=== PATIENT | female | born 1955 | race Two or more races ===

== ENCOUNTER 2016-11-28 14:11 | Emergency (ER) | payer OTHER ==
[2016-11-28 14:16] VITALS: BP 114/68; PULSE 97; TEMP 98; BMI 30.3
--- NOTE | 2016-11-28 14:18 | PDOC ---
Rapid Medical Evaluation Time Seen by Provider: 11/28/16 14:14 Medical Evaluation: Allergies Allergy/AdvReac Type Severity Reaction Status Date / Time No Known Allergies Allergy Verified 07/31/16 17:58 11/28/16 14:15 Pt comes with right heel pain ongoing for the past 2 weeks. She takes tramadol for the pain. Pain is worse with walking. She will be sent for xray.
--- NOTE | 2016-11-28 15:15 | PDOC ---
History of Present Illness - General Chief Complaint: Pain Stated Complaint: RIGHT FOOT PAIN FOR TWO WEEKS Time Seen by Provider: 11/28/16 14:14 History Source: Patient Exam Limitations: No Limitations - History of Present Illness Initial Comments: 11/28/16 15:10 cc PAIN TO FOOT X 10 DAYS; NO TRAUMA Occurred: reports: last week Severity: reports: mild Pain Location: reports: lower extremity (FOOT) Past History - Past Medical History Allergies/Adverse Reactions: Allergies Allergy/AdvReac Type Severity Reaction Status Date / Time No Known Allergies Allergy Verified 11/28/16 14:16 Home Medications: Ambulatory Orders Lisinopril/Hydrochlorothiazide [Lisinopril-Hctz 20-25 mg Tab] 1 each PO HS 05/22 Zolpidem Tartrate 10 mg PO HS 05/22/14 Aspirin Coated [Ecotrin -] 81 mg PO DAILY #0 11/25/14 Famotidine [Pepcid] 40 mg PO DAILY 11/25/14 Fluticasone Propionate [Flovent Diskus] 50 mcg IH ASDIR 11/25/14 Cane 1 each MC DAILY #1 each 04/04/16 Tramadol HCl [Ultram] 50 mg PO Q6H PRN #12 tablet MDD 4 04/04/16 Ibuprofen [Motrin -] 400 mg PO TID #30 tablet 11/28/16 Anemia: No Asthma: Yes Cancer: No Cardiac Disorders: No CVA: No COPD: No CHF: No Dementia: No Diabetes: No GI Disorders: Yes (GERD;GASTRITIS;TICS) Disorders: No HTN: Yes Hypercholesterolemia: No Liver Disease: Yes (NON-ALCOHOLIC) Seizures: No Thyroid Disease: No - Surgical History Abdominal Surgery: Yes (TUMMY TUCK) Appendectomy: Yes Cardiac Surgery: No Cholecystectomy: No Lung Surgery: No Neurologic Surgery: No Orthopedic Surgery: No - Psycho/Social/Smoking Cessation Hx Anxiety: No Suicidal Ideation: No Smoking Status: No Smoking History: Never smoked Have you smoked in the past 12 months: No Number of Cigarettes Smoked Daily: 0 Information on smoking cessation initiated: No Hx Alcohol Use: No Drug/Substance Use Hx: No Substance Use Type: None Hx Substance Use Treatment: No Review of Systems - Review of Systems Constitutional: No: Chills, Fever, Malaise HEENTM: No: Symptoms Reported Respiratory: No: Symptoms reported, Cough Cardiac (ROS): No: Symptoms Reported ABD/GI: No: Symptoms Reported Integumentary: No: Symptoms Reported, Lumps Neurological: No: Symptoms reported, Numbness, Paresthesia, Tingling *Physical Exam - Vital Signs Last Vital Signs Temp Pulse Resp BP Pulse Ox 98 F 97 H 18 114/68 97 11/28/16 14:13 11/28/16 14:13 11/28/16 14:13 11/28/16 14:13 11/28/16 14:13 - Physical Exam General Appearance: Yes: Appropriately Dressed. No: Apparent Distress Neck: positive: Supple. negative: Tender, Rigid Respiratory/Chest: positive: Lungs Clear, Normal Breath Sounds Musculoskeletal: positive: Other (TENDER TO AREA ON PLANTAR SURAFCE, ANTERIOR FOREFOOT) Integumentary: positive: Normal Color, Dry, Warm, Other (NO SKIN BREAKS). negative: Erythema, Rash, Swelling, Ecchymosis, Bruising Neurologic: positive: Fully Oriented, Alert, Motor Strength 5/5. negative: Sensory Deficit Medical Decision Making - Medical Decision Making 11/28/16 15:14 MILD PLANTAR FASCIITIS NOW; WILL REFER TO PODIATRY POST 10 DAYS OF nSAIDS *DC/Admit/Observation/Transfer Diagnosis at time of Disposition: Plantar fasciitis - Discharge Dispostion Disposition: HOME Condition at time of disposition: Stable Admit: No - Referrals Referrals: Yolanda Willard NP [Primary Care Provider] - Tejal Berry MD [Staff Physician] - - Patient Instructions Additional Instructions: PLEASE CALL AND SEE FOOT MD IN 10 DAYS, IF NOT BETTER; WEAR CUSHION IN SHOE; ICE AREA - Post Discharge Activity Work/School Note: Back to Work
== END 2016-11-28 15:28 | disposition home or self-care (01) ==
LOC: JERFT 14:11
DX: M72.2 Plantar fascial fibromatosis (principal); J45.909 Unspecified asthma, uncomplicated; K21.9 Gastro-esophageal reflux disease without esophagitis; I10 Essential (primary) hypertension; K76.0 Fatty (change of) liver, not elsewhere classified
CPT/HCPCS: 73630-TC-RT; 99281-25

== ENCOUNTER 2017-01-21 19:41 | Emergency (ER) | payer OTHER ==
[2017-01-21 19:48] VITALS: BMI 30.7
[2017-01-21] MEDS ORDERED: morphine CARPU-JECT 2 MG/1 ML DISP.SYRIN IVPUSH ONE (20:20)
[2017-01-21] MEDS ORDERED: ONDANSETRON 4 MG/2 ML VIAL IVPB ONE (20:20)
[2017-01-21] MEDS ORDERED: morphine CARPU-JECT 2 MG/1 ML DISP.SYRIN ONE (20:27)
[2017-01-21] MEDS ORDERED: ONDANSETRON 4 MG/2 ML VIAL ONE (20:27)
--- NOTE | 2017-01-21 20:34 | PDOC ---
History of Present Illness <Tory Cortes - Last Filed: 01/21/17 23:37> - General History Source: Patient Exam Limitations: No Limitations - History of Present Illness Initial Comments: 01/21/17 20:25 Patient is a 61-year-old female with history of diverticulosis, hypertension, GERD, insomnia, abdominoplasty complaining of left sided abdominal pain 3 days. Patient states gradual onset of pain progressively worsen now 9/10, associated with generalized fatigue, and urinary frequency. She has had similar pains in the past and was diagnosed with diverticulitis. She has no aggravating or alleviating factors, however has not taken any pain meds today. She denies nausea, vomiting, fever, chills, diarrhea, constipation, dysuria. PMD: Dr. Wade PMHx: As above PSocHx: neg cig, drug, etoh PFamHx: Noncontributory ALL: NKDDA GENERAL/CONSTITUTIONAL: [No fever or chills. No weakness. No weight change.] HEAD, EYES, EARS, NOSE AND THROAT: [No change in vision. No ear pain or discharge. No sore throat.] CARDIOVASCULAR: [No chest pain or shortness of breath.] RESPIRATORY: [No cough, wheezing, or hemoptysis.] GASTROINTESTINAL: [No nausea, vomiting, diarrhea or constipation. No rectal bleeding. (+) abd pain ] GENITOURINARY: [No dysuria, increased in urination (+) frequency, or change in urination.] MUSCULOSKELETAL: [No joint or muscle swelling or pain. No neck or back pain.] SKIN AND BREASTS: [No rash or easy bruising.] NEUROLOGIC: [No headache, vertigo, loss of consciousness, or loss of sensation.] PSYCHIATRIC: [No depression or anxiety.] ENDOCRINE: [No increased thirst. No abnormal weight change.] HEMATOLOGIC/LYMPHATIC: [No anemia, easy bleeding, or history of blood clots.] ALLERGIC/IMMUNOLOGIC: [No hives or skin allergy. No latex allergy.] GENERAL: [The patient is awake, alert, and fully oriented, in moderate painful distress.] HEAD: [Normal with no signs of trauma.] EYES: [Pupils equal, round and reactive to light, extraocular movements intact, sclera anicteric, conjunctiva clear.] ENT: [Ears normal, nares patent, oropharynx clear without exudates. Moist mucous membranes.] NECK: [Normal range of motion, supple without lymphadenopathy, JVD, or masses.] LUNGS: [Breath sounds equal, clear to auscultation bilaterally. No wheezes, and no crackles.] HEART: [Regular rate and rhythm, normal S1 and S2 without murmur, rub.] ABDOMEN: [Soft, (+) tenderness LLQ, normoactive bowel sounds. No guarding, no rebound. No masses.] EXTREMITIES: [Normal range of motion, no edema. No clubbing or cyanosis. No cords, erythema, or tenderness.] NEUROLOGICAL: [Cranial nerves II through XII grossly intact. Normal speech, normal gait.] PSYCH: [Normal mood, normal affect.] SKIN: [Warm, Dry, normal turgor, no rashes or lesions noted.] <Chantal Gregory - Last Filed: 01/22/17 05:09> - General Chief Complaint: Pain Stated Complaint: PAIN, ACUTE Time Seen by Provider: 01/21/17 20:07 Past History <Tory Cortes - Last Filed: 01/21/17 23:37> - Past Medical History Anemia: No Asthma: Yes Cancer: No Cardiac Disorders: No CVA: No COPD: No CHF: No Dementia: No Diabetes: No GI Disorders: Yes (GERD;GASTRITIS;TICS) Disorders: No HTN: Yes Hypercholesterolemia: No Liver Disease: Yes (NON-ALCOHOLIC) Seizures: No Thyroid Disease: No - Surgical History Abdominal Surgery: Yes (TUMMY TUCK) Appendectomy: Yes Cardiac Surgery: No Cholecystectomy: No Lung Surgery: No Neurologic Surgery: No Orthopedic Surgery: No - Psycho/Social/Smoking Cessation Hx Anxiety: No Suicidal Ideation: No Smoking Status: No Smoking History: Never smoked Have you smoked in the past 12 months: No Number of Cigarettes Smoked Daily: 0 Hx Alcohol Use: No Drug/Substance Use Hx: No Substance Use Type: None Hx Substance Use Treatment: No <Chantal Gregory - Last Filed: 01/22/17 05:09> - Past Medical History Allergies/Adverse Reactions: Allergies Allergy/AdvReac Type Severity Reaction Status Date / Time No Known Allergies Allergy Verified 01/21/17 19:46 Home Medications: Ambulatory Orders Lisinopril/Hydrochlorothiazide [Lisinopril-Hctz 20-25 mg Tab] 1 each PO HS 05/22 Zolpidem Tartrate 10 mg PO HS 05/22/14 Aspirin Coated [Ecotrin -] 81 mg PO DAILY #0 11/25/14 Famotidine [Pepcid] 40 mg PO DAILY 11/25/14 Fluticasone Propionate [Flovent Diskus] 50 mcg IH ASDIR 11/25/14 Cane 1 each MC DAILY #1 each 04/04/16 Tramadol HCl [Ultram] 50 mg PO Q6H PRN #12 tablet MDD 4 04/04/16 Ibuprofen [Motrin -] 400 mg PO TID #30 tablet 11/28/16 Levofloxacin [Levaquin -] 500 mg PO DAILY #10 tablet 01/22/17 Metronidazole [Flagyl -] 500 mg PO DAILY #30 tablet 01/22/17 *Physical Exam - Vital Signs Last Vital Signs Temp Pulse Resp BP Pulse Ox 99 F 105 H 18 139/53 98 01/21/17 19:46 01/21/17 19:46 01/21/17 19:46 01/21/17 19:46 01/21/17 19:46 <Tory Cortes - Last Filed: 01/21/17 23:37> - Vital Signs Last Vital Signs Temp Pulse Resp BP Pulse Ox 99 F 105 H 18 139/53 98 01/21/17 19:46 01/21/17 19:46 01/21/17 19:46 01/21/17 19:46 01/21/17 19:46 <Chantal Gregory - Last Filed: 01/22/17 05:09> Heart Score/ECG Review #1 01/21/17 23:38 Universal Grinder Set Up Operator: ([email or web address]) Report Date: 01/21/2017 22:16:00 Report Status: Preliminary Begin of Report Content Referring Physician: Patient Name: Lyric Davison THIS IS A PRELIMINARY REPORT FROM IMAGING DRAMA DIRECTOR IMAGES: 499 EXAM DATE AND TIME: 2017-01-21 22:16:17.0 EXAM: CT ABDOMEN AND PELVIS WITH CONTRAST 1.3 cm hypodensity pancreatic body, 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 Advise follow-up. Acute diverticulitis descending colon. Given that colon wall thickening involves a segment less than 10 cm long, advise follow-up colonoscopy after treatment to exclude remote alternative possibility of mass. Possible additional inflamed diverticulum proximal sigmoid colon. No abscess, bowel obstruction, or free air. Appendix not seen. Trace ascites. Unremarkable gallbladder. Tiny cortical hypodensity left kidney. THIS DOCUMENT HAS BEEN ELECTRONICALLY SIGNED Matilde Sharp M.D. 01/21/2017 23:18 YUSEF Walker Please call Imaging End Finder Twisting Department [phone] ([phone]) with questions. End of Report Content <Tory Cortes - Last Filed: 01/21/17 23:37> ED Treatment Course - LABORATORY CBC & Chemistry Diagram: 01/21/17 20:40 01/21/17 20:40 - ADDITIONAL ORDERS Additional order review: Laboratory Results 01/21/17 01/21/17 20:40 20:40 Sodium 138 Potassium 4.2 Chloride 100 Carbon Dioxide 31 Anion Gap 7 L BUN 8 D Creatinine 0.8 D Creat Clearance w eGFR > 60 Random Glucose 138 H D Calcium 9.1 Total Bilirubin 0.7 D AST 63 H D ALT 101 H D Alkaline Phosphatase 122 H D Total Protein 7.4 Albumin 3.7 Lipase 64 L Urine Color Straw Urine Appearance Clear Urine pH 9.0 H D Ur Specific [place] 1.008 Urine Protein Negative Urine Glucose (UA) Negative Urine Ketones Negative Urine Blood Negative Urine Nitrite Negative Urine Bilirubin Negative Urine Urobilinogen Negative Ur Leukocyte Esterase Negative 01/21/17 20:40 RBC 4.05 MCV 92.8 MCHC 33.6 RDW 13.2 MPV 7.6 Neutrophils % 77.8 D Lymphocytes % 16.6 D Monocytes % 5.1 Eosinophils % 0.3 D Basophils % 0.2 - Medications Given in the ED: ED Medications Discontinued Medications Generic Name Dose Route Start Last Admin Trade Name Freq PRN Reason Stop Dose Admin Morphine Sulfate 2 mg 01/21/17 20:20 01/21/17 20:28 Morphine Injection - IVPUSH 04/30/17 20:21 2 mg ONCE ONE Administration Ondansetron HCl 4 mg 01/21/17 20:20 01/21/17 20:28 Zofran Injection IVPB 01/21/17 20:21 4 mg ONCE ONE Administration Sodium Chloride 1,000 ml 01/21/17 20:36 01/21/17 20:51 Normal Saline - IV 01/21/17 20:37 1,000 ml ONCE ONE Administration <Tory Cortes - Last Filed: 01/21/17 23:37> - LABORATORY CBC & Chemistry Diagram: 01/21/17 20:40 01/21/17 20:40 - RADIOLOGY Radiology Studies Ordered: Category Date Time Status ABDOMEN & PELVIS CT WITH CONTR [CT] Stat CT Scan 01/21/17 20:18 Ordered <Chantal Gregory - Last Filed: 01/22/17 05:09> Medical Decision Making - Medical Decision Making 01/21/17 20:34 Patient is a 61-year-old female with history of diverticulosis, hypertension, GERD, insomnia, abdominoplasty complaining of left sided abdominal pain 3 days. Paitent with h/o diverticulitis suspect diverticultis. will get ct abd/pelvis, labs morpohine, zofran, IVF reassess 01/21/17 21:25 Patient noted to have elevated liver enzymes which is baseline. CT scan shows diverticulitis will give Levaquin 500 mg by mouth and Flagyl 500 mg by mouth in the emergency room Patient is feeling better and wants to go home, ct results and labs discussed Selected Entries 01/22/17 00:20 Temperature 98.6 F Pulse Rate [ 98 H Left] Respiratory 15 Rate Blood Pressure 133/83 [Right] O2 Sat by Pulse 98 Oximetry (%) 01/22/17 00:05 I discussed the physical exam findings, ancillary test results and final diagnoses with the patient. I answered all of the patient's questions. The patient was satisfied with the care received and felt comfortable with the discharge plan and treatment plan. The Patient agrees to follow up with the primary care physician within 24-72 hours. <Chantal Gregory - Last Filed: 01/22/17 05:09> *DC/Admit/Observation/Transfer <Tory Cortes - Last Filed: 01/21/17 23:37> <Chantal Gregory - Last Filed: 01/22/17 05:09> Diagnosis at time of Disposition: Diverticulitis Qualifiers: Diverticulitis site: small intestine Diverticulitis bleeding: without bleeding Diverticulitis complication: without perforation or abscess Qualified Code(s): K57.12 - Diverticulitis of small intestine without perforation or abscess without bleeding - Discharge Dispostion Disposition: HOME Condition at time of disposition: Stable - Prescriptions Prescriptions: Metronidazole [Flagyl -] 500 mg PO DAILY #30 tablet Levofloxacin [Levaquin -] 500 mg PO DAILY #10 tablet - Referrals Referrals: Yolanda Willard NP [Primary Care Provider] - - Patient Instructions Printed Discharge Instructions: DI for Diverticulitis Additional Instructions: Your Discharge Instructions: You must call primary care physician within 24 hours to arrange follow-up. Return to the Emergency Department with any new, persistent or worsening symptoms, for fever, chills, SOB, dizziness, nausea, vomiting or any other concerning changes that may occur. You must see your gastroenterologists in 24- 48 hours. Print Language: ICELANDIC - Post Discharge Activity Work/School Note: Back to Work
[2017-01-21] MEDS ORDERED: SODIUM CHLORIDE 0.9% 1000 ML INFUS.BAG IV ONE (20:36)
[2017-01-21 20:47] LABS: BASOPHIL 0.2 % (0-2.0); EOSINOPHIL 0.3 % (0-4.5); MCH 31.2 pg (25.7-33.7); MCHC 33.6 g/dl (32.0-36.0); MEAN CELL VOLUME 92.8 fl (80-96); MEAN PLT VOLUME 7.6 fl (7.5-11.1); NEUTROPHILS 77.8 % (42.8-82.8); PLATELET COUNT 209 K/MM3 (134-434); RDW 13.2 % (11.6-15.6)
[2017-01-21 20:48] LABS: URINE APPEARANCE CLEAR; URINE BILIRUBIN NEGATIVE (NEGATIVE); URINE BLOOD NEGATIVE (NEGATIVE); URINE COLOR STRAW; URINE GLUCOSE (UA) NEGATIVE (NEGATIVE); URINE KETONE NEGATIVE (NEGATIVE); URINE LEUK ESTERASE NEGATIVE (NEGATIVE); URINE NITRITE NEGATIVE (NEGATIVE); URINE PROTEIN NEGATIVE (NEGATIVE); URINE UROBILINOGEN NEGATIVE E.U./dl (0.2-1.0)
[2017-01-21 21:13] LABS: ALBUMIN 3.7 g/dl (3.4-5.0); ALK PHOS 122 U/L (45-117); ANION GAP 7 (8-16); BILIRUBIN,TOTAL 0.7 mg/dL (0.2-1.0); CALCIUM 9.1 mg/dL (8.5-10.1); CO2 31 mmol/L (21-32); CREATININE 0.8 mg/dL (0.55-1.02); GLUCOSE,RANDOM 138 mg/dL (74-106); SGOT/AST 63 U/L (15-37); SGPT/ALT 101 U/L (12-78); TOT PROT 7.4 g/dl (6.4-8.2)
[2017-01-21] MEDS ORDERED: metroNIDAZOLE 250 MG TABLET PO ONE (23:28)
[2017-01-21] MEDS ORDERED: LEVOFLOXACIN 500 MG TABLET (FP) PO ONE (23:30)
[2017-01-22] MEDS ORDERED: LEVOFLOXACIN 500 MG TABLET (FP) ONE (00:06)
[2017-01-22] MEDS ORDERED: metroNIDAZOLE 250 MG TABLET ONE (00:06)
[2017-01-22 00:22] VITALS: BP 133/83; PULSE 98; TEMP 98.6
== END 2017-01-22 00:38 | disposition home or self-care (01) ==
LOC: JER 19:41
PROC: 3E033NZ Introduction of Analgesics, Hypnotics, Sedatives into Peripheral Vein, Percutaneous Approach (ICD-10-PCS; principal; 2017-01-21)
PROC: 3E033GC Introduction of Other Therapeutic Substance into Peripheral Vein, Percutaneous Approach (ICD-10-PCS; 2017-01-21)
DX: K57.12 Diverticulitis of small intestine without perforation or abscess without bleeding (principal); I10 Essential (primary) hypertension; K21.9 Gastro-esophageal reflux disease without esophagitis; G47.00 Insomnia, unspecified
CPT/HCPCS: 36415; 74177-TC; 80053; 81003; 83690; 85025; 96374; 96375; 99283-25

== ENCOUNTER 2017-01-26 10:13 | Inpatient (IN) | payer OTHER ==
--- NOTE | 2017-01-26 10:36 | PDOC ---
History of Present Illness - General Chief Complaint: Pain Stated Complaint: REVISIT/ RT SIDE PAIN Time Seen by Provider: 01/26/17 10:27 History Source: Patient, Old Records Exam Limitations: No Limitations - History of Present Illness Initial Comments: 01/26/17 10:36 CHIEF COMPLAINT: Abdominal pain HISTORY OF PRESENT ILLNESS: This is a 61 year old female with a history of diverticulitis, HTN, GERD, and abdominoplasty who presents to the ED complaining of 8 days of abdominal pain. She was seen here on 01/21 and diagnosed with diverticulitis by CT scan. She was placed on oral Levaquin and Flagyl as an outpatient. She reports no improvement in pain. She complains of nausea. She denies fevers/chills. She has not had constipation, diarrhea, or rectal bleeding. V/s on arrival are notable for pulse of 93. PCP: Jovita Ha GI: Dr. Israel REVIEW OF SYSTEMS: GENERAL/CONSTITUTIONAL: No fever or chills. No weakness. No weight change. HEAD, EYES, EARS, NOSE AND THROAT: No change in vision. No ear pain or discharge. No sore throat. CARDIOVASCULAR: No chest pain or palpitations. RESPIRATORY: No cough, wheezing, or shortness of breath. GASTROINTESTINAL: See HPI. GENITOURINARY: No dysuria, frequency, or change in urination. MUSCULOSKELETAL: No joint or muscle swelling or pain. No neck or back pain. SKIN: No rash or easy bruising. NEUROLOGIC: No headache, vertigo, loss of consciousness, or loss of sensation. PSYCHIATRIC: No depression or anxiety. ENDOCRINE: No increased thirst. No abnormal weight change. HEMATOLOGIC/LYMPHATIC: No anemia, easy bleeding, or history of blood clots. ALLERGIC/IMMUNOLOGIC: No hives or skin allergy. No latex allergy. PHYSICAL EXAM: GENERAL: The patient is awake, alert, and fully oriented, in no acute distress. HEAD: Normal with no signs of trauma. ENT: Pupils equal, round and reactive to light, extraocular movements intact, sclera anicteric, conjunctiva clear. Neck supple. LUNGS: Clear to auscultation bilaterally. Normal excursion. No respiratory distress or use of accessory muscles. CV: RRR, S1/S2, no MRG. Cap refill < 2 sec. ABDOMEN: Soft, non-distended, exquisitely tender in LLQ. EXTREMITIES: Normal range of motion, no edema. NEUROLOGICAL: Normal speech, normal gait. CN II-XII grossly intact. PSYCH: Normal mood, normal affect. SKIN: Warm, dry, normal turgor, no rashes or lesions noted. Past History - Past Medical History Allergies/Adverse Reactions: Allergies Allergy/AdvReac Type Severity Reaction Status Date / Time No Known Allergies Allergy Verified 01/26/17 10:15 Home Medications: Ambulatory Orders Lisinopril/Hydrochlorothiazide [Lisinopril-Hctz 20-25 mg Tab] 1 each PO HS 05/22 Zolpidem Tartrate 10 mg PO HS 05/22/14 Aspirin Coated [Ecotrin -] 81 mg PO DAILY #0 11/25/14 Famotidine [Pepcid] 40 mg PO DAILY 11/25/14 Fluticasone Propionate [Flovent Diskus] 50 mcg IH ASDIR 11/25/14 Cane 1 each MC DAILY #1 each 04/04/16 Tramadol HCl [Ultram] 50 mg PO Q6H PRN #12 tablet MDD 4 04/04/16 Ibuprofen [Motrin -] 400 mg PO TID #30 tablet 11/28/16 Levofloxacin [Levaquin -] 500 mg PO DAILY #10 tablet 01/22/17 Metronidazole [Flagyl -] 500 mg PO DAILY #30 tablet 01/22/17 Anemia: No Asthma: Yes Cancer: No Cardiac Disorders: No CVA: No COPD: No CHF: No Dementia: No Diabetes: No GI Disorders: Yes (GERD;GASTRITIS;TICS) Disorders: No HTN: Yes Hypercholesterolemia: No Liver Disease: Yes (NON-ALCOHOLIC) Seizures: No Thyroid Disease: No - Surgical History Abdominal Surgery: Yes (TUMMY TUCK) Appendectomy: Yes Cardiac Surgery: No Cholecystectomy: No Lung Surgery: No Neurologic Surgery: No Orthopedic Surgery: No - Psycho/Social/Smoking Cessation Hx Anxiety: No Suicidal Ideation: No Smoking Status: No Smoking History: Never smoked Have you smoked in the past 12 months: No Number of Cigarettes Smoked Daily: 0 Information on smoking cessation initiated: No Hx Alcohol Use: No Drug/Substance Use Hx: No Substance Use Type: None Hx Substance Use Treatment: No *Physical Exam - Vital Signs Last Vital Signs Temp Pulse Resp BP Pulse Ox 98.5 F 93 H 18 120/47 98 01/26/17 10:15 01/26/17 10:15 01/26/17 10:15 01/26/17 10:15 01/26/17 10:15 ED Treatment Course - LABORATORY CBC & Chemistry Diagram: 01/26/17 10:24 01/26/17 10:24 Medical Decision Making - Medical Decision Making 01/26/17 11:24 A/P: 61 year old female with diverticulits, presenting with persistent pain 5 days after initiation of outpatient abx. Non-toxic appearing, but very tender on exam. 1. Repeat CTAP 2. Repeat CBC, comp, lipase. 3. Morphine 4mg IVP and Zofran 4mg IVP for symptomatic relief 4. Anticipate admission 01/26/17 12:31 WBC within normal limits at 4.2 01/26/17 14:44 CTAP reviewed: interval development of an area of diverticulitis in the more distal descending colon with no associated abscess Given failure of outpatient Levaquin/Flagyl, will treat with Zosyn and admit *DC/Admit/Observation/Transfer Diagnosis at time of Disposition: Diverticulitis Qualifiers: Diverticulitis site: large intestine Diverticulitis bleeding: without bleeding Diverticulitis complication: without perforation or abscess Qualified Code(s): K57.32 - Diverticulitis of large intestine without perforation or abscess without bleeding - Discharge Dispostion Condition at time of disposition: Guarded Admit: Yes
[2017-01-26] MEDS ORDERED: ONDANSETRON 4 MG/2 ML VIAL IVPUSH ONE (10:52)
[2017-01-26] MEDS ORDERED: morphine CARPU-JECT 4 MG/1 ML DISP.SYRIN IVPUSH ONE (10:52)
[2017-01-26] MEDS ORDERED: morphine CARPU-JECT 4 MG/1 ML DISP.SYRIN ONE (11:13)
[2017-01-26] MEDS ORDERED: ONDANSETRON 4 MG/2 ML VIAL ONE (11:13)
[2017-01-26 11:43] LABS: BASOPHIL 0.6 % (0-2.0); EOSINOPHIL 1.4 % (0-4.5); MCH 31.6 pg (25.7-33.7); MCHC 33.6 g/dl (32.0-36.0); MEAN CELL VOLUME 94.1 fl (80-96); MEAN PLT VOLUME 7.4 fl (7.5-11.1); NEUTROPHILS 58.8 % (42.8-82.8); PLATELET COUNT 266 K/MM3 (134-434); RDW 13.3 % (11.6-15.6); WHITE BLOOD COUNT 4.2 K/mm3 (4.0-10.0)
[2017-01-26 11:48] LABS: ALBUMIN 3.7 g/dl (3.4-5.0); ANION GAP 5 (8-16); BILIRUBIN,TOTAL 0.4 mg/dL (0.2-1.0); CALCIUM 9.4 mg/dL (8.5-10.1); CO2 33 mmol/L (21-32); CREATININE 0.9 mg/dL (0.55-1.02); GLUCOSE,RANDOM 85 mg/dL (74-106); SGOT/AST 25 U/L (15-37); SGPT/ALT 114 U/L (12-78); TOT PROT 7.5 g/dl (6.4-8.2)
[2017-01-26 11:53] LABS: ALK PHOS 183 U/L (45-117)
--- NOTE | 2017-01-26 11:58 | PDOC ---
*Physical Exam - Vital Signs Last Vital Signs Temp Pulse Resp BP Pulse Ox 98.5 F 93 H 18 120/47 98 01/26/17 10:15 01/26/17 10:15 01/26/17 10:15 01/26/17 10:15 01/26/17 10:15 ED Treatment Course - LABORATORY CBC & Chemistry Diagram: 01/27/17 06:00 01/27/17 06:00 - ADDITIONAL ORDERS Additional order review: Laboratory Results 01/26/17 01/26/17 10:24 10:24 Sodium 139 Potassium 4.0 Chloride 101 Carbon Dioxide 33 H Anion Gap 5 L BUN 10 D Creatinine 0.9 Creat Clearance w eGFR > 60 Random Glucose 85 D Calcium 9.4 Total Bilirubin 0.4 D AST 25 D ALT 114 H Alkaline Phosphatase 183 H D Total Protein 7.5 Albumin 3.7 Lipase 65 L 01/26/17 10:24 RBC 4.10 MCV 94.1 MCHC 33.6 RDW 13.3 MPV 7.4 L Neutrophils % 58.8 D Lymphocytes % 33.1 D Monocytes % 6.1 Eosinophils % 1.4 D Basophils % 0.6 - Medications Given in the ED: ED Medications Discontinued Medications Generic Name Dose Route Start Last Admin Trade Name Freq PRN Reason Stop Dose Admin Morphine Sulfate 4 mg 01/26/17 10:52 01/26/17 11:44 Morphine Injection - IVPUSH 01/26/17 10:53 Not Given ONCE ONE Ondansetron HCl 4 mg 01/26/17 10:52 01/26/17 11:34 Zofran Injection IVPUSH 01/26/17 10:53 4 mg ONCE ONE Administration Medical Decision Making - Medical Decision Making 01/26/17 11:58 Pt seen by the Advanced Practice Provider under my direct supervision Ancillary studies reviewed I agree with plan as outlined by the Advanced Practice Provider EULALIO Gutierres *DC/Admit/Observation/Transfer Diagnosis at time of Disposition: Diverticulitis
[2017-01-26] MEDS ORDERED: PIPERACILLIN/TAZOB 4.5 GM/100 ML PRE-DOCKED IVPB ONE ×2 (14:44→18:45)
[2017-01-26] MEDS ORDERED: morphine CARPU-JECT 4 MG/1 ML DISP.SYRIN IVPUSH PRN (15:32)
--- NOTE | 2017-01-26 16:29 | HP ---
CHIEF COMPLAINT: My fadi king PCP: Jovita Ha HISTORY OF PRESENT ILLNESS: 61 yo F with significant h/o diverticulitis, HTN, GERD presented to the ED with LLQ pain x 8 days. She was working when the pain first came on a week ago and it had gotten worse in terms of severity and frequency. She visited [facility] ED on Sunday and CT abd showed diverticulitis on the descending colon. She did feel better with pain medication but did not want to be admitted to the hospital. As a result, she was sent home on levaquin and flagyl. Today she came back due to the worsening pain despite the antibiotics. The pain is located in LLQ, non-radiating, constant, 8/10 at worst, no aggravating or alleviating factors. Her last colonoscopy was 2 years ago and it showed polyps and diverticulosis in descending and sigmoid colon. Patient denies fever, chills , chest pain, sob, urinary symptoms. ER course was notable for: (1) Tachycardia ( 94 beats/min) Recent Travel: Denies PAST MEDICAL HISTORY: As above PAST SURGICAL HISTORY: Tummy tuck and appendectomy Social History: Smoking: Denies Alcohol: Denies Drugs: Denies Family History: Non-contributory Allergies No Known Allergies Allergy (Verified 01/26/17 10:15) HOME MEDICATIONS: Home Medications Medication Instructions Recorded Lisinopril/Hydrochlorothiazide 1 each PO HS 05/22/14 [Lisinopril-Hctz 20-25 mg Tab] Zolpidem Tartrate 10 mg PO HS 05/22/14 Aspirin Coated [Ecotrin -] 81 mg PO DAILY #0 11/25/14 Famotidine [Pepcid] 40 mg PO DAILY 11/25/14 Fluticasone Propionate [Flovent 50 mcg IH ASDIR 11/25/14 Diskus] Cane 1 each MC DAILY #1 each 04/04/16 Tramadol HCl [Ultram] 50 mg PO Q6H PRN #12 tablet MDD 4 04/04/16 Ibuprofen [Motrin -] 400 mg PO TID #30 tablet 11/28/16 Levofloxacin [Levaquin -] 500 mg PO DAILY #10 tablet 01/22/17 Metronidazole [Flagyl -] 500 mg PO DAILY #30 tablet 01/22/17 REVIEW OF SYSTEMS CONSTITUTIONAL: loss of appetite Absent: fever, chills, diaphoresis, generalized weakness, malaise,, weight change HEENT: Absent: rhinorrhea, nasal congestion, throat pain, throat swelling, difficulty swallowing, mouth swelling, ear pain, eye pain, visual changes CARDIOVASCULAR: Absent: chest pain, syncope, palpitations, irregular heart rate, lightheadedness , peripheral edema RESPIRATORY: Absent: cough, shortness of breath, dyspnea with exertion, orthopnea, wheezing, stridor, hemoptysis GASTROINTESTINAL: abdominal pain Absent: abdominal distension, nausea, vomiting, diarrhea, constipation, melena , hematochezia GENITOURINARY: Absent: dysuria, frequency, urgency, hesitancy, hematuria, flank pain, genital pain MUSCULOSKELETAL: Muscle cramp Absent: myalgia, arthralgia, joint swelling, back pain, neck pain SKIN: Absent: rash, itching, pallor HEMATOLOGIC/IMMUNOLOGIC: Absent: easy bleeding, easy bruising, lymphadenopathy, frequent infections ENDOCRINE: Absent: unexplained weight gain, unexplained weight loss, heat intolerance, cold intolerance NEUROLOGIC: Absent: headache, focal weakness or paresthesias, dizziness, unsteady gait, seizure, mental status changes, bladder or bowel incontinence PSYCHIATRIC: Absent: anxiety, depression, suicidal or homicidal ideation, hallucinations. PHYSICAL EXAMINATION GENERAL: Awake, alert, and fully oriented, in no acute distress. HEAD: Normal with no signs of trauma. EYES: Pupils equal, round and reactive to light, extraocular movements intact, sclera anicteric, conjunctiva clear EARS, NOSE, THROAT: oropharynx clear without exudates. Moist mucous membranes. LUNGS: Breath sounds equal, clear to auscultation bilaterally. No wheezes, and no crackles. No accessory muscle use. HEART: Regular rate and rhythm, normal S1 and S2 without murmur, rub or gallop. ABDOMEN: Soft, lower quadrants tenderness L > R, not distended, normoactive bowel sounds, no guarding, no rebound, no masses. MUSCULOSKELETAL: No CVA tenderness. EXTREMITIES: No calf tenderness. No peripheral edema. SKIN: Warm, dry, normal turgor, no rashes or lesions noted, normal capillary refill. Vital Signs Period Temp Pulse Resp BP Sys/Shane Pulse Ox Last 24 Hr 98.5 F 93 18 120/47 98 CBCD WBC 4.2 K/mm3 (4.0-10.0) D 01/26/17 10:24 RBC 4.10 M/mm3 (3.60-5.2) 01/26/17 10:24 Hgb 13.0 GM/dL (10.7-15.3) 01/26/17 10:24 Hct 38.5 % (32.4-45.2) 01/26/17 10:24 MCV 94.1 fl (80-96) 01/26/17 10:24 MCHC 33.6 g/dl (32.0-36.0) 01/26/17 10:24 RDW 13.3 % (11.6-15.6) 01/26/17 10:24 Plt Count 266 K/MM3 (134-434) D 01/26/17 10:24 MPV 7.4 fl (7.5-11.1) L 01/26/17 10:24 CMP Sodium 139 mmol/L (136-145) 01/26/17 10:24 Potassium 4.0 mmol/L (3.5-5.1) 01/26/17 10:24 Chloride 101 mmol/L (98-107) 01/26/17 10:24 Carbon Dioxide 33 mmol/L (21-32) H 01/26/17 10:24 Anion Gap 5 (8-16) L 01/26/17 10:24 BUN 10 mg/dL (7-18) D 01/26/17 10:24 Creatinine 0.9 mg/dL (0.55-1.02) 01/26/17 10:24 Creat Clearance w eGFR > 60 (>60) 01/26/17 10:24 Calcium 9.4 mg/dL (8.5-10.1) 01/26/17 10:24 Total Bilirubin 0.4 mg/dL (0.2-1.0) D 01/26/17 10:24 AST 25 U/L (15-37) D 01/26/17 10:24 ALT 114 U/L (12-78) H 01/26/17 10:24 Alkaline Phosphatase 183 U/L (45-117) H D 01/26/17 10:24 Total Protein 7.5 g/dl (6.4-8.2) 01/26/17 10:24 Albumin 3.7 g/dl (3.4-5.0) 01/26/17 10:[address] Abd on 01/26: Improvement in acute diverticulitis of the mid descending colon since 01/21/2017. 2. Development of an additional area of acute diverticulitis within the more distal descending colon. No abscess is associated with this process CXR on 01/26: No acute pathology ASSESSMENT/PLAN: 61 yo F with significant h/o diverticulitis, HTN, GERD admitted to the hospital for uncomplicated diverticulitis. Diverticulitis, uncomplicated - NS 100cc/hr for hydration - Morphine 4mg Q4H PRN for pain - Hold PO meds and NPO * PO trial once pain subsides - Cont. zosyn 3.375g - Outpatient colonoscopy to r/o underlying cause of recurrent diverticulitis HTN - Hold HCTZ-Lisinopril GERD - Hold pepcid FEN - IVF as above - Normal lytes, cont. to monitor - NPO for food and meds Prophylaxis - DVT: heparin SQ - GI: not indicated Disposition - Med-surg Code status - Full code Visit type - Emergency Visit Emergency Visit: Yes ED Registration Date: 01/26/17 Care time: The patient presented to the Emergency Department on the above date and was hospitalized for further evaluation of their emergent condition. - New Patient This patient is new to me today: Yes Date on this admission: 01/27/17 - Critical Care Critical Care patient: No
[2017-01-26 16:49] VITALS: BMI 30.7
--- NOTE | 2017-01-26 17:09 | PN ---
Teaching Attending Note Name of Resident: Farhat Frausto ATTENDING PHYSICIAN STATEMENT I saw and evaluated the patient. I reviewed the resident's note and discussed the case with the resident. I agree with the resident's findings and plan as documented. SUBJECTIVE:61yo F c/o abdominal pain x6days. pain started in LLQ and came to ER on 01/21 was told she had acute diverticulitis and was sent home on levaquin/ flagyl. she started to improve but then woke up this morning with the pain being more severe then previously. pain is dull 8/10 non radiating. assoc with nausea and anorexia. had similar episode several years ago and had colonoscopy 3 years ago and was only positive for diverticulosis at that time. denies CP, SOB,fever, chills, V/C/D. normal BM this morning. no significant weight loss. OBJECTIVE: Last Vital Signs Temp Pulse Resp BP Pulse Ox 98.3 F 94 H 16 111/78 99 01/26/17 16:38 01/26/17 16:38 01/26/17 16:38 01/26/17 16:38 01/26/17 16:38 General NAD CV S1 S2 RRR no murmur/rub/gallop Lungs CTA B/L no wheezing/rales/rhonchi Abdomen soft +LUQ & LLQ tenderness normoactive BS no rebound or guarding ASSESSMENT AND PLAN: 61yo F with PMH HTN, GERD and diverticulosis presented to the ER and was admitted for further evaluation of their emergent condition 1. Acute diverticulitis- medicine admission. failed outpatient therapy. initial diverticulitis resolved but now recurring in alternative area while still on abx. NPO, IVF, d/c oral abx and start Zosyn. ID consult. will need repeat colonoscopy in 6-8 weeks 2. HTN- controlled. hold oral agents 3. DVT ppx- lovenox
[2017-01-26] MEDS: HEPARIN NA (PORCINE) 5,000 UNITS/ML 1ML VIAL SQ SCH ×2 (18:23→21:58)
[2017-01-26 19:34] LABS: URINE APPEARANCE CLEAR; URINE BILIRUBIN NEGATIVE (NEGATIVE); URINE BLOOD NEGATIVE (NEGATIVE); URINE COLOR STRAW; URINE GLUCOSE (UA) NEGATIVE (NEGATIVE); URINE KETONE NEGATIVE (NEGATIVE); URINE LEUK ESTERASE NEGATIVE (NEGATIVE); URINE NITRITE NEGATIVE (NEGATIVE); URINE PROTEIN NEGATIVE (NEGATIVE); URINE UROBILINOGEN NEGATIVE E.U./dl (0.2-1.0)
[2017-01-26] MEDS: SODIUM CHLORIDE 1,000 ML IV SCH (20:03)
[2017-01-26] MEDS ORDERED: ZOLPIDEM TARTRATE 5 MG TABLET PO ONE (21:36)
[2017-01-27] MEDS ORDERED: PIPERACILLIN/TAZOB 3.375 GM/50 ML PRE-DOCKED IVPB ONE (04:00)
[2017-01-27] MEDS: HEPARIN NA (PORCINE) 5,000 UNITS/ML 1ML VIAL SQ SCH ×3 (06:16→21:40)
[2017-01-27 07:46] LABS: BASOPHIL 0.4 % (0-2.0); MCH 31.8 pg (25.7-33.7); MCHC 34.1 g/dl (32.0-36.0); MEAN CELL VOLUME 93.3 fl (80-96); MEAN PLT VOLUME 7.2 fl (7.5-11.1); NEUTROPHILS 62.8 % (42.8-82.8); PLATELET COUNT 263 K/MM3 (134-434); RDW 13.2 % (11.6-15.6)
[2017-01-27 08:19] LABS: ALBUMIN 3.3 g/dl (3.4-5.0); BILIRUBIN,TOTAL 0.7 mg/dL (0.2-1.0); COCKROFT - GAULT 69.2665; TOT PROT 6.6 g/dl (6.4-8.2)
--- NOTE | 2017-01-27 09:19 | PN ---
Progress Note (short form) - Note Progress Note: ID Appreciate kind referral Full note dictated Impression Acute diverticulitis Zosyn 4.5grs IVPB q8H CRP ESR Pati MONK Problem List - Problems (1) Diverticulitis Code(s): K57.92 - DVTRCLI OF INTEST, PART UNSP, W/O PERF OR ABSCESS W/O BLEED Qualifiers: Diverticulitis site: large intestine Diverticulitis bleeding: without bleeding Diverticulitis complication: without perforation or abscess Qualified Code(s): K57.32 - Diverticulitis of large intestine without perforation or abscess without bleeding
--- NOTE | 2017-01-27 09:21 | EKG ---
Test Reason : Blood Pressure : / mmHG Vent. Rate : 078 BPM Atrial Rate : 078 BPM P-R Int : 156 ms QRS Dur : 074 ms QT Int : 364 ms P-R-T Axes : 018 010 024 degrees QTc Int : 414 ms NORMAL SINUS RHYTHM CANNOT RULE OUT ANTERIOR INFARCT , AGE UNDETERMINED ABNORMAL ECG WHEN COMPARED WITH ECG OF 22-MAY-2014 21:24, NO SIGNIFICANT CHANGE WAS FOUND Confirmed by ALEJANDRO BAUM MD ([id number]) on 01/27/2017 9:21:14 AM Referred By: Confirmed By:ALEJANDRO BAUM MD
[2017-01-27] MEDS: PIPERACILLIN/TAZOB 4.5 GM 100 ML IVPB SCH ×2 (09:51→18:17)
[2017-01-27] MEDS: SODIUM CHLORIDE 1,000 ML IV SCH ×2 (09:51→15:55)
--- NOTE | 2017-01-27 10:51 | PN ---
Progress Note (short form) - Note Progress Note: continues to have LLQ pain and c/o fatigue. denies CP, SOB,fever, chills, N/V/C/ D. Current Medications Generic Name Dose Route Start Last Admin Trade Name Freq PRN Reason Stop Dose Admin Acetaminophen 650 mg 01/26/17 15:27 Tylenol - PO Q4H PRN FEVER OR PAIN Heparin Sodium (Porcine) 5,000 unit 01/26/17 14:00 01/27/17 06:16 Heparin - SQ 5,000 unit TID JUAN Administration Sodium Chloride 1,000 mls @ 100 mls/hr 01/26/17 15:30 01/27/17 09:51 Normal Saline - IV 100 mls/hr ASDIR JUAN Administration Piperacillin Sod/Tazobactam Sod 100 mls @ 200 mls/hr 01/27/17 10:00 01/27/17 09 :51 Zosyn 4.5gm Ivpb (Pre-Docked) IVPB 200 mls/hr Q8H-IV JUAN Administration Protocol Morphine Sulfate 4 mg 01/26/17 15:32 01/27/17 00:26 Morphine Injection - IVPUSH 01/27/17 15:31 4 mg Q4H PRN Administration PAIN Ondansetron HCl 4 mg 01/26/17 15:27 Zofran Injection IVPB Q6H PRN NAUSEA Last Vital Signs Temp Pulse Resp BP Pulse Ox 98.4 F 79 16 111/63 98 01/27/17 08:00 01/27/17 08:00 01/27/17 08:00 01/27/17 08:00 01/27/17 09:00 General NAD CV S1 S2 RRR no murmur/rub/gallop Lungs CTA B/L no wheezing/rales/rhonchi Abdomen soft + LLQ tenderness normoactive BS no rebound or guarding CBCD WBC 5.0 K/mm3 (4.0-10.0) 01/27/17 06:00 RBC 3.89 M/mm3 (3.60-5.2) 01/27/17 06:00 Hgb 12.4 GM/dL (10.7-15.3) 01/27/17 06:00 Hct 36.2 % (32.4-45.2) 01/27/17 06:00 MCV 93.3 fl (80-96) 01/27/17 06:00 MCHC 34.1 g/dl (32.0-36.0) 01/27/17 06:00 RDW 13.2 % (11.6-15.6) 01/27/17 06:00 Plt Count 263 K/MM3 (134-434) 01/27/17 06:00 MPV 7.2 fl (7.5-11.1) L 01/27/17 06:00 CMP Sodium 138 mmol/L (136-145) 01/27/17 06:00 Potassium 4.3 mmol/L (3.5-5.1) 01/27/17 06:00 Chloride 101 mmol/L (98-107) 01/27/17 06:00 Carbon Dioxide 31 mmol/L (21-32) 01/27/17 06:00 Anion Gap 6 (8-16) L 01/27/17 06:00 BUN 10 mg/dL (7-18) 01/27/17 06:00 Creatinine 1.0 mg/dL (0.55-1.02) 01/27/17 06:00 Creat Clearance w eGFR 56.00 (>60) 01/27/17 06:00 Calcium 9.0 mg/dL (8.5-10.1) 01/27/17 06:00 Total Bilirubin 0.7 mg/dL (0.2-1.0) D 01/27/17 06:00 AST 23 U/L (15-37) 01/27/17 06:00 ALT 83 U/L (12-78) H D 01/27/17 06:00 Alkaline Phosphatase 163 U/L (45-117) H 01/27/17 06:00 Total Protein 6.6 g/dl (6.4-8.2) 01/27/17 06:00 Albumin 3.3 g/dl (3.4-5.0) L 01/27/17 06:00 ASSESSMENT AND PLAN: 61yo F with PMH HTN, GERD and diverticulosis presented to the ER and was admitted for further evaluation of their emergent condition 1. Acute diverticulitis-modest improvement. continue NPO (can have ice chips), IVF. on zosyn day 2. pain/nausea control. will wait for clinical improvement prior to advancing diet. ID consulted. will need repeat colonoscopy in 6-8 weeks 2. HTN- controlled. hold oral agents 3. DVT ppx- lovenox Visit type - Emergency Visit Emergency Visit: Yes ED Registration Date: 01/26/17 Care time: The patient presented to the Emergency Department on the above date and was hospitalized for further evaluation of their emergent condition. - New Patient This patient is new to me today: No - Critical Care Critical Care patient: No - Discharge Referral Referred to [facility] No
[2017-01-27 11:24] LABS: C-REACTIVE PROTEIN 4.3 MG/DL (0.00-0.3)
[2017-01-27] MEDS: ONDANSETRON 4 MG/2 ML VIAL IVPB PRN (12:24)
[2017-01-27 13:28] LABS: HIV 1 & 2 AB NEGATIVE; HIV 1 AGp24 NEGATIVE
--- NOTE | 2017-01-27 15:13 | CONS ---
INFECTIOUS DISEASE CONSULT DATE OF CONSULTATION: DATE OF DICTATION: 01/27/2017 HISTORY OF PRESENT ILLNESS: This is a 61-year-old female whom I am asked to consult for antibiotic management for diverticulitis. She had originally presented to the emergency room with abdominal pain and a CAT scan showing diverticulitis. Apparently at that time, she did not want to be admitted and was discharged home with levofloxacin and metronidazole. She returns now with worsening pain despite antibiotics, mostly localized to the left lower quadrant. She denies any fever or chills. She had had a colonoscopy done 2 years ago, which showed diverticulosis and polyps in the descending and sigmoid colon. She is empirically treated with Zosyn, and I am asked to see her for further antibiotic management. The patient denies any fever or chills and notes that she continues to have left lower quadrant pain, though improved. PAST MEDICAL HISTORY: Includes hypertension and GERD. Medication at home: Lisinopril, aspirin, Pepcid, Flovent, tramadol, levofloxacin, metronidazole. ALLERGIES: None known. SOCIAL HISTORY: [place] immigrant living in the [place] [place] many years. 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 Lives with a family. Not . No substance abuse history, and she does not smoke cigarettes. FAMILY HISTORY: Reviewed and noncontributory. REVIEW OF SYSTEMS: All systems reviewed, positive only for GI with abdominal pain in the left lower quadrant. PHYSICAL EXAMINATION: General: She was an alert female in no acute distress. Vital signs: Temperature 98.5. Blood pressure 120/50. Respirations 18. Pulse 90. HEENT: Neck supple. No adenopathy. Lungs: Clear to percussion and auscultation. Heart: S1, S2, regular rhythm without audible murmur. Abdomen: Positive bowel sounds. Abdomen soft, no distention. Tenderness noted, mostly left lower quadrant. No guarding or rebound. No palpable mass. Extremities: No clubbing, cyanosis or edema. Abdominal CT scan dated 01/26 shows acute diverticulitis of the mid-descending colon, improved since 01/21. Development of additional acute diverticulitis in the distal descending colon. No abscess is noted. Chest x-ray shows no acute infiltrate. ASSESSMENT: Acute diverticulitis, clinically improving on antibiotic therapy. PLAN: 1. Will continue to treat with piperacillin tazobactam 4.5 gm every 8 hours. 2. Obtain a CRP and a sed rate, which may be useful for following the response to therapy. 3. Routine HIV testing. CRISTINA GARCIA M.D. PRAKASH/[id number]
[2017-01-27] MEDS ORDERED: ZOLPIDEM TARTRATE 5 MG TABLET PO ONE (21:16)
[2017-01-28] MEDS: PIPERACILLIN/TAZOB 4.5 GM 100 ML IVPB SCH ×3 (02:34→17:44)
[2017-01-28] MEDS: HEPARIN NA (PORCINE) 5,000 UNITS/ML 1ML VIAL SQ SCH ×3 (06:27→21:53)
--- NOTE | 2017-01-28 07:53 | PN ---
Progress Note, Physician Chief Complaint: ID Some improvement LLQ pain Remains afebrile PIP TAZO - Current Medication List Current Medications: Active Medications Acetaminophen (Tylenol -) 650 mg PO Q4H PRN PRN Reason: FEVER OR PAIN Heparin Sodium (Porcine) (Heparin -) 5,000 unit SQ [facility]ID [facility] Last Admin: 01/28/17 06:27 Dose: 5,000 unit Sodium Chloride (Normal Saline -) 1,000 mls @ 100 mls/hr IV ASDIR JUAN Last Admin: 01/27/17 15:55 Dose: Not Given Piperacillin Sod/Tazobactam Sod (Zosyn 4.5gm Ivpb (Pre-Docked)) 100 mls @ 200 mls/hr IVPB Q8H-IV JUAN PRN Reason: Protocol Last Admin: 01/28/17 02:34 Dose: 200 mls/hr Ondansetron HCl (Zofran Injection) 4 mg IVPB Q6H PRN PRN Reason: NAUSEA Last Admin: 01/27/17 12:24 Dose: 4 mg - Objective Vital Signs: Vital Signs Temperature 98.2 F 01/28/17 06:00 Pulse Rate 70 01/28/17 06:00 Respiratory Rate 16 01/28/17 06:00 Blood Pressure 112/65 01/28/17 06:00 O2 Sat by Pulse Oximetry (%) 98 01/27/17 21:00 Constitutional: Yes: Well Nourished, No Distress Neck: Yes: WNL, Supple Cardiovascular: Yes: Regular Rate and Rhythm, S1, S2 Respiratory: Yes: WNL, Regular, CTA Bilaterally Gastrointestinal: Yes: WNL, Normal Bowel Sounds, Soft, Tenderness, Other (LLQ mild mod pain). No: Splenomegaly, Tenderness, Rebound Labs: CBC, BMP 01/27/17 06:00 01/27/17 06:00 Problem List - Problems (1) Diverticulitis Code(s): K57.92 - DVTRCLI OF INTEST, PART UNSP, W/O PERF OR ABSCESS W/O BLEED Qualifiers: Diverticulitis site: large intestine Diverticulitis bleeding: without bleeding Diverticulitis complication: without perforation or abscess Qualified Code(s): K57.32 - Diverticulitis of large intestine without perforation or abscess without bleeding Assessment/Plan Laboratory Tests 01/27/17 01/27/17 06:00 06:00 WBC 5.0 Hgb 12.4 Plt Count 263 C-Reactive Protein 4.3 H Assessment Acute diverticulitis Previous po antibiotics LEVOFLOX METRONIDAZOLE Improving Plan Another day or 2 IV antibiotics then consider discharge Mariya Krueger MD
--- NOTE | 2017-01-28 09:07 | PN ---
Teaching Attending Note Name of Resident: Farhat Frausto ATTENDING PHYSICIAN STATEMENT I saw and evaluated the patient. I reviewed the resident's note and discussed the case with the resident. I agree with the resident's findings and plan as documented. SUBJECTIVE:states pain has improved. requesting to eat. c/o difficulty sleeping here. denies CP, SOB,fever, chills, N/V/C/D OBJECTIVE: Last Vital Signs Temp Pulse Resp BP Pulse Ox 98.2 F 70 16 112/65 98 01/28/17 06:00 01/28/17 06:00 01/28/17 06:00 01/28/17 06:00 01/27/17 21:00 General NAD Abdomen LLQ tenderness no rebound or guarding soft normoactive BS ASSESSMENT AND PLAN: 61yo F with PMH HTN, GERD and diverticulosis presented to the ER and was admitted for further evaluation of their emergent condition 1. Acute diverticulitis-modest improvement. will attempt to advance to clear liquid diet. instructed if pain worsens to stop eating. on zosyn day 3. will continue to tomorrow if continues to improve will d/c on augmentin. ID on board. will need repeat colonoscopy in 6-8 weeks 2. HTN- controlled. hold oral agents 3. insomnia- ambien QHS here. explained will not give prescription on discharge. verbalized understanding 4. DVT ppx- lovenox
--- NOTE | 2017-01-28 10:06 | PN ---
Physical Exam: SUBJECTIVE: Patient seen and examined at bedside. She stated that pain has overall improved but not by much, worst on admission, slight better on Sunday, then worse again , today slightly better. Denies fever, chills, chest pain, sob, urinary or bowel symptoms. OBJECTIVE: Vital Signs Period Temp Pulse Resp BP Sys/Shane Pulse Ox Last 24 Hr 98.2 F-98.7 F 70-91 16-18 112-128/60-76 98 GENERAL: Awake, alert, and fully oriented, in no acute distress. HEAD: Normal with no signs of trauma. EYES: Pupils equal, round and reactive to light, extraocular movements intact, sclera anicteric, conjunctiva clear EARS, NOSE, THROAT: oropharynx clear without exudates. Moist mucous membranes. LUNGS: Breath sounds equal, clear to auscultation bilaterally. No wheezes, and no crackles. No accessory muscle use. HEART: Regular rate and rhythm, normal S1 and S2 without murmur, rub or gallop. ABDOMEN: Soft, L lower quadrants tenderness, not distended, normoactive bowel sounds, no guarding, no rebound, no masses. MUSCULOSKELETAL: No CVA tenderness. EXTREMITIES: No calf tenderness. No peripheral edema. SKIN: Warm, dry, normal turgor, no rashes or lesions noted, normal capillary refill. Intake & Output 01/25/17 01/26/17 01/27/17 01/28/17 23:59 23:59 23:59 23:59 Intake Total 150 1999 1150 Balance 150 1999 1150 Weight 76.204 kg Active Medications Generic Name Dose Route Start Last Admin Trade Name Freq PRN Reason Stop Dose Admin Acetaminophen 650 mg 01/26/17 15:27 Tylenol - PO Q4H PRN FEVER OR PAIN Heparin Sodium (Porcine) 5,000 unit 01/26/17 14:00 01/28/17 06:27 Heparin - SQ 5,000 unit TID JUAN Administration Sodium Chloride 1,000 mls @ 100 mls/hr 01/26/17 15:30 01/27/17 15:55 Normal Saline - IV Not Given ASDIR JUAN Piperacillin Sod/Tazobactam Sod 100 mls @ 200 mls/hr 01/27/17 10:00 01/28/17 02 :34 Zosyn 4.5gm Ivpb (Pre-Docked) IVPB 200 mls/hr Q8H-IV JUAN Administration Protocol Ondansetron HCl 4 mg 01/26/17 15:27 01/27/17 12:24 Zofran Injection IVPB 4 mg Q6H PRN Administration NAUSEA Zolpidem Tartrate 10 mg 01/28/17 09:07 Ambien - PO HS PRN INSOMNIA IMAGING CT Abd on 01/26: Improvement in acute diverticulitis of the mid descending colon since 01/21/2017. 2. Development of an additional area of acute diverticulitis within the more distal descending colon. No abscess is associated with this process CXR on 01/26: No acute pathology ASSESSMENT/PLAN: 61 yo F with significant h/o diverticulitis, HTN, GERD admitted to the hospital for uncomplicated diverticulitis. Diverticulitis, uncomplicated - NS 100cc/hr for hydration - Tynelol PRN for pain - PO trial with thin liquid today - Cont. zosyn 3.375g (day 3) - Outpatient colonoscopy to r/o underlying cause of recurrent diverticulitis HTN - Hold HCTZ-Lisinopril GERD - Hold pepcid FEN - IVF as above - Normal lytes, cont. to monitor - Thin liquid, advance as tolerated Prophylaxis - DVT: heparin SQ - GI: not indicated Disposition - Discharge on Sunday if tolerate PO intake Code status - Full code Visit type - Emergency Visit Emergency Visit: No - New Patient This patient is new to me today: No - Critical Care Critical Care patient: No
[2017-01-28] MEDS: SODIUM CHLORIDE 1,000 ML IV SCH ×3 (10:18→20:29)
[2017-01-29] MEDS: ACETAMINOPHEN 325 MG TABLET (FP) PO PRN (00:32)
[2017-01-29] MEDS: ZOLPIDEM TARTRATE 5 MG TABLET PO PRN (00:34)
[2017-01-29] MEDS: PIPERACILLIN/TAZOB 4.5 GM 100 ML IVPB SCH ×3 (02:03→17:53)
[2017-01-29] MEDS: HEPARIN NA (PORCINE) 5,000 UNITS/ML 1ML VIAL SQ SCH ×3 (05:26→21:47)
[2017-01-29] MEDS ORDERED: PT OWN MED DRAWER 7, Y5N ONE (09:16)
[2017-01-29] MEDS: ONDANSETRON 4 MG/2 ML VIAL IVPB PRN (09:28)
[2017-01-29] MEDS ORDERED: SODIUM CHLORIDE 1,000 ML IV ONE (09:56)
--- NOTE | 2017-01-29 10:49 | PN ---
Progress Note (short form) - Note Progress Note: Zosyn Selected Entries 01/29/17 06:00 Temperature 97.5 F L Pulse Rate 70 Respiratory 20 Rate Blood Pressure 136/71 Abd Soft tenderness LLQ Microbiology 01/26/17 19:00 Urine - Urine Clean Catch Urine Culture - Final NO GROWTH OBTAINED Laboratory Tests 01/27/17 01/27/17 01/27/17 06:00 06:00 11:00 WBC 5.0 Hgb 12.4 Plt Count 263 ESR C-Reactive Protein 4.3 H HIV 1&2 Antibody Screen Negative HIV P24 Antigen Negative 01/28/17 06:45 WBC Hgb Plt Count ESR 69 H C-Reactive Protein HIV 1&2 Antibody Screen HIV P24 Antigen Assessment Diverticulitis on IV therapy Plan Consider switch to po therapy another 24-48hrs ( Augmentin) Problem List - Problems (1) Diverticulitis Code(s): K57.92 - DVTRCLI OF INTEST, PART UNSP, W/O PERF OR ABSCESS W/O BLEED Qualifiers: Diverticulitis site: large intestine Diverticulitis bleeding: without bleeding Diverticulitis complication: without perforation or abscess Qualified Code(s): K57.32 - Diverticulitis of large intestine without perforation or abscess without bleeding
[2017-01-29] MEDS: SODIUM CHLORIDE 1,000 ML IV SCH ×3 (12:22→23:02)
--- NOTE | 2017-01-29 12:35 | EKG ---
Test Reason : Blood Pressure : / mmHG Vent. Rate : 106 BPM Atrial Rate : 106 BPM P-R Int : 182 ms QRS Dur : 086 ms QT Int : 354 ms P-R-T Axes : 060 028 029 degrees QTc Int : 470 ms SINUS TACHYCARDIA OTHERWISE NORMAL ECG WHEN COMPARED WITH ECG OF 26-JAN-2017 11:17, VENT. RATE HAS INCREASED Confirmed by RENETTA OWENS MD ([id number]) on 01/29/2017 12:35:10 PM Referred By: ALEJANDRO MACIAS Confirmed By:RENETTA OWENS MD
--- NOTE | 2017-01-29 15:43 | PN ---
Teaching Attending Note Name of Resident: Farhat Frausto ATTENDING PHYSICIAN STATEMENT I saw and evaluated the patient. I reviewed the resident's note and discussed the case with the resident. I agree with the resident's findings and plan as documented. SUBJECTIVE:c/o palpitations this morning and some nausea which has resolved. having loose BM yesterday and 2 episodes this AM. denies CP, fever, chills, SOB , cough pt evaluated at 0930 OBJECTIVE: Last Vital Signs Temp Pulse Resp BP Pulse Ox 98.4 F 98 H 16 145/78 98 01/29/17 14:48 01/29/17 14:48 01/29/17 14:48 01/29/17 14:48 01/28/17 21:00 General NAD CV S1 S2 tachycardia Lungs CTA B/L no wheezing/rales/rhonchi Abdomen soft NT/ND no rebound or guarding ASSESSMENT AND PLAN: 61yo F with PMH HTN, GERD and diverticulosis presented to the ER and was admitted for further evaluation of their emergent condition 1. Acute diverticulitis-tolerating diet, having diarrhea, concern for cdiff with prolonged abx exposure. cdiff pending. cont IV abx at this time. ID on board. will need repeat colonoscopy in 6-8 weeks 2. Tachycardia- possible dehydration from diarrhea. check EKG. 1L NS bolus. re- evaluate if persists 3. HTN- controlled. hold oral agents 4. insomnia- ambien QHS here. explained will not give prescription on discharge. verbalized understanding 5. DVT ppx- lovenox
--- NOTE | 2017-01-29 16:30 | PN ---
Physical Exam: SUBJECTIVE: atient seen and examined at bedside. She stated that pain has overall improved more than yesterday. She also had 3 episodes of watery diarrhea and felt nauseated after meal. Denies fever, chills, chest pain, sob. OBJECTIVE: Vital Signs Period Temp Pulse Resp BP Sys/Shane Pulse Ox Last 24 Hr 96.4 F-98.4 F 67-114 16-20 117-145/60-78 98 GENERAL: Awake, alert, and fully oriented, in no acute distress. HEAD: Normal with no signs of trauma. EYES: Pupils equal, round and reactive to light, extraocular movements intact, sclera anicteric, conjunctiva clear EARS, NOSE, THROAT: oropharynx clear without exudates. Moist mucous membranes. LUNGS: Breath sounds equal, clear to auscultation bilaterally. No wheezes, and no crackles. No accessory muscle use. HEART: Regular rate and rhythm, normal S1 and S2 without murmur, rub or gallop. ABDOMEN: Soft, decreased L lower quadrants tenderness, not distended, normoactive bowel sounds, no guarding, no rebound, no masses. MUSCULOSKELETAL: No CVA tenderness. EXTREMITIES: No calf tenderness. No peripheral edema. SKIN: Warm, dry, normal turgor, no rashes or lesions noted, normal capillary refill. Active Medications Generic Name Dose Route Start Last Admin Trade Name Freq PRN Reason Stop Dose Admin Acetaminophen 650 mg 01/26/17 15:27 01/29/17 00:32 Tylenol - PO 650 mg Q4H PRN Administration FEVER OR PAIN Heparin Sodium (Porcine) 5,000 unit 01/26/17 14:00 01/29/17 13:43 Heparin - SQ 5,000 unit TID JUAN Administration Sodium Chloride 1,000 mls @ 100 mls/hr 01/26/17 15:30 01/29/17 15:52 Normal Saline - IV Not Given ASDIR JUAN Piperacillin Sod/Tazobactam Sod 100 mls @ 200 mls/hr 01/27/17 10:00 01/29/17 09 :29 Zosyn 4.5gm Ivpb (Pre-Docked) IVPB 200 mls/hr Q8H-IV JUAN Administration Protocol Ondansetron HCl 4 mg 01/26/17 15:27 01/29/17 09:28 Zofran Injection IVPB 4 mg Q6H PRN Administration NAUSEA Zolpidem Tartrate 10 mg 01/28/17 09:07 01/29/17 00:34 Ambien - PO 10 mg HS PRN Administration INSOMNIA IMAGING CT Abd on 01/26: Improvement in acute diverticulitis of the mid descending colon since 01/21/2017. 2. Development of an additional area of acute diverticulitis within the more distal descending colon. No abscess is associated with this process CXR on 01/26: No acute pathology ASSESSMENT/PLAN: 61 yo F with significant h/o diverticulitis, HTN, GERD admitted to the hospital for uncomplicated diverticulitis. Diverticulitis, uncomplicated - Improving - Tynelol PRN for pain - Tolerated regular diet - Cont. zosyn 3.375g (day 4) - Outpatient colonoscopy to r/o underlying cause of recurrent diverticulitis Tachycardia - New onset since AM - EKG showed sinus tachycardia 108 - 1L NS x 1 bolus Watery diarrhea - C. diff toxin and ab negative - Observe for now HTN - Hold HCTZ-Lisinopril GERD - Hold pepcid FEN - IVF as above - Normal lytes, cont. to monitor - Regular diet Prophylaxis - DVT: heparin SQ - GI: not indicated Disposition - Discharge tomorrow after 5th day of zosyn Code status - Full code Visit type - Emergency Visit Emergency Visit: No - New Patient This patient is new to me today: No - Critical Care Critical Care patient: No
[2017-01-30] MEDS: PIPERACILLIN/TAZOB 4.5 GM 100 ML IVPB SCH ×2 (01:55→09:32)
[2017-01-30] MEDS: ACETAMINOPHEN 325 MG TABLET (FP) PO PRN (01:55)
[2017-01-30] MEDS: ZOLPIDEM TARTRATE 5 MG TABLET PO PRN (01:56)
[2017-01-30] MEDS: HEPARIN NA (PORCINE) 5,000 UNITS/ML 1ML VIAL SQ SCH (06:08)
[2017-01-30] MEDS ORDERED: PT OWN MED DRAWER 7, Y5N ONE (09:29)
--- NOTE | 2017-01-30 10:08 | PN ---
Teaching Attending Note Name of Resident: Farhat Frausto ATTENDING PHYSICIAN STATEMENT I saw and evaluated the patient. I reviewed the resident's note and discussed the case with the resident. I agree with the resident's findings and plan as documented. SUBJECTIVE: Patient has no complaints. Tolerating diet. OBJECTIVE: Vital Signs Period Temp Pulse Resp BP Sys/Shane Pulse Ox Last 24 Hr 98.4 F-98.7 F 70-98 16-20 122-145/68-78 98 HEART: S1S2, RRR LUNGS: Clear ABDOMEN: Soft, non-distended, normal BS, mild LLQ tenderness EXTREMITIES: No edema ASSESSMENT AND PLAN: This is a 61-year-old woman with a history of HTN, GERD, diverticulosis who presented to the ER with LLQ abdominal pain. 1. Acute diverticulitis - Failed outpatient treatment - On Zosyn - Discharge on Augmentin - Follow up with GI 2. Diarrhea - Resolved 3. Tachycardia secondary to dehydration - Resolved 4. HTN - Resume Lisinopril, HCTZ
--- NOTE | 2017-01-30 10:47 | DS ---
Physical Exam: SUBJECTIVE: atient seen and examined at bedside. She stated the LLQ continues to improve while tolerating all meals. Denies palpations, n/v, fever, chills, diarrhea, urinary symptoms. OBJECTIVE: Vital Signs Period Temp Pulse Resp BP Sys/Shane Pulse Ox Last 24 Hr 98.4 F-98.7 F 70-98 16-20 122-145/68-78 98 PHYSICAL EXAM GENERAL: Awake, alert, and fully oriented, in no acute distress. HEAD: Normal with no signs of trauma. EYES: Pupils equal, round and reactive to light, extraocular movements intact, sclera anicteric, conjunctiva clear EARS, NOSE, THROAT: oropharynx clear without exudates. Moist mucous membranes. LUNGS: Breath sounds equal, clear to auscultation bilaterally. No wheezes, and no crackles. No accessory muscle use. HEART: Regular rate and rhythm, normal S1 and S2 without murmur, rub or gallop. ABDOMEN: Soft, slight L lower quadrants tenderness, not distended, normoactive bowel sounds, no guarding, no rebound, no masses. MUSCULOSKELETAL: No CVA tenderness. EXTREMITIES: No calf tenderness. No peripheral edema. SKIN: Warm, dry, normal turgor, no rashes or lesions noted, normal capillary refill. HOSPITAL COURSE: Date of Admission:01/26/17 61 yo F with significant h/o diverticulitis, HTN, GERD admitted to the hospital for uncomplicated diverticulitis. CT abd showed improvement in acute diverticulitis of the mid descending colon since 01/21/2017 and development of an additional area of acute diverticulitis within the more distal descending colon. No abscess is associated with this process. Patient was treated with zosyn monotherapy for 5 days, fluids, and bowel rest. She had few episodes of watery diarrhea and nausea which have resolved now. C-diff toxin and antibody were negative. Patient is now in stable condition to be discharged home on augmentin x 7 days and follow up with her GI doctor for outpatient colonoscopy to r/o underlying cause of recurrent diverticulitis. Date of Discharge: 01/30/17 Minutes to complete discharge: 30 Discharge Summary Reason For Visit: DIVERTICULITIS OF INTESTINE Current Active Problems Diverticulitis (Acute) Condition: Stable - Instructions Diet, Activity, Other Instructions: Instruction for continuing care: You were admitted to the hospital because of lower left belly pain. You were diagnosed with acute diverticulitis and treated with antibiotics, fluids and bowel rest. You are not in stable condition to go home and follow up with your stomach doctor and primary care doctor as soon as possible. Please go to your pharmacy to excelsior picker the medicine called augmentin. You will need to take 1 tablet twice a day for 7 days. Referrals: Yolanda Willard NP [Primary Care Provider] - Carlos Israel MD [Staff Physician] - Disposition: HOME - Home Medications Comprehensive Discharge Medication List: Ambulatory Orders Lisinopril/Hydrochlorothiazide [Lisinopril-Hctz 20-25 mg Tab] 1 each PO HS 05/22 Zolpidem Tartrate 10 mg PO HS 05/22/14 Famotidine [Pepcid] 40 mg PO DAILY 11/25/14 Fluticasone Propionate [Flovent Diskus] 50 mcg IH ASDIR 11/25/14 Tramadol HCl [Ultram] 50 mg PO Q6H PRN #12 tablet MDD 4 04/04/16 Amox-Tr/K Cl [Augmentin - 500Mg Tablet] 1 tab PO BID #14 tab 01/30/17 This patient is new to me today: No Emergency Visit: No Critical Care patient: No - Discharge Referral Referred to [facility] No
[2017-01-30 11:23] VITALS: BP 137/86; PULSE 104; TEMP 98.3
== END 2017-01-30 11:59 | disposition home or self-care (01) | DRG 244 ==
LOC: JER 10:13 → JERBED 14:46 → J8W 16:40
PROVIDERS: ADMIT Internal Medicine; ATTEND Internal Medicine
DX: K57.32 Diverticulitis of large intestine without perforation or abscess without bleeding (principal); R19.7 Diarrhea, unspecified; R00.0 Tachycardia, unspecified; E86.0 Dehydration; G47.00 Insomnia, unspecified; I10 Essential (primary) hypertension; K21.9 Gastro-esophageal reflux disease without esophagitis; R11.0 Nausea
CPT/HCPCS: 36415; 71010-TC; 74177-TC; 80053; 81003; 83690; 85025; 85651; 86140; 87086; 87324; 87389; 87449; 93005; 93010; 99282-25; J1644

== ENCOUNTER 2017-12-11 20:01 | Emergency (ER) | payer OTHER ==
--- NOTE | 2017-12-11 20:11 | PDOC ---
Rapid Medical Evaluation Time Seen by Provider: 12/11/17 20:08 Medical Evaluation: Allergies Allergy/AdvReac Type Severity Reaction Status Date / Time No Known Allergies Allergy Verified 01/26/17 10:15 12/11/17 20:09 The patient presents with a chief complaint of: LLQ pain for 4 days. No fevers. n/v/d. Similar symptoms 2 years ago, diagnosed with colitis. I have performed a brief in-person evaluation of this patient; Pertinent physical exam findings: ambulatory, in no respiratory distress, LLQ tenderness I have ordered the following: CBC, CMP, Lipase, PT/INR, UA, UC The patient will proceed to the ED for further evaluation. Discharge Disposition - Referrals Referrals: Patrica Hernandez MD [Primary Care Provider] - - Patient Instructions - Post Discharge Activity
[2017-12-11 20:15] VITALS: BP 122/68; PULSE 96; TEMP 97.5; BMI 30.7
[2017-12-11 20:39] LABS: BASO % 0.9 % (0-2.0); HEMATOCRIT 37.3 % (32.4-45.2); HEMOGLOBIN 12.8 GM/dL (10.7-15.3); LYMPH % 36.1 % (8-40); MCH 31.9 pg (25.7-33.7); MCHC 34.5 g/dl (32.0-36.0); MEAN CELL VOLUME 92.5 fl (80-96); MEAN PLT VOLUME 7.8 fl (7.5-11.1); MONO % 6.3 % (3.8-10.2); NEUT % 53.7 % (42.8-82.8); PLATELET COUNT 243 K/MM3 (134-434); RBC 4.03 M/mm3 (3.60-5.2); RDW 13.2 % (11.6-15.6); WHITE BLOOD COUNT 4.1 K/mm3 (4.0-10.0)
[2017-12-11 21:09] LABS: INR 0.97 (0.82-1.09)
[2017-12-11 21:18] LABS: ALBUMIN 3.7 g/dl (3.4-5.0); ANION GAP 10 (8-16); BILIRUBIN,TOTAL 0.4 mg/dL (0.2-1.0); BLOOD UREA NITROGEN 11 mg/dL (7-18); CALCIUM 9.1 mg/dL (8.5-10.1); CHLORIDE 101 mmol/L (98-107); CO2 29 mmol/L (21-32); GLUCOSE,RANDOM 120 mg/dL (74-106); POTASSIUM 3.7 mmol/L (3.5-5.1); SGOT/AST 71 U/L (15-37); SGPT/ALT 107 U/L (12-78); SODIUM 140 mmol/L (136-145); TOT PROT 7.5 g/dl (6.4-8.2)
[2017-12-11 21:19] LABS: ALK PHOS 172 U/L (45-117)
--- NOTE | 2017-12-11 21:58 | PDOC ---
History of Present Illness - General History Source: Patient Exam Limitations: No Limitations - History of Present Illness Initial Comments: 12/11/17 21:58 The patient is a year old female with a significant PMH of colitis, diverticulitis gastritis, GERD, non-alcoholic liver disease, HTN, and asthma who presents to the emergency department with LLQ abdominal pain beginning approximately 4 days ago. She describes the pain as a colicky sensation localized in the LLQ with no radiation. She reports this episode is similar to when she was diagnosed with colitis and diverticulitis about 4 years ago. She denies fevers or chills. The patient denies chest pain, shortness of breath, headache and dizziness. Denies nausea, vomit, diarrhea and constipation. Denies dysuria, frequency, urgency and hematuria. Allergies: NKA Past surgical history: Tummy tuck. Appendectomy. x2. Social history: No reported cigarette, alcohol, or drug use. PCP: Dr. Garg <Felipe Nixon - Last Filed: 12/11/17 21:58> - General History Source: Patient <Hussein Field - Last Filed: 12/11/17 22:39> - General Chief Complaint: Pain Stated Complaint: ABDOMINAL PAIN Time Seen by Provider: 12/11/17 20:08 Past History <Felipe Nixon - Last Filed: 12/11/17 21:58> - Past Medical History Anemia: No Asthma: Yes Cancer: No Cardiac Disorders: No CVA: No COPD: No CHF: No Dementia: No Diabetes: No GI Disorders: Yes (GERD;GASTRITIS;TICS) Disorders: No HTN: Yes Hypercholesterolemia: No Liver Disease: Yes (NON-ALCOHOLIC) Seizures: No Thyroid Disease: No - Surgical History Abdominal Surgery: Yes (TUMMY TUCK) Appendectomy: Yes Cardiac Surgery: No Cholecystectomy: No Lung Surgery: No Neurologic Surgery: No Orthopedic Surgery: No - Suicide/Smoking/Psychosocial Hx Smoking Status: No Smoking History: Never smoked Have you smoked in the past 12 months: No Number of Cigarettes Smoked Daily: 0 Information on smoking cessation initiated: No Hx Alcohol Use: No Drug/Substance Use Hx: No Substance Use Type: None Hx Substance Use Treatment: No <Hussein Field - Last Filed: 12/11/17 22:39> - Past Medical History Allergies/Adverse Reactions: Allergies Allergy/AdvReac Type Severity Reaction Status Date / Time No Known Allergies Allergy Verified 12/11/17 20:12 Home Medications: Ambulatory Orders Lisinopril/Hydrochlorothiazide [Lisinopril-Hctz 20-25 mg Tab] 1 each PO HS 05/22 Zolpidem Tartrate 10 mg PO HS 05/22/14 Famotidine [Pepcid] 40 mg PO DAILY 11/25/14 Fluticasone Propionate [Flovent Diskus] 50 mcg IH ASDIR 11/25/14 Tramadol HCl [Ultram] 50 mg PO Q6H PRN #12 tablet MDD 4 04/04/16 Amox-Tr/K Cl [Augmentin - 500Mg Tablet] 1 tab PO BID #14 tab 01/30/17 Methocarbamol [Robaxin -] 500 mg PO TID #30 tablet 12/11/17 levoFLOXacin [Levaquin -] 500 mg PO DAILY #7 tablet 12/11/17 metroNIDAZOLE [Flagyl -] 500 mg PO BID #14 tablet 12/11/17 Review of Systems - Review of Systems Able to Perform ROS?: Yes Comments:: 12/11/17 21:58 CONSTITUTIONAL: Absent: fever, chills, diaphoresis, generalized weakness, malaise, loss of appetite HEENT: Absent: rhinorrhea, nasal congestion, throat pain, throat swelling, difficulty swallowing, mouth swelling, ear pain, eye pain, visual Changes CARDIOVASCULAR: Absent: chest pain, syncope, palpitations, irregular heart rate, lightheadedness , peripheral edema RESPIRATORY: Absent: cough, shortness of breath, dyspnea with exertion, orthopnea, wheezing, stridor, hemoptysis GASTROINTESTINAL: (+) LLQ abdominal pain, colicky in nature. Absent: abdominal distension, nausea, vomiting, diarrhea, constipation, melena, hematochezia GENITOURINARY: Absent: dysuria, frequency, urgency, hesitancy, hematuria, flank pain, genital pain MUSCULOSKELETAL: Absent: myalgia, arthralgia, joint swelling SKIN: Absent: rash, itching, pallor HEMATOLOGIC/IMMUNOLOGIC: Absent: easy bleeding, easy bruising, lymphadenopathy, frequent infections ENDOCRINE: Absent: unexplained weight gain, unexplained weight loss, heat intolerance, cold intolerance NEUROLOGIC: Absent: headache, focal weakness or paresthesias, dizziness, unsteady gait, seizure, mental status changes, bladder or bowel incontinence PSYCHIATRIC: Absent: anxiety, depression, suicidal or homicidal ideation, hallucinations. <Felipe Nixon - Last Filed: 12/11/17 21:58> *Physical Exam - Vital Signs Last Vital Signs Temp Pulse Resp BP Pulse Ox 97.5 F L 96 H 18 122/68 99 12/11/17 20:12 12/11/17 20:12 12/11/17 20:12 12/11/17 20:12 12/11/17 20:12 - Physical Exam Comments: 12/11/17 21:58 GENERAL: Well developed, well nourished. Awake and alert. No acute distress. HEENT: Normocephalic, atraumatic. PERRLA, EOMI. No conjunctival pallor. Sclera are non- icteric. Moist mucous membranes. Oropharynx is clear. NECK: Supple. Full ROM. No JVD. Carotid pulses 2+ and symmetric, without bruits. No thyromegaly. No lymphadenopathy. CARDIOVASCULAR: Regular rate and rhythm. No murmurs, rubs, or gallops. Distal pulses are 2+ and symmetric. PULMONARY: No evidence of respiratory distress. Lungs clear to auscultation bilaterally. No wheezing, rales or rhonchi. ABDOMINAL: (+) Mild tenderness to LLQ. No rebound no guarding Non-distended. No organomegaly. Normoactive bowel sounds. MUSCULOSKELETAL Normal range of motion at all joints. No bony deformities or tenderness. No CVA tenderness. EXTREMITIES: No cyanosis. No clubbing. No edema. No calf tenderness. SKIN: Warm and dry. Normal capillary refill. No rashes. No jaundice. NEUROLOGICAL: Alert, awake, appropriate. Cranial nerves 2-12 intact. No deficits to light touch and temperature in face, upper extremities and lower extremities. No motor deficits in the in face, upper extremities and lower extremities. Normoreflexic in the upper and lower extremities. Normal speech. Toes are downgoing bilaterally. Gait is normal without ataxia. PSYCHIATRIC: Cooperative. Good eye contact. Appropriate mood and affect. <Felipe Nixon - Last Filed: 12/11/17 21:58> - Vital Signs Last Vital Signs Temp Pulse Resp BP Pulse Ox 97.5 F L 96 H 18 122/68 99 12/11/17 20:12 12/11/17 20:12 12/11/17 20:12 12/11/17 20:12 12/11/17 20:12 <Hussein Field - Last Filed: 12/11/17 22:39> ED Treatment Course - LABORATORY CBC & Chemistry Diagram: 12/11/17 20:31 12/11/17 20:31 - ADDITIONAL ORDERS Additional order review: Laboratory Results 12/11/17 12/11/17 12/11/17 20:31 20:31 20:31 PT with INR 11.00 INR 0.97 Sodium 140 Potassium 3.7 Chloride 101 Carbon Dioxide 29 Anion Gap 10 BUN 11 Creatinine 1.0 Creat Clearance w eGFR 55.82 Random Glucose 120 H Calcium 9.1 Total Bilirubin 0.4 D AST 71 H ALT 107 H Alkaline Phosphatase 172 H Total Protein 7.5 Albumin 3.7 Lipase 79 12/11/17 20:31 RBC 4.03 MCV 92.5 MCHC 34.5 RDW 13.2 MPV 7.8 Neutrophils % 53.7 Lymphocytes % 36.1 D Monocytes % 6.3 Eosinophils % 3.0 D Basophils % 0.9 <Felipe Nixon - Last Filed: 12/11/17 21:58> - LABORATORY CBC & Chemistry Diagram: 12/11/17 20:31 12/11/17 20:31 - ADDITIONAL ORDERS Additional order review: Laboratory Results 12/11/17 12/11/17 12/11/17 20:31 20:31 20:31 PT with INR 11.00 INR 0.97 Sodium 140 Potassium 3.7 Chloride 101 Carbon Dioxide 29 Anion Gap 10 BUN 11 Creatinine 1.0 Creat Clearance w eGFR 55.82 Random Glucose 120 H Calcium 9.1 Total Bilirubin 0.4 D AST 71 H ALT 107 H Alkaline Phosphatase 172 H Total Protein 7.5 Albumin 3.7 Lipase 79 12/11/17 20:31 RBC 4.03 MCV 92.5 MCHC 34.5 RDW 13.2 MPV 7.8 Neutrophils % 53.7 Lymphocytes % 36.1 D Monocytes % 6.3 Eosinophils % 3.0 D Basophils % 0.9 <Hussein Field - Last Filed: 12/11/17 22:39> Medical Decision Making - Medical Decision Making 12/11/17 22:39 Dr. Field: The scribe's documentation has been prepared under my direction and personally reviewed by me in its entirery. I confirm that the note above accurately reflects all work, treatment, procedures, and medical decision making performed by me. <Hussein Field - Last Filed: 12/11/17 22:39> *DC/Admit/Observation/Transfer - Attestations Scribe Attestion: 12/11/17 21:58 Documentation prepared by Felipe Nixon, acting as medical doctor for Hussein Field DO. <Felipe Nixon - Last Filed: 12/11/17 21:58> - Discharge Dispostion Admit: No <Hussein Field - Last Filed: 12/11/17 22:39> Diagnosis at time of Disposition: Diverticulitis - Discharge Dispostion Disposition: HOME Condition at time of disposition: Stable - Prescriptions Prescriptions: levoFLOXacin [Levaquin -] 500 mg PO DAILY #7 tablet Methocarbamol [Robaxin -] 500 mg PO TID #30 tablet metroNIDAZOLE [Flagyl -] 500 mg PO BID #14 tablet - Referrals Referrals: Patrica Hernandez MD [Primary Care Provider] - Clau Bacon MD [Staff Physician] - - Patient Instructions Printed Discharge Instructions: DI for Diverticulitis Additional Instructions: take medication as directed. avoid alcohol or anything that contains alcohol when taking Flagyl. Follow up with the doctor referred to you here in the ER. Return if any problems Print Language: ARMENIAN - Post Discharge Activity
[2017-12-11 22:05] LABS: URINE APPEARANCE CLEAR; URINE BILIRUBIN NEGATIVE (NEGATIVE); URINE BLOOD NEGATIVE (NEGATIVE); URINE COLOR STRAW; URINE GLUCOSE (UA) NEGATIVE (NEGATIVE); URINE KETONE NEGATIVE (NEGATIVE); URINE LEUK ESTERASE TRACE (NEGATIVE); URINE NITRITE NEGATIVE (NEGATIVE); URINE PROTEIN NEGATIVE (NEGATIVE); URINE UROBILINOGEN 4.0 E.U/dl mg/dL (0.2-1.0)
[2017-12-11 22:15] LABS: EPI CELLS RARE /HPF (FEW); URINE MUCUS RARE
[2017-12-11] MEDS ORDERED: metroNIDAZOLE 250 MG TABLET PO ONE (22:35)
[2017-12-11] MEDS ORDERED: metroNIDAZOLE 250 MG TABLET ONE (22:46)
== END 2017-12-11 22:51 | disposition home or self-care (01) ==
LOC: JER 20:01
DX: K57.92 Diverticulitis of intestine, part unspecified, without perforation or abscess without bleeding (principal); I10 Essential (primary) hypertension; K76.89 Other specified diseases of liver; J45.909 Unspecified asthma, uncomplicated; Z87.19 Personal history of other diseases of the digestive system
CPT/HCPCS: 36415; 74176-TC; 80053; 81003; 81015; 83690; 85025; 85610; 99281-25

== ENCOUNTER 2018-01-10 11:15 | Emergency (ER) | payer OTHER ==
[2018-01-10 11:19] VITALS: BP 128/66; PULSE 98; TEMP 97.7; BMI 30.7
--- NOTE | 2018-01-10 11:34 | PDOC ---
History of Present Illness - General Chief Complaint: Pain Stated Complaint: LEG PAIN Time Seen by Provider: 01/10/18 11:28 History Source: Patient Exam Limitations: No Limitations (is a 62 years old female with atraumatic plantar aspect of her foot) Past History - Travel Close contact w/someone who was outside of country & ill: No - Past Medical History Allergies/Adverse Reactions: Allergies Allergy/AdvReac Type Severity Reaction Status Date / Time No Known Allergies Allergy Verified 01/10/18 11:19 Home Medications: Ambulatory Orders Lisinopril/Hydrochlorothiazide [Lisinopril-Hctz 20-25 mg Tab] 1 each PO HS 05/22 Zolpidem Tartrate 10 mg PO HS 05/22/14 Famotidine [Pepcid] 40 mg PO DAILY 11/25/14 Fluticasone Propionate [Flovent Diskus] 50 mcg IH ASDIR 11/25/14 Tramadol HCl [Ultram] 50 mg PO Q6H PRN #12 tablet MDD 4 04/04/16 Amox-Tr/K Cl [Augmentin - 500Mg Tablet] 1 tab PO BID #14 tab 01/30/17 Methocarbamol [Robaxin -] 500 mg PO TID #30 tablet 12/11/17 levoFLOXacin [Levaquin -] 500 mg PO DAILY #7 tablet 12/11/17 metroNIDAZOLE [Flagyl -] 500 mg PO BID #14 tablet 12/11/17 Naproxen 375 mg PO BID #20 tablet 01/10/18 Anemia: No Asthma: Yes Cancer: No Cardiac Disorders: No CVA: No COPD: No CHF: No Dementia: No Diabetes: No GI Disorders: Yes (GERD;GASTRITIS;TICS) Disorders: No HTN: Yes Hypercholesterolemia: No Liver Disease: Yes (NON-ALCOHOLIC) Seizures: No Thyroid Disease: No - Surgical History Abdominal Surgery: Yes (TUMMY TUCK) Appendectomy: Yes Cardiac Surgery: No Cholecystectomy: No Lung Surgery: No Neurologic Surgery: No Orthopedic Surgery: No - Suicide/Smoking/Psychosocial Hx Smoking Status: No Smoking History: Never smoked Have you smoked in the past 12 months: No Number of Cigarettes Smoked Daily: 0 Information on smoking cessation initiated: No Hx Alcohol Use: No Drug/Substance Use Hx: No Substance Use Type: None Hx Substance Use Treatment: No Review of Systems - Review of Systems Able to Perform ROS?: Yes Is the patient limited Turkish proficient: No Constitutional: No: Chills, Fever Musculoskeletal: Yes: Other (R foot pain). No: Back Pain, Joint Pain, Joint Swelling, Muscle Pain, Neck Pain, Joint Stiffness *Physical Exam - Vital Signs Last Vital Signs Temp Pulse Resp BP Pulse Ox 97.7 F 98 H 17 128/66 100 01/10/18 11:17 01/10/18 11:17 01/10/18 11:17 01/10/18 11:01/10/18 11:17 - Physical Exam General Appearance: Yes: Nourished Extremity: positive: Normal Inspection, Normal Range of Motion, Other (R foot: pain mainly in the plantar aspect of foot, distal pulse intact). negative: Pedal Edema, Swelling, Erythema, Inflammation Medical Decision Making - Medical Decision Making 01/10/18 11:42 patient is a 62-year-old with chronic R foot pain, she follow up frequency with PCP and subsequent management included intraarticularr injections. She presents to the emergency room today with worsening pain in R foot. she denies any trauma no fevers no chills. physical exam consist of full range of motion and right felt distal pulses intact patient has a limping gait tenderness is in the plantar aspect of foot Plan: plain films r/o heel spur pain control f/u with PCP 01/10/18 12:09 xray wet read--no fracture, no calcaneal spur noted podiatry follow up recommended *DC/Admit/Observation/Transfer Diagnosis at time of Disposition: Foot pain, right - Discharge Dispostion Disposition: HOME Condition at time of disposition: Good Admit: No - Prescriptions Prescriptions: Naproxen 375 mg PO BID #20 tablet - Referrals Referrals: Patrica Hernandez MD [Primary Care Provider] - Dash Garcia MD [Staff Physician] - 2 Days - Patient Instructions Printed Discharge Instructions: DI for Foot Pain - Post Discharge Activity
[2018-01-10] MEDS ORDERED: KETOROLAC TROMETHAMINE 60 MG/2 ML VIAL IM ONE (11:40)
[2018-01-10] MEDS ORDERED: KETOROLAC TROMETHAMINE 60 MG/2 ML VIAL ONE (11:43)
== END 2018-01-10 12:28 | disposition home or self-care (01) ==
LOC: JERFT 11:15
PROC: 3E0233Z Introduction of Anti-inflammatory into Muscle, Percutaneous Approach (ICD-10-PCS; principal; 2018-01-10)
DX: M79.671 Pain in right foot (principal); I10 Essential (primary) hypertension; J45.909 Unspecified asthma, uncomplicated; K76.9 Liver disease, unspecified; Z87.19 Personal history of other diseases of the digestive system
CPT/HCPCS: 73610-TC-RT-FY; 73630-TC-RT-FY; 99281-25

== ENCOUNTER 2018-07-03 13:50 | Emergency (ER) | payer MEDICARE, OTHER ==
[2018-07-03 13:58] VITALS: BP 108/73; PULSE 99; TEMP 98.3; BMI 30.7
--- NOTE | 2018-07-03 13:59 | PDOC ---
Rapid Medical Evaluation Time Seen by Provider: 07/03/18 13:55 Medical Evaluation: Allergies Allergy/AdvReac Type Severity Reaction Status Date / Time No Known Allergies Allergy Verified 01/10/18 11:19 07/03/18 13:55 The patient presents to the ED with: pain to right side face, ear, throat x 3n days, no change in vision, no hx of migraine, no recent fall, no facial droop The patient on brief exam: VSS, no erythema to post pharynx, no adenopathy, The patient ordered for: none The patient to proceed to the ED Discharge Disposition - Diagnosis Facial pain - Referrals Referrals: Patrica Hernandez MD [Primary Care Provider] - - Patient Instructions - Post Discharge Activity
[2018-07-03] MEDS ORDERED: ACETAMINOPHEN 500 MG TABLET (FP) PO ONE (15:02)
[2018-07-03] MEDS ORDERED: ACETAMINOPHEN 500 MG TABLET (FP) ONE (15:07)
--- NOTE | 2018-07-03 15:07 | PDOC ---
History of Present Illness - General Chief Complaint: Pain, Acute Stated Complaint: RT SIDE PAIN Time Seen by Provider: 07/03/18 13:55 History Source: Patient Exam Limitations: No Limitations - History of Present Illness Initial Comments: 07/03/18 15:03 63 yr female with c/o right sided headache behind the right eye for 3 days. neg nvd, neg dizzyness. Past History - Past Medical History Allergies/Adverse Reactions: Allergies Allergy/AdvReac Type Severity Reaction Status Date / Time No Known Allergies Allergy Verified 07/03/18 13:58 Home Medications: Ambulatory Orders Lisinopril/Hydrochlorothiazide [Lisinopril-Hctz 20-25 mg Tab] 1 each PO HS 05/22 Zolpidem Tartrate 10 mg PO HS 05/22/14 Fluticasone Propionate [Flovent Diskus] 50 mcg IH ASDIR 11/25/14 Tramadol HCl [Ultram] 50 mg PO Q6H PRN #12 tablet MDD 4 04/04/16 Methocarbamol [Robaxin -] 500 mg PO TID #30 tablet 12/11/17 Naproxen 375 mg PO BID #20 tablet 01/10/18 Naproxen [Naprosyn -] 500 mg PO BID PRN #14 tablet 07/03/18 Anemia: No Asthma: Yes Cancer: No Cardiac Disorders: No CVA: No COPD: No CHF: No Dementia: No Diabetes: No GI Disorders: Yes (GERD;GASTRITIS;TICS) Disorders: No HTN: Yes Hypercholesterolemia: No Liver Disease: Yes (NON-ALCOHOLIC) Seizures: No Thyroid Disease: No - Surgical History Abdominal Surgery: Yes (TUMMY TUCK) Appendectomy: Yes Cardiac Surgery: No Cholecystectomy: No Lung Surgery: No Neurologic Surgery: No Orthopedic Surgery: No - Suicide/Smoking/Psychosocial Hx Smoking Status: No Smoking History: Never smoked Have you smoked in the past 12 months: No Number of Cigarettes Smoked Daily: 0 Information on smoking cessation initiated: No Hx Alcohol Use: No Drug/Substance Use Hx: No Substance Use Type: None Hx Substance Use Treatment: No Review of Systems - Review of Systems Able to Perform ROS?: Yes Is the patient limited Turkmen proficient: No Constitutional: No: Symptoms Reported HEENTM: No: Eye Pain, Blurred Vision, Tearing Respiratory: No: Symptoms reported Cardiac (ROS): No: Symptoms Reported ABD/GI: No: Symptoms Reported : No: Symptoms Reported Musculoskeletal: No: Symptoms Reported Integumentary: No: Symptoms Reported Neurological: Yes: Symptoms reported, Headache *Physical Exam - Vital Signs Last Vital Signs Temp Pulse Resp BP Pulse Ox 98.3 F 99 H 16 108/73 100 07/03/18 13:56 07/03/18 13:56 07/03/18 13:56 07/03/18 13:56 07/03/18 13:56 - Physical Exam General Appearance: Yes: Nourished, Appropriately Dressed HEENT: positive: EOMI, SHERRIE, Normal ENT Inspection, TMs Normal, Pharynx Normal, Other (EOMI no pain, no [place] bony tenderness to the orbit or eyelid tenderness ) Neck: positive: Supple. negative: Tender Respiratory/Chest: positive: Lungs Clear, Normal Breath Sounds. negative: Chest Tender Medical Decision Making - Medical Decision Making 07/03/18 15:06 cc: right sided headache behind the eye no photophobia or phonophobia no tearing or change in vision no facial droop will give tylenol and get head CT pt in no acute distress, asking to eat a sandwhich and go home CT results are pending 07/03/18 16:17 *DC/Admit/Observation/Transfer Diagnosis at time of Disposition: Facial pain Headache Qualifiers: Headache type: tension-type Headache chronicity pattern: acute headache Intractability: intractable Qualified Code(s): G44.201 - Tension-type headache, unspecified, intractable - Discharge Dispostion Disposition: HOME Condition at time of disposition: Good - Prescriptions Prescriptions: Naproxen [Naprosyn -] 500 mg PO BID PRN #14 tablet PRN Reason: Headache - Referrals Referrals: Patrica Hernandez MD [Primary Care Provider] - Haseeb Koroma MD [Staff Physician] - - Patient Instructions Additional Instructions: take naprosyn for headache 500mg every 12hrs take benadryl 25mg every 6hrs for headache (this will make you drowsy) drink 2 liters of water daily follow wtih the neurologist or your doctor in 2-3 days call tomorrow to make appointment return to ER if any worsening symptoms - Post Discharge Activity
== END 2018-07-03 16:36 | disposition home or self-care (01) ==
LOC: JERFT 13:50
DX: G44.201 Tension-type headache, unspecified, intractable (principal); I10 Essential (primary) hypertension; J45.909 Unspecified asthma, uncomplicated; K21.9 Gastro-esophageal reflux disease without esophagitis; K76.0 Fatty (change of) liver, not elsewhere classified
CPT/HCPCS: 70450-TC; 99281-25

== ENCOUNTER 2019-04-04 09:55 | Inpatient (IN) | payer MEDICARE, OTHER ==
[2019-04-04 10:01] VITALS: BMI 30.9
[2019-04-04] MEDS ORDERED: SODIUM CHLORIDE 0.9% 1000 ML INFUS.BAG IV ONE (11:05)
[2019-04-04 11:34] LABS: EPI CELLS 3.5 /HPF (0-5/HPF); HYALINE CASTS 1 /lpf (0-8); PH,URINE 7.5 (5.0-8.0); URINE APPEARANCE CLEAR; URINE BACTERIA 40.6 /hpf (NEGATIVE); URINE BILIRUBIN NEGATIVE (NEGATIVE); URINE COLOR YELLOW; URINE GLUCOSE (UA) NEGATIVE (NEGATIVE); URINE KETONE NEGATIVE (NEGATIVE); URINE LEUK ESTERASE TRACE (NEGATIVE); URINE NITRITE NEGATIVE (NEGATIVE); URINE PROTEIN NEGATIVE (NEGATIVE); URINE RBC 1 /hpf (0-4); URINE UROBILINOGEN 0.2 mg/dL (0.2-1.0); URINE WBC 3 /hpf (0-5)
[2019-04-04 11:35] LABS: BASO % 0.6 % (0-2.0); EOS % 1.1 % (0-4.5); HEMATOCRIT 38.1 % (32.4-45.2); HEMOGLOBIN 12.9 GM/dL (10.7-15.3); LYMPH % 24.5 % (8-40); MCH 31.2 pg (25.7-33.7); MCHC 33.8 g/dl (32.0-36.0); MEAN CELL VOLUME 92.4 fl (80-96); MEAN PLT VOLUME 7.6 fl (7.5-11.1); MONO % 6.1 % (3.8-10.2); NEUT % 67.7 % (42.8-82.8); PLATELET COUNT 253 K/MM3 (134-434); RBC 4.13 M/mm3 (3.60-5.2); RDW 12.4 % (11.6-15.6); WHITE BLOOD COUNT 4.8 K/mm3 (4.0-10.0)
[2019-04-04 11:40] LABS: ALBUMIN 3.8 g/dl (3.4-5.0); BILIRUBIN,TOTAL 0.4 mg/dL (0.2-1); BLOOD UREA NITROGEN 17.3 mg/dL (7-18); CALCIUM 9.3 mg/dL (8.5-10.1); CREATININE 0.8 mg/dL (0.55-1.3); POTASSIUM 4.4 mmol/L (3.5-5.1); TOT PROT 7.4 g/dl (6.4-8.2)
--- NOTE | 2019-04-04 11:40 | PDOC ---
History of Present Illness - General Chief Complaint: Pain Stated Complaint: ABD. PAIN Time Seen by Provider: 04/04/19 10:32 History Source: Patient Exam Limitations: No Limitations - History of Present Illness Initial Comments: 04/04/19 11:37 64 yo F h/o prior diverticulitis here today c/o lower abd pain. started 3 days ago. mild nausea, no vomiting. has alternating constipation with diarrhea. last bm yesterday. here today because couldn't get in until to see her pcp and pain was getting worse. denies urinary sxs. no f/c no change with meals to pain. no mod factors she can identify. pain is constant, moderate, worse on left side but radiates through lower abd. Past History - Past Medical History Allergies/Adverse Reactions: Allergies Allergy/AdvReac Type Severity Reaction Status Date / Time No Known Allergies Allergy Verified 04/04/19 10:02 Home Medications: Ambulatory Orders Lisinopril/Hydrochlorothiazide [Lisinopril-Hctz 20-25 mg Tab] 1 each PO HS 05/22 Zolpidem Tartrate 10 mg PO HS 05/22/14 Anemia: No Asthma: Yes Cancer: No Cardiac Disorders: No CVA: No COPD: No CHF: No Dementia: No Diabetes: No GI Disorders: Yes (GERD;GASTRITIS;TICS) Disorders: No HTN: Yes Hypercholesterolemia: No Liver Disease: Yes (NON-ALCOHOLIC) Seizures: No Thyroid Disease: No - Surgical History Abdominal Surgery: Yes (TUMMY TUCK) Appendectomy: Yes Cardiac Surgery: No Cholecystectomy: No Lung Surgery: No Neurologic Surgery: No Orthopedic Surgery: No - Suicide/Smoking/Psychosocial Hx Smoking Status: No Smoking History: Never smoked Have you smoked in the past 12 months: No Number of Cigarettes Smoked Daily: 0 Hx Alcohol Use: No Drug/Substance Use Hx: No Substance Use Type: None Hx Substance Use Treatment: No Review of Systems - Review of Systems Constitutional: No: Chills, Diaphoresis, Fever HEENTM: No: Eye Pain Respiratory: No: Cough, Orthopnea Cardiac (ROS): No: Chest Pain, Edema ABD/GI: Yes: Constipated, Diarrhea, Nausea. No: Difficulty Swallowing : No: Burning, Dysuria, Discharge Musculoskeletal: No: Back Pain Neurological: No: Headache, Numbness All Other Systems: Reviewed and Negative *Physical Exam - Vital Signs Last Vital Signs Temp Pulse Resp BP Pulse Ox 98.5 F 88 16 117/64 96 04/04/19 09:59 04/04/19 09:59 04/04/19 09:59 04/04/19 09:59 04/04/19 09:59 - Physical Exam Comments: 04/04/19 11:39 awake alert lungs clear bilat heart rrr nomrg abd soft mild llq suprapubic ttp, no rebound no guarding. no cva tenderness. ext wwp. no edema. nuero alert oriented x 3. ED Treatment Course - LABORATORY CBC & Chemistry Diagram: 04/05/19 06:15 04/05/19 06:15 - ADDITIONAL ORDERS Additional order review: Laboratory Results 04/04/19 11:10 Urine Color Yellow Urine Appearance Clear Urine pH 7.5 Ur Specific [place] 1.010 Urine Protein Negative Urine Glucose (UA) Negative Urine Ketones Negative Urine Blood Negative Urine Nitrite Negative Urine Bilirubin Negative Urine Urobilinogen 0.2 Ur Leukocyte Esterase Trace Urine WBC (Auto) 3 Urine RBC (Auto) 1 Urine Casts (Auto) 1 U Epithel Cells (Auto) 3.5 Urine Bacteria (Auto) 40.6 - RADIOLOGY Radiology Studies Ordered: Category Date Time Status ABDOMEN & PELVIS CT WITH CONTR [CT] Stat CT Scan 04/04/19 11:05 Ordered - Medications Given in the ED: ED Medications Discontinued Medications Generic Name Dose Route Start Last Admin Trade Name Freq PRN Reason Stop Dose Admin Sodium Chloride 1,000 ml 04/04/19 11:05 04/04/19 11:05 Normal Saline - IV 04/04/19 11:06 1,000 ml ONCE ONE Administration Medical Decision Making - Medical Decision Making 04/04/19 11:39 64 yo F with h/o prior diverticulitis here with c/o lower abd pain. llq ttp on exam. differential uti, pyelo ovarian path, diverticulitits colitis. constipation. plan ct a'/p labs ua . reassess. 04/04/19 17:00 pt with diverticulitis on ct, does have extra luminal air. due to pt requiring admission for failed outpt treatment of diverticulitis in past. pt still in significant amounts of pain. will admit iv cipro and flagyl ordered. d/w admitting WOUND NURSE. will admit pt. *DC/Admit/Observation/Transfer Diagnosis at time of Disposition: Diverticulitis - Discharge Dispostion Decision to Admit order: Yes - Referrals - Patient Instructions - Post Discharge Activity
[2019-04-04] MEDS ORDERED: morphine CARPU-JECT 4 MG/1 ML DISP.SYRIN IVPUSH ONE (14:40)
[2019-04-04] MEDS ORDERED: ACETAMINOPHEN 1000 MG/100 ML VIAL (NON FORMULARY) IVPB ONE (14:40)
[2019-04-04] MEDS ORDERED: CIPROFLOXACIN 400 MG/D5W 400 MG/200 ML IVPB IVPB ONE (14:40)
[2019-04-04] MEDS ORDERED: morphine SULFATE 4 MG/ML VIAL ONE (15:21)
[2019-04-04] MEDS ORDERED: ACETAMINOPHEN INJECTION 100 ML IVPB ONE (15:22)
--- NOTE | 2019-04-04 15:43 | HP ---
Admitting History and Physical - Primary Care Physician PCP: aPtrica Hernandez - Admission Chief Complaint: abdominal pain and nausea History of Present Illness: Patient is a 64 year old female with a significant past medical history of hypertension and insomnia. She presents to the ED today with complaints of lower abdominal p ain. Patient states that the abdominal pain began one month ago and was intermittent but worsened in the last 3 days. She experiences mild nausea but denies any vomiting. Her last BM was this morning and she reports it as being normal and denies diarrhea. She presents to the ED because the abdominal pain became intense. She states she has a follow up with a GI specialist on April 17, however, but the abdominal pain was getting worse. She denies any urinary symptoms. She describes her abdominal pain as constant , moderate to severe in intensitiy, mostly on her left lower quadrant. She denies any chest pain, denies any bloody stools or diarrhea, denies constipation, Her last colonoscopy was 4 years ago per patient. History Source: Patient, Medical Record Limitations to Obtaining History: No Limitations - Past Medical History ...: No - Smoking History Smoking history: Never smoked Have you smoked in the past 12 months: No Aproximately how many cigarettes per day: 0 - Alcohol/Substance Use Hx Alcohol Use: No - Social History Usual Living Arrangement: Yes: With Spouse ADL: Independent History of Recent Travel: No Home Medications - Allergies Allergies/Adverse Reactions: Allergies Allergy/AdvReac Type Severity Reaction Status Date / Time No Known Allergies Allergy Verified 04/04/19 10:02 - Home Medications Home Medications: Ambulatory Orders Lisinopril/Hydrochlorothiazide [Lisinopril-Hctz 20-25 mg Tab] 1 each PO HS 05/22 Zolpidem Tartrate 10 mg PO HS 05/22/14 Review of Systems - Review of Systems Constitutional: reports: Loss of Appetite, Malaise Eyes: reports: No Symptoms HENT: reports: No Symptoms Neck: reports: No Symptoms Cardiovascular: reports: No Symptoms Respiratory: reports: No Symptoms Gastrointestinal: reports: Abdominal Pain, Nausea Genitourinary: reports: No Symptoms Musculoskeletal: reports: No Symptoms Integumentary: reports: No Symptoms Neurological: reports: No Symptoms Endocrine: reports: No Symptoms Hematology/Lymphatic: reports: No Symptoms Psychiatric: reports: No Symptoms Physical Examination Vital Signs: Vital Signs Temperature 98.5 F 04/04/19 09:59 Pulse Rate 76 04/04/19 12:30 Respiratory Rate 20 04/04/19 12:30 Blood Pressure 128/84 04/04/19 12:30 O2 Sat by Pulse Oximetry (%) 99 04/04/19 12:30 Constitutional: Yes: Well Nourished, No Distress, Calm Eyes: Yes: WNL HENT: Yes: WNL Neck: Yes: WNL Cardiovascular: Yes: Regular Rate and Rhythm Gastrointestinal: Yes: Normal Bowel Sounds, Soft, Tenderness (LLQ tenderness) Renal/: Yes: WNL Musculoskeletal: Yes: WNL Extremities: Yes: WNL Edema: No Integumentary: Yes: WNL Neurological: Yes: WNL ...Motor Strength: WNL Psychiatric: Yes: WNL Labs: CBC, BMP 04/04/19 11:02 04/04/19 11:02 Imaging - Results Cat Scan: Image Reviewed EKG: Pending Problem List - Problems (1) Diverticula of colon Assessment/Plan: CTAP shows acute diverticulitis involving the proximal sigmoid colon and its junction with the distal descending colon with few extraluminal air pockets and without evidence of abscess pancreatic body with a likely cyst seen on imaging. Given cipro and flagyl in the ED Will initiate Levaquin 500mg IV and Flagyl q8 Normal saline at 100cc Keep NPO Zofran for nausea/vomiting Monitor LFTs, lipase normal GI consulted Code(s): K57.30 - DVRTCLOS OF LG INT W/O PERFORATION OR ABSCESS W/O BLEEDING (2) Hypertension Assessment/Plan: Monitor BP while NPO Hold cardiac medications Code(s): I10 - ESSENTIAL (PRIMARY) HYPERTENSION (3) Insomnia Assessment/Plan: benadryl 12.5mg IVPB takes ambien at home Code(s): G47.00 - INSOMNIA, UNSPECIFIED (4) Prophylactic measure Assessment/Plan: fen normal saline @ 100cc/hr monitor electrolytes NPO prophy SCDs heparin Code(s): Z29.9 - ENCOUNTER FOR PROPHYLACTIC MEASURES, UNSPECIFIED Visit type - Emergency Visit Emergency Visit: Yes ED Registration Date: 04/04/19 Care time: The patient presented to the Emergency Department on the above date and was hospitalized for further evaluation of their emergent condition. - New Patient This patient is new to me today: Yes Date on this admission: 04/04/19 - Critical Care Critical Care patient: No
[2019-04-04] MEDS ORDERED: MORPHINE SULFATE 2 MG/ML VIAL IVPUSH PRN ×2 (16:10→18:40)
[2019-04-04] MEDS ORDERED: ONDANSETRON 4 MG/2 ML VIAL IVPUSH PRN (17:57)
[2019-04-04] MEDS: SODIUM CHLORIDE 1,000 ML IV SCH (18:04)
[2019-04-05 08:41] LABS: BASO % 0.4 % (0-2.0); EOS % 0.9 % (0-4.5); HEMOGLOBIN 11.6 GM/dL (10.7-15.3); LYMPH % 22.7 % (8-40); MCH 31.7 pg (25.7-33.7); MCHC 34.1 g/dl (32.0-36.0); MEAN PLT VOLUME 7.7 fl (7.5-11.1); MONO % 7.3 % (3.8-10.2); NEUT % 68.7 % (42.8-82.8); RBC 3.65 M/mm3 (3.60-5.2); RDW 12.6 % (11.6-15.6); WHITE BLOOD COUNT 5.3 K/mm3 (4.0-10.0)
[2019-04-05 08:51] LABS: ALBUMIN 3.1 g/dl (3.4-5.0); BILIRUBIN,TOTAL 0.6 mg/dL (0.2-1); BLOOD UREA NITROGEN 7.8 mg/dL (7-18); CALCIUM 8.4 mg/dL (8.5-10.1); CREATININE 0.8 mg/dL (0.55-1.3); POTASSIUM 4.2 mmol/L (3.5-5.1); TOT PROT 6.3 g/dl (6.4-8.2)
[2019-04-05 09:13] LABS: PLATELET COUNT 205 K/MM3 (134-434)
[2019-04-05] MEDS: PANTOPRAZOLE SODIUM 40 MG VIAL IVPUSH SCH (09:34)
--- NOTE | 2019-04-05 09:41 | EKG ---
Test Reason : Blood Pressure : / mmHG Vent. Rate : 062 BPM Atrial Rate : 062 BPM P-R Int : 162 ms QRS Dur : 074 ms QT Int : 420 ms P-R-T Axes : 028 015 012 degrees QTc Int : 426 ms NORMAL SINUS RHYTHM LOW VOLTAGE QRS BORDERLINE ECG WHEN COMPARED WITH ECG OF 29-JAN-2017 10:24, VENT. RATE HAS DECREASED BY 44 BPM Confirmed by HELIO MONK, SHLOMO ([id number]) on 04/05/2019 9:41:27 AM Referred By: Confirmed By:SHLOMO CADET MD
--- NOTE | 2019-04-05 13:03 | PN ---
Progress Note, Physician Chief Complaint: still with abdominal pain and nausea History of Present Illness: Patient is a 64 year old female with a significant past medical history of hypertension and insomnia. She presents to the ED with complaints of lower abdominal p ain. Patient states that the abdominal pain began one month ago and was intermittent but worsened in the last 3 days. She experiences mild nausea but denies any vomiting. Her last BM was this morning and she reports it as being normal and denies diarrhea. She presents to the ED because the abdominal pain became intense. She states she has a follow up with a GI specialist on April 17, however, but the abdominal pain was getting worse. She denies any urinary symptoms. She describes her abdominal pain as constant , moderate to severe in intensitiy, mostly on her left lower quadrant. She denies any chest pain, denies any bloody stools or diarrhea, denies constipation, Her last colonoscopy was 4 years ago per patient. - Current Medication List Current Medications: Active Medications Acetaminophen (Ofirmev Injection -) 1,000 mg IVPB Q6H PRN PRN Reason: PAIN LEVEL 6-10 Diphenhydramine HCl (Benadryl Injection -) 12.5 mg IVPUSH HS [facility] Last Admin: 04/04/19 23:38 Dose: 12.5 mg Sodium Chloride (Normal Saline -) 1,000 mls @ 100 mls/hr IV ASDIR [facility] Last Admin: 04/04/19 18:04 Dose: 100 mls/hr Metronidazole (Flagyl 500mg Premixed Ivpb -) 500 mg in 100 mls @ 100 mls/hr IVPB Q6H-IV [facility] Last Admin: 04/05/19 10:37 Dose: 100 mls/hr Morphine Sulfate (Morphine Sulfate) 2 mg IVPUSH Q4H PRN PRN Reason: PAIN LEVEL 7 - 10 Last Admin: 04/05/19 01:30 Dose: 2 mg Ondansetron HCl (Zofran Injection) 4 mg IVPUSH Q8H PRN PRN Reason: NAUSEA Pantoprazole Sodium (Protonix Iv) 40 mg IVPUSH DAILY [facility] Last Admin: 04/05/19 09:34 Dose: 40 mg - Objective Vital Signs: Vital Signs Temperature 98.4 F 04/05/19 08:08 Pulse Rate 84 04/05/19 08:08 Respiratory Rate 14 04/05/19 08:08 Blood Pressure 120/54 L 07/13/19 08:08 O2 Sat by Pulse Oximetry (%) 99 04/05/19 09:00 Constitutional: Yes: Well Nourished, No Distress, Calm HENT: Yes: WNL Gastrointestinal: Yes: Normal Bowel Sounds, Tenderness ...Rectal Exam: Yes: Deferred Edema: No Labs: CBC, BMP 04/05/19 06:15 04/05/19 06:15 Problem List - Problems (1) Diverticula of colon Assessment/Plan: CTAP shows acute diverticulitis involving the proximal sigmoid colon and its junction with the distal descending colon with few extraluminal air pockets and without evidence of abscess pancreatic body with a likely cyst seen on imaging. Given cipro and flagyl in the ED Will initiate Levaquin 500mg IV and Flagyl q8 Normal saline at 100cc Keep NPO Zofran for nausea/vomiting Monitor LFTs, lipase normal GI consulted Code(s): K57.30 - DVRTCLOS OF LG INT W/O PERFORATION OR ABSCESS W/O BLEEDING (2) Hypertension Assessment/Plan: Monitor BP while NPO Hold cardiac medications Code(s): I10 - ESSENTIAL (PRIMARY) HYPERTENSION (3) Insomnia Assessment/Plan: benadryl 12.5mg IVPB takes ambien at home Code(s): G47.00 - INSOMNIA, UNSPECIFIED (4) Prophylactic measure Assessment/Plan: fen normal saline @ 100cc/hr monitor electrolytes NPO prophy SCDs heparin Code(s): Z29.9 - ENCOUNTER FOR PROPHYLACTIC MEASURES, UNSPECIFIED Visit type - Emergency Visit Emergency Visit: Yes ED Registration Date: 04/04/19 Care time: The patient presented to the Emergency Department on the above date and was hospitalized for further evaluation of their emergent condition. - New Patient This patient is new to me today: No - Critical Care Critical Care patient: No - Discharge Referral Referred to [facility] Med P.C.: No
[2019-04-05] MEDS: ACETAMINOPHEN 1000 MG/100 ML VIAL (NON FORMULARY) IVPB PRN ×2 (13:18→21:22)
[2019-04-05] MEDS: SODIUM CHLORIDE 1,000 ML IV SCH (19:34)
[2019-04-06] MEDS: SODIUM CHLORIDE 1,000 ML IV SCH ×2 (05:35→16:18)
[2019-04-06 07:16] LABS: BASO % 0.4 % (0-2.0); EOS % 1.1 % (0-4.5); HEMATOCRIT 33.7 % (32.4-45.2); HEMOGLOBIN 11.4 GM/dL (10.7-15.3); LYMPH % 16.4 % (8-40); MCH 31.7 pg (25.7-33.7); MCHC 33.9 g/dl (32.0-36.0); MEAN CELL VOLUME 93.6 fl (80-96); MEAN PLT VOLUME 7.6 fl (7.5-11.1); MONO % 5.6 % (3.8-10.2); NEUT % 76.5 % (42.8-82.8); RDW 12.6 % (11.6-15.6); WHITE BLOOD COUNT 5.6 K/mm3 (4.0-10.0)
[2019-04-06 07:40] LABS: ALBUMIN 3.2 g/dl (3.4-5.0); BILIRUBIN,TOTAL 0.6 mg/dL (0.2-1); BLOOD UREA NITROGEN 7.9 mg/dL (7-18); CALCIUM 8.4 mg/dL (8.5-10.1); CREATININE 0.7 mg/dL (0.55-1.3); MAGNESIUM 1.9 mg/dL (1.8-2.4); POTASSIUM 3.5 mmol/L (3.5-5.1); TOT PROT 6.2 g/dl (6.4-8.2)
[2019-04-06 08:07] LABS: SERUM IRON SATURATION 14 % (15-55); TOTAL IRON BINDING CAPACITY 265 ug/dL (250-450)
[2019-04-06 08:37] LABS: PLATELET COUNT 210 K/MM3 (134-434)
[2019-04-06] MEDS: PANTOPRAZOLE SODIUM 40 MG VIAL IVPUSH SCH (09:33)
--- NOTE | 2019-04-06 15:16 | CON.GI ---
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 SHe denies fever, rectal bleeding, diarrhea and unexplained weight loss. She was former patient of Dr Israel. Her last colonoscopy was 4 years ago. Over the past 48hours she continued to have less abdominal pain. There was no evidence of SIRS Ct was reviewed. She was noted to have microperforations. Today continued to have mild abdominal pain - Past Medical History ...: No - Alcohol/Substance Use Hx Alcohol Use: No - Smoking History Smoking history: Never smoked Have you smoked in the past 12 months: No Aproximately how many cigarettes per day: 0 - Social History ADL: Independent History of Recent Travel: No Home Medications - Allergies Allergies/Adverse Reactions: Allergies Allergy/AdvReac Type Severity Reaction Status Date / Time No Known Allergies Allergy Verified 04/04/19 10:02 - Home Medications Home Medications: Ambulatory Orders Lisinopril/Hydrochlorothiazide [Lisinopril-Hctz 20-25 mg Tab] 1 each PO HS 05/22 Zolpidem Tartrate 10 mg PO HS 05/22/14 Review of Systems - Review of Systems Constitutional: reports: No Symptoms Eyes: reports: No Symptoms HENT: reports: No Symptoms Neck: reports: No Symptoms Cardiovascular: reports: No Symptoms Respiratory: reports: No Symptoms Gastrointestinal: reports: Abdominal Pain. denies: Bloating, Constipation, Diarrhea, Dysphagia, Indigestion, Melena, Nausea, Rectal Bleeding, Vomiting Physical Exam-GI Vital Signs: Vital Signs Temperature 98.1 F 04/06/19 05:00 Pulse Rate 85 04/06/19 05:00 Respiratory Rate 16 04/06/19 05:00 Blood Pressure 110/63 04/06/19 05:00 O2 Sat by Pulse Oximetry (%) 99 04/05/19 22:00 Constitutional: Yes: Obese Eyes: Yes: Conjunctiva Clear HENT: Yes: Atraumatic Neck: Yes: Supple Cardiovascular: Yes: Regular Rate and Rhythm Respiratory: Yes: CTA Bilaterally ...Palpate: Yes: Soft, Tenderness (--mild llq tenderness). No: Firm/Rigid, Guarding, Hepatomegaly Labs: CBC, BMP 04/06/19 06:00 04/06/19 06:00 Imaging - Results Cat Scan: Image Reviewed (--sigmoid diverticulitis with localized microperforation,1cm pancreatic cyst) Problem List - Problems (1) Diverticulitis of intestine with perforation Assessment/Plan: --microperforation,no evidence of SIRS Code(s): K57.80 - DVTRCLI OF INTEST, PART UNSP, W PERF AND ABSCESS W/O BLEED (2) Pancreatic cyst Assessment/Plan: R> MRI of pancreas with contrast Dr Dia will follow th patient Code(s): K86.2 - CYST OF PANCREAS
--- NOTE | 2019-04-06 17:50 | PN ---
Progress Note, Physician Chief Complaint: still with abdominal pain and nausea History of Present Illness: Patient is a 64 year old female with a significant past medical history of hypertension and insomnia. She presents to the ED with complaints of lower abdominal p ain. Patient states that the abdominal pain began one month ago and was intermittent but worsened in the last 3 days. She experiences mild nausea but denies any vomiting. Her last BM was this morning and she reports it as being normal and denies diarrhea. She presents to the ED because the abdominal pain became intense. She states she has a follow up with a GI specialist on April 17, however, but the abdominal pain was getting worse. She denies any urinary symptoms. She describes her abdominal pain as constant , moderate to severe in intensitiy, mostly on her left lower quadrant. She denies any chest pain, denies any bloody stools or diarrhea, denies constipation, Her last colonoscopy was 4 years ago per patient. - Current Medication List Current Medications: Active Medications Acetaminophen (Ofirmev Injection -) 1,000 mg IVPB Q6H PRN PRN Reason: PAIN LEVEL 6-10 Last Admin: 04/05/19 21:22 Dose: 1,000 mg Diphenhydramine HCl (Benadryl Injection -) 12.5 mg IVPUSH HS [facility] Last Admin: 04/05/19 23:30 Dose: 12.5 mg Sodium Chloride (Normal Saline -) 1,000 mls @ 100 mls/hr IV ASDIR [facility] Last Admin: 04/06/19 16:18 Dose: 100 mls/hr Metronidazole (Flagyl 500mg Premixed Ivpb -) 500 mg in 100 mls @ 100 mls/hr IVPB Q6H-IV [facility] Last Admin: 04/06/19 16:17 Dose: 100 mls/hr Levofloxacin (Levaquin 500 Mg Premixed Ivpb -) 500 mg in 100 mls @ 100 mls/hr IVPB DAILY [facility]; Protocol Last Admin: 04/06/19 11:42 Dose: 100 mls/hr Morphine Sulfate (Morphine Sulfate) 2 mg IVPUSH Q4H PRN PRN Reason: PAIN LEVEL 7 - 10 Last Admin: 04/05/19 01:30 Dose: 2 mg Ondansetron HCl (Zofran Injection) 4 mg IVPUSH Q8H PRN PRN Reason: NAUSEA Pantoprazole Sodium (Protonix Iv) 40 mg IVPUSH DAILY [facility] Last Admin: 04/06/19 09:33 Dose: 40 mg - Objective Vital Signs: Vital Signs Temperature 98.1 F 04/06/19 05:00 Pulse Rate 85 04/06/19 05:00 Respiratory Rate 16 04/06/19 05:00 Blood Pressure 110/63 04/06/19 05:00 O2 Sat by Pulse Oximetry (%) 99 04/05/19 22:00 Constitutional: Yes: Well Nourished, No Distress, Calm Eyes: Yes: WNL HENT: Yes: WNL Neck: Yes: WNL Cardiovascular: Yes: Regular Rate and Rhythm Respiratory: Yes: Regular Gastrointestinal: Yes: Normal Bowel Sounds, Soft, Tenderness Genitourinary: Yes: WNL Musculoskeletal: Yes: WNL Extremities: Yes: WNL Edema: No Integumentary: Yes: WNL Neurological: Yes: Alert, Oriented Labs: CBC, BMP 04/06/19 06:00 04/06/19 06:00 Problem List - Problems (1) Diverticula of colon Assessment/Plan: CTAP shows acute diverticulitis involving the proximal sigmoid colon and its junction with the distal descending colon with few extraluminal air pockets and without evidence of abscess pancreatic body with a likely cyst seen on imaging. On Levaquin 500mg IV and Flagyl q8 Normal saline at 100cc Keep NPO, advance diet per GI Zofran for nausea/vomiting Monitor LFTs, lipase normal for abd/pelvis CT per GI Code(s): K57.30 - DVRTCLOS OF LG INT W/O PERFORATION OR ABSCESS W/O BLEEDING (2) Hypertension Assessment/Plan: Monitor BP while NPO Hold cardiac medications Code(s): I10 - ESSENTIAL (PRIMARY) HYPERTENSION (3) Insomnia Assessment/Plan: benadryl 12.5mg IVPB takes ambien at home Code(s): G47.00 - INSOMNIA, UNSPECIFIED (4) Prophylactic measure Assessment/Plan: fen normal saline @ 100cc/hr monitor electrolytes clears prophy SCDs heparin Code(s): Z29.9 - ENCOUNTER FOR PROPHYLACTIC MEASURES, UNSPECIFIED Visit type - Emergency Visit Emergency Visit: Yes ED Registration Date: 04/04/19 Care time: The patient presented to the Emergency Department on the above date and was hospitalized for further evaluation of their emergent condition. - New Patient This patient is new to me today: No - Critical Care Critical Care patient: No - Discharge Referral Referred to [facility] Med P.C.: No
--- NOTE | 2019-04-07 09:50 | PN ---
Progress Note, Physician - Current Medication List Current Medications: Active Medications Acetaminophen (Ofirmev Injection -) 1,000 mg IVPB Q6H PRN PRN Reason: PAIN LEVEL 6-10 Last Admin: 04/05/19 21:22 Dose: 1,000 mg Diphenhydramine HCl (Benadryl Injection -) 12.5 mg IVPUSH HS JUAN Last Admin: 04/06/19 21:06 Dose: 12.5 mg Sodium Chloride (Normal Saline -) 1,000 mls @ 100 mls/hr IV ASDIR JUAN Last Admin: 04/06/19 16:18 Dose: 100 mls/hr Metronidazole (Flagyl 500mg Premixed Ivpb -) 500 mg in 100 mls @ 100 mls/hr IVPB Q6H-IV JUAN Last Admin: 04/07/19 09:00 Dose: 100 mls/hr Levofloxacin (Levaquin 500 Mg Premixed Ivpb -) 500 mg in 100 mls @ 100 mls/hr IVPB DAILY [facility]; Protocol Last Admin: 04/06/19 11:42 Dose: 100 mls/hr Morphine Sulfate (Morphine Sulfate) 2 mg IVPUSH Q4H PRN PRN Reason: PAIN LEVEL 7 - 10 Last Admin: 04/05/19 01:30 Dose: 2 mg Ondansetron HCl (Zofran Injection) 4 mg IVPUSH Q8H PRN PRN Reason: NAUSEA Last Admin: 04/07/19 00:00 Dose: 4 mg Pantoprazole Sodium (Protonix Iv) 40 mg IVPUSH DAILY [facility] Last Admin: 04/06/19 09:33 Dose: 40 mg - Objective Vital Signs: Vital Signs Temperature 98.1 F 04/07/19 06:18 Pulse Rate 70 04/07/19 06:18 Respiratory Rate 18 04/07/19 06:18 Blood Pressure 129/60 04/07/19 06:18 O2 Sat by Pulse Oximetry (%) 98 04/06/19 21:00 Labs: CBC, BMP 04/06/19 06:00 04/06/19 06:00 Problem List - Problems (1) Diverticula of colon Code(s): K57.30 - DVRTCLOS OF LG INT W/O PERFORATION OR ABSCESS W/O BLEEDING (2) Hypertension Code(s): I10 - ESSENTIAL (PRIMARY) HYPERTENSION (3) Insomnia Code(s): G47.00 - INSOMNIA, UNSPECIFIED (4) Prophylactic measure Code(s): Z29.9 - ENCOUNTER FOR PROPHYLACTIC MEASURES, UNSPECIFIED
--- NOTE | 2019-04-07 09:53 | CON.ID ---
Consult Consult Specialty:: infectious diseases Referred by:: Cely Reason for Consultation:: abd pain , diverticulitis - History of Present Illness Chief Complaint: abdn pain History of Present Illness: 64 year old female with a significant past medical history of hypertension and insomnia. admitted with complaints of lower abdominal pain. Patient states that the abdominal pain began one month ago and was intermittent but worsened in the last 3 days. She experiences mild nausea but denies any vomiting. Her last BM was this morning and she reports it as being normal and denies diarrhea. She presents to the ED because the abdominal pain became intense. She states she has a follow up with a GI specialist on April 17, however, but the abdominal pain was getting worse. She denies any urinary symptoms. She describes her abdominal pain as constant, moderate to severe in intensitiy, mostly on her left lower quadrant. patient was worked up found to ahve diverticulitis patient was started on flagyl and levaquin ct on admision was done which showed diverticulitis and the repeat showed no improvement - History Source History Provided By: Patient Limitations to Obtaining History: Language Barrier - Past Medical History ...: No - Alcohol/Substance Use Hx Alcohol Use: No - Smoking History Smoking history: Never smoked Have you smoked in the past 12 months: No Aproximately how many cigarettes per day: 0 - Social History ADL: Independent History of Recent Travel: No Home Medications - Allergies Allergies/Adverse Reactions: Allergies Allergy/AdvReac Type Severity Reaction Status Date / Time No Known Allergies Allergy Verified 04/04/19 10:02 - Home Medications Home Medications: Ambulatory Orders Lisinopril/Hydrochlorothiazide [Lisinopril-Hctz 20-25 mg Tab] 1 each PO HS 05/22 Zolpidem Tartrate 10 mg PO HS 05/22/14 Review of Systems - Review of Systems Constitutional: reports: No Symptoms Eyes: reports: No Symptoms HENT: reports: No Symptoms, Ocular Prosthesis Cardiovascular: reports: No Symptoms Respiratory: reports: No Symptoms Gastrointestinal: reports: Abdominal Pain Genitourinary: reports: No Symptoms Integumentary: reports: No Symptoms Neurological: reports: No Symptoms Physical Exam Vital Signs: Vital Signs Temperature 98.1 F 04/07/19 06:18 Pulse Rate 70 04/07/19 06:18 Respiratory Rate 18 04/07/19 06:18 Blood Pressure 129/60 04/07/19 06:18 O2 Sat by Pulse Oximetry (%) 98 04/06/19 21:00 Constitutional: Yes: Well Nourished, Obese Eyes: Yes: Conjunctiva Clear Neck: Yes: Supple, Trachea Midline Cardiovascular: Yes: Regular Rate and Rhythm Respiratory: Yes: Regular, CTA Bilaterally Gastrointestinal: Yes: Tenderness (left lower quadrant) Musculoskeletal: Yes: WNL Extremities: Yes: WNL Neurological: Yes: Alert, Oriented Psychiatric: Yes: Alert, Oriented Labs: CBC, BMP 04/06/19 06:00 04/06/19 06:00 Imaging - Results Cat Scan: Report Reviewed, Image Reviewed Assessment/Plan Problem List - Problems (1) Diverticula of colon Code(s): K57.30 - DVRTCLOS OF LG INT W/O PERFORATION OR ABSCESS W/O BLEEDING (2) Hypertension Code(s): I10 - ESSENTIAL (PRIMARY) HYPERTENSION (3) Insomnia Code(s): G47.00 - INSOMNIA, UNSPECIFIED abd pain plan after looking at the repeat ct scan and still patient having pain inspite of being on flagyl and levaquin i am going to change patient to [facility]
[2019-04-07] MEDS: PANTOPRAZOLE SODIUM 40 MG VIAL IVPUSH SCH (10:02)
[2019-04-07] MEDS ORDERED: DEXTROSE 5%-WATER - 50 ML IVPB ONE ×2 (10:07→17:07)
[2019-04-07] MEDS ORDERED: PIPERACILLIN/TAZOBACTAM 3.375 GM VIAL IVPB ONE ×2 (10:07→17:07)
[2019-04-07] MEDS: PIPERACILLIN/TAZOB 3.375 GM 3.375 GM in DEXTROSE 5%-WATER - 50 ML IVPB SCH ×2 (10:08→17:19)
--- NOTE | 2019-04-07 11:16 | PN ---
Progress Note, Physician Chief Complaint: abdominal pain improving, less tender. tolerating clears, and advanced to full by GI patient having loose stools and c diff ordered History of Present Illness: Patient is a 64 year old female with a significant past medical history of diverticulitis, hypertension and insomnia. She presents to the ED with complaints of lower abdominal pain and was found to have acute sigmoid diverticulitis. She denies any chest pain. she reports having loose stools today. abdominal pain/tenderness improving. Seen by ID and switched to Zosyn. - Current Medication List Current Medications: Active Medications Acetaminophen (Ofirmev Injection -) 1,000 mg IVPB Q6H PRN PRN Reason: PAIN LEVEL 6-10 Last Admin: 04/05/19 21:22 Dose: 1,000 mg Diphenhydramine HCl (Benadryl Injection -) 12.5 mg IVPUSH HS JUAN Last Admin: 04/06/19 21:06 Dose: 12.5 mg Sodium Chloride (Normal Saline -) 1,000 mls @ 100 mls/hr IV ASDIR JUAN Last Admin: 04/06/19 16:18 Dose: 100 mls/hr Piperacillin Sod/Tazobactam (Sod 3.375 gm/ Dextrose) 50 mls @ 100 mls/hr IVPB Q8H-IV JUAN; Protocol Last Admin: 04/07/19 10:08 Dose: 100 mls/hr Morphine Sulfate (Morphine Sulfate) 2 mg IVPUSH Q4H PRN PRN Reason: PAIN LEVEL 7 - 10 Last Admin: 04/05/19 01:30 Dose: 2 mg Ondansetron HCl (Zofran Injection) 4 mg IVPUSH Q8H PRN PRN Reason: NAUSEA Last Admin: 04/07/19 00:00 Dose: 4 mg Pantoprazole Sodium (Protonix Iv) 40 mg IVPUSH DAILY JUAN Last Admin: 04/07/19 10:02 Dose: 40 mg - Objective Vital Signs: Vital Signs Temperature 98.3 F 04/07/19 10:29 Pulse Rate 69 04/07/19 10:29 Respiratory Rate 17 04/07/19 10:29 Blood Pressure 135/59 L 04/07/19 10:29 O2 Sat by Pulse Oximetry (%) 98 04/06/19 21:00 Constitutional: Yes: No Distress, Calm Eyes: Yes: WNL HENT: Yes: WNL Neck: Yes: WNL Cardiovascular: Yes: Regular Rate and Rhythm Respiratory: Yes: WNL, Regular, CTA Bilaterally Gastrointestinal: Yes: Soft, Tenderness ...Rectal Exam: Yes: Deferred Genitourinary: Yes: WNL Edema: No Peripheral Pulses WNL: No Integumentary: Yes: WNL Neurological: Yes: WNL Labs: CBC, BMP 04/06/19 06:00 04/06/19 06:00 Problem List - Problems (1) Diverticula of colon Assessment/Plan: CTAP shows acute sigmoid diverticulitis involving the proximal sigmoid colon and its junction with the distal descending colon with few extraluminal air pockets and without evidence of abscess pancreatic body with a likely cyst seen on imaging. on Zosyn Tolerating clears, advanced to full liquid Zofran for nausea/vomiting Monitor LFTs, lipase normal abd/pelvis CT repeated Code(s): K57.30 - DVRTCLOS OF LG INT W/O PERFORATION OR ABSCESS W/O BLEEDING (2) Hypertension Assessment/Plan: Monitor BP, restart home meds. Code(s): I10 - ESSENTIAL (PRIMARY) HYPERTENSION (3) Insomnia Assessment/Plan: ambien 10mg daily Code(s): G47.00 - INSOMNIA, UNSPECIFIED (4) Prophylactic measure Assessment/Plan: fen tolerating clears, encourage oral intake monitor electrolytes full liquid prophy SCDs heparin Code(s): Z29.9 - ENCOUNTER FOR PROPHYLACTIC MEASURES, UNSPECIFIED Visit type - Emergency Visit Emergency Visit: Yes ED Registration Date: 04/04/19 Care time: The patient presented to the Emergency Department on the above date and was hospitalized for further evaluation of their emergent condition. - New Patient This patient is new to me today: No - Critical Care Critical Care patient: No - Discharge Referral Referred to [facility] No
--- NOTE | 2019-04-07 11:42 | PN ---
Progress Note (short form) - Note Progress Note: Patient seen and examined Labs reviewed Feeling much better. LLQ pain is less. No fever/chills. Sitting in [facility] with family. She reports that since yesterday she has been having diarrhea. She is hungry. Vital Signs Temp 98.3 F 04/07/19 10:29 Pulse 69 04/07/19 10:29 Resp 17 04/07/19 10:29 BP 135/59 L 04/07/19 10:29 Pulse Ox 98 04/06/19 21:00 NAD soft, mild ttp LLQ, non-tympanic CBC, BMP 04/06/19 06:00 04/06/19 06:00 CT reviewed, no interval change in diverticulitis Impression: Sigmoid diverticulitis, seems to be improving. Will advance diet to full liquids Check stool for C. diff, although diarrhea is likely to be antibiotic associated Abx per ID
[2019-04-07] MEDS ORDERED: ACETAMINOPHEN 325 MG TABLET (FP) PO PRN (16:41)
[2019-04-07] MEDS ORDERED: ZOLPIDEM TARTRATE 5 MG TABLET PO PRN (22:00)
[2019-04-07] MEDS ORDERED: LISINOPRIL 20 MG TABLET (FP) PO SCH (22:00)
[2019-04-07] MEDS ORDERED: HYDROCHLOROTHIAZIDE 25 MG TABLET (FP) PO SCH (22:00)
[2019-04-07] MEDS ORDERED: PATIENT'S OWN MEDICATION (NON-FORMULARY) (Lisinopril/Hydrochlorothiazide [Lisinopril-Hctz PO SCH (22:00)
[2019-04-07] MEDS: HEPARIN NA (PORCINE) 5,000 UNITS/ML 1ML VIAL SQ SCH (22:16)
[2019-04-08] MEDS ORDERED: traMADol HCL 50 MG TABLET PO SCH
[2019-04-08] MEDS ORDERED: PIPERACILLIN/TAZOBACTAM 3.375 GM VIAL IVPB ONE ×2 (00:52→10:11)
[2019-04-08] MEDS ORDERED: DEXTROSE 5%-WATER - 50 ML IVPB ONE ×2 (00:53→10:12)
[2019-04-08] MEDS: PIPERACILLIN/TAZOB 3.375 GM 3.375 GM in DEXTROSE 5%-WATER - 50 ML IVPB SCH ×2 (01:47→10:33)
[2019-04-08] MEDS: PANTOPRAZOLE SODIUM 40 MG VIAL IVPUSH SCH (10:33)
[2019-04-08] MEDS: HEPARIN NA (PORCINE) 5,000 UNITS/ML 1ML VIAL SQ SCH (10:34)
[2019-04-08 10:44] VITALS: BP 124/79; PULSE 72; TEMP 97.7
--- NOTE | 2019-04-08 14:12 | PN ---
Progress Note, Physician History of Present Illness: patient doing well still with some pain tolerating diet - Current Medication List Current Medications: Active Medications Acetaminophen (Tylenol -) 650 mg PO Q6H PRN PRN Reason: PAIN LEVEL 4 - 6 Heparin Sodium (Porcine) (Heparin -) 5,000 unit SQ BID JUAN Last Admin: 04/08/19 10:34 Dose: 5,000 unit Hydrochlorothiazide (Hctz -) 25 mg PO HS JUAN Last Admin: 04/07/19 22:11 Dose: 25 mg Piperacillin Sod/Tazobactam (Sod 3.375 gm/ Dextrose) 50 mls @ 100 mls/hr IVPB Q8H-IV JUAN; Protocol Last Admin: 04/08/19 10:33 Dose: 100 mls/hr Lisinopril (Prinivil) 20 mg PO HS JUAN Last Admin: 04/07/19 22:12 Dose: 20 mg Morphine Sulfate (Morphine Sulfate) 2 mg IVPUSH Q4H PRN PRN Reason: PAIN LEVEL 7 - 10 Last Admin: 04/05/19 01:30 Dose: 2 mg Ondansetron HCl (Zofran Injection) 4 mg IVPUSH Q8H PRN PRN Reason: NAUSEA Last Admin: 04/07/19 00:00 Dose: 4 mg Pantoprazole Sodium (Protonix Iv) 40 mg IVPUSH DAILY [facility] Last Admin: 04/08/19 10:33 Dose: 40 mg Zolpidem Tartrate (Ambien -) 10 mg PO HS PRN PRN Reason: INSOMNIA Last Admin: 04/08/19 00:58 Dose: 10 mg - Objective Vital Signs: Vital Signs Temperature 97.7 F 04/08/19 10:44 Pulse Rate 72 04/08/19 10:44 Respiratory Rate 17 04/08/19 10:44 Blood Pressure 124/79 04/08/19 10:44 O2 Sat by Pulse Oximetry (%) 94 L 04/08/19 09:00 Constitutional: Yes: Calm, Mild Distress Cardiovascular: Yes: Regular Rate and Rhythm Respiratory: Yes: Regular, CTA Bilaterally Gastrointestinal: Yes: Soft, Tenderness Musculoskeletal: Yes: WNL Extremities: Yes: WNL Neurological: Yes: Alert, Oriented Psychiatric: Yes: Alert, Oriented Labs: CBC, BMP 04/06/19 06:00 04/06/19 06:00 Assessment/Plan Problem List - Problems (1) Diverticula of colon Code(s): K57.30 - DVRTCLOS OF LG INT W/O PERFORATION OR ABSCESS W/O BLEEDING (2) Hypertension Code(s): I10 - ESSENTIAL (PRIMARY) HYPERTENSION (3) Insomnia Code(s): G47.00 - INSOMNIA, UNSPECIFIED abd pain plan patient can be send on levaquin falgyl for 7 more days
--- NOTE | 2019-04-08 14:30 | DS ---
Physical Examination Vital Signs: Vital Signs Temperature 97.7 F 04/08/19 10:44 Pulse Rate 72 04/08/19 10:44 Respiratory Rate 17 04/08/19 10:44 Blood Pressure 124/79 04/08/19 10:44 O2 Sat by Pulse Oximetry (%) 94 L 04/08/19 09:00 Findings/Remarks: No acute events overnight. Feeling well, no complaints. Ate breakfast and lunch with no complaints. No abdominal pain, nausea or vomiting, no more diarrhea. Afebrile. Constitutional: Yes: Well Nourished, No Distress, Calm Cardiovascular: Yes: WNL, Regular Rate and Rhythm Respiratory: Yes: WNL, Regular, CTA Bilaterally Gastrointestinal: Yes: WNL, Normal Bowel Sounds, Soft, Abdomen, Obese Edema: No Peripheral Pulses WNL: Yes Labs: CBC, BMP 04/06/19 06:00 04/06/19 06:00 Discharge Summary Reason For Visit: DIVERTICULITIS Current Active Problems Diverticulitis (Acute) Diverticulitis of intestine with perforation (Acute) Hypertension (Acute) Insomnia (Acute) Pancreatic cyst (Acute) Prophylactic measure (Acute) Hospital Course: 64 year old female with a PMHx diverticulitis, hypertension and insomnia. She presents to the ED with complaints of lower abdominal pain and was found to have acute sigmoid diverticulitis. Hospital Course: Diverticula of colon CTAP acute sigmoid diverticulitis involving the proximal sigmoid colon and its junction with the distal descending colon with few extraluminal air pockets and without evidence of abscess Pancreatic body with a likely cyst seen on imaging Was placed on Zosyn and seen by ID Transition to levaquin and flagyl PO for 7 more days, instructed to take a probiotic Tolerating full diet Patient needs to followup with GI for a colonoscopy in 4-6 weeks Hypertension Insomnia Condition: Improved - Instructions Diet, Activity, Other Instructions: Diverticulosis is a condition in which small, bulging pouches (diverticuli) form inside the lower part of the intestine, usually in the colon. Constipation and straining during bowel movements can worsen the condition. A diet rich in fiber can help keep stools soft and prevent inflammation. Diverticulitis occurs when the pouches in the colon become infected or inflamed. Dietary changes can help the colon heal. Fiber is an important part of the diet for patients with diverticulosis. A high- fiber diet softens and gives bulk to the stool, allowing it to pass quickly and easily. Diet for Diverticulosis Eat a high-fiber diet when you have diverticulosis. Fiber softens the stool and helps prevent constipation. It also can help decrease pressure in the colon and help prevent flare-ups of diverticulitis. High-fiber foods include: * Beans and legumes * Bran, whole wheat bread and whole grain cereals such as oatmeal * Brown and wild rice * Fruits such as apples, bananas and pears * Vegetables such as broccoli, carrots, corn and squash * Whole wheat pasta If you currently don't have a diet high in fiber, you should add fiber gradually. This helps avoid bloating and abdominal discomfort. The target is to eat 25 to 30 grams of fiber daily. Drink at least 8 cups of fluid daily. Fluid will help soften your stool. Exercise also promotes bowel movement and helps prevent constipation. When the colon is not inflamed, eat popcorn, nuts and seeds as tolerated. Diet for Diverticulitis During flare ups of diverticulitis, follow a clear liquid diet. Your doctor will let you know when to progress from clear liquids to low fiber solids and then back to your normal diet. A clear liquid diet means no solid foods. Juices should have no pulp. During the clear liquid diet, you may consume: * Broth * Clear juices such as apple, cranberry and grape. (Avoid orange juice) * Jell-O * Popsicles When you're able to eat solid food, choose low fiber foods while healing. Low fiber foods include: * Canned or cooked fruit without seeds or skin, such as applesauce and melon * Canned or well cooked vegetables without seeds and skin * Dairy products such as cheese, milk and yogurt * Eggs * Low-fiber cereal * Meat that is ground or tender and well cooked * Pasta * White bread and white rice After symptoms improve, you may add 5 to 15 grams of fiber a day back into your diet. Resume your high fiber diet when you no longer have symptoms. Referrals: Dayo Levin MD [Staff Physician] - Patrica Hernandez MD [Primary Care Provider] - Disposition: HOME - Home Medications Comprehensive Discharge Medication List: Ambulatory Orders Lisinopril/Hydrochlorothiazide [Lisinopril-Hctz 20-25 mg Tab] 1 each PO HS 05/22 Zolpidem Tartrate 10 mg PO HS 05/22/14 L. Acidophilus/Pectin, [place] [Acidophilus Probiotic Capsule] 1 each PO DAILY # 30 capsule 04/08/19 Levofloxacin [Levaquin] 500 mg PO DAILY 7 Days #7 tablet 04/08/19 metroNIDAZOLE [Flagyl -] 500 mg PO Q8H #21 tablet 04/08/19
== END 2019-04-08 15:12 | disposition home or self-care (01) | DRG 392 ==
LOC: JER 09:55 → JERBED 15:58 → J6S 17:26
PROVIDERS: ADMIT Internal Medicine; ATTEND Internal Medicine
DX: K57.80 Diverticulitis of intestine, part unspecified, with perforation and abscess without bleeding (principal); K86.2 Cyst of pancreas; I10 Essential (primary) hypertension; G47.00 Insomnia, unspecified; E66.9 Obesity, unspecified; Z68.30 Body mass index [BMI] 30.0-30.9, adult
CPT/HCPCS: 36415; 74176-TC; 74177-TC; 80053; 81003; 83540; 83550; 83690; 83735; 85025; 87045; 87046; 93005; 93010; 99283-25; J0131; J1644; J7030

== ENCOUNTER 2019-07-27 10:18 | Emergency (ER) | payer MEDICARE, OTHER ==
[2019-07-27 10:24] VITALS: BP 108/68; PULSE 63; TEMP 98.7; BMI 29.8
--- NOTE | 2019-07-27 11:00 | PDOC ---
History of Present Illness - General Chief Complaint: Pain Stated Complaint: ABDOMINAL PAIN Time Seen by Provider: 07/27/19 10:30 - History of Present Illness Initial Comments: 07/27/19 11:09 Pt is a 64 y/o F with a PMH of HTN and Diverticulitis who presents to our Emergency Department due to diffuse abdominal pain. Pt endorses pain commenced approximately 5 days ago. Pain is described as dull, constant, and diffuse. Pt endorses using Tylenol which has provided little to no relief of her symptoms. Last Bowel movement was last night. Endorses nausea. Denies vomiting, chest pain , shortness of breath, diarrhea or constipation. Pt states she underwent a colonoscopy [address] Carlos Israel; she was informed that she had polyps. Pt states she has not had a repeat colonoscopy. 07/27/19 18:18 Past History - Past Medical History Allergies/Adverse Reactions: Allergies Allergy/AdvReac Type Severity Reaction Status Date / Time No Known Allergies Allergy Verified 07/27/19 10:23 Home Medications: Ambulatory Orders levoFLOXacin [Levaquin] 750 mg PO DAILY #6 tab 07/27/19 metroNIDAZOLE [Metronidazole] 500 mg PO Q8H #20 tablet 07/27/19 Anemia: No Asthma: Yes Cancer: No Cardiac Disorders: No CVA: No COPD: No CHF: No Dementia: No Diabetes: No GI Disorders: Yes (GERD;GASTRITIS;TICS) Disorders: No HTN: Yes Hypercholesterolemia: No Liver Disease: Yes (NON-ALCOHOLIC) Seizures: No Thyroid Disease: No - Surgical History Abdominal Surgery: Yes (TUMMY TUCK) Appendectomy: Yes Cardiac Surgery: No Cholecystectomy: No Lung Surgery: No Neurologic Surgery: No Orthopedic Surgery: No - Psycho Social/Smoking Cessation Hx Smoking Status: No Smoking History: Never smoked Have you smoked in the past 12 months: No Number of Cigarettes Smoked Daily: 0 Hx Alcohol Use: No Drug/Substance Use Hx: No Substance Use Type: None Hx Substance Use Treatment: No Review of Systems - Review of Systems Able to Perform ROS?: Yes Constitutional: No: Fever Respiratory: No: Cough, Shortness of Breath Cardiac (ROS): No: Palpitations ABD/GI: No: Abdominal Distended, Blood Streaked Bowels, Constipated, Diarrhea : No: Burning, Dysuria Neurological: No: Headache, Weakness *Physical Exam - Vital Signs Last Vital Signs Temp Pulse Resp BP Pulse Ox 98.7 F 63 18 108/68 99 07/27/19 10:19 07/27/19 10:19 07/27/19 10:19 07/27/19 10:19 07/27/19 10:19 - Physical Exam Comments: 07/27/19 11:08 AAOx3 NAD EOMI Sclera Clear RRR S1S2 CTA b/l Slight tenderness to deep palpation lower abdomen. BS Audible. No guarding or rigidity. Surgical scar LLQ. No CCE Heart Score/ECG Review - ECG Impressions Comment:: 07/27/19 11:25 nsr rate 89, nl intervals, qtc 440. No st/t wave depressions/inversions. ED Treatment Course - LABORATORY CBC & Chemistry Diagram: 07/27/19 11:00 07/27/19 11:00 Medical Decision Making - Medical Decision Making 07/27/19 11:14 Will order routine labs CBC w/ diff, CMP, Lipase. EKG as well. ddx includes but not limited to Diverticulitis, GERD, colitis, SBO 07/27/19 11:15 Will order CTAP with contrast to assess for possible diverticulitis 07/27/19 11:17 Will order Zofran, Ofirmev, and 1L NS. CTAP---> diverticulitis descending colon. pt without elevated WBC or fever. Will d/c pt on Levaquin and metronidazole with follow up instructions to visit [facility] and as well as her PCP. Discharge - Discharge Information Problems reviewed: Yes Clinical Impression/Diagnosis: Diverticulitis Condition: Stable Disposition: HOME - Admission No - Additional Discharge Information Prescriptions: levoFLOXacin [Levaquin] 750 mg PO DAILY #6 tab metroNIDAZOLE [Metronidazole] 500 mg PO Q8H #20 tablet - Follow up/Referral Referrals: Donald Salgado DO [Staff Physician] - Patrica Hernandez MD [Staff Physician] - - Patient Discharge Instructions Additional Instructions: You were treated in our emergency department for diverticulitis (inflammation of your colon). Antibiotics were sent to your pharmacy. Please take these medications as prescribed. Adelfo CHEATHAM Please return top the Emergency Room if your symptoms progress or you develop fevers, nausea, vomiting, or worsening abdominal pain. Please follow up with your primary care doctor, and a [facility]. Referral has been provided for you. - Post Discharge Activity
[2019-07-27] MEDS ORDERED: SODIUM CHLORIDE 0.9% 500 ML INFUS.BAG IV ONE (11:16)
[2019-07-27] MEDS ORDERED: ACETAMINOPHEN 1000 MG/100 ML VIAL (NON FORMULARY) IVPB ONE (11:16)
[2019-07-27] MEDS ORDERED: ONDANSETRON 4 MG/2 ML VIAL IVPUSH ONE (11:16)
[2019-07-27] MEDS ORDERED: ACETAMINOPHEN INJECTION 100 ML IVPB ONE (11:20)
[2019-07-27] MEDS ORDERED: ONDANSETRON 4 MG/2 ML VIAL ONE (11:20)
--- NOTE | 2019-07-27 11:20 | PDOC ---
Attending Attestation - Resident Resident Name: Idris Hoffman - ED Attending Attestation I have performed the following: I have examined & evaluated the patient, The case was reviewed & discussed with the resident, I agree w/resident's findings & plan, Exceptions are as noted - HPI HPI: 07/27/19 11:16 64yo female with hx of diverticulitis with LLQ pain since last night. Last bm was last night. Assoc with nausea today. No vomiting. No f/c, but felt hot last night. Pt denies dysuria or hematuria. Denies new back pain. Denies cp/sob. No other complaints. - Physicial Exam PE: 07/27/19 11:17 Gen: aaox3, nad heent: mmm, eomi heart: +s1s2 reg lungs: cta b/l abd: soft, LLQ ttp, no rebound or guarding, nondistended ext: no c/c/e, from UE and LE - Medical Decision Making 07/27/19 11:18 a/p: 64yo female with LLQ pain -suspect diverticulitis - hx of similar pain -assoc with nausea, no vomiting -states pain worse last night than today -will send labs, ct abd/pelvis w iv contrast -will send ua -will start ivf hydration, nausea control, pain control -will monitor and reassess 07/27/19 12:24 no elevated wbc leuk esterase +, poss reactive, small wbc and bacteria - will monitor pending ct 07/27/19 14:06 acute diverticulitis with some ff, but no air or abscess will start abx no elevated wbc pt is nontoxic in appearance 07/27/19 14:30 pt tolerated po will need clear liquids stable for dc to home with oral abx Heart Score/ECG Review - ECG Intrepretation Comment:: 07/27/19 11:19 sinus at 89, nl axis, nl interval, no acute st/t wave findings
[2019-07-27 11:24] LABS: BASO % 0.5 % (0-2.0); EOS % 0.8 % (0-4.5); HEMATOCRIT 36.5 % (32.4-45.2); HEMOGLOBIN 12.7 GM/dL (10.7-15.3); LYMPH % 23.3 % (8-40); MCH 32.7 pg (25.7-33.7); MCHC 34.8 g/dl (32.0-36.0); MEAN CELL VOLUME 93.9 fl (80-96); NEUT % 68.4 % (42.8-82.8); PLATELET COUNT 216 K/MM3 (134-434); RBC 3.88 M/mm3 (3.60-5.2); RDW 12.8 % (11.6-15.6); WHITE BLOOD COUNT 5.7 K/mm3 (4.0-10.0)
[2019-07-27 11:28] LABS: EPI CELLS 1.8 /HPF (0-5/HPF); HYALINE CASTS 6 /lpf (0-8); PH,URINE 5.5 (5.0-8.0); URINE APPEARANCE CLEAR; URINE BACTERIA 6.7 /hpf (NEGATIVE); URINE BILIRUBIN NEGATIVE (NEGATIVE); URINE COLOR YELLOW; URINE GLUCOSE (UA) NEGATIVE (NEGATIVE); URINE KETONE NEGATIVE (NEGATIVE); URINE LEUK ESTERASE 2+ (NEGATIVE); URINE NITRITE NEGATIVE (NEGATIVE); URINE PROTEIN NEGATIVE (NEGATIVE); URINE RBC 2 /hpf (0-4); URINE UROBILINOGEN 0.2 mg/dL (0.2-1.0); URINE WBC 8 /hpf (0-5)
[2019-07-27 11:49] LABS: ALBUMIN 3.7 g/dl (3.4-5.0); BILIRUBIN,TOTAL 0.9 mg/dL (0.2-1); BLOOD UREA NITROGEN 10.2 mg/dL (7-18); CALCIUM 9.3 mg/dL (8.5-10.1); CREATININE 0.8 mg/dL (0.55-1.3); POTASSIUM 3.9 mmol/L (3.5-5.1); TOT PROT 7.3 g/dl (6.4-8.2)
--- NOTE | 2019-07-28 10:08 | EKG ---
Test Reason : Blood Pressure : / mmHG Vent. Rate : 089 BPM Atrial Rate : 089 BPM P-R Int : 142 ms QRS Dur : 080 ms QT Int : 362 ms P-R-T Axes : 063 039 045 degrees QTc Int : 440 ms NORMAL SINUS RHYTHM NORMAL ECG WHEN COMPARED WITH ECG OF 04-APR-2019 16:36, NO SIGNIFICANT CHANGE WAS FOUND Confirmed by RENETTA OWENS MD ([id number]) on 07/28/2019 10:08:34 AM Referred By: Confirmed By:RENETTA OWENS MD
== END 2019-07-27 15:16 | disposition home or self-care (01) ==
LOC: JER 10:18
PROC: 3E03329 Introduction of Other Anti-infective into Peripheral Vein, Percutaneous Approach (ICD-10-PCS; principal; 2019-07-27)
PROC: 3E03329 Introduction of Other Anti-infective into Peripheral Vein, Percutaneous Approach (ICD-10-PCS; 2019-07-27)
PROC: 3E033NZ Introduction of Analgesics, Hypnotics, Sedatives into Peripheral Vein, Percutaneous Approach (ICD-10-PCS; 2019-07-27)
PROC: 3E033GC Introduction of Other Therapeutic Substance into Peripheral Vein, Percutaneous Approach (ICD-10-PCS; 2019-07-27)
DX: K57.92 Diverticulitis of intestine, part unspecified, without perforation or abscess without bleeding (principal); I10 Essential (primary) hypertension; Z87.19 Personal history of other diseases of the digestive system; Z87.09 Personal history of other diseases of the respiratory system; K76.89 Other specified diseases of liver
CPT/HCPCS: 36415; 74177-TC; 80053; 81003; 83690; 85025; 93005; 93010; 96365; 96368; 96375; 99283-25; J0131

== ENCOUNTER 2019-07-29 09:25 | Inpatient (IN) | payer MEDICARE, OTHER ==
--- NOTE | 2019-07-29 09:51 | PDOC ---
History of Present Illness - General Chief Complaint: Pain, Acute Stated Complaint: ABD PAIN Time Seen by Provider: 07/29/19 09:45 - History of Present Illness Initial Comments: 07/29/19 10:50 HPI: 64 y/o F with hx of HTN, insomnia, recurrent diverticulitis presenting to ED from Dr Barnhart's office after failed outpatient therapy of diverticulitis over the past 2 days. She was initially in the ED 2 days ago and was DCd on levaquin flagyl. However her LLQ abd pain has worsened. Pain is constant with diffuse abd radiation. Pain intermittently worsens without pattern. She also reports nausea but no emesis and chills. She denies fever, chest pain, SOB, cough, dysuria, diarrhea, BPR. Last colonoscopy was 5 years ago and she hasnt had followup with GI since her old GI doctor left. PMHx: as noted above ROS: as noted SHx: Denies tobacco use; no alcohol use; no rec drugs Allergies: NKDA ROS: GENERAL/CONSTITUTIONAL: +chills. No weakness. HEAD, EYES, EARS, NOSE AND THROAT: No change in vision. No ear pain or discharge. No sore throat. CARDIOVASCULAR: No chest pain or shortness of breath RESPIRATORY: No cough, wheezing, or hemoptysis. GASTROINTESTINAL: +nausea; no vomiting, diarrhea or constipation. GENITOURINARY: No dysuria, frequency, or change in urination. MUSCULOSKELETAL: No joint or muscle swelling or pain. No neck or back pain. SKIN: No rash NEUROLOGIC: No headache, vertigo, loss of consciousness, or change in strength/ sensation. ENDOCRINE: No increased thirst. No abnormal weight change HEMATOLOGIC/LYMPHATIC: No anemia, easy bleeding, or history of blood clots. ALLERGIC/IMMUNOLOGIC: No hives or skin allergy. PE: GENERAL: Awake, alert, and fully oriented, no acute distress HEAD: No signs of trauma, normocephalic, atraumatic EYES: EOMI, sclera anicteric, conjunctiva clear ENT: Auricles normal inspection, hearing grossly normal, nares patent, oropharynx clear without exudates. Moist mucosa NECK: Normal ROM, no lymphadenopathy LUNGS: No increased work of breathing, symmetrical chest rise, clear to auscultation bilaterally, no wheezes, crackles or rhonchi HEART: Regular rate and rhythm, normal S1 and S2, no murmurs, peripheral pulses 2+ and equal bilaterally. ABDOMEN: Soft, nondistended, LLQ TTP with guarding, normoactive bowel sounds. No CVAT EXTREMITIES: Normal inspection, Normal range of motion, no edema. No clubbing or cyanosis. NEUROLOGICAL: Cranial nerves II through XII grossly intact. Normal speech, normal gait, no focal sensorimotor deficits SKIN: Warm, Dry, normal turgor, no rashes or lesions noted Past History - Past Medical History Allergies/Adverse Reactions: Allergies Allergy/AdvReac Type Severity Reaction Status Date / Time No Known Allergies Allergy Verified 07/29/19 09:27 Home Medications: Ambulatory Orders levoFLOXacin [Levaquin] 750 mg PO DAILY #6 tab 07/27/19 metroNIDAZOLE [Metronidazole] 500 mg PO Q8H #20 tablet 07/27/19 Azelastine HCl [Astepro] 1 - 2 spr NS BID 07/29/19 Betamethasone Dipropionate 15 gm TP ASDIR 07/29/19 Cyclosporine [Restasis] 1 applic ASDIR 07/29/19 Lisinopril/Hydrochlorothiazide [Lisinopril-Hctz 20-25 mg Tab] 1 each PO DAILY Montelukast Na [Singulair -] 10 mg PO HS 07/29/19 Zolpidem Tartrate [Ambien] 1 tab PO HS PRN 07/29/19 Anemia: No Asthma: Yes Cancer: No Cardiac Disorders: No CVA: No COPD: No CHF: No Dementia: No Diabetes: No GI Disorders: Yes (GERD;GASTRITIS;TICS) Disorders: No HTN: Yes Hypercholesterolemia: No Liver Disease: Yes (NON-ALCOHOLIC) Seizures: No Thyroid Disease: No - Surgical History Abdominal Surgery: Yes (TUMMY TUCK) Appendectomy: Yes Cardiac Surgery: No Cholecystectomy: No Lung Surgery: No Neurologic Surgery: No Orthopedic Surgery: No - Psycho Social/Smoking Cessation Hx Smoking Status: No Smoking History: Never smoked Have you smoked in the past 12 months: No Number of Cigarettes Smoked Daily: 0 Hx Alcohol Use: No Drug/Substance Use Hx: No Substance Use Type: None Hx Substance Use Treatment: No *Physical Exam - Vital Signs Last Vital Signs Temp Pulse Resp BP Pulse Ox 98.4 F 87 18 112/62 99 07/29/19 09:31 07/29/19 09:31 07/29/19 09:31 07/29/19 09:31 07/29/19 09:31 Medical Decision Making - Medical Decision Making 07/29/19 11:04 64 y/o F with hx of HTN, insomnia, recurrent diverticulitis presenting to ED from Dr Barnhart's office after failed outpatient therapy of diverticulitis over the past 2 days. VSS, AF. PE notable for LLQ ttp with guarding. -cbc, cmp -per Dr Barnhart, NPO, IVF, zosyn, admit under Dr Vasquez Discharge - Discharge Information Problems reviewed: Yes Clinical Impression/Diagnosis: Diverticulitis Condition: Stable - Admission Yes - Follow up/Referral - Patient Discharge Instructions - Post Discharge Activity
[2019-07-29] MEDS ORDERED: morphine CARPU-JECT 2 MG/1 ML DISP.SYRIN IVPUSH ONE ×2 (10:43→10:49)
[2019-07-29] MEDS ORDERED: PIPERACILLIN/TAZOB 3.375 GM 3.375 GM in DEXTROSE 5%-WATER - 50 ML IVPB ONE (10:43)
[2019-07-29] MEDS ORDERED: ONDANSETRON 4 MG/2 ML VIAL IVPUSH ONE (10:43)
[2019-07-29] MEDS ORDERED: SODIUM CHLORIDE 1,000 ML IV STA (10:43)
[2019-07-29] MEDS ORDERED: PIPERACILLIN/TAZOB 4.5 GM 4.5 GM in DEXTROSE 5%-WATER 100 ML IVPB ONE (10:47)
--- NOTE | 2019-07-29 10:53 | PDOC ---
Attending Attestation - Resident Resident Name: ArronCarlos - ED Attending Attestation I have performed the following: I have examined & evaluated the patient, The case was reviewed & discussed with the resident, I agree w/resident's findings & plan - HPI HPI: 07/29/19 10:50 64y/o F h/o diverticulitis recently diagnosed with uncomplicated exacerbation and started on levaquin/flagyl as outpt now sent from ID f/u appt with Dr. Barnhart with persistent sxs, not improving, so sent for iv abx. nausea but no v/d/bloody stool. no f/c. - Physicial Exam PE: 07/29/19 10:52 vss well appearing, afebrile abd soft/nd. tender L mid abd with guarding, no cvat no rash - Medical Decision Making 07/29/19 10:52 64y/o F with diverticulitis on CT 2d ago, not improving after >48h abx so sent for IV abx. local peritoneal findings but HD stable. labs, ua iv abx discussed with Dr. Barnhart, admitted to Dr. Vasquez
[2019-07-29] MEDS ORDERED: MORPHINE SULFATE 2 MG/ML VIAL ONE (11:33)
[2019-07-29 11:34] LABS: BASO % 0.4 % (0-2.0); EOS % 0.5 % (0-4.5); HEMATOCRIT 39.4 % (32.4-45.2); HEMOGLOBIN 13.2 GM/dL (10.7-15.3); LYMPH % 25.6 % (8-40); MCH 31.6 pg (25.7-33.7); MCHC 33.4 g/dl (32.0-36.0); MEAN CELL VOLUME 94.5 fl (80-96); MEAN PLT VOLUME 8.6 fl (7.5-11.1); MONO % 7.1 % (3.8-10.2); NEUT % 66.4 % (42.8-82.8); PLATELET COUNT 245 K/MM3 (134-434); RBC 4.17 M/mm3 (3.60-5.2); RDW 12.7 % (11.6-15.6); WHITE BLOOD COUNT 5.6 K/mm3 (4.0-10.0)
[2019-07-29] MEDS ORDERED: ONDANSETRON 4 MG/2 ML VIAL ONE (11:34)
[2019-07-29] MEDS ORDERED: PIPERACILLIN/TAZOB 4.5 GM 4.5 GM/100 ML BAG IVPB ONE (11:34)
[2019-07-29] MEDS ORDERED: ACETAMINOPHEN 1000 MG/100 ML VIAL (NON FORMULARY) IVPB ONE (11:43)
[2019-07-29] MEDS ORDERED: ACETAMINOPHEN INJECTION 100 ML IVPB ONE (11:46)
[2019-07-29 12:11] LABS: ALBUMIN 3.6 g/dl (3.4-5.0); BILIRUBIN,TOTAL 0.5 mg/dL (0.2-1); BLOOD UREA NITROGEN 10.8 mg/dL (7-18); CALCIUM 9.9 mg/dL (8.5-10.1); CREATININE 0.9 mg/dL (0.55-1.3); POTASSIUM 4.6 mmol/L (3.5-5.1); TOT PROT 7.5 g/dl (6.4-8.2)
--- NOTE | 2019-07-29 13:00 | CON.ID ---
Consult - Alcohol/Substance Use Hx Alcohol Use: No - Smoking History Smoking history: Never smoked Have you smoked in the past 12 months: No Aproximately how many cigarettes per day: 0 - Social History ADL: Independent History of Recent Travel: No Home Medications - Allergies Allergies/Adverse Reactions: Allergies Allergy/AdvReac Type Severity Reaction Status Date / Time No Known Allergies Allergy Verified 07/29/19 09:27 - Home Medications Home Medications: Ambulatory Orders levoFLOXacin [Levaquin] 750 mg PO DAILY #6 tab 07/27/19 metroNIDAZOLE [Metronidazole] 500 mg PO Q8H #20 tablet 07/27/19 Azelastine HCl [Astepro] 1 - 2 spr NS BID 07/29/19 Betamethasone Dipropionate 15 gm TP ASDIR 07/29/19 Cyclosporine [Restasis] 1 applic ASDIR 07/29/19 Lisinopril/Hydrochlorothiazide [Lisinopril-Hctz 20-25 mg Tab] 1 each PO DAILY Montelukast Na [Singulair -] 10 mg PO HS 07/29/19 Zolpidem Tartrate [Ambien] 1 tab PO HS PRN 07/29/19 Physical Exam Vital Signs: Vital Signs Temperature 98.4 F 07/29/19 09:31 Pulse Rate 81 07/29/19 12:25 Respiratory Rate 16 07/29/19 12:25 Blood Pressure 100/63 07/29/19 12:25 O2 Sat by Pulse Oximetry (%) 100 07/29/19 12:25 Labs: CBC, BMP 07/29/19 11:30 07/29/19 11:30
[2019-07-29 13:11] VITALS: BMI 29.8
--- NOTE | 2019-07-29 16:42 | HP ---
Admitting History and Physical - Primary Care Physician PCP: Iris Vasquez - Admission Chief Complaint: abdominal pain History of Present Illness: 64 y/o F with hx of HTN, insomnia, recurrent diverticulitis presenting to ED from Dr Barnhart's office after failed outpatient therapy of diverticulitis over the past 2 days. She was initially in the ED 2 days ago and was DCd on levaquin flagyl. However her LLQ abd pain has worsened. Pain is constant with diffuse abd radiation. Pain intermittently worsens without pattern. She also reports nausea but no emesis and chills. She denies fever, chest pain, SOB, cough, dysuria, diarrhea, BPR. Last colonoscopy was 5 years ago and she hasnt had followup with GI since her old GI doctor left. - Past Medical History Cardiovascular: Yes: HTN Gastrointestinal: Yes: Diverticulitis - Smoking History Smoking history: Never smoked Have you smoked in the past 12 months: No Aproximately how many cigarettes per day: 0 - Alcohol/Substance Use Hx Alcohol Use: No - Social History ADL: Independent History of Recent Travel: No Home Medications - Allergies Allergies/Adverse Reactions: Allergies Allergy/AdvReac Type Severity Reaction Status Date / Time No Known Allergies Allergy Verified 07/29/19 09:27 - Home Medications Home Medications: Ambulatory Orders levoFLOXacin [Levaquin] 750 mg PO DAILY #6 tab 07/27/19 metroNIDAZOLE [Metronidazole] 500 mg PO Q8H #20 tablet 07/27/19 Azelastine HCl [Astepro] 1 - 2 spr NS BID 07/29/19 Betamethasone Dipropionate 15 gm TP ASDIR 07/29/19 Cyclosporine [Restasis] 1 applic ASDIR 07/29/19 Lisinopril/Hydrochlorothiazide [Lisinopril-Hctz 20-25 mg Tab] 1 each PO DAILY Montelukast Na [Singulair -] 10 mg PO HS 07/29/19 Zolpidem Tartrate [Ambien] 1 tab PO HS PRN 07/29/19 Physical Examination Vital Signs: Vital Signs Temperature 98.1 F 07/29/19 11:08 Pulse Rate 81 07/29/19 12:25 Respiratory Rate 16 07/29/19 12:25 Blood Pressure 100/63 07/29/19 12:25 O2 Sat by Pulse Oximetry (%) 99 07/29/19 13:14 Constitutional: Yes: No Distress HENT: Yes: Atraumatic Neck: Yes: Supple Cardiovascular: Yes: Regular Rate and Rhythm Respiratory: Yes: CTA Bilaterally Gastrointestinal: Yes: Normal Bowel Sounds, Tenderness Extremities: Yes: WNL Edema: No Neurological: Yes: Alert, Oriented Labs: CBC, BMP 07/29/19 11:30 07/29/19 11:30 Imaging - Results Cat Scan: Report Reviewed Problem List - Problems (1) Diverticula of colon Assessment/Plan: npo, ivf, iv abx prn pain meds Code(s): K57.30 - DVRTCLOS OF LG INT W/O PERFORATION OR ABSCESS W/O BLEEDING (2) Hypertension Assessment/Plan: on meds monitor Code(s): I10 - ESSENTIAL (PRIMARY) HYPERTENSION Assessment/Plan Laboratory Tests 07/29/19 07/29/19 11:30 11:30 WBC 5.6 RBC 4.17 Hgb 13.2 Hct 39.4 MCV 94.5 MCH 31.6 MCHC 33.4 RDW 12.7 Plt Count 245 MPV 8.6 Absolute Neuts (auto) 3.7 Neutrophils % 66.4 Lymphocytes % 25.6 Monocytes % 7.1 Eosinophils % 0.5 Basophils % 0.4 Nucleated RBC % 0 Sodium 136 Potassium 4.6 Chloride 102 Carbon Dioxide 29 Anion Gap 5 L BUN 10.8 Creatinine 0.9 Est GFR (CKD-EPI)AfAm 77.22 Est GFR (CKD-EPI)NonAf 66.63 Random Glucose 105 Calcium 9.9 Total Bilirubin 0.5 AST 61 H ALT 82 H Alkaline Phosphatase 162 H Total Protein 7.5 Albumin 3.6 Active Medications Generic Name Dose Route Start Last Admin Trade Name Freq PRN Reason Stop Dose Admin Piperacillin Sod/Tazobactam 50 mls @ 100 mls/hr 07/29/19 18:00 Sod 3.375 gm/ Dextrose IVPB Q8H-IV JUAN Protocol Active Medications Generic Name Dose Route Start Last Admin Trade Name Freq PRN Reason Stop Dose Admin Acetaminophen 650 mg 07/29/19 22:17 07/29/19 22:26 Tylenol - PO 650 mg Q6H PRN Administration PAIN LEVEL 1-5 Piperacillin Sod/Tazobactam 50 mls @ 100 mls/hr 07/29/19 18:00 07/30/19 19:20 Sod 3.375 gm/ Dextrose IVPB 100 mls/hr Q8H-IV JUAN Administration Protocol Sodium Chloride 1,000 mls @ 75 mls/hr 07/29/19 16:45 07/29/19 16:57 Normal Saline - IV 75 mls/hr ASDIR JUAN Administration Morphine Sulfate 2 mg 07/29/19 16:43 Morphine Sulfate IVPUSH Q4H PRN PAIN LEVEL 4 - 6
[2019-07-29] MEDS ORDERED: MORPHINE SULFATE 2 MG/ML VIAL IVPUSH PRN (16:43)
[2019-07-29 16:44] LABS: PH,URINE 7.5 (5.0-8.0); URINE APPEARANCE CLEAR; URINE BILIRUBIN NEGATIVE (NEGATIVE); URINE COLOR YELLOW; URINE GLUCOSE (UA) NEGATIVE (NEGATIVE); URINE KETONE NEGATIVE (NEGATIVE); URINE LEUK ESTERASE NEGATIVE (NEGATIVE); URINE NITRITE NEGATIVE (NEGATIVE); URINE PROTEIN NEGATIVE (NEGATIVE); URINE UROBILINOGEN 0.2 mg/dL (0.2-1.0)
[2019-07-29] MEDS: SODIUM CHLORIDE 1,000 ML IV SCH (16:57)
[2019-07-29] MEDS ORDERED: PIPERACILLIN/TAZOBACTAM 3.375 GM VIAL IVPB ONE (17:05)
[2019-07-29] MEDS ORDERED: DEXTROSE 5%-WATER - 50 ML IVPB ONE (17:06)
[2019-07-29] MEDS: PIPERACILLIN/TAZOB 3.375 GM 3.375 GM in DEXTROSE 5%-WATER - 50 ML IVPB SCH (17:14)
[2019-07-29] MEDS ORDERED: ACETAMINOPHEN 325 MG TABLET (FP) PO PRN (22:17)
[2019-07-29] MEDS ORDERED: MELATONIN 5 MG TABLETS PO ONE (22:19)
[2019-07-30] MEDS ORDERED: PIPERACILLIN/TAZOBACTAM 3.375 GM VIAL IVPB ONE ×3 (00:55→16:47)
[2019-07-30] MEDS ORDERED: DEXTROSE 5%-WATER - 50 ML IVPB ONE ×3 (00:56→16:47)
[2019-07-30] MEDS: PIPERACILLIN/TAZOB 3.375 GM 3.375 GM in DEXTROSE 5%-WATER - 50 ML IVPB SCH ×3 (01:24→19:20)
--- NOTE | 2019-07-30 09:34 | PN ---
Progress Note, Physician History of Present Illness: still with pain feels slightly better - Current Medication List Current Medications: Active Medications Acetaminophen (Tylenol -) 650 mg PO Q6H PRN PRN Reason: PAIN LEVEL 1-5 Last Admin: 07/29/19 22:26 Dose: 650 mg Piperacillin Sod/Tazobactam (Sod 3.375 gm/ Dextrose) 50 mls @ 100 mls/hr IVPB Q8H-IV JUAN; Protocol Last Admin: 07/30/19 01:24 Dose: 100 mls/hr Sodium Chloride (Normal Saline -) 1,000 mls @ 75 mls/hr IV ASDIR JUAN Last Admin: 07/29/19 16:57 Dose: 75 mls/hr Morphine Sulfate (Morphine Sulfate) 2 mg IVPUSH Q4H PRN PRN Reason: PAIN LEVEL 4 - 6 - Objective Vital Signs: Vital Signs Temperature 98.1 F 07/30/19 06:21 Pulse Rate 75 07/30/19 06:21 Respiratory Rate 20 07/30/19 06:21 Blood Pressure 98/56 L 07/30/19 06:21 O2 Sat by Pulse Oximetry (%) 99 07/29/19 21:00 Constitutional: Yes: No Distress, Calm Cardiovascular: Yes: S1, S2 Respiratory: Yes: Regular, CTA Bilaterally Gastrointestinal: Yes: Soft, Tenderness, Other Musculoskeletal: Yes: WNL Extremities: Yes: WNL Neurological: Yes: Alert, Oriented Psychiatric: Yes: Alert, Oriented Labs: CBC, BMP 07/29/19 11:30 07/29/19 11:30 Assessment/Plan patient coming with abd pain ac diverticulitis will get imaging studies on sunday continue current mgmt rest as per the team
--- NOTE | 2019-07-30 12:47 | CON.GI ---
Consult Consult Specialty:: Gastroenterology Referred by:: Dr. Vasquez Reason for Consultation:: Diverticulitis and elevated liver chemistries. - History of Present Illness Chief Complaint: Abdominal pain. History of Present Illness: Patient with prior admission for diverticulitis in March 2019, again with left lower quadrant pain lasting about a week. Went to [facility] over weekend and Ct on 07/27/19 with "diverticulosis coli with interval acute diverticulitis in the distal descending colon with surrounding inflammatory changes present." No evidence of extraluminal air or abscess. Was started on oral antibiotics but returns now with continued discomfort to [facility] with some radiation to back. No fevers, sweats or chills according to patient. No change in bowel frequency. Incidentally noted to have elevated liver chemistries. Review of chart and prior testing reveals patient to have had elevated liver chemistries (ALT) going back to 2013 at which time Hep C and Hep B serologies were negative. Reviewed with patient and her daughter who report that she was previously told she may have fatty liver. - History Source History Provided By: Patient, Family Member Limitations to Obtaining History: No Limitations - Past Medical History Cardio/Vascular: Yes: HTN Gastrointestinal: Yes: Diverticulitis - Alcohol/Substance Use Hx Alcohol Use: No - Smoking History Smoking history: Never smoked Have you smoked in the past 12 months: No Aproximately how many cigarettes per day: 0 - Social History ADL: Independent History of Recent Travel: No Home Medications - Allergies Allergies/Adverse Reactions: Allergies Allergy/AdvReac Type Severity Reaction Status Date / Time No Known Allergies Allergy Verified 07/29/19 09:27 - Home Medications Home Medications: Ambulatory Orders levoFLOXacin [Levaquin] 750 mg PO DAILY #6 tab 07/27/19 metroNIDAZOLE [Metronidazole] 500 mg PO Q8H #20 tablet 07/27/19 Azelastine HCl [Astepro] 1 - 2 spr NS BID 07/29/19 Betamethasone Dipropionate 15 gm TP ASDIR 07/29/19 Cyclosporine [Restasis] 1 applic ASDIR 07/29/19 Lisinopril/Hydrochlorothiazide [Lisinopril-Hctz 20-25 mg Tab] 1 each PO DAILY Montelukast Na [Singulair -] 10 mg PO HS 07/29/19 Zolpidem Tartrate [Ambien] 1 tab PO HS PRN 07/29/19 Review of Systems - Review of Systems Constitutional: denies: Chills, Fever Eyes: denies: Blurred Vision, Recent Change in Vision HENT: denies: Difficult Swallowing, Hearing Loss Neck: denies: Pain on Movement, Tenderness Cardiovascular: denies: Chest Pain, Shortness of Breath Respiratory: denies: Cough, SOB Gastrointestinal: reports: Abdominal Pain. denies: Bloating, Constipation, Diarrhea, Dysphagia, Indigestion, Melena, Nausea, Rectal Bleeding, Vomiting, Vomiting Blood Genitourinary: denies: Hematuria, Urgency Musculoskeletal: denies: Back Pain, Joint Pain Neurological: denies: Dizziness, Headache Endocrine: denies: Flushing, Unexplained Weight Gain, Unexplained Weight Loss Hematology/Lymphatic: denies: Easily Bruised, Excessive Bleeding Physical Exam-GI Vital Signs: Vital Signs Temperature 98.9 F 07/30/19 10:00 Pulse Rate 90 07/30/19 10:00 Respiratory Rate 18 07/30/19 10:00 Blood Pressure 108/74 07/30/19 10:00 O2 Sat by Pulse Oximetry (%) 99 07/29/19 21:00 Constitutional: Yes: Well Nourished, No Distress Eyes: Yes: EOM Intact, PERRL HENT: Yes: Atraumatic, Normocephalic. No: Tonsillar Exudate Neck: Yes: Supple, Trachea Midline. No: Lymphadenopathy Cardiovascular: Yes: Regular Rate and Rhythm, S1, S2 Respiratory: Yes: CTA Bilaterally. No: Rhonchi, Wheezes Gastrointestinal Inspection: No: Distention ...Auscultate: Yes: Normoactive Bowel Sounds ...Palpate: Yes: Tenderness (LLQ, mild without rebound or guarding). No: Hepatomegaly, Mass ...Rectal Exam: Yes: Deferred Musculoskeletal: No: Joint Stiffness, Joint Swelling Extremities: No: Deformity, Pallor Edema: No Integumentary: No: Erythema, Rash Psychiatric: Yes: Alert, Oriented Labs: CBC, BMP 07/29/19 11:30 07/29/19 11:30 Imaging - Results Cat Scan: Report Reviewed (See HPI notes) Assessment/Plan With diverticulitis, would continue with IV antibiotics for now. Surgical evaluation. Follow up colonsocopy, 6 weeks after resolution of diverticulitis, whether achieved medically or surgically. Repeat CT scan for fever, sweat, chill, or persistence of symptoms in 2-3 days. As for liver test abnormalities with normal albumin but elevated alkaline phosphatase (162) and AST/ALT (61/82), these are >5 years in duration and emcompass the full differential diagnosis of such abnormalities not completely evaluated in past. For now, would repeat Hepatitis C serology, Hep B panel; please check ferritin and alpha-1 anti-trypsin level, smooth muscle antibody, anti-mitochondrial antibody, ELENA, and liver ultrasound with Doppler. GI team will follow with you.
--- NOTE | 2019-07-30 19:25 | PN ---
Progress Note, Physician - Current Medication List Current Medications: Active Medications Acetaminophen (Tylenol -) 650 mg PO Q6H PRN PRN Reason: PAIN LEVEL 1-5 Last Admin: 07/29/19 22:26 Dose: 650 mg Piperacillin Sod/Tazobactam (Sod 3.375 gm/ Dextrose) 50 mls @ 100 mls/hr IVPB Q8H-IV JUAN; Protocol Last Admin: 07/30/19 19:20 Dose: 100 mls/hr Sodium Chloride (Normal Saline -) 1,000 mls @ 75 mls/hr IV ASDIR JUAN Last Admin: 07/29/19 16:57 Dose: 75 mls/hr Morphine Sulfate (Morphine Sulfate) 2 mg IVPUSH Q4H PRN PRN Reason: PAIN LEVEL 4 - 6 - Objective Vital Signs: Vital Signs Temperature 98.3 F 07/30/19 16:30 Pulse Rate 85 07/30/19 16:30 Respiratory Rate 20 07/30/19 16:30 Blood Pressure 108/64 07/30/19 16:30 O2 Sat by Pulse Oximetry (%) 99 07/29/19 21:00 Constitutional: Yes: No Distress HENT: Yes: Atraumatic Neck: Yes: Supple Cardiovascular: Yes: Regular Rate and Rhythm Respiratory: Yes: CTA Bilaterally Gastrointestinal: Yes: Normal Bowel Sounds Extremities: Yes: WNL Neurological: Yes: Alert, Oriented Labs: CBC, BMP 07/29/19 11:30 07/29/19 11:30 Problem List - Problems (1) Diverticula of colon Assessment/Plan: npo, ivf, iv abx prn pain meds Code(s): K57.30 - DVRTCLOS OF LG INT W/O PERFORATION OR ABSCESS W/O BLEEDING (2) Hypertension Assessment/Plan: on meds monitor Code(s): I10 - ESSENTIAL (PRIMARY) HYPERTENSION
[2019-07-30] MEDS: SODIUM CHLORIDE 1,000 ML IV SCH (23:22)
[2019-07-31] MEDS ORDERED: PIPERACILLIN/TAZOBACTAM 3.375 GM VIAL IVPB ONE ×3 (00:35→15:43)
[2019-07-31] MEDS ORDERED: DEXTROSE 5%-WATER - 50 ML IVPB ONE ×3 (00:35→15:43)
[2019-07-31] MEDS: ZOLPIDEM TARTRATE 5 MG TABLET PO PRN (00:40)
[2019-07-31] MEDS: PIPERACILLIN/TAZOB 3.375 GM 3.375 GM in DEXTROSE 5%-WATER - 50 ML IVPB SCH ×3 (01:11→17:09)
[2019-07-31 07:54] LABS: BASO % 0.6 % (0-2.0); EOS % 1.9 % (0-4.5); HEMATOCRIT 32.8 % (32.4-45.2); HEMOGLOBIN 11.1 GM/dL (10.7-15.3); LYMPH % 29.5 % (8-40); MCH 31.7 pg (25.7-33.7); MCHC 33.8 g/dl (32.0-36.0); MEAN CELL VOLUME 93.9 fl (80-96); MEAN PLT VOLUME 7.7 fl (7.5-11.1); MONO % 6.3 % (3.8-10.2); NEUT % 61.7 % (42.8-82.8); PLATELET COUNT 214 K/MM3 (134-434); RBC 3.49 M/mm3 (3.60-5.2); RDW 12.4 % (11.6-15.6); WHITE BLOOD COUNT 3.9 K/mm3 (4.0-10.0)
[2019-07-31 08:23] LABS: ALBUMIN 2.9 g/dl (3.4-5.0); BILIRUBIN,TOTAL 0.5 mg/dL (0.2-1); BLOOD UREA NITROGEN 8.8 mg/dL (7-18); CALCIUM 8.6 mg/dL (8.5-10.1); CREATININE 0.8 mg/dL (0.55-1.3); POTASSIUM 3.7 mmol/L (3.5-5.1)
--- NOTE | 2019-07-31 11:48 | PN ---
Progress Note, Physician History of Present Illness: stable no new issues feeling much better - Current Medication List Current Medications: Active Medications Acetaminophen (Tylenol -) 650 mg PO Q6H PRN PRN Reason: PAIN LEVEL 1-5 Last Admin: 07/29/19 22:26 Dose: 650 mg Piperacillin Sod/Tazobactam (Sod 3.375 gm/ Dextrose) 50 mls @ 100 mls/hr IVPB Q8H-IV JUAN; Protocol Last Admin: 07/31/19 09:05 Dose: 100 mls/hr Sodium Chloride (Normal Saline -) 1,000 mls @ 75 mls/hr IV ASDIR JUAN Last Admin: 07/30/19 23:22 Dose: 75 mls/hr Morphine Sulfate (Morphine Sulfate) 2 mg IVPUSH Q4H PRN PRN Reason: PAIN LEVEL 4 - 6 Zolpidem Tartrate (Ambien -) 5 mg PO HS PRN PRN Reason: INSOMNIA Last Admin: 07/31/19 00:40 Dose: 5 mg - Objective Vital Signs: Vital Signs Temperature 98.1 F 07/31/19 10:00 Pulse Rate 92 H 07/31/19 10:00 Respiratory Rate 20 07/31/19 10:00 Blood Pressure 116/66 07/31/19 10:00 O2 Sat by Pulse Oximetry (%) 99 07/31/19 09:00 Constitutional: Yes: No Distress, Calm Respiratory: Yes: Regular, CTA Bilaterally Gastrointestinal: Yes: Soft, Hypoactive Bowel Sounds Musculoskeletal: Yes: WNL Extremities: Yes: WNL Neurological: Yes: Alert, Oriented Psychiatric: Yes: Alert, Oriented Labs: CBC, BMP 07/31/19 07:25 07/31/19 07:25 Assessment/Plan Problem List - Problems (1) Diverticula of colon Code(s): K57.30 - DVRTCLOS OF LG INT W/O PERFORATION OR ABSCESS W/O BLEEDING (2) Hypertension Code(s): I10 - ESSENTIAL (PRIMARY) HYPERTENSION abd pain fatty liver plan continue abx rest as per the team gi note noted
[2019-07-31] MEDS: SODIUM CHLORIDE 1,000 ML IV SCH (14:29)
--- NOTE | 2019-07-31 18:36 | PN ---
Progress Note, Physician History of Present Illness: doing well - Current Medication List Current Medications: Active Medications Acetaminophen (Tylenol -) 650 mg PO Q6H PRN PRN Reason: PAIN LEVEL 1-5 Last Admin: 07/29/19 22:26 Dose: 650 mg Piperacillin Sod/Tazobactam (Sod 3.375 gm/ Dextrose) 50 mls @ 100 mls/hr IVPB Q8H-IV JUAN; Protocol Last Admin: 07/31/19 17:09 Dose: 100 mls/hr Sodium Chloride (Normal Saline -) 1,000 mls @ 75 mls/hr IV ASDIR JUAN Last Admin: 07/31/19 14:29 Dose: 75 mls/hr Morphine Sulfate (Morphine Sulfate) 2 mg IVPUSH Q4H PRN PRN Reason: PAIN LEVEL 4 - 6 Zolpidem Tartrate (Ambien -) 5 mg PO HS PRN PRN Reason: INSOMNIA Last Admin: 07/31/19 00:40 Dose: 5 mg - Objective Vital Signs: Vital Signs Temperature 98.1 F 07/31/19 16:55 Pulse Rate 74 07/31/19 16:55 Respiratory Rate 20 07/31/19 16:55 Blood Pressure 142/74 07/31/19 16:55 O2 Sat by Pulse Oximetry (%) 99 07/31/19 09:00 Constitutional: Yes: No Distress HENT: Yes: Atraumatic Neck: Yes: Supple Cardiovascular: Yes: Regular Rate and Rhythm Respiratory: Yes: CTA Bilaterally Gastrointestinal: Yes: Normal Bowel Sounds Extremities: Yes: WNL Edema: No Peripheral Pulses WNL: Yes Neurological: Yes: Alert, Oriented Labs: CBC, BMP 07/31/19 07:25 07/31/19 07:25 Problem List - Problems (1) Diverticula of colon Assessment/Plan: on clear liquid diet advance to soft Code(s): K57.30 - DVRTCLOS OF LG INT W/O PERFORATION OR ABSCESS W/O BLEEDING (2) Hypertension Assessment/Plan: on meds monitor Code(s): I10 - ESSENTIAL (PRIMARY) HYPERTENSION
[2019-08-01] MEDS ORDERED: DEXTROSE 5%-WATER - 50 ML IVPB ONE ×3 (00:11→17:20)
[2019-08-01] MEDS ORDERED: PIPERACILLIN/TAZOBACTAM 3.375 GM VIAL IVPB ONE ×3 (00:11→17:19)
[2019-08-01] MEDS: ZOLPIDEM TARTRATE 5 MG TABLET PO PRN (00:53)
[2019-08-01] MEDS: PIPERACILLIN/TAZOB 3.375 GM 3.375 GM in DEXTROSE 5%-WATER - 50 ML IVPB SCH ×3 (01:27→17:35)
[2019-08-01] MEDS: SODIUM CHLORIDE 1,000 ML IV SCH ×2 (04:44→17:39)
--- NOTE | 2019-08-01 11:28 | PN ---
Progress Note, Physician History of Present Illness: doing well no new issues - Current Medication List Current Medications: Active Medications Acetaminophen (Tylenol -) 650 mg PO Q6H PRN PRN Reason: PAIN LEVEL 1-5 Last Admin: 07/29/19 22:26 Dose: 650 mg Piperacillin Sod/Tazobactam (Sod 3.375 gm/ Dextrose) 50 mls @ 100 mls/hr IVPB Q8H-IV JUAN; Protocol Last Admin: 08/01/19 10:19 Dose: 100 mls/hr Sodium Chloride (Normal Saline -) 1,000 mls @ 75 mls/hr IV ASDIR JUAN Last Admin: 08/01/19 04:44 Dose: 75 mls/hr Morphine Sulfate (Morphine Sulfate) 2 mg IVPUSH Q4H PRN PRN Reason: PAIN LEVEL 4 - 6 Zolpidem Tartrate (Ambien -) 5 mg PO HS PRN PRN Reason: INSOMNIA Last Admin: 08/01/19 00:53 Dose: 5 mg - Objective Vital Signs: Vital Signs Temperature 98.1 F 07/31/19 16:55 Pulse Rate 74 07/31/19 16:55 Respiratory Rate 20 07/31/19 16:55 Blood Pressure 142/74 07/31/19 16:55 O2 Sat by Pulse Oximetry (%) 99 07/31/19 20:42 Constitutional: Yes: No Distress, Calm Neck: Yes: Supple Cardiovascular: Yes: Regular Rate and Rhythm Respiratory: Yes: Regular, CTA Bilaterally Gastrointestinal: Yes: Normal Bowel Sounds, Soft Musculoskeletal: Yes: WNL Extremities: Yes: WNL Neurological: Yes: Alert, Oriented Psychiatric: Yes: Alert, Oriented Labs: CBC, BMP 07/31/19 07:25 07/31/19 07:25 Assessment/Plan Problem List - Problems (1) Diverticula of colon Code(s): K57.30 - DVRTCLOS OF LG INT W/O PERFORATION OR ABSCESS W/O BLEEDING (2) Hypertension Code(s): I10 - ESSENTIAL (PRIMARY) HYPERTENSION abd pain fatty liver plan continue abx rest as per the team gi note noted if patient doing well will change to oral abx levaquin and flagyl
--- NOTE | 2019-08-01 17:32 | PN ---
Progress Note, Physician - Current Medication List Current Medications: Active Medications Acetaminophen (Tylenol -) 650 mg PO Q6H PRN PRN Reason: PAIN LEVEL 1-5 Last Admin: 07/29/19 22:26 Dose: 650 mg Piperacillin Sod/Tazobactam (Sod 3.375 gm/ Dextrose) 50 mls @ 100 mls/hr IVPB Q8H-IV JUAN; Protocol Last Admin: 08/01/19 10:19 Dose: 100 mls/hr Sodium Chloride (Normal Saline -) 1,000 mls @ 75 mls/hr IV ASDIR JUAN Last Admin: 08/01/19 04:44 Dose: 75 mls/hr Zolpidem Tartrate (Ambien -) 5 mg PO HS PRN PRN Reason: INSOMNIA Last Admin: 08/01/19 00:53 Dose: 5 mg - Objective Vital Signs: Vital Signs Temperature 97.7 F 08/01/19 14:00 Pulse Rate 94 H 08/01/19 14:00 Respiratory Rate 20 08/01/19 14:00 Blood Pressure 129/64 08/01/19 14:00 O2 Sat by Pulse Oximetry (%) 99 08/01/19 09:00 Constitutional: Yes: No Distress HENT: Yes: Atraumatic Neck: Yes: Supple Cardiovascular: Yes: Regular Rate and Rhythm Respiratory: Yes: CTA Bilaterally Gastrointestinal: Yes: Normal Bowel Sounds Extremities: Yes: WNL Edema: No Neurological: Yes: Alert, Oriented Labs: CBC, BMP 07/31/19 07:25 07/31/19 07:25 Problem List - Problems (1) Diverticula of colon Assessment/Plan: on clear liquid diet advance to soft...pt tolerating ID TO REVIEW PO ABX , PT HAS ELEVATED LFTS Code(s): K57.30 - DVRTCLOS OF LG INT W/O PERFORATION OR ABSCESS W/O BLEEDING (2) Hypertension Code(s): I10 - ESSENTIAL (PRIMARY) HYPERTENSION
--- NOTE | 2019-08-01 17:35 | DS ---
Physical Examination Vital Signs: Vital Signs Temperature 97.7 F 08/01/19 14:00 Pulse Rate 94 H 08/01/19 14:00 Respiratory Rate 20 08/01/19 14:00 Blood Pressure 129/64 08/01/19 14:00 O2 Sat by Pulse Oximetry (%) 99 08/01/19 09:00 Labs: CBC, BMP 07/31/19 07:25 07/31/19 07:25 Discharge Summary Problems reviewed: Yes Reason For Visit: DIVERTICULITIS Current Active Problems Diverticulitis (Acute) Condition: Stable - Instructions Diet, Activity, Other Instructions: soft diet fu pmd 2-3 days Referrals: Patrica Hernandez MD [Primary Care Provider] - - Home Medications Comprehensive Discharge Medication List: Ambulatory Orders levoFLOXacin [Levaquin] 750 mg PO DAILY #6 tab 07/27/19 metroNIDAZOLE [Metronidazole] 500 mg PO Q8H #20 tablet 07/27/19 Azelastine HCl [Astepro] 1 - 2 spr NS BID 07/29/19 Betamethasone Dipropionate 15 gm TP ASDIR 07/29/19 Cyclosporine [Restasis] 1 applic ASDIR 07/29/19 Lisinopril/Hydrochlorothiazide [Lisinopril-Hctz 20-25 mg Tab] 1 each PO DAILY Montelukast Na [Singulair -] 10 mg PO HS 07/29/19 Zolpidem Tartrate [Ambien] 1 tab PO HS PRN 07/29/19 Levofloxacin [Levaquin] 750 mg PO DAILY #7 tablet 08/01/19 Metronidazole 500 mg PO TID #21 tablet 08/01/19
--- NOTE | 2019-08-01 17:38 | PN.GI ---
GI Progress Note Subjective: No acute events No abdominal pain Abd US revealed fatty liver, no gallstones, normal biliary tract, a pancreatic cyst (had EUS 06/[address] Milagro Mcguire at [facility]. She has been following with her regarding this and was advised a repeat study in 1 year) Last colonoscopy [address] Israel Transaminases have improved, ALP loretta a bit - Objective Vital Signs: Vital Signs Temperature 97.7 F 08/01/19 14:00 Pulse Rate 94 H 08/01/19 14:00 Respiratory Rate 20 08/01/19 14:00 Blood Pressure 129/64 08/01/19 14:00 O2 Sat by Pulse Oximetry (%) 99 08/01/19 09:00 Constitutional: Calm Eyes: No: Sclera Icterus Cardiovascular: Yes: Regular Rate and Rhythm Respiratory: Yes: CTA Bilaterally Gastrointestinal Inspection: Yes: Scars (abdominoplasty scar). No: Distention ...Auscultate: Yes: Normoactive Bowel Sounds ...Palpate: Yes: Soft. No: Hepatomegaly, Splenomegaly, Tenderness ...Percussion: No: Tympanitic Edema: No (No LE edema) Neurological: Yes: Alert Labs: CBC, BMP 07/31/19 07:25 07/31/19 07:25 Hepatic Panel Total Bilirubin 0.5 mg/dL (0.2-1) 07/31/19 07:25 AST 47 U/L (15-37) H 07/31/19 07:25 ALT 66 U/L (13-61) H 07/31/19 07:25 Alkaline Phosphatase 206 U/L (45-117) H 07/31/19 07:25 Albumin 2.9 g/dl (3.4-5.0) L 07/31/19 07:25 Problem List - Problems (1) Diverticulitis Assessment/Plan: Clinically much improved Diet advanced Will be going home on PO Abx. Advised nurse to call ID. May want to use alternative regimen other than levaquin based therapy as liver chemistries were elevated on admission while she had been on levaquin and flagyl. Avoid hepatotoxic agents Hepatitis A/B/C screening serologies ordered for AM Hepatic panel ordered for AM Mad appointment with me as outpatient for follow-up Follow-up colonoscopy in 6 weeks Code(s): K57.92 - DVTRCLI OF INTEST, PART UNSP, W/O PERF OR ABSCESS W/O BLEED
[2019-08-02] MEDS ORDERED: PIPERACILLIN/TAZOBACTAM 3.375 GM VIAL IVPB ONE ×2 (01:05→08:48)
[2019-08-02] MEDS ORDERED: DEXTROSE 5%-WATER - 50 ML IVPB ONE ×2 (01:06→08:48)
[2019-08-02] MEDS: PIPERACILLIN/TAZOB 3.375 GM 3.375 GM in DEXTROSE 5%-WATER - 50 ML IVPB SCH ×2 (01:21→09:18)
[2019-08-02 07:02] VITALS: BP 120/72; PULSE 75; TEMP 98.3
[2019-08-02 08:38] LABS: ALBUMIN 3.1 g/dl (3.4-5.0); BILIRUBIN,DIRECT 0.1 mg/dL (0.0-0.2); BILIRUBIN,TOTAL 0.4 mg/dL (0.2-1); TOT PROT 6.4 g/dl (6.4-8.2)
--- NOTE | 2019-08-02 11:12 | PN.GI ---
GI Progress Note Subjective: No acute events No abdominal pain LFTs improved - Objective Vital Signs: Vital Signs Temperature 98.3 F 08/02/19 07:00 Pulse Rate 75 08/02/19 07:00 Respiratory Rate 20 08/02/19 07:00 Blood Pressure 120/72 08/02/19 07:00 O2 Sat by Pulse Oximetry (%) 97 08/01/19 21:00 Constitutional: Calm Eyes: No: Sclera Icterus Cardiovascular: Yes: Regular Rate and Rhythm Respiratory: Yes: CTA Bilaterally Gastrointestinal Inspection: No: Distention ...Auscultate: Yes: Normoactive Bowel Sounds ...Palpate: Yes: Soft. No: Hepatomegaly, Splenomegaly, Tenderness ...Percussion: No: Tympanitic Edema: No (No LE edema) Neurological: Yes: Alert Labs: CBC, BMP 07/31/19 07:25 07/31/19 07:25 Hepatic Panel Total Bilirubin 0.4 mg/dL (0.2-1) 08/02/19 07:38 Direct Bilirubin 0.1 mg/dL (0.0-0.2) 08/02/19 07:38 AST 18 U/L (15-37) 08/02/19 07:38 ALT 47 U/L (13-61) 08/02/19 07:38 Alkaline Phosphatase 173 U/L (45-117) H 08/02/19 07:38 Albumin 3.1 g/dl (3.4-5.0) L 08/02/19 07:38 Problem List - Problems (1) Diverticulitis Assessment/Plan: Clinically imporoved Will need continued Abx for total 10 days Consider alternate regimen other than Levaquin and flagyl as her LFTs were elevated while she was admitted on this regimen. ID following Outpatient follow-up Code(s): K57.92 - DVTRCLI OF INTEST, PART UNSP, W/O PERF OR ABSCESS W/O BLEED
--- NOTE | 2019-08-02 13:31 | PN ---
Progress Note, Physician History of Present Illness: Pt feels well. Denies abd pain, tolerating diet. - Current Medication List Current Medications: Active Medications Piperacillin Sod/Tazobactam (Sod 3.375 gm/ Dextrose) 50 mls @ 100 mls/hr IVPB Q8H-IV JUAN; Protocol Last Admin: 08/02/19 09:18 Dose: 100 mls/hr Sodium Chloride (Normal Saline -) 1,000 mls @ 75 mls/hr IV ASDIR JUAN Last Admin: 08/01/19 17:39 Dose: Not Given Zolpidem Tartrate (Ambien -) 5 mg PO HS PRN PRN Reason: INSOMNIA Last Admin: 08/01/19 00:53 Dose: 5 mg - Objective Vital Signs: Vital Signs Temperature 98.3 F 08/02/19 11:41 Pulse Rate 75 08/02/19 11:41 Respiratory Rate 20 08/02/19 11:41 Blood Pressure 120/72 08/02/19 11:41 O2 Sat by Pulse Oximetry (%) 97 08/02/19 11:41 Constitutional: Yes: No Distress, Calm Eyes: Yes: Conjunctiva Clear Cardiovascular: Yes: Regular Rate and Rhythm Respiratory: Yes: Regular Gastrointestinal: Yes: Normal Bowel Sounds, Soft Genitourinary: Yes: WNL Extremities: Yes: WNL Integumentary: Yes: WNL Neurological: Yes: Alert, Oriented Labs: CBC, BMP 07/31/19 07:25 07/31/19 07:25 Laboratory Results - last 24 hr 08/02/19 07:38 Total Bilirubin 0.4 Direct Bilirubin 0.1 AST 18 ALT 47 Alkaline Phosphatase 173 H Total Protein 6.4 Albumin 3.1 L Problem List - Problems (1) Diverticulitis Code(s): K57.92 - DVTRCLI OF INTEST, PART UNSP, W/O PERF OR ABSCESS W/O BLEED Assessment/Plan Acute diverticulitis Symptoms improved -- may switch to Augmentin 875 mg po Q8h x 6 days -- follow up with GI
--- NOTE | 2019-08-02 14:10 | DS ---
Physical Examination Vital Signs: Vital Signs Temperature 98.3 F 08/02/19 11:41 Pulse Rate 75 08/02/19 11:41 Respiratory Rate 20 08/02/19 11:41 Blood Pressure 120/72 08/02/19 11:41 O2 Sat by Pulse Oximetry (%) 97 08/02/19 11:41 Labs: CBC, BMP 07/31/19 07:25 07/31/19 07:25 Discharge Summary Problems reviewed: Yes Reason For Visit: DIVERTICULITIS Current Active Problems Diverticulitis (Acute) Condition: Stable - Instructions Diet, Activity, Other Instructions: soft diet fu pmd 2-3 days see gi doctor for lfts Referrals: Patrica Hernandez MD [Primary Care Provider] - - Home Medications Comprehensive Discharge Medication List: Ambulatory Orders Azelastine HCl [Astepro] 1 - 2 spr NS BID 07/29/19 Betamethasone Dipropionate 15 gm TP ASDIR 07/29/19 Cyclosporine [Restasis] 1 applic ASDIR 07/29/19 Lisinopril/Hydrochlorothiazide [Lisinopril-Hctz 20-25 mg Tab] 1 each PO DAILY Montelukast Na [Singulair -] 10 mg PO HS 07/29/19 Zolpidem Tartrate [Ambien] 1 tab PO HS PRN 07/29/19 Amox-Tr/K Cl [Augmentin - 875Mg Tablet] 1 tab PO BID #12 tablet 08/02/19
[2019-08-04 21:09] LABS: HEP B CORE AB, TOT Negative (Negative)
== END 2019-08-02 15:49 | disposition home or self-care (01) | DRG 392 ==
LOC: JER 09:25 → JERBED 11:08 → J8W 13:01
PROVIDERS: ADMIT Internal Medicine; ATTEND Internal Medicine
DX: K57.92 Diverticulitis of intestine, part unspecified, without perforation or abscess without bleeding (principal); I10 Essential (primary) hypertension; G47.00 Insomnia, unspecified; K76.0 Fatty (change of) liver, not elsewhere classified; R74.0 Nonspecific elevation of levels of transaminase and lactic acid dehydrogenase [LDH]
CPT/HCPCS: 36415; 76705-TC; 80053; 80076; 81003; 85025; 86704; 86706; 86707; 86708; 86709; 86803; 87340; 99283-25; J0131; J7030

== ENCOUNTER 2019-10-16 08:14 | Day surgery (SDC) | payer MEDICARE, OTHER ==
[2019-10-15 14:46] VITALS: BMI 30.5
[2019-10-16 08:50] VITALS: TEMP 97.5
[2019-10-16 11:29] VITALS: BP 125/57; PULSE 76
--- NOTE | 2019-10-17 15:45 | PATH ---
Surgical Pathology Report Patient Name: DARELL LOZA [facility]. Rec. #: [id number] /Age/Gender: 1955 (Age: 64) / F Account: [id number] Location: ASU-ENDOSCOPY Taken: 10/16/2019 Received: 10/16/2019 Reported: 10/17/2019 Physicians: Nic Salgado D.O. Specimen(s) Received A: POLYP RIGHT COLON B: POLYP SIGMOID Clinical History History of diverticulitis, colon polyps Postoperative diagnosis: Diverticulosis, colon polyps, hemorrhoids Final Diagnosis A. RIGHT COLON POLYP, POLYPECTOMY: SESSILE SERRATED POLYP. B. SIGMOID POLYP, POLYPECTOMY: CONSISTENT WITH INFLAMMATORY POLYP. Electronically Signed Anne Ram M.D. Gross Description A. Received in formalin, labeled "polyp right colon" is a johnston, irregular portion of soft tissue measuring 0.4 cm. in greatest dimension. The specimen is submitted in toto in one cassette. B. Received in formalin, labeled "polyp sigmoid" is a johnston, irregular portion of soft tissue measuring less than 0.1 cm. in greatest dimension. The specimen is submitted in toto in one cassette. DL/10/16/2019 saudi/10/16/2019
== END 2019-10-16 12:30 | disposition home or self-care (01) ==
LOC: JASU-ENDO 08:14
PROVIDERS: ATTEND Internal Medicine Gastroenterology
PROC: 0DBF8ZX Excision of Right Large Intestine, Via Natural or Artificial Opening Endoscopic, Diagnostic (ICD-10-PCS; principal; 2019-10-16 09:00)
DX: Z12.11 Encounter for screening for malignant neoplasm of colon (principal); Z86.010 Personal history of colon polyps; K57.30 Diverticulosis of large intestine without perforation or abscess without bleeding; D12.6 Benign neoplasm of colon, unspecified; K64.8 Other hemorrhoids
CPT/HCPCS: 88305-TC

== ENCOUNTER 2020-03-29 11:35 | Emergency (ER) | payer MEDICARE, OTHER ==
--- NOTE | 2020-03-29 11:40 | PDOC ---
Rapid Medical Evaluation Chief Complaint: Pain, Acute Time Seen by Provider: 03/29/20 11:39 Medical Evaluation: Allergies Allergy/AdvReac Type Severity Reaction Status Date / Time No Known Allergies Allergy Verified 03/29/20 11:39 03/29/20 11:39 I have performed a brief in-person evaluation of this patient. The patient presents with a chief complaint of:abd pain. H/o diverticulitis, prior abd surgeries Pertinent physical exam findings:stable I have ordered the following:labs/CT The patient will proceed to the ED for further evaluation. 03/29/20 11:39 Discharge Disposition - Diagnosis Abdominal pain Qualifiers: Abdominal location: unspecified location Qualified Code(s): R10.9 - Unspecified abdominal pain - Referrals - Patient Instructions - Post Discharge Activity
[2020-03-29 11:41] VITALS: TEMP 98.3; BMI 30.2
[2020-03-29 12:39] LABS: BASO % 0.7 % (0-2.0); EOS % 0.5 % (0-4.5); HEMOGLOBIN 13.1 GM/dL (10.7-15.3); LYMPH % 20.9 % (8-40); MCH 31.6 pg (25.7-33.7); MCHC 33.7 g/dl (32.0-36.0); MEAN CELL VOLUME 93.9 fl (80-96); MEAN PLT VOLUME 8.3 fl (7.5-11.1); MONO % 7.3 % (3.8-10.2); NEUT % 70.6 % (42.8-82.8); PLATELET COUNT 212 K/MM3 (134-434); RBC 4.16 M/mm3 (3.60-5.2); RDW 13.1 % (11.6-15.6)
[2020-03-29 13:00] LABS: EPI CELLS 14 /uL (0-25.1); HYALINE CASTS 1 /uL (0-3.1); URINE APPEARANCE CLEAR; URINE BACTERIA 338 /uL (0-1359); URINE BILIRUBIN NEGATIVE (NEGATIVE); URINE COLOR YELLOW; URINE GLUCOSE (UA) NEGATIVE (NEGATIVE); URINE KETONE NEGATIVE (NEGATIVE); URINE LEUK ESTERASE 2+ (NEGATIVE); URINE NITRITE NEGATIVE (NEGATIVE); URINE PROTEIN NEGATIVE (NEGATIVE); URINE RBC 6 /uL (0-23.9); URINE UROBILINOGEN 0.2 mg/dL (0.2-1.0); URINE WBC 33 /uL (0-25.8)
--- NOTE | 2020-03-29 13:06 | PDOC ---
History of Present Illness - General Chief Complaint: Pain, Acute Stated Complaint: ABD PAIN Time Seen by Provider: 03/29/20 11:39 - History of Present Illness Initial Comments: Pt is a 65yo F with a hx of diverticulitis and prior abdominal surgeries, who presents with left lower abdominal pain for the past 3 days. Pt states that this feels like her past episodes of diverticulitis. Describes the pain as 8/10, sharp and stabbing, and intermittent. Pain is mildly improved with Tylenol and is worse with eating. She has been hospitalized for prior episodes, with the most recent hospitalization about a year ago. She had a similar episode 2 months ago, which improved with antibiotics. Denies f/c, n/v, diarrhea, constipation. PCP: [facility] GI: DiGiorno PMH: vertigo, asthma, acid reflux PSHx: x2, appendectomy, abdominoplasty Meds: meclizine, ambien, albuterol, montelukast, hydroxyzine, oxybutynin Allergies: NKDA SH: denies smoking, ETOH use, illicit drug use Past History - Medical History Allergies/Adverse Reactions: Allergies Allergy/AdvReac Type Severity Reaction Status Date / Time No Known Allergies Allergy Verified 03/29/20 11:39 Home Medications: Ambulatory Orders Cyclosporine [Restasis] 1 applic ASDIR 07/29/19 Lisinopril/Hydrochlorothiazide [Lisinopril-Hctz 20-25 mg Tab] 1 each PO DAILY 07/29/19 Montelukast Na [Singulair -] 10 mg PO HS 07/29/19 Zolpidem Tartrate [Ambien] 1 tab PO HS PRN 07/29/19 Lansoprazole [Prevacid -] 30 mg PO DAILY 10/15/19 Meclizine HCl 25 mg PO DAILY 10/15/19 Sulfamethoxazole/Trimethoprim [Bactrim Ds -] 1 tab PO BID #20 tablet 03/29/20 metroNIDAZOLE [Flagyl -] 500 mg PO TID #30 tablet 03/29/20 Anemia: No Asthma: Yes Cancer: No Cardiac Disorders: No CVA: No COPD: No CHF: No Dementia: No Diabetes: No GI Disorders: Yes (GERD;GASTRITIS;TICS) Disorders: No HTN: Yes Hypercholesterolemia: No Liver Disease: Yes (NON-ALCOHOLIC) Seizures: No Thyroid Disease: No - Surgical History Abdominal Surgery: Yes (TUMMY TUCK) Appendectomy: Yes Cardiac Surgery: No Cholecystectomy: No Lung Surgery: No Neurologic Surgery: No Orthopedic Surgery: No - Immunization History Immunization Up to Date: Yes - Psycho-Social/Smoking History Smoking Status: No Smoking History: Never smoked Have you smoked in the past 12 months: No Number of Cigarettes Smoked Daily: 0 - Substance Abuse Hx (Audit-C & DAST Scrn) How often the patient has a drink containing alcohol: Never Score: In Men: 4 or > Positive; In Women: 3 or > Positive: 0 Screen Result (Pos requires Nsg. Audit-10AR): Negative In the last yr the pt used illegal drug/Rx for NonMed reason: No Score: Yes response is considered Positive: 0 Screen Result (Positive result requires Nsg. DAST-10): Negative Review of Systems - Review of Systems Comments:: ROS Constitutional: Denies fevers, chills, fatigue Respiratory: Denies SOB, Cough, Wheezing Cardiac: Denies Chest Pain, Palpitations, Edema GI: Reports abdominal pain, denies n/v, constipation, diarrhea, melena, hematochezia : Denies dysuria, Neurological: Denies headache, tingling, weakness *Physical Exam - Vital Signs Last Vital Signs Temp Pulse Resp BP Pulse Ox 98.3 F 98 H 20 143/75 100 03/29/20 11:39 03/29/20 11:39 03/29/20 11:39 03/29/20 11:39 03/29/20 11:39 - Physical Exam General: in mild distress, well developed, well nourished Head: normocephalic, atraumatic Lung: equal breath sounds b/l, CTA b/l, no crackles, wheezes Heart: RRR, normal S1, S2, no murmurs, rubs, gallops Abdomen: tender to palpation in LLQ, normoactive bowel sounds, no guarding, rebound, masses Extremities: no edema, DP/PT pulses 2+ and symmetric Skin: warm, dry, no rashes or lesions noted ED Treatment Course - LABORATORY CBC & Chemistry Diagram: 03/29/20 12:15 03/29/20 12:15 Medical Decision Making - Medical Decision Making Ms. Davison is a 65yo F with hx of diverticulitis presents with LLQ abdominal pain. Vital Signs Temp Pulse Resp BP Pulse Ox 98.3 F 98 H 20 143/75 100 03/29/20 11:39 03/29/20 11:39 03/29/20 11:39 03/29/20 11:39 03/29/20 11:39 DDx: diverticulitis, adhesions, SBO, ovarian torsion, ovarian cyst, UTI Plan: labs, CT abdomen, pain control MDM: UA with positive leukocyte esterase, likely due to UTI CT - acute diverticulitis without abscess Re-assessment: - pain improved with Ofirmev, patient well appearing - Given first dose of Bactrim and Flagyl - Referral to General Surgery due to multiple episodes of diverticulitis - Return precautions given Disposition: Discharge to home Discharge - Discharge Information Problems reviewed: Yes Clinical Impression/Diagnosis: Diverticulitis, UTI (urinary tract infection) Abdominal pain Qualifiers: Abdominal location: unspecified location Qualified Code(s): R10.9 - Unspecified abdominal pain Condition: Stable Disposition: HOME - Admission No - Additional Discharge Information Prescriptions: Sulfamethoxazole/Trimethoprim [Bactrim Ds -] 1 tab PO BID #20 tablet metroNIDAZOLE [Flagyl -] 500 mg PO TID #30 tablet - Follow up/Referral Referrals: Fermin Szymanski II, DO [Primary Care Provider] - Nadeem Barrios MD [Staff Physician] - Donald Salgado DO [Staff Physician] - - Patient Discharge Instructions Patient Printed Discharge Instructions: DI for Diverticulitis Additional Instructions: You came in for lower abdominal pain. We performed a CT scan which showed acute diverticulitis without abscess. We will start you on antibiotics, which will be sent to [facility] pharmacy. We also ordered a urine test which was positive for a urine infection and we will start you on antibiotics for that. 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 Salgado). We have also provided you with a referral to a general surgeon, Dr. Barrios. Come back to ED with any new or worsening symptoms, high fever, severe pain, constipation, are unable to take your antibiotics. Thank you for coming to [facility] ER. We hope you feel better soon. - Post Discharge Activity
[2020-03-29] MEDS ORDERED: ACETAMINOPHEN 1000 MG/100 ML VIAL (NON FORMULARY) IVPB ONE (13:12)
[2020-03-29 13:17] LABS: ALBUMIN 3.7 g/dl (3.4-5.0); BILIRUBIN,TOTAL 0.8 mg/dL (0.2-1); BLOOD UREA NITROGEN 9.9 mg/dL (7-18); CALCIUM 9.1 mg/dL (8.5-10.1); CREATININE 0.8 mg/dL (0.55-1.3); TOT PROT 7.2 g/dl (6.4-8.2)
[2020-03-29] MEDS ORDERED: ACETAMINOPHEN INJECTION 100 ML IVPB ONE (14:59)
[2020-03-29] MEDS ORDERED: metroNIDAZOLE 500 MG TABLET PO ONE (15:02)
[2020-03-29] MEDS ORDERED: SULFAMETHOXAZOLE/TRIMETHOPRIM 800MG/160MG D.S. TABLET PO ONE (15:02)
--- NOTE | 2020-03-29 15:04 | PDOC ---
Documentation entered by Elsi Koehler SCRIBE, acting as scribe for Payal Bowman MD. Payal Bowman MD: This documentation has been prepared by the Rodo panda Brenda, SCRIBE, under my direction and personally reviewed by me in its entirety. I confirm that the documentation accurately reflects all work, treatment, procedures, and medical decision making performed by me. Attending Attestation - Resident Resident Name: Chelle Cespedes - ED Attending Attestation I have performed the following: I have examined & evaluated the patient, The case was reviewed & discussed with the resident, I agree w/resident's findings & plan, Exceptions are as noted - HPI HPI: 03/29/20 13:30 The patient is a 65 year old female with a significant PMH of diverticulitis who presents to the ED for evaluation of 3 days of left lower quadrant abdominal pain. The patient notes that the pain is a 8/10 in severity, sharp and stabbing in nature and it is intermittent. She notes it is simialr to her bouts of diverticulitis. Denies fever, chills, nausea, vomiting and/or diarrhea/constipation. Denies CP/SOB, headache, focal weakness/numbness. Surgical Hx: x2, appendectomy, abdominoplasty GI: DiGiorno - Physicial Exam PE: 03/29/20 15:01 GENERAL: Awake, alert, and fully oriented, in no acute distress EYES: PERRLA, EOMI, sclera anicteric, conjunctiva clear ENT: Oropharynx clear without exudates. Moist mucosa NECK: Normal ROM, supple, no lymphadenopathy, JVD, or masses LUNGS: Breath sounds equal, clear to auscultation bilaterally. No wheezes, and no crackles HEART: Regular rate and rhythm, normal S1 and S2, no murmurs, rubs or gallops ABDOMEN: Soft, +LLQ ttp, non distended. Normoactive bowel sounds. No guarding, no rebound. No masses EXTREMITIES: Normal range of motion, no edema. No clubbing or cyanosis. No cords, erythema, or tenderness NEUROLOGICAL: Normal speech, cranial nerves intact, equal strength and sensation b/l SKIN: Warm, Dry, normal turgor, no rashes or lesions noted. - Medical Decision Making 03/29/20 15:02 65yo F hx diverticulitis presents to the ED with LLQ pain concerning for recurrent diverticulitis Pt is well appearing, non toxic Vitals wnl Exam with LLQ ttp, but no rebound or guarding Likely recurrent diverticulitis Labs w no leukocytosis UA+ for possible UTI CTAP with acute uncomplicated diverticulitis Plan to treat with bactrim and flagyl, discharge with PMD f/u and return precautions I discussed the physical exam findings, ancillary test results and final diagnoses with the patient. I answered all of the patient's questions. The patient was satisfied with the care received and felt comfortable with the discharge plan and treatment plan. The patient will call their primary care physician within 24 hours to arrange follow-up and will return to the Emergency Department with any new, persistent or worsening symptoms. Discharge - Discharge Information Problems reviewed: Yes Clinical Impression/Diagnosis: Diverticulitis, UTI (urinary tract infection) Abdominal pain Qualifiers: Abdominal location: unspecified location Qualified Code(s): R10.9 - Unspecified abdominal pain Condition: Stable Disposition: HOME - Additional Discharge Information Prescriptions: Sulfamethoxazole/Trimethoprim [Bactrim Ds -] 1 tab PO BID #20 tablet metroNIDAZOLE [Flagyl -] 500 mg PO TID #30 tablet - Follow up/Referral Referrals: Fermin Szymanski II, DO [Primary Care Provider] - Nadeem Barrios MD [Staff Physician] - Donald Salgado DO [Staff Physician] - - Patient Discharge Instructions Patient Printed Discharge Instructions: DI for Diverticulitis Additional Instructions: You came in for lower abdominal pain. We performed a CT scan which showed acute diverticulitis without abscess. We will start you on antibiotics, which will be sent to [facility] pharmacy. We also ordered a urine test which was positive for a urine infection and we will start you on antibiotics for that. 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 We have also provided you with a referral to a general surgeon, Dr. Barrios. Come back to ED with any new or worsening symptoms, high fever, severe pain, constipation, are unable to take your antibiotics. Thank you for coming to [facility] ER. We hope you feel better soon. - Post Discharge Activity
[2020-03-29] MEDS ORDERED: metroNIDAZOLE 250 MG TABLET ONE (15:28)
[2020-03-29] MEDS ORDERED: SULFAMETHOXAZOLE/TRIMETHOPRIM 800MG/160MG D.S. TABLET ONE (15:29)
[2020-03-29 15:52] VITALS: BP 136/82; PULSE 91
== END 2020-03-29 15:52 | disposition home or self-care (01) ==
LOC: JER 11:35
PROC: 3E033GC Introduction of Other Therapeutic Substance into Peripheral Vein, Percutaneous Approach (ICD-10-PCS; principal; 2020-03-29)
DX: K57.92 Diverticulitis of intestine, part unspecified, without perforation or abscess without bleeding (principal); N39.0 Urinary tract infection, site not specified
CPT/HCPCS: 36415; 74177-TC; 80053; 81003; 85025; 87086; 99285-25; J0131; Q9967

== ENCOUNTER 2020-06-09 03:50 | Observation (INO) | payer MEDICARE, OTHER ==
--- OUTSIDE RECORDS SUMMARY | 2020-06-09 04:27 | XMS ---
:1955 Author Organization [facility] Care Team Providers Name Role Phone MAYNOR, SAMANTHA Unavailable Unavailable MAYNOR, SAMANTHA Unavailable Unavailable MAYNOR, SAMANTHA Unavailable Unavailable DiGiorno, Christopher Unavailable [phone] DiGiorno, Christopher Unavailable [phone] DiGiorno, Christopher Unavailable [phone] MAYNOR, SAMANTHA Unavailable Unavailable Sosenko-Porytko, Shereen Unavailable Unavailable Sosenko-Porytko, Shereen Unavailable Unavailable Sosenko-Porytko, Shereen Unavailable Unavailable Maynor, Samantha Unavailable Unavailable Maynor, Samantha Unavailable Unavailable Maynor, Samantha Unavailable Unavailable Maynor, Samantha Unavailable Unavailable Maynor, Samantha Unavailable Unavailable ALEXX OWEN Unavailable ALEXX OWEN Unavailable MAYNOR, SAMANTHA Unavailable Unavailable Re-disclosure Warning The records that you are about to access may contain information from federally- assisted alcohol or drug abuse programs. If such information is present, then the following federally mandated warning applies: This information has been disclosed to you from records protected by federal confidentiality rules (42 CFR part 2). The federal rules prohibit you from making any further disclosure of this information unless further disclosure is expressly permitted by the written consent of the person to whom it pertains or as otherwise permitted by 42 CFR part 2. A general authorization for the release of medical or other information is NOT sufficient for this purpose. The Federal rules restrict any use of the information to criminally investigate or prosecute any alcohol or drug abuse patient.The records that you are about to access may contain highly sensitive health information, the redisclosure of which is protected by Article 27-F of the [facility] Public Health law. If you continue you may haveaccess to information: Regarding HIV / AIDS; Provided by facilities licensed or operated by the [facility] Office of Mental Health; or Provided by the [facility] Office for People With Developmental Disabilities. If such information is present, then the following [facility] mandated warning applies: This information has been disclosed to you from confidential records which are protected by state law. State law prohibits you from making any further disclosure of this information without the specific written consent of the person to whom it pertains, or as otherwise permitted by law. Any unauthorized further disclosure in violation of state law may result in a fine or prison sentence or both. A general authorization for the release of medical or other information is NOT sufficient authorization for further disclosure. Allergies and Adverse Reactions Type Description Substance Reaction Status Data Source(s ) D No Known No Known [facility] n - Medication Medication [facility] No Known No Known No Known eCW3 ([facility]) No Known No Known No Known eCW3 ([facility]) No Known No Known No Known eCW3 ([facility]ies [facility]) No Information No Information No Information eC W2 ([facility]) Encounters Encounter Providers Location Date Indications Data Source(s ) Attender: ALEXX 05/03/2020 REN[facility] Attender: ALEXX OWEN 05/03/2020 12:00:00 AM EDT [facility] ([facility]) Office Attender: Christopher 04/14/2020 12:00:00 AM ED T [facility] ([facility], ) Office Attender: Christopher 03/31/2020 12:00:00 AM ED T [facility] ([facility]) Office V Attender: Samantha CS XR-AMS 06/23/2019 11:34:10 [facility]: SAMANTHA [facility] Danny [facility] PAISAttender: SAMANTHA PAISAttender: SAMANTHA PAISAttender: SAMANTHA PAISReferrer: SAMANTHA MAYNOR EUS P Attender: Samantha CS XR-AMS 06/19/2019 01:27:12 [facility]ender: SAMANTHA PM [facility] Danny [facility] PAISAttender: SAMANTHA PAISAttender: SAMANTHA PAISAttender: SAMANTHA PAISReferrer: SAMANTHA MAYNOR EUS P Attender: SAMANTHA CS XR-AMS 06/19/2019 12:08:56 [facility] [place] [facility] PAISAttender: SAMANTHA PM ED[facility] Samantha Danny ter PaisAttender: SAMANTHA PAISAttender: SAMANTHA PAISAttender: SAMANTHA PAISReferrer: SAMANTHA MAYNOR EUS P Attender: SAMANTHA CS XR-AMS 06/19/2019 10:44:41 [facility] PAISAttender: SAMANTHA AM ED[facility] Danny ter PAISAttender: SAMANTHA PAISAttender: Samantha PaisAttender: SAMANTHA PAISReferrer: SAMANTHA MAYNOR EUS P Attender: Samantha CS XR-AMS 05/21/2019 10:12:07 [facility]ender: SAMANTHA AM EDT [facility]TH[facility] Danny ter PAISAttender: SAMANTHA PAISAttender: SAMANTHA PAISAttender: SAMANTHA PAISReferrer: SAMANTHA MAYNOR EUS P Attender: SAMANTHA CS XR-AMS 05/21/2019 09:05:38 [facility] PAISAttender: SAMANTHA AM EDT [facility] PAISAttender: SAMANTHA Danny ter PAISAttender: Samantha PaisAttender: SAMANTHA PAISAttender: SAMANTHA PAIeferrer: SAMANTHA COOPERS [facility] 04/10/2019 eCW3 ([facility] A28 12:00:00 AM EDT - [facility]) 04/10/2019 12:00:00 AM EDT P Attender: SAMANTHA HENSLEY XR-GI MOB 04/09/2019 [facility] [place] [facility]ISAttender: 01:20:17 PM EDT [facility] Jakub raj PAISAttender: SAMANTHA PAISAttender: Samantha PaisAttender: SAMANTHA PAISAttender: SAMANTHA PAIeferrer: Shereen Laurent [facility] 04/02/2019 eCW3 ([facility] A28 12:00:00 AM EDT - [facility]) 04/02/2019 12:00:00 AM EDT P Attender: CS XR-AMS 03/14/2019 [facility] [place] [facility]THA 08:47:42 AM EDT [facility] tisha GUERREROttender: Hospital Ce nter Samantha PaisAttender: SAMANTHA PAISAttender: SAMANTHA PAISAttender: SAMANTHA PAISAttender: SAMANTHA PAIeferrer: SAMANTHA MAYNOR EUS [facility] 01/01/2019 12:00:00 eCW3 ([facility] A28 AM EDT - 01/01/2019 [facility] 12:00:00 AM EDT Care) [facility] Jenna Linares 09/12/2018 12:00: 00 [facility] Jenna Linares 07/03/2018 12:00: 00 [facility]CW2 [facility] Jenna Linares 04/18/2018 12:00: 00 eCW2 [facility] [place] Roisabela 04/04/2018 12:00: 00 eCW2 [facility] Jenna Roisabela 01/10/2018 12:0 0:00 eCW2 ([facility] AM EDT [facility]) Isa Lucianon Jiaisabela 10/24/2017 12:00: 00 eCW2 [facility] [place] Isabella Lucianon Jiaisabela 08/08/2017 12:00: 00 [facility]CW2 [facility] [place] Lucianon Gloriaeric 04/19/2017 12:00: 00 eCW2 [facility] Isa Murillocomfort Linares 03/14/2017 12:00: 00 eCW2 [facility] [place] Isabella Lucianon Jiaisabela 02/14/2017 12:00: 00 eCW2 [facility] [place] Isabella Lucianon Gloriaeric 02/14/2017 12:00: 00 eCW2 [facility] [place] Isabella Lucianovy Castroana rosaisabela 02/08/2017 12:00: 00 eCW2 [facility] [place] Isabella Lucianon Gloriaeric 02/08/2017 12:00: 00 eCW2 [facility] [place] Isabella Murillocomfort Linares 11/06/2016 12:00: 00 eCW2 [facility] [place] Isabella Murillocomfort Castroabaisabela 09/28/2016 12:00: 00 eCW2 [facility] [place] Isabella Murillocomfort Linares 08/23/2016 12:00: 00 eCW2 [facility] Isa Murillocomfort Linares 07/27/2016 12:00: 00 eCW2 [facility] Isa Murillocomfort Linares 06/14/2016 12:00: 00 eCW2 [facility] Isa Almaraznben Murillocomfort Linares 12/23/2015 12:00: 00 eCW2 [facility] Murill[facility]fort Linares 11/03/2015 12:00: 00 eCW2 [facility] [place] Isabella Hay Jenna Linares 08/25/2015 12:00: 00 eCW2 [facility] [place] Isabella Almaraznkers Jenna Linares 08/02/2015 12:00: 00 eCW2 [facility] [place] Isabella Hay Jenna Linares 08/01/2015 12:00: 00 eCW2 [facility] [place] Isabella Hay Jenna Linares 07/29/2015 12:00: 00 eCW2 [facility] [place] Isabella Almaraznkers Jenna Linares 07/28/2015 12:00: 00 eCW2 [facility] [place] Isabella Almaraznkers Jenna Linares 07/22/2015 12:00: 00 eCW2 [facility] [place] Jenna Linares 07/18/2015 12:00: 00 eCW2 [facility] [place] Isabella Al[place] Jenna Linares 07/15/2015 12:00: 00 eCW2 ([facility]) [place] Isabella Al[place] Jenna Linares 07/14/2015 12:00: 00 eCW2 [facility] Isa Lucianovy Linares 06/30/2015 12:00: 00 eCW2 [facility] Isa Lucianovy Linares 06/23/2015 12:00: 00 eCW2 [facility] Isa Lucianovy Linares 05/12/2015 12:00: 00 eCW2 [facility] Isa Lucianovy Linares 03/11/2015 12:00: 00 eCW2 [facility] Isa Murillocomfort Linares 01/20/2015 12:00: 00 eCW2 [facility] [place] Isabella Lucianovy Linares 10/01/2014 12:00: 00 eCW2 [facility] [place] Isabella Murillocomfort Linares 08/12/2014 12:00: 00 eCW2 [facility] [place] Isabella Murillocomfort Linares 07/22/2014 12:00: 00 eCW2 [facility] [place] Isabella Murillocomfort Linares 07/21/2014 12:00: 00 eCW2 [facility] [place] Isabella Murillocomfort Linares 07/21/2014 12:00: 00 eCW2 [facility] Jenna Linares 07/09/2014 12:00:00 eCW2 ([facility] AM EDT [facility]) [place] Isabella Almaraznkers Jenna Linares 06/04/2014 12:00: 00 eCW2 [facility] Isa Lucianovy Linares 06/03/2014 12:00: 00 eCW2 [facility] Isa Lucianovy Linares 04/08/2014 12:00: 00 eCW2 [facility] Isa Murillocomfort Linares 04/02/2014 12:00: 00 eCW2 ([facility]) Isa Murillocomfort Linares 03/20/2014 12:00: 00 eCW2 ([facility]) Isa Murillocomfort Linares 01/08/2014 12:00: 00 eCW2 ([facility]) Isa Murillocomfort Linares 12/03/2013 12:00: 00 eCW2 ([facility]) [place] Isabella Murillocomfort Linares 10/15/2013 12:00: 00 eCW2 ([facility]) [place] Isabella Murillocomfort Linares 10/08/2013 12:00: 00 eCW2 [facility]) [place] Isabella Hay Jenna Linares 07/16/2013 12:00: 00 eCW2 ([facility]) Isa Murillocomfort Linares 06/16/2013 12:00: 00 eCW2 ([facility]) [place] Jenna Linares 06/12/2013 12:00: 00 eCW2 ([facility]) [place] Jenna Castroabaisabela 03/13/2013 12:00: 00 eCW2 ([facility]) [place] Isabella Almarazn[place] Jenna Linares 03/08/2013 12:00: 00 eCW2 ([facility]) Isa Lucianovy Castroana rosaisabela 02/26/2013 12:00: 00 eCW2 [facility] Isa Lucianovy Castroana rosaisabela 01/23/2013 12:00: 00 eCW2 [facility]) Isa Lucianovy Linares 01/01/2013 12:00: 00 eCW2 ([facility]) Isa Lucianovy Linares 12/27/2012 12:00: 00 eCW2 ([facility]) Isa Lucianovy Linares 12/25/2012 12:00: 00 eCW2 ([facility]) Isa Murillocomfort Linares 11/21/2012 12:00: 00 eCW2 ([facility]) [place] Isabella Lucianovy Linares 11/13/2012 12:00: 00 eCW2 [facility]) Isa Lucianovy Linares 10/03/2011 12:00: 00 eCW2 [facility]) Isa Murillocomfort Linares 06/21/2011 12:00: 00 eCW2 ([facility]) Isa Murillocomfort Castroabaisabela 06/16/2011 12:00: 00 eCW2 [facility]) Isa Murillocomfort Castroabaisabela 06/14/2011 12:00: 00 eCW2 ([facility]) [place] Isabella Hay Jenna Castroabaisabela 06/12/2011 12:00: 00 eCW2 ([facility]) Isa Lucianovy Linares 06/07/2011 12:00: 00 eCW2 ([facility]) Isa Lucianovy Linares 06/06/2011 12:00: 00 eCW2 ([facility]) Isa Murillocomfort Linares 05/19/2011 12:00: 00 eCW2 ([facility]) [place] Isabella Lucianovy Linares 05/18/2011 12:00: 00 eCW2 ([facility]) [place] Isabella Lucianovy Linares 04/24/2011 12:00: 00 eCW2 ([facility]) [place] Isabella Murillocomfort Linares 04/24/2011 12:00: 00 eCW2 ([facility]) [place] Isabella Murillocomfort Linares 03/21/2011 12:00: 00 eCW2 ([facility]) [place] Isabella Murillocomfort Linares 03/20/2011 12:00: 00 eCW2 ([facility]) [place] Isabella Murillocomfort Linares 03/16/2011 12:00: 00 eCW2 ([facility]) [place] Isabella Murillocomfort Linares 01/07/2011 12:00: 00 eCW2 ([facility]) [place] Isabella Hay Jenna Castroabaisabela 10/24/2010 12:00: 00 eCW2 ([facility]) [place] Isabella Hay Jenna Castroabaisabela 10/13/2010 12:00: 00 eCW2 ([facility]) [place] Hay Jenna Linares 10/11/2010 12:00: 00 eCW2 [facility]) Isa Lucianovy Linares 10/04/2010 12:00: 00 eCW2 [facility]) Isa Lucianovy Linares 10/03/2010 12:00: 00 eCW2 [facility]) Isa Murillocomfort Linares 09/20/2010 12:00: 00 eCW2 [facility]) [place] Isabella Murillocomfort Linares 07/08/2010 12:00: 00 eCW2 ([facility]) [place] Isabella Murillocomfort Linares 06/28/2010 12:00: 00 eCW2 ([facility]) [place] Isabella Murillocomfort Linares 05/25/2010 12:00: 00 eCW2 ([facility]) [place] Isabella Murillocomfort Linares 05/12/2010 12:00: 00 eCW2 ([facility]) [place] Isabella Murillocomfort Linares 05/12/2010 12:00: 00 eCW2 ([facility]) [place] Isabella Murillocomfort Linares 05/12/2010 12:00: 00 eCW2 ([facility]) [place] Isabella Murillocomfort Castroabaisabela 04/21/2010 12:00: 00 eCW2 ([facility]) [place] Isabella Murillocomfort Castroabaisabela 04/19/2010 12:00: 00 eCW2 ([facility]) [place] Isabella Almaraznkers Jenna Castroabaisabela 01/27/2010 12:00: 00 eCW2 ([facility]) [place] Isabella Linares 01/03/2010 12:00: 00 eCW2 [facility] Lina[facility] 12/10/2009 12:00: 00 eCW2 [facility] L[facility] 10/08/2009 12:00: 00 eCW2 [facility] Lina[facility] 10/05/2009 12:00: 00 eCW2 [facility] Jennavy Linares 09/07/2009 12:00: 00 eCW2 [facility] Jenna Linaers 09/07/2009 12:00: 00 eCW2 [facility]) [facility] Jennacomfort Linares 09/07/2009 12:00: 00 eCW2 [facility] Jenna Linares 09/06/2009 12:00: 00 eCW2 [facility] L[facility] 08/30/2009 12:00: 00 eCW2 ([facility] EST [facility]) Immunizations Vaccine Date Status Description Data Source(s) No Known Immunizations completed eCW2 ([facility]) Medications Medication Brand Start Product Dose Route Administrative Pharmacy [facility] [place] Indications Reaction Description Data Name Date Form Instructions Instructions Source(s) Famotidine FAMOTI 04/29/ TABLET 60 complet FAMOT IDINE MED[facility] (St 40 MG Oral DINE:2 2019 ed [facility] Tablet 66311 12:00: Medical, FAMOTIDINE: 00 AM PC) [id number] EDT Metronidazo METRON 03/31/ TABLET 30 complet METR ONIDAZOL [facility] (St le 500 MG IDAZOL 2020 ed E [facility] Oral Tablet E:3116 12:00: Medi deondre, METRONIDAZO 81 00 AM PC) LE:[id number] EDT Metronidazo METRON /08/ TABLET 30 complet METR ONIDAZOL [facility] (St le 500 MG IDAZOL 2019 ed E [facility] Oral Tablet E:3115 12:00: Medi deondre, METRONIDAZO 81 00 AM PC) LE:[id number] EDT Metronidazo METRON /08/ TABLET 30 complet METR ONIDAZOL [facility] (St le 500 MG IDAZOL 2019 ed E [facility] Oral Tablet E:3115 12:00: Medi deondre, METRONIDAZO 81 00 AM PC) LE:737859 EDT Sulfamethox SULFAM 03/29/ TABLET 20 complet SULF AMETHOXA [facility] (St azole 800 ETHOXA 2020 ed ZOLE-TRIMETH [facility] MG / ZOLE-T 12:00: OPR[facility] Medical, Trimethopri RIMETH 00 AM PC) m 160 MG OPRIM: EDT Oral Tablet [id number] SULFAMETHOX AZOLE-TRIME THOPRIM:198 335 Sulfamethox SULFAM 03/29/ TABLET 20 complet SULF AMETHOXA [facility] (St azole 800 ETHOXA 2020 ed ZOLE-TRIMETH [facility] MG / ZOLE-T 12:00: [facility] Medical, Trimethopri RIMETH 00 AM PC) m 160 MG OPRIM: EDT Oral Tablet [id number] SULFAMETHOX AZOLE-TRIME THOPRIM:198 335 Sulfamethox SULFAM 03/29/ TABLET 20 complet SULF AMETHOXA MED[facility] (St azole 800 ETHOXA 2020 ed ZOLE-TRIMETH [facility] MG / ZOLE-T 12:00: OPR[facility] Medical, Trimethopri RIMETH 00 AM PC) m 160 MG OPRIM: EDT Oral Tablet [id number] SULFAMETHOX AZOLE-TRIME THOPRIM:198 335 Amoxicillin .0 active Augment in eCW3 500 MG / tin 2019 {tabl 500-125 MG ([facility] son Clavulanate 500-12 12:00: et} Rive r 125 MG Oral 5 MG 00 AM Health Tablet EDT Care) [Augmentin] Augmentin 500-125 MG Amoxicillin 1.0 active Augment in eCW3 500 MG / tin 2020 {tabl 500-125 MG ([facility] son Clavulanate 500-12 12:00: et} Rive r 125 MG Oral 5 MG 00 AM Health Tablet EDT Care) [Augmentin] Augmentin 500-125 MG Hydroxyzine HydrOX .0 active HydrOXY zine eCW3 Hydrochlori Yzine 2019 {tabl HCl 25 MG ( [facility] de 25 MG HCl 25 12:00: et_as [facility] Oral Tablet MG 00 AM _need Health HydrOXYzine EDT ed} Care) HCl 25 MG Hydroxyzine HydrOX .0 active HydrOXY zine eCW3 Hydrochlori Yzine 2019 {tabl HCl 25 MG ( [place] de 25 MG HCl 25 12:00: et_as [facility] Oral Tablet MG 00 AM _need Health HydrOXYzine EDT ed} Care) HCl 25 MG 24 HR Oxybut .0 active Oxybutynin eC W3 Oxybutynin ynin 2019 {tabl Chloride ER ( [place] chloride 5 Chlori 12:00: et} 5 MG [facility] MG Extended de ER 00 AM Health Release 5 MG EST Care) Oral Tablet Oxybutynin Chloride ER 5 MG 24 HR Oxybut .0 active Oxybutynin eC W3 Oxybutynin ynin 2019 {tabl Chloride ER ( [place] chloride 5 Chlori 12:00: et} 5 MG [facility] MG Extended de ER 00 AM Health Release 5 MG EST Care) Oral Tablet Oxybutynin Chloride ER 5 MG montelukast ISREAL 09/10/ TABLET 30 complet HARITHA ELUKAST [facility] (St 10 MG Oral UKAST: 2019 ed [facility] Tablet [id number] 12:00: Medical, MONTELUKAST 00 AM PC) :[id number] EST Meclizine MECLIZ 09/10/ TABLET 30 complet MECLIZ INE [facility] (St Hydrochlori INE:99 2018 ed [facility] de 25 MG 5666 12:00: Medical, Oral Tablet 00 AM PC) MECLIZINE:9 EST 72516 Bisacodyl 5 DULCOL 09/10/ DELAYED 6 complet DUL COLAX [facility] (St MG Delayed AX 2019 RELEASE ed LAXATIVE [facility] Release LAXATI 12:00: TABLET Medica l, Oral Tablet VE:209 00 AM PC) [Dulcolax] 613 EST DULCOLAX LAXATIVE:20 9613 Zolpidem AMBIEN 12/18/ TABLET 30 complet AMBIEN [facility] (St tartrate 10 :53650 2018 ed [facility] MG Oral 5 12:00: Medical, Tablet 00 AM PC) [Ambien] EST AMBIEN:8548 75 Zolpidem AMBIEN 18/ TABLET 30 complet AMBIEN [facility] (St tartrate 10 :79715 2018 ed [facility] MG Oral 5 12:00: Medical, Tablet 00 AM PC) [Ambien] EST AMBIEN:8548 75 Bisacodyl 5 DULCOL 09/10/ DELAYED 6 complet DUL COLAX [facility] (St MG Delayed AX 2019 RELEASE ed LAXATIVE [facility] Release LAXATI 12:00: TABLET Medica l, Oral Tablet VE:209 00 AM PC) [Dulcolax] 613 EST DULCOLAX LAXATIVE:20 9613 montelukast ISREAL 18/ TABLET 30 complet HARITHA ELUKAST MED[facility] (St 10 MG Oral UKAST: 2019 ed [facility] Tablet [id number] 12:00: Medical, MONTELUKAST 00 AM PC) :[id number] EST Famotidine FAMOTI 18/ TABLET 30 complet FAMOT IDINE MEDGEN (St 40 MG Oral DINE:2 2018 ed [facility] Tablet [id number] 12:00: Medical, FAMOTIDINE: 00 AM PC) [id number] EST POLYETHYLEN GOLYTE 09/10/ POWDER 30 complet GOLY TELY MEDGEN (St E GLYCOL LY:966 2019 FOR ed [facility] 3350 60 [id number] 12:00: RECONSTI Medica l, MG/ML / 00 AM TUTION PC) Potassium EST Chloride 0.01 MEQ/ML / Sodium Bicarbonate 0.02 MEQ/ML / Sodium Chloride 0.025 MEQ/ML / sodium sulfate 0.04 MEQ/ML Oral Solution [Golytely] GOLYTELY:96 6916 lansoprazol LANSOP 18/ DELAYED 30 complet ENZO SOPRAZOLE MEDGEN (St e 30 MG RAZOLE 2018 RELEASE ed [facility] Delayed :77498 12:00: CAPSULE Medic al, Release 7 00 AM PC) Oral EST Capsule LANSOPRAZOL [id number] Famotidine FAMOTI 12/18/ TABLET 30 complet FAMOT IDINE MEDGEN (St 40 MG Oral DINE:2 2018 ed [facility] Tablet 48442 12:00: Medical, FAMOTIDINE: 00 AM PC) [id number] EST Meclizine MECLIZ 12/18/ TABLET 30 complet MECLIZ INE MEDGEN (St Hydrochlori INE:99 2019 ed [facility] de 25 MG 5666 12:00: Medical, Oral Tablet 00 AM PC) MECLIZINE:9 EST 45103 lansoprazol LANSOP 1218/ DELAYED 30 complet ENZO SOPRAZOLE MEDGEN (St e 30 MG RAZOLE 2019 RELEASE ed [facility] Delayed :47514 12:00: CAPSULE Medic al, Release 7 00 AM PC) Oral EST Capsule LANSOPRAZOL E:[id number] POLYETHYLEN GOLYTE 12/18/ POWDER 30 complet GOLY TELY MEDGEN (St E GLYCOL LY:966 2018 FOR ed [facility] 3350 60 916 12:00: RECONSTI Medica l, MG/ML / 00 AM TUTION PC) Potassium EST Chloride 0.01 MEQ/ML / Sodium Bicarbonate 0.02 MEQ/ML / Sodium Chloride 0.025 MEQ/ML / sodium sulfate 0.04 MEQ/ML Oral Solution [Golytely] GOLYTELY:96 6916 montelukast ISREAL 12/18/ TABLET 30 complet HARITHA ELUKAST MEDGEN (St 10 MG Oral UKAST: 2019 ed [facility] Tablet [id number] 12:00: Medical, MONTELUKAST 00 AM PC) :[id number] EST Meclizine MECLIZ 12/18/ TABLET 30 complet MECLIZ INE MEDGEN (St Hydrochlori INE:99 2019 ed [facility] de 25 MG 5666 12:00: Medical, Oral Tablet 00 AM PC) MECLIZINE:9 EST 65085 Bisacodyl 5 DULCOL 1218/ DELAYED 6 complet DUL COLAX MEDGEN (St MG Delayed AX 2019 RELEASE ed LAXATIVE [facility] Release LAXATI 12:00: TABLET Medica l, Oral Tablet VE:209 00 AM PC) [Dulcolax] 613 EST DULCOLAX LAXATIVE:20 9613 Famotidine FAMOTI 12/18/ TABLET 30 complet FAMOT IDINE MEDGEN (St 40 MG Oral DINE:2 2018 ed [facility] Tablet 26901 12:00: Medical, FAMOTIDINE: 00 AM PC) [id number] EST POLYETHYLEN GOLYTE 12/18/ POWDER 30 complet GOLY TELY MEDGEN (St E GLYCOL LY:966 2019 FOR ed Shreyas 3350 60 916 12:00: RECONSTI Medica l, MG/ML / 00 AM TUTION PC) Potassium EST Chloride 0.01 MEQ/ML / Sodium Bicarbonate 0.02 MEQ/ML / Sodium Chloride 0.025 MEQ/ML / sodium sulfate 0.04 MEQ/ML Oral Solution [Golytely] GOLYTELY:96 6916 lansoprazol LANSOP 09/10/ DELAYED 30 complet ENZO SOPRAZOLE MEDGEN (St e 30 MG RAZOLE 2019 RELEASE ed [facility] Delayed :04114 12:00: CAPSULE Medic al, Release 7 00 AM PC) Oral EST Capsule LANSOPRAZOL [id number] Zolpidem AMBIEN 09/10/ TABLET 30 complet AMBIEN MEDGEN (St tartrate 10 :16845 2019 ed Shreyas MG Oral 5 12:00: Medical, Tablet 00 AM PC) [Ambien] EST AMBIEN:8548 75 Famotidine Famoti .0 active Famotidi ne eCW3 40 MG Oral dine 2018 {tabl 40 MG ([facility] Tablet 40 MG 12:00: et_at [facility] 00 AM [facility] EST daisha} Care) Famotidine Famoti .0 active Famotidi ne eCW3 40 MG Oral dine 2019 {tabl 40 MG ([facility] Tablet 40 MG 12:00: et_at [facility] 00 AM [facility] EST daisha} Care) Diclofenac Diclof 04/10/ active Diclofen ac eCW3 Sodium 0.01 2018 Sodium 1 % (H udson MG/MG Sodium 12:00: [facility] Topical Gel 1 % 00 AM [facility] Diclofenac EDT Care) Sodium 1 % Diclofenac Diclof 04/10/ active Diclofen ac eCW3 Sodium 0.01 2018 Sodium 1 % (H udson MG/MG Sodium 12:00: [facility] Topical Gel 1 % 00 AM Health Diclofenac EDT Care) Sodium 1 % Diclofenac Diclof 04/10/ active Diclofen ac eCW3 Sodium 0.01 2018 Sodium 1 % (H [facility] MG/MG Sodium 12:00: [facility] Topical Gel 1 % 00 AM [facility] Diclofenac EDT Care) Sodium 1 % lansoprazol Prevac .0 active Prevaci d 30 eCW3 e 30 MG id 30 2018 {caps mg ([facility] Delayed mg 12:00: ule} [facility] Release 00 AM Health Oral EST Care) Capsule [Prevacid] Prevacid 30 mg lansoprazol Prevac .0 active Prevaci d 30 eCW3 e 30 MG id 2018 {caps MG ([facility] Delayed MG 12:00: ule} [facility] Release 00 AM Health Oral EST Care) Capsule [Prevacid] Prevacid 30 MG lansoprazol Prevac .0 active Prevaci d 30 eCW3 e 30 MG id 2018 {caps MG ([facility] Delayed MG 12:00: ule} [facility] Release 00 AM Health Oral EST Care) Capsule [Prevacid] Prevacid 30 MG Acetaminoph Acetam .0 active Acetami nophe eCW3 en 500 MG inophe 2017 {tabl n 500 mg (Hu dson Oral Tablet n 500 12:00: et_as [facility] Acetaminoph mg 00 AM _need Health en 500 mg EDT ed} Care) Acetaminoph Acetam .0 active Acetami nophe eCW3 en 500 MG inophe 2017 {tabl n 500 mg (Hu dson Oral Tablet n 500 12:00: et_as [facility] Acetaminoph mg 00 AM _need Health en 500 mg EDT ed} Care) Acetaminoph Acetam .0 active Acetami nophe eCW3 en 500 MG inophe 2017 {tabl n 500 mg (Hu dson Oral Tablet n 500 12:00: et_as [facility] Acetaminoph mg 00 AM _need Health en 500 mg EDT ed} Care) Meclizine Mecliz .0 active Meclizine eCW3 Hydrochlori ine 2017 {tabl HCl 25 MG (H udson de 25 MG HCl 25 12:00: et_as [place] Oral Tablet MG 00 AM _need Health Meclizine EDT ed} Care) HCl 25 MG Hydrochloro hydroc 10/04/ Tablet 25.0 Oral [place] thiazide 25 hlorot 2018 mg [facility] marylu MG Oral hiazid 12:26: an - Tablet e 25 24 PM [facility] hydrochloro mg EST [facility] thiazide 25 oral Hospital mg oral tablet Center tablet Lisinopril lisino .0 Oral [place] 20 MG Oral pril 2018 mg [facility] i Tablet 20 mg 12:25: an - lisinopril oral 59 PM [facility] 20 mg oral tablet EST [facility] tablet [facility] Zolpidem zolpid .0 Oral [place] tartrate 10 em 10 2018 mg [facility]ie MG Oral mg 12:25: an - Tablet oral 34 PM [facility] zolpidem 10 tablet EST [facility] mg oral Hospital tablet [place] Meclizine mecliz 10/04/ Tablet 25.0 Oral [place] Hydrochlori ine 25 2018 mg [facility] marylu de 25 MG mg 12:25: an - Oral Tablet oral 15 PM [facility] meclizine tablet EST [facility] 25 mg oral Hospital tablet [facility] .0 active Singula ir 10 eCW3 10 MG Oral air 2016 {tabl MG ([facility] Tablet MG 12:00: et_in [place] [Singulair] 00 AM _the_ Health Singulair EDT eveni Care) 10 MG ng} [facility] .0 active Singula ir 10 eCW3 10 MG Oral air 2016 {tabl MG ([facility] Tablet MG 12:00: et_in [place] [Singulair] 00 AM _the_ Health Singulair EDT eveni Care) 10 MG ng} [facility] .0 active Singula ir 10 eCW3 10 MG Oral air 10 2016 {tabl MG ([facility] Tablet MG 12:00: et_in [place] [Singulair] 00 AM _the_ Health Singulair EDT eveni Care) 10 MG ng} lansoprazol Prevac .0 suspend Prevac id 15 eCW3 e 15 MG id 15 2015 {caps ed MG ([facility] Delayed MG 12:00: ule} [facility] Release 00 AM Health Oral EDT Care) Capsule [Prevacid] Prevacid 15 MG Astelin 137 UNK .0 active Astelin 1 37 eCW3 MCG/SPRAY 2015 {puff MCG/SPRAY ([facility] son 12:00: _in_e [place] 00 AM ach_n Health EDT ostri Care) l} Astelin 137 UNK .0 active Astelin 1 37 eCW3 MCG/SPRAY 2016 {puff MCG/SPRAY ([facility] son 12:00: _in_e [place] 00 AM ach_n Health EDT ostri Care) l} Astelin 137 UNK .0 active Astelin 1 37 eCW3 MCG/SPRAY 2016 {puff MCG/SPRAY ([facility] son 12:00: _in_e [place] 00 AM ach_n Health EDT ostri Care) l} ALBUTEROL ALBUTE 06/30/ active ALBUTEROL eCW3 SULFATE HFA ROL 2014 SULFATE HFA ( [facility] 108 (90 SULFAT 12:00: 108 (90 [facility]) E HFA 00 AM Base) Health mcg/act 108 EDT mcg/act Care) (90 Base) mcg/ac t ALBUTEROL ALBUTE 06/30/ active ALBUTEROL eCW3 SULFATE HFA ROL 2014 SULFATE HFA ( [facility] 108 (90 SULFAT 12:00: 108 (90 [facility]) E HFA 00 AM Base) Health mcg/act 108 EDT mcg/act Care) (90 Base) mcg/ac t ALBUTEROL ALBUTE 06/30/ active ALBUTEROL eCW3 SULFATE HFA ROL 2014 SULFATE HFA ( [facility] 108 (90 SULFAT 12:00: 108 (90 [facility]) E HFA 00 AM Base) Health mcg/act 108 EDT mcg/act Care) (90 Base) mcg/ac t Amitriptyli Amitri .0 active Amitrip tylin eCW3 ne ptylin 2013 {tabl e HCl 10 mg ([facility] Hydrochlori e HCl 12:00: et_at [facility] de 10 MG 10 mg 00 AM _bedt Health Oral Tablet EDT daisha} Care) Amitriptyli ne HCl 10 mg Amitriptyli Amitri .0 active Amitrip tylin eCW3 ne ptylin 2013 {tabl e HCl 10 mg ([facility] Hydrochlori e HCl 12:00: et_at R[facility] r de 10 MG 10 mg 00 AM _bedt Health Oral Tablet EDT daisha} Care) Amitriptyli ne HCl 10 mg Amitriptyli Amitri .0 active Amitrip tylin eCW3 ne ptylin 2014 {tabl e HCl 10 mg ([facility] Hydrochlori e HCl 12:00: et_at [facility] de 10 MG 10 mg 00 AM _bedt Health Oral Tablet EDT daisha} Care) Amitriptyli ne HCl 10 mg Antivert 25 UNK 1.0 active Antivert 25 eCW3 mg {tabl mg ([facility] et} [facility]) Metronidazo Metron active Metronida zol eCW3 le 500 MG idazol e 500 MG ([facility]ud son Oral Tablet e 500 [facility] MG Health Care) 24 HR Oxybut active Oxybutynin eCW3 Oxybutynin ynin Chloride ER (H udson chloride 5 Chlori 5 MG [facility] MG Extended de ER Health Release 5 MG Care) Oral Tablet Oxybutynin Chloride ER 5 MG Zolpidem Ambien 1.0 active Ambien 10 MG eCW3 tartrate 10 10 MG {tabl ([facility] MG Oral et} [facility] Tablet Health [Ambien] Care) Ambien 10 MG cetirizine Cetiri 1.0 suspend Cetirizin e eCW3 hydrochlori zine {tabl ed HCl 10 mg (H udson de 10 MG HCl 10 et} [facility] Oral Tablet mg Health Cetirizine Care) HCl 10 mg Sumatriptan Sumatr suspend Sumatrip johnston eCW3 100 MG Oral iptan ed Succinate (H udson Tablet Succin 100 MG [facility] Sumatriptan ate Health Succinate 100 MG Care) 100 MG Metronidazo Metron active Metronida zol eCW3 le 500 MG idazol e 500 MG ([facility]ud son Oral Tablet e 500 [facility] MG Health Care) Zolpidem Ambien 1.0 active Ambien 10 mg eCW3 tartrate 10 10 mg {tabl ([facility] n MG Oral et} [facility] Tablet Health [Ambien] Care) Ambien 10 mg 24 HR Oxybut active Oxybutynin eCW3 Oxybutynin ynin Chloride ER (H udson chloride 5 Chlori 5 MG [facility] MG Extended de ER Health Release 5 MG Care) Oral Tablet Oxybutynin Chloride ER 5 MG Fluticasone Flutic 2.0 suspend Fluticas one eCW3 Propionate asone {puff ed Propionate ( [facility] 50 MCG/ACT Propio _in_e 50 MCG/ACT [facility] melinda ach_n Health 50 ostri Care) MCG/AC l} T Metronidazo Metron active Metronida zol eCW3 le 500 MG idazol e 500 MG (Hud son Oral Tablet e 500 [facility]) 24 HR Oxybut active Oxybutynin eCW3 Oxybutynin ynin Chloride ER (H udson chloride 5 Chlori 5 MG [facility] MG Extended de ER Health Release 5 MG Care) Oral Tablet Oxybutynin Chloride ER 5 MG Hydrochloro Lisino 1.0 active Lisinopri l-H eCW3 thiazide 25 pril-H {tabl ydrochloro th ([facility] MG / ydroch et} iazide 20-25 [facility] Lisinopril loroth MG Health 20 MG Oral iazide Care) Tablet 20-25 Lisinopril- MG Hydrochloro thiazide 20-25 MG Antivert 25 UNK 1.0 active Antivert 25 eCW3 mg {tabl mg ([facility] et} [facility]) Antivert 25 UNK 1.0 active Antivert 25 eCW3 MG {tabl MG ([facility] et} [facility]) Levofloxaci Levofl active Levofloxa rich eCW3 n 500 MG oxacin 500 MG ([facility] Oral Tablet 500 MG [facility]) Unknown complet eCW2 Medications ed ([facility]) Zolpidem Ambien 1.0 active Ambien 10 MG eCW3 tartrate 10 10 MG {tabl ([facility] MG Oral et} [facility] Tablet Health [Ambien] Care) Ambien 10 MG Insurance Providers Payer name Policy type Policy ID Covered Covered constitution party's Policy P enzo / Coverage constitution party ID relationship to Orozco Inf ormation type orozco MEDICAID [id number] TYSHAWN [id number] [place]ICARE [id number] [facility] [id number] [facility] MEDICARE [id number] SP [id number] MEDICAID [id number] TYSHAWN [id number] MEDICARE ADV PLAN MEDICAID [facility] [id number] TYSHAWN/BETT [facility] [id number] HEALTH PLAN TYSHAWN/BETT [facility] [id number] ER HEALTH PLAN TYSHAWN/MELISSA MONK [id number] ER HEALTH PLAN TYSHAWN/MELISSA MONK [id number] ER HEALTH PLAN Problems, Conditions, and Diagnoses Code Display Name Description Problem Effective Data Type Dates Source(s) S86.01 Strain of unspecified STRAIN OF UNSPECIFIED Problem 06/2020 MEDGEN (St 9A Achilles tendon, ACHILLES TENDON, 12:00:00 AM Syed echavarria'duke initial encounter INITIAL ENCOUNTER EDT Medical, ) M79.67 Pain in right foot PAIN IN RIGHT FOOT Problem 0 MED[facility] ([facility] 12:00:[facility] G47.33 SHAI (obstructive sleep SHAI (obstructive sleep Problem 0 09/25/2019 eCW3 ([facility] apnea) apnea) 12:00:00 AM [facility]) 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 Problem 09/10/2019 ME DGEN (St 12:00:00 AM [facility], ) K76.0 Fatty (change of) FATTY (CHANGE OF) Problem 09/10/2019 MEDGEN (St liver, not elsewhere LIVER, NOT ELSEWHERE 12:00 :00 AM Andreys classified CLASSIFIED [facility], ) K57.32 Diverticulitis of DIVERTICULITIS OF Problem 09/10/2019 MEDGEN (St large intestine LARGE INTESTINE 12:00:00 AM Alfredo n's without perforation or WITHOUT PERFORATION OR E [facility], ) abscess without ABSCESS WITHOUT bleeding BLEEDING K21.9 Gastro-esophageal GASTRO-ESOPHAGEAL Problem 09/10/2019 MEDGEN (St reflux disease without REFLUX DISEASE WITHOUT 1 2:00:00 AM Shreyas esophagitis ESOPHAGITIS [facility], ) 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 Problem 09/10/2019 ME DGEN ([facility] 12[facility] K76.0 Fatty (change of) FATTY (CHANGE OF) Problem 09/10/2019 MEDGEN (St liver, not elsewhere LIVER, NOT ELSEWHERE 12:00 :00 AM Dash's classified CLASSIFIED [facility], ) K57.32 Diverticulitis of DIVERTICULITIS OF Problem 09/10/2019 MEDGEN (St large intestine LARGE INTESTINE 12:00:00 AM Alfredo n's without perforation or WITHOUT PERFORATION OR E [facility], ) abscess without ABSCESS WITHOUT bleeding BLEEDING K21.9 Gastro-esophageal GASTRO-ESOPHAGEAL Problem 09/10/2019 MEDGEN (St reflux disease without REFLUX DISEASE WITHOUT 1 2:00:00 AM [facility] esophagitis ESOPHAGITIS EST Medical, ) 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 Problem 09/10/2019 ME DGEN (St 12:00:00 AM Dash's [facility], ) K76.0 Fatty (change of) FATTY (CHANGE OF) Problem 09/10/2019 MEDGEN (St liver, not elsewhere LIVER, NOT ELSEWHERE 12:00 :00 AM [facility] classified CLASSIFIED EST Medical, ) K57.32 Diverticulitis of DIVERTICULITIS OF Problem 09/10/2019 MEDGEN (St large intestine LARGE INTESTINE 12:00:00 AM Alfredo n's without perforation or WITHOUT PERFORATION OR E [facility], ) abscess without ABSCESS WITHOUT bleeding BLEEDING K21.9 Gastro-esophageal GASTRO-ESOPHAGEAL Problem 09/10/2019 MEDGEN (St reflux disease without REFLUX DISEASE WITHOUT 1 2:00:00 AM [facility] esophagitis ESOPHAGITIS EST Medical, ) K21.0 GERD with esophagitis GERD with esophagitis Problem eCW3 ([facility] 12:00:00 AM [facility] EST [facility]) K57.92 Diverticulitis Diverticulitis Problem 04/10/2019 eCW3 ( [facility] 12:00:00 AM [facility] EDT Care) K57.92 Diverticulitis Diverticulitis Problem 04/10/2019 eCW3 ( [facility] 12:00:00 AM [facility] EDT Care) G43.00 Migraine without aura Migraine without aura Problem 06/2019 eCW3 ([facility] 9 and without status and without status 12:00:00 AM [facility] migrainosus, not migrainosus, not EDT Ca re) intractable intractable J30.9 Allergic rhinitis, Allergic rhinitis, Problem 9 eCW3 ([facility] unspecified unspecified 12:00:[facility], [facility]) unspecified trigger unspecified trigger G89.29 Other chronic pain Other chronic pain Problem 9 eCW3 ([facility] 12:00:00 AM [facility] EDT Care) G43.00 Migraine without aura Migraine without aura Problem 06/2019 eCW3 ([facility] 9 and without status and without status 12:00:00 AM [facility] migrainosus, not migrainosus, not EDT Ca re) intractable intractable I10 Essential hypertension Essential hypertension Problem 0 04/18/2018 eCW3 (Paulosn 12:00:00 AM [facility] EDT Care) K21.9 Gastroesophageal Gastroesophageal Problem 04/18/2018 eC W3 ([facility] reflux disease, reflux disease, 12:00:00 AM [facility] esophagitis presence esophagitis presence EDT Care) not specified not specified I10 Essential hypertension Essential hypertension Problem 0 04/18/2018 eCW3 ([facility] 12:00:00 AM [facility] EDT Care) K21.9 Gastroesophageal Gastroesophageal Problem 04/18/2018 eC W3 ([facility] reflux disease, reflux disease, 12:00:00 AM [facility] esophagitis presence esophagitis presence EDT Care) not specified not specified K21.9 Gastroesophageal Gastroesophageal Problem 04/18/2018 eC W2 ([facility] reflux disease, reflux disease, 12:00:00 AM [facility] esophagitis presence esophagitis presence EDT Care) not specified not specified I10 Essential hypertension Essential hypertension Problem 0 04/18/2018 eCW2 ([facility] 12:00:00 AM [facility] EDT Care) J45.90 Asthma without status Unspecified asthma, Problem 02/08 eCW3 ([facility] 9 asthmaticus uncomplicated 12:00:00 AM [facility] EDT Care) I83.81 Pain co-occurrent and Varicose veins of Problem 017 eCW3 ([facility] 3 due to varicose veins bilateral lower 12:00:00 AM [facility] of bilateral legs extremities with pain EDT Care) Z87.19 H/O diverticulitis of H/O diverticulitis of Problem eCW3 ([facility] colon colon 12:00:00 AM [facility] EDT Care) I83.81 Pain co-occurrent and Varicose veins of Problem 017 eCW3 ([facility] 3 due to varicose veins bilateral lower 12:00:00 AM [facility] of bilateral legs extremities with pain EDT Care) J45.90 Asthma without status Unspecified asthma, Problem 02/08 eCW3 ([facility] 9 asthmaticus uncomplicated 12:00:00 AM [facility] EDT Care) I83.81 Pain co-occurrent and Varicose veins of Problem 017 eCW2 ([facility] 3 due to varicose veins bilateral lower 12:00:00 AM [facility] of bilateral legs extremities with pain EDT Care) Z87.19 H/O diverticulitis of H/O diverticulitis of Problem eCW2 ([facility] colon colon 12:00:00 AM [facility] EDT Care) J45.90 Asthma without status Unspecified asthma, Problem 02/08 eCW2 ([facility] 9 asthmaticus uncomplicated 12:00:00 AM [facility] EDT Care) R73.09 Pre-diabetes Pre-diabetes Problem 12/23/2015 eCW3 ([facility] 12:00:00 AM [facility] EDT Care) R73.09 Pre-diabetes Pre-diabetes Problem 12/23/2015 eCW3 ([facility] 12:00:00 AM [facility] EDT Care) R73.09 Pre-diabetes Pre-diabetes Problem 12/23/2015 eCW2 ([facility] 12:00:00 AM [facility] EDT Care) D72.81 Leukopenia Leukopenia Problem 07/15/2015 eCW3 ([facility] 9 12:00:00 AM [facility] EDT Care) D72.81 Leukopenia Leukopenia Problem 07/15/2015 eCW2 ([facility] 9 12:00:00 AM [facility] EDT Care) G47.00 Insomnia Insomnia Problem 07/14/2015 eCW3 ([facility] 12:00:00 AM [facility] EDT Care) G47.00 Insomnia Insomnia Problem 07/14/2015 eCW2 ([facility] 12:00:00 AM [facility] EDT Care) E78.1 Hypertriglyceridemia Hypertriglyceridemia Problem 06/30 eCW3 ([facility] 12:00:00 AM [facility] EDT Care) I10 Hypertension Hypertension Problem 06/30/2015 eCW3 ([facility] 12:00:00 AM [facility] EDT Care) M54.9 Back pain Back pain Problem 06/30/2015 eCW3 ([facility] 12:00:00 AM [facility] EDT Care) R73.09 Prediabetes Prediabetes Problem 06/30/2015 eCW3 ([facility] 12:00:00 AM [facility] Care) E78.1 Hypertriglyceridemia Hypertriglyceridemia Problem 06/30 eCW3 ([facility] 12:00:00 AM [facility] Care) R73.09 Prediabetes Prediabetes Problem 06/30/2015 eCW2 ([facility] 12:00:00 AM [facility] Care) M54.9 Back pain Back pain Problem 06/30/2015 eCW2 ([facility] 12:00:00 AM [facility] Care) E78.1 Hypertriglyceridemia Hypertriglyceridemia Problem 06/30 eCW2 ([facility]son 12:00:00 AM [facility] Care) I10 Hypertension Hypertension Problem 06/30/2015 eCW2 ([facility] on 12:00:00 AM [facility] Care) 530.11 Gastroesophageal GERD Problem eCW2 ( dson reflux disease [facility]) 477.8 Allergic rhinitis ALLERGIC RHINITIS NEC Problem eCW2 ([facility]) 288.50 Leukopenia Leukopenia, not Problem eCW2 ([facility] son otherwise specified [facility]) 493.90 Asthma without status Asthma Intermittent Problem eCW2 ([place] asthmaticus [facility]) K86.2 Cyst of pancreas Cyst of pancreas Diagnosis 06/23/2019 [place] 11:34:10 [facility] Surgeries/Procedures Procedure Description Date Indications Data Source(s) OFFICE OUTPATIENT NEW 05/03/2020 [facility] ([place] 30 MINUTES 12:00:00 AM Medical, PC) EDT OFFICE OUTPATIENT 04/14/2020 [facility] ([place] VISIT 15 MINUTES 12:00:00 AM Medical, PC ) EDT OFFICE OUTPATIENT 04/14/2020 [facility] ([place] VISIT 15 MINUTES 12:00:00 AM Medical, PC ) EDT OFFICE OUTPATIENT 03/31/2020 [facility] ([place] VISIT 15 MINUTES 12:00:00 AM Medical, PC ) EDT OFFICE OUTPATIENT 03/31/2020 [facility] ([place] VISIT 15 MINUTES 12:00:00 AM Medical, PC ) EDT OFFICE OUTPATIENT 03/31/2020 [facility] ([place] VISIT 15 MINUTES 12:00:00 AM Medical, PC ) EDT Documentation of 09/10/2019 [facility] ([place] current medications 12:00:00 AM Medical, PC) (procedure) EST Documentation of 09/10/2019 [facility] ([place] current medications 12:00:00 AM Medical, PC) (procedure) EST Documentation of 09/10/2019 [facility] ([place] current medications 12:00:00 AM Medical, PC) (procedure) EST Documentation of 09/10/2019 [facility] ([place] current medications 12:00:00 AM Medical, PC) (procedure) EST Documentation of 09/10/2019 [facility] ([place] current medications 12:00:00 AM Medical, PC) (procedure) EST Documentation of 09/10/2019 [facility] ([place] current medications 12:00:00 AM Medical, PC) (procedure) EST Documentation of 09/10/2019 [facility] ([place] current medications 12:00:00 AM Medical, PC) (procedure) EST No Known procedures No Known procedures e 2 ([facility]) Results ID Date Data Source [id number] 04/28/2020 12:00:00 AM EDT [facility] Name Value Range Interpretation Code Description Data La rce(s) Supporting Document(s ) C-Reactive 3 mg/L Normal (applies to MEDGEN (St Protein, non-numeric [facility] Quant results) Medical, ) ID Date Data Source [id number] 04/28/2020 12:00:00 AM EDT [facility] ([facility]) Name Value Range Interpretation Description Data Sup porting Code Source(s) Document(s ) Glucose 91 mg/dL Normal (applies MEDGEN (St [Mass/volume] to non-numeric Dash's in Urine results) Medical, ) collected for unspecified duration Creatinine 0.90 Normal (applies MEDGEN (St [Interpretation mg/dL to non-numeric Dash's ] in Urine results) Medical, ) Urea nitrogen 13 mg/dL Normal (applies MEDGEN (St [Mass/volume] to non-numeric Dash's in Serum or results) Medical, ) Plasma eGFR If Test not Normal (applies MEDGEN (St NonAfricn Am performed to non-numeric Dash's . results) Medical, ) eGFR If Africn Test not Normal (applies MEDGEN (S t Am performed to non-numeric Dash's . results) Medical, ) BUN/Creatinine 14 Normal (applies MEDGEN (S t Ratio to non-numeric [facility]'s results) Medical, ) Sodium 142 Normal (applies MEDGEN (St [Moles/volume] mmol/L to non-numeric Dash's in Serum or results) Medical, ) Plasma Potassium 4.4 Normal (applies MEDGEN (St [Mass/volume] mmol/L to non-numeric Dash's in Blood results) Medical, ) Carbon dioxide, 26 mmol/L Normal (applies MEDGEN ( St total to non-numeric Dash's [Moles/volume] results) Medical, ) in Serum or Plasma Chloride 104 Normal (applies MEDGEN (St [Moles/volume] mmol/L to non-numeric Dash's in Serum or results) Medical, ) Plasma Calcium 9.8 mg/dL Normal (applies MEDGEN (St [Moles/volume] to non-numeric Dash's in Urine results) Medical, ) collected for unspecified duration ID Date Data Source [id number] 04/28/2020 12:00:00 AM EDT [facility] ([facility], ) Name Value Range Interpretation Description Data Sup porting Code Source(s) Document(s ) Erythrocytes 4.13 Normal (applies MEDGEN (St [#/volume] in x10E6/uL to non-numeric Dash's Blood by results) Medical, ) Automated count Leukocytes 2.4 Below lower panic MEDGEN (St [#/volume] in x10E3/uL limits [facility], ) Automated count Hemoglobin 12.9 Normal (applies MEDGEN (St [Mass/volume] in g/dL to non-numeric [facility] Blood results) Medical, ) Hematocrit 38.1 % Normal (applies MEDGEN (St [Volume to non-numeric [facility] Fraction] of results) Medical, ) Blood by Automated count MCV 92 fL Normal (applies MEDGEN (St to non-numeric [facility] results) Medical, ) MCH 31.2 pg Normal (applies MEDGEN (St to non-numeric [facility] results) Medical, ) MCHC 33.9 Normal (applies MEDGEN (St g/dL to non-numeric [facility] results) Medical, ) RDW 12.9 % Normal (applies MEDGEN (St to non-numeric Dash's results) [facility], ) Platelets 239 Normal (applies MEDGEN (St [#/area] in x10E3/uL to non-numeric [facility] Blood by results) [facility], ) Microscopy high power field Neutrophils [#] 34 % Normal (applies MEDGEN ( St in Body fluid by to non-numeric [facility] Manual count results) [facility], ) Lymphs 56 % Normal (applies MEDGEN (St to non-numeric [facility] results) [facility], ) Eos 2 % Normal (applies MEDGEN (St to non-numeric [facility] results) [facility], ) Monocytes 7 % Normal (applies MEDGEN (St [#/volume] in to non-numeric [facility] Cord blood results) [facility], ) Neutrophils 0.8 Normal (applies MEDGEN (St (Absolute) x10E3/uL to non-numeric Dash[facility] results) [facility], ) Basos 1 % Normal (applies MEDGEN (St to non-numeric Dash[facility] results) [facility], ) Lymphs 1.4 Normal (applies MEDGEN (St (Absolute) x10E3/uL to non-numeric Dash[facility] results) [facility], ) Monocytes(Absolu 0.2 Normal (applies MEDGEN (St te) x10E3/uL to non-numeric Dash's results) [facility], ) Baso (Absolute) 0.0 Normal (applies MEDGEN ( St x10E3/uL to non-numeric Dash[facility] results) [facility], ) Eos (Absolute) 0.1 Normal (applies MEDGEN (S t x10E3/uL to non-numeric Dash's results) [facility], ) Immature 0 % Normal (applies MEDGEN (St Granulocytes to non-numeric Dash's results) [facility], ) Immature Grans 0.0 Normal (applies MEDGEN (S t (Abs) x10E3/uL to non-numeric Dash[facility] results) [facility], ) Hematology Note: Normal (applies MEDGEN (St Comments: to non-numeric Dash's results) [facility], ) ID Date Data Source [id number] 04/14/2020 12:00:00 AM EDT [facility], ) Name Value Range Interpretation Code Description Data La rce(s) Supporting Document(s ) C-Reactive 3 mg/L Normal (applies to MEDGEN (St Protein, non-numeric [facility] Quant results) [facility], ) ID Date Data Source [id number] 04/14/2020 12:00:00 AM EDT [facility], ) Name Value Range Interpretation Description Data Sup porting Code Source(s) Document(s ) Glucose 88 mg/dL Normal (applies MEDGEN (St [Mass/volume] to non-numeric Dash's in Urine results) Medical, ) collected for unspecified duration Creatinine 0.74 Normal (applies MEDGEN (St [Interpretation mg/dL to non-numeric Dash's ] in Urine results) Medical, ) Urea nitrogen 14 mg/dL Normal (applies MEDGEN (St [Mass/volume] to non-numeric Dash's in Serum or results) Medical, ) Plasma eGFR If Africn 97 Normal (applies MEDGEN (S t Am mL/min/1. to non-numeric Dash's 73 results) Medical, ) eGFR If 84 Normal (applies MEDGEN (St NonAfricn Am mL/min/1. to non-numeric [facility] 73 results) Medical, ) Potassium 4.2 Normal (applies MEDGEN (St [Mass/volume] mmol/L to non-numeric [facility] in Blood results) Medical, ) Sodium 139 Normal (applies MEDGEN (St [Moles/volume] mmol/L to non-numeric Dash's in Serum or results) Medical, ) Plasma BUN/Creatinine 19 Normal (applies MEDGEN (S t Ratio to non-numeric [facility]'s results) Medical, ) Carbon dioxide, 22 mmol/L Normal (applies MEDGEN ( St total to non-numeric Dash's [Moles/volume] results) Medical, ) in Serum or Plasma Chloride 102 Normal (applies MEDGEN (St [Moles/volume] mmol/L to non-numeric Dash's in Serum or results) Medical, ) Plasma Calcium 9.5 mg/dL Normal (applies MEDGEN (St [Moles/volume] to non-numeric Dash's in Urine results) Medical, ) collected for unspecified duration ID Date Data Source [id number] 04/14/2020 12:00:00 AM EDT [facility] ([facility], ) Name Value Range Interpretation Description Data Sup porting Code Source(s) Document(s ) Leukocytes 4.0 Normal (applies MEDGEN (St [#/volume] in x10E3/uL to non-numeric [facility] Blood by results) [facility], ) Automated count Erythrocytes 4.09 Normal (applies MEDGEN (St [#/volume] in x10E6/uL to non-numeric [facility] Blood by results) [facility], ) Automated count Hemoglobin 12.8 Normal (applies MEDGEN (St [Mass/volume] in g/dL to non-numeric [facility] Blood results) [facility], ) Hematocrit 38.0 % Normal (applies MEDGEN (St [Volume to non-numeric [facility]'s Fraction] of results) [facility], ) Blood by Automated count MCV 93 fL Normal (applies MEDGEN (St to non-numeric Dash's results) [facility], ) MCHC 33.7 Normal (applies MEDGEN (St g/dL to non-numeric Dash's results) [facility], ) MCH 31.3 pg Normal (applies MEDGEN (St to non-numeric Dash's results) [facility], ) Platelets 226 Normal (applies MEDGEN (St [#/area] in x10E3/uL to non-numeric [facility] Blood by results) [facility], ) Microscopy high power field RDW 12.8 % Normal (applies MEDGEN (St to non-numeric Dash's results) [facility], ) Lymphs 31 % Normal (applies MEDGEN (St to non-numeric Dash's results) [facility], ) Neutrophils [#] 62 % Normal (applies MEDGEN ( St in Body fluid by to non-numeric [facility] Manual count results) [facility], ) Eos 1 % Normal (applies MEDGEN (St to non-numeric Dash's results) [facility], ) Monocytes 6 % Normal (applies MEDGEN (St [#/volume] in to non-numeric [facility] Cord blood results) [facility], ) Basos 0 % Normal (applies MEDGEN (St to non-numeric Dash's results) [facility], ) Neutrophils 2.4 Normal (applies MEDGEN (St (Absolute) x10E3/uL to non-numeric Dash's results) [facility], ) Lymphs 1.3 Normal (applies MEDGEN (St (Absolute) x10E3/uL to non-numeric Dash's results) [facility], ) Eos (Absolute) 0.1 Normal (applies MEDGEN (S t x10E3/uL to non-numeric Dash's results) [facility], ) Monocytes(Absolu 0.3 Normal (applies MEDGEN (St te) x10E3/uL to non-numeric [facility]'s results) Medical, ) Immature 0 % Normal (applies MEDGEN (St Granulocytes to non-numeric [facility]'s results) Medical, ) Baso (Absolute) 0.0 Normal (applies MEDGEN ( St x10E3/uL to non-numeric [facility]'s results) Medical, ) Immature Grans 0.0 Normal (applies MEDGEN (S t (Abs) x10E3/uL to non-numeric [facility]'s results) Medical, ) ID Date Data Source [id number] 03/31/2020 12:00:00 AM EDT [facility] ([facility], ) Name Value Range Interpretation Code Description Data La rce(s) Supporting Document(s ) C-Reactive 113 mg/L Above high normal MEDGEN (St Protein, [facility] Quant [facility], ) ID Date Data Source [id number] 03/31/2020 12:00:00 AM EDT [facility] ([facility], ) Name Value Range Interpretation Description Data Sup porting Code Source(s) Document(s ) Glucose 137 mg/dL Above high normal MEDGEN (St [Mass/volume] [facility] in Urine Medical, ) collected for unspecified duration Creatinine 0.98 Normal (applies MEDGEN (St [Interpretation mg/dL to non-numeric Dash's ] in Urine results) Medical, ) Urea nitrogen 9 mg/dL Normal (applies MEDGEN (St [Mass/volume] to non-numeric Dash's in Serum or results) Medical, ) Plasma eGFR If 60 Normal (applies MEDGEN (St NonAfricn Am mL/min/1. to non-numeric Dash's 73 results) Medical, ) eGFR If Africn 69 Normal (applies MEDGEN (S t Am mL/min/1. to non-numeric Dash's 73 results) Medical, ) BUN/Creatinine 9 Below low normal MEDGEN ( St Ratio Dash's [facility], ) Sodium 139 Normal (applies MEDGEN (St [Moles/volume] mmol/L to non-numeric Dash's in Serum or results) Medical, ) Plasma Potassium 4.4 Normal (applies MEDGEN (St [Mass/volume] mmol/L to non-numeric Dash's in Blood results) Medical, ) Carbon dioxide, 20 mmol/L Normal (applies MEDGEN ( St total to non-numeric Dash's [Moles/volume] results) Medical, ) in Serum or Plasma Chloride 101 Normal (applies MEDGEN (St [Moles/volume] mmol/L to non-numeric Dash's in Serum or results) Medical, ) Plasma Calcium 9.5 mg/dL Normal (applies MEDGEN (St [Moles/volume] to non-numeric Dash's in Urine results) Medical, ) collected for unspecified duration ID Date Data Source [id number] 03/31/2020 12:00:00 AM EDT [facility] ([facility], ) Name Value Range Interpretation Description Data Sup porting Code Source(s) Document(s ) Erythrocytes 3.95 Normal (applies MEDGEN (St [#/volume] in x10E6/uL to non-numeric [facility] Blood by results) Medical, ) Automated count Leukocytes 3.3 Below low normal MEDGEN (St [#/volume] in x10E3/uL [facility], ) Automated count Hematocrit 36.5 % Normal (applies MEDGEN (St [Volume to non-numeric [facility]'s Fraction] of results) Medical, ) Blood by Automated count Hemoglobin 12.6 Normal (applies MEDGEN (St [Mass/volume] in g/dL to non-numeric [facility] Blood results) Medical, ) MCHC 34.5 Normal (applies MEDGEN (St g/dL to non-numeric [facility]'s results) Medical, ) MCH 31.9 pg Normal (applies MEDGEN (St to non-numeric Dash's results) Medical, ) MCV 92 fL Normal (applies MEDGEN (St to non-numeric [facility]'s results) Medical, ) RDW 12.1 % Normal (applies MEDGEN (St to non-numeric [facility]'s results) Medical, ) Platelets 235 Normal (applies MEDGEN (St [#/area] in x10E3/uL to non-numeric [facility] Blood by results) Medical, ) Microscopy high power field Lymphs 37 % Normal (applies MEDGEN (St to non-numeric [facility]'s results) Medical, ) Neutrophils [#] 55 % Normal (applies MEDGEN ( St in Body fluid by to non-numeric [facility]'s Manual count results) [facility], ) Monocytes 6 % Normal (applies MEDGEN (St [#/volume] in to non-numeric [facility]'s Cord blood results) [facility], ) Eos 2 % Normal (applies MEDGEN (St to non-numeric Dash's results) [facility], ) Neutrophils 1.8 Normal (applies MEDGEN (St (Absolute) x10E3/uL to non-numeric Dash's results) [facility], ) Basos 0 % Normal (applies MEDGEN (St to non-numeric Dash's results) [facility], ) Lymphs 1.2 Normal (applies MEDGEN (St (Absolute) x10E3/uL to non-numeric Dash's results) [facility], ) Monocytes(Absolu 0.2 Normal (applies MEDGEN (St te) x10E3/uL to non-numeric Dash's results) [facility], ) Eos (Absolute) 0.1 Normal (applies MEDGEN (S t x10E3/uL to non-numeric Dash's results) [facility], ) Baso (Absolute) 0.0 Normal (applies MEDGEN ( St x10E3/uL to non-numeric Dash's results) [facility], ) Immature 0 % Normal (applies MEDGEN (St Granulocytes to non-numeric Dash's results) [facility], ) Immature Grans 0.0 Normal (applies MEDGEN (S t (Abs) x10E3/uL to non-numeric Dash's results) [facility], ) ID Date Data Source [id number] 03/31/2020 12:00:00 AM EDT [facility] ([facility], ) Name Value Range Interpretation Code Description Data La rce(s) Supporting Document(s ) C-Reactive 113 mg/L Above high normal MEDGEN (St Protein, [facility] Quant [facility], ) ID Date Data Source [id number] 03/31/2020 12:00:00 AM EDT [facility] ([facility], ) Name Value Range Interpretation Description Data Sup porting Code Source(s) Document(s ) Glucose 137 mg/dL Above high normal MEDGEN (St [Mass/volume] Dash's in Urine [facility], ) collected for unspecified duration eGFR If 60 Normal (applies MEDGEN (St NonAfricn Am mL/min/1. to non-numeric Dash's 73 results) [facility], ) Urea nitrogen 9 mg/dL Normal (applies MEDGEN (St [Mass/volume] to non-numeric Dash's in Serum or results) Medical, ) Plasma Creatinine 0.98 Normal (applies MEDGEN (St [Interpretation mg/dL to non-numeric Dash's ] in Urine results) Medical, ) eGFR If Africn 69 Normal (applies MEDGEN (S t Am mL/min/1. to non-numeric Dash's 73 results) Medical, ) Sodium 139 Normal (applies MEDGEN (St [Moles/volume] mmol/L to non-numeric Dash's in Serum or results) Medical, ) Plasma BUN/Creatinine 9 Below low normal MEDGEN ( St Ratio [facility], ) Potassium 4.4 Normal (applies MEDGEN (St [Mass/volume] mmol/L to non-numeric Dash's in Blood results) Medical, ) Chloride 101 Normal (applies MEDGEN (St [Moles/volume] mmol/L to non-numeric Dash's in Serum or results) Medical, ) Plasma Calcium 9.5 mg/dL Normal (applies MEDGEN (St [Moles/volume] to non-numeric Dash's in Urine results) Medical, ) collected for unspecified duration Carbon dioxide, 20 mmol/L Normal (applies MEDGEN ( St total to non-numeric Dash's [Moles/volume] results) Medical, ) in Serum or Plasma ID Date Data Source [id number] 03/31/2020 12:00:00 AM EDT [facility] ([facility], ) Name Value Range Interpretation Description Data Sup porting Code Source(s) Document(s ) Leukocytes 3.3 Below low normal MEDGEN (St [#/volume] in x10E3/uL [facility], ) Automated count Erythrocytes 3.95 Normal (applies MEDGEN (St [#/volume] in x10E6/uL to non-numeric [facility] Blood by results) Medical, ) Automated count Hemoglobin 12.6 Normal (applies MEDGEN (St [Mass/volume] in g/dL to non-numeric [facility] Blood results) Medical, ) MCV 92 fL Normal (applies MEDGEN (St to non-numeric Dash's results) Medical, ) Hematocrit 36.5 % Normal (applies MEDGEN (St [Volume to non-numeric Dash's Fraction] of results) [facility], ) Blood by Automated count MCH 31.9 pg Normal (applies MEDGEN (St to non-numeric Dash's results) [facility], ) MCHC 34.5 Normal (applies MEDGEN (St g/dL to non-numeric Dash's results) [facility], ) RDW 12.1 % Normal (applies MEDGEN (St to non-numeric Dash's results) [facility], ) Platelets 235 Normal (applies MEDGEN (St [#/area] in x10E3/uL to non-numeric [facility] Blood by results) [facility], ) Microscopy high power field Neutrophils [#] 55 % Normal (applies MEDGEN ( St in Body fluid by to non-numeric [facility]'s Manual count results) [facility], ) Lymphs 37 % Normal (applies MEDGEN (St to non-numeric Dash's results) [facility], ) Monocytes 6 % Normal (applies MEDGEN (St [#/volume] in to non-numeric Dash's Cord blood results) [facility], ) Basos 0 % Normal (applies MEDGEN (St to non-numeric Dash's results) [facility], ) Eos 2 % Normal (applies MEDGEN (St to non-numeric Dash's results) [facility], ) Neutrophils 1.8 Normal (applies MEDGEN (St (Absolute) x10E3/uL to non-numeric Dash's results) [facility], ) Lymphs 1.2 Normal (applies MEDGEN (St (Absolute) x10E3/uL to non-numeric Dash's results) [facility], ) Baso (Absolute) 0.0 Normal (applies MEDGEN ( St x10E3/uL to non-numeric Dash's results) [facility], ) Eos (Absolute) 0.1 Normal (applies MEDGEN (S t x10E3/uL to non-numeric Dash's results) [facility], ) Monocytes(Absolu 0.2 Normal (applies MEDGEN (St te) x10E3/uL to non-numeric Dash's results) [facility], ) Immature 0 % Normal (applies MEDGEN (St Granulocytes to non-numeric Dash's results) [facility], ) Immature Grans 0.0 Normal (applies MEDGEN (S t (Abs) x10E3/uL to non-numeric Dash's results) [facility], ) ID Date Data Source [id number] 03/10/2020 12:00:00 AM EDT [facility] Name Value Range Interpretation Code Description Data La rce(s) Supporting Document(s ) 2019-nCoV [facility] RNA XXX SAMANTHA+probe- Imp This lab was ordered by [facility] and reported by [id number]. Procedure Social History Code Duration Value Status Description Data Source(s ) Smoking 05/03/[address] [facility] completed Born in [facility] MED[facility] (St 12:00:00 AM EDT [place] 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 completed Born in [facility] MED[facility] (St 12:00:00 AM EDT [place] 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 completed Born in [facility] MEDGEN (St 12:00:00 AM EDT [place] 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 Drinker Non Smoker Smoker No Drug No Drug Use Use Smoking 03/31/2020 Unknown if ever completed Unknown if ever MEDG EN (St 12:00:00 AM EDT smoked smoked [facility]) Smoking UNK completed eCW3 ([facility]) Smoking Unknown if ever completed Unknown if ever eCW2 ([facility]) Vital Signs ID Date Data Source UNK Name Value Range Interpretation Code Description Data Source(s) Heart rate 79 /min 79 /min MED[facility] ([facility]) Inhaled oxygen 97 % 97 % [facility] ([facility]) Body mass index 31.2 kg/m2 31.2 kg/m2 MEDGEN (S t (BMI) [Ratio] [facility]) Diastolic blood 92 mm[Hg] 92 mm[Hg] MEDGEN (S t [facility]) Systolic blood 148 mm[Hg] 148 mm[Hg] MEDGEN ([facility]) Body weight 169 lb 169 lb MEDGEN ([facility]) Body height 61.75 in 61.75 in MEDGEN ([facility]) Heart rate 79 /min 79 /min MEDGEN ([facility]) Inhaled oxygen 97 % 97 % MEDGEN ([facility]) Body mass index 31.2 kg/m2 31.2 kg/m2 MEDGEN (S t (BMI) [Ratio] [facility]) Diastolic blood 92 mm[Hg] 92 mm[Hg] MEDGEN (S t [facility]) Systolic blood 148 mm[Hg] 148 mm[Hg] MEDGEN ([facility]) Body weight 169 lb 169 lb MEDGEN ([facility]) Body height 61.75 in 61.75 in MEDGEN ([facility]) Heart rate 101 /min 101 /min MEDGEN ([facility]) Inhaled oxygen 99 % 99 % MEDGEN ([facility]) Body mass index 31 kg/m2 31 kg/m2 MEDGEN (S t (BMI) [Ratio] [facility]) Diastolic blood 74 mm[Hg] 74 mm[Hg] MEDGEN ([facility]) Systolic blood 124 mm[Hg] 124 mm[Hg] MEDGEN ([facility]) Body weight 168 lb 168 lb MEDGEN ([facility]) Body height 61.75 in 61.75 in MEDGEN ([facility]) Heart rate 101 /min 101 /min MEDGEN ([facility]) Inhaled oxygen 99 % 99 % MEDGEN ([facility], ) Body mass index 31 kg/m2 31 kg/m2 MEDGEN (S t (BMI) [Ratio] [facility]) Diastolic blood 74 mm[Hg] 74 mm[Hg] MEDGEN ([facility]) Systolic blood 124 mm[Hg] 124 mm[Hg] MEDGEN ([facility]) Body weight 168 lb 168 lb MEDGEN ([facility]) Body height 61.75 in 61.75 in MEDGEN ([facility]) Heart rate 101 /min 101 /min MEDGEN ([facility]) Inhaled oxygen 99 % 99 % MEDGEN ([facility]) Body mass index 31 kg/m2 31 kg/m2 MEDGEN (S t (BMI) [Ratio] [facility]) Diastolic blood 74 mm[Hg] 74 mm[Hg] MEDGEN ([facility]) Systolic blood 124 mm[Hg] 124 mm[Hg] MEDGEN ([facility]) Body weight 168 lb 168 lb MEDGEN ([facility]) Body height 61.75 in 61.75 in MEDGEN ([facility]) Diastolic blood 84 mm[Hg] 84 mm[Hg] MEDGEN (S [facility]) Systolic blood 136 mm[Hg] 136 mm[Hg] MEDGEN ([facility]) Body weight 167 lb 167 lb MEDGEN ([facility]) Body height 61.75 in 61.75 in MEDGEN ([facility]) Heart rate 66 /min 66 /min MEDGEN ([facility]) Inhaled oxygen 97 % 97 % MEDGEN ([facility], ) Body mass index 30.8 kg/m2 30.8 kg/m2 MEDGEN (S t (BMI) [Ratio] [facility]) Diastolic blood 84 mm[Hg] 84 mm[Hg] MEDGEN (S [facility]) Systolic blood 136 mm[Hg] 136 mm[Hg] MEDGEN ([facility]) Body weight 167 lb 167 lb MEDGEN ([facility] , ) Body height 61.75 in 61.75 in MEDGEN ([facility]) Heart rate 66 /min 66 /min MEDGEN ([facility]) Inhaled oxygen 97 % 97 % MEDGEN ([facility], ) Body mass index 30.8 kg/m2 30.8 kg/m2 MEDGEN (S t (BMI) [Ratio] [facility], ) Diastolic blood 84 mm[Hg] 84 mm[Hg] MEDGEN (S t [facility]) Systolic blood 136 mm[Hg] 136 mm[Hg] MEDGEN ([facility]) Body weight 167 lb 167 lb MEDGEN ([facility]) Body height 61.75 in 61.75 in MEDGEN ([facility]) Heart rate 66 /min 66 /min MEDGEN ([facility] , ) Inhaled oxygen 97 % 97 % MEDGEN ([facility], ) Body mass index 30.8 kg/m2 30.8 kg/m2 MEDGEN (S t (BMI) [Ratio] [facility], ) Diastolic blood 79 mm[Hg] 79 mm[Hg] eCW3 ([facility]) Systolic blood 135 mm[Hg] 135 mm[Hg] eCW3 ([facility]) Body temperature 98.0 [degF] 98.0 [degF] eCW3 ( [facility]) Heart rate 18 /min 18 /min eCW3 ([facility]) Body mass index 30.91 kg/m2 30.91 kg/m2 eCW3 ([facility] (BMI) [Ratio] [facility]) Body weight 169 [lb_av] 169 [lb_av] eCW3 ([facility]) Body height 62 [in_i] 62 [in_i] eCW3 ([facility]) Diastolic blood 61 mm[Hg] 61 mm[Hg] eCW3 ([facility]) Systolic blood 99 mm[Hg] 99 mm[Hg] eCW3 ([facility]) Body temperature 97.5 [degF] 97.5 [degF] eCW3 ( [facility]) Heart rate 20 /min 20 /min eCW3 ([facility]) Body mass index 30.91 kg/m2 30.91 kg/m2 eCW3 ([place] [facility] (BMI) [Ratio] [facility]) Body weight 169 [lb_av] 169 [lb_av] eCW3 ([facility]) Body height 62 [in_i] 62 [in_i] eCW3 ([facility]) Diastolic blood 56 mm[Hg] 56 mm[Hg] eCW3 ([facility]) Systolic blood 94 mm[Hg] 94 mm[Hg] eCW3 ([facility]) Body temperature 98.6 [degF] 98.6 [degF] eCW3 ( [facility]) Heart rate 18 /min 18 /min eCW3 ([facility]) Body mass index 30.54 kg/m2 30.54 kg/m2 eCW3 ([facility] [facility] (BMI) [Ratio] [facility]) Body weight 167.0 167.0 [lb_av] eCW3 ([facility] on [lb_av] [facility]) Body height 62 [in_i] 62 [in_i] eCW3 ([facility]) Patient Treatment Plan of Care Planned Activity Planned Date Details Description Data Source (s) Amoxicillin 500 MG / 02/19/2020 eCW3 ([facility] Clavulanate 125 MG Oral 12:00:00 AM T [facility]) Tablet [Augmentin] Amoxicillin 500 MG / 02/19/2020 eCW3 ([facility] Clavulanate 125 MG Oral 12:00:00 AM T [facility]) Tablet [Augmentin] Diclofenac Sodium 0.01 MG/MG 04/10/2019 eCW3 ([facility] Topical Gel 12:00:00 AM [facility]) Hydrochlorothiazide 25 MG 10/04/2017 [place] [facility] - Oral Tablet 12:26:24 PM EST [facility] Lisinopril 20 MG Oral Tablet 10/04/2017 [facility] - 12:25:59 PM EST [facility] Zolpidem tartrate 10 MG Oral 10/04/2017 [place] [facility] - Tablet 12:25:34 PM EST [facility] Meclizine Hydrochloride 25 10/04/2017 [place] [facility] - MG Oral Tablet 12:25:15 PM EST [facility] Zolpidem tartrate 10 MG Oral eCW3 ([employer] Tablet [[facility]) Zolpidem tartrate 10 MG Oral eCW3 ([employer] Tablet [[facility]) Zolpidem tartrate 10 MG Oral eCW3 ([employer] Tablet [[facility])
--- NOTE | 2020-06-09 04:33 | PDOC ---
History of Present Illness <Manuel Cespedes - Last Filed: 06/09/20 06:56> <Alonso Shepard - Last Filed: 06/09/20 07:37> - General Chief Complaint: Blood Pressure Problem Stated Complaint: BLOOD PRESSURE PROBLEM Time Seen by Provider: 06/09/20 04:32 - History of Present Illness Initial Comments: Lyric Davison is a 65 y/o female with PMH significant for diverticulitis and 65 year old female with a significant PMH of diverticulitis PMH: vertigo, asthma, acid reflux (Manuel Cespedes) Past History - Medical History Anemia: No Asthma: Yes Cancer: No Cardiac Disorders: No CVA: No COPD: No CHF: No Dementia: No Diabetes: No GI Disorders: Yes (GERD;GASTRITIS;TICS) Disorders: No HTN: Yes Hypercholesterolemia: No Liver Disease: Yes (NON-ALCOHOLIC) Seizures: No Thyroid Disease: No - Surgical History Abdominal Surgery: Yes (TUMMY TUCK) Appendectomy: Yes Cardiac Surgery: No Cholecystectomy: No Lung Surgery: No Neurologic Surgery: No Orthopedic Surgery: No - Reproductive History Is Patient Now?: No - Immunization History Immunization Up to Date: Yes - Psycho-Social/Smoking History Smoking Status: No Smoking History: Never smoked Have you smoked in the past 12 months: No Number of Cigarettes Smoked Daily: 0 Information on smoking cessation initiated: No - Substance Abuse Hx (Audit-C & DAST Scrn) How often the patient has a drink containing alcohol: Never Score: In Men: 4 or > Positive; In Women: 3 or > Positive: 0 Screen Result (Pos requires Nsg. Audit-10AR): Negative In the last yr the pt used illegal drug/Rx for NonMed reason: No Score: Yes response is considered Positive: 0 Screen Result (Positive result requires Nsg. DAST-10): Negative <Manuel Cespedes - Last Filed: 06/09/20 06:56> <Alonso Shepard - Last Filed: 06/09/20 07:37> - Medical History Allergies/Adverse Reactions: Allergies Allergy/AdvReac Type Severity Reaction Status Date / Time No Known Allergies Allergy Verified 03/29/20 11:39 Home Medications: Ambulatory Orders Cyclosporine [Restasis] 1 applic ASDIR 07/29/19 Lisinopril/Hydrochlorothiazide [Lisinopril-Hctz 20-25 mg Tab] 1 each PO DAILY 07/29/19 Montelukast Na [Singulair -] 10 mg PO HS 07/29/19 Zolpidem Tartrate [Ambien] 1 tab PO HS PRN 07/29/19 Lansoprazole [Prevacid -] 30 mg PO DAILY 10/15/19 Meclizine HCl 25 mg PO DAILY 10/15/19 Sulfamethoxazole/Trimethoprim [Bactrim Ds -] 1 tab PO BID #20 tablet 03/29/20 metroNIDAZOLE [Flagyl -] 500 mg PO TID #30 tablet 03/29/20 Cardiac Specific PMH - Complaint Specific PMHX Pacemaker: No <Manuel Cespedes - Last Filed: 06/09/20 06:56> *Physical Exam - Vital Signs Last Vital Signs Temp Pulse Resp BP Pulse Ox 97.9 F 90 17 180/88 H 98 06/09/20 04:12 06/09/20 04:12 06/09/20 04:12 06/09/20 04:12 06/09/20 04:12 Heart Score/ECG Review - History History: Slightly suspicious - Electrocardiogram EKG: Normal - Age Age: >/= 65 - Risk Factors Risk Factors Heart Score: Yes Hx Hypercholesterolemia, Yes Hx Hypertension Based on the list above the patient has:: 1-2 risk factors - Troponin Troponin: </= normal limit - Score Heart Score - Total: 3 <Alonso Shepard - Last Filed: 06/09/20 07:37> ED Treatment Course - LABORATORY CBC & Chemistry Diagram: 06/09/20 05:00 06/09/20 05:00 <Manuel Cespedes - Last Filed: 06/09/20 06:56> - LABORATORY CBC & Chemistry Diagram: 06/09/20 05:00 06/09/20 05:00 <Alonso Shepard - Last Filed: 06/09/20 07:37> - ADDITIONAL ORDERS Additional order review: Laboratory Results 06/09/20 06/09/20 05:00 05:00 Sodium 138 Potassium 4.5 Chloride 101 Carbon Dioxide 30 Anion Gap 7 L BUN 12.0 Creatinine 0.9 Est GFR (CKD-EPI)AfAm 76.68 Est GFR (CKD-EPI)NonAf 66.16 Random Glucose 113 H Calcium 10.0 Magnesium 1.8 Total Bilirubin 0.4 AST 18 ALT 38 Alkaline Phosphatase 108 Creatine Kinase Cancelled 98 Troponin I Cancelled < 0.02 Total Protein 8.3 H Albumin 4.2 TSH 3.14 06/09/20 05:00 RBC 4.44 MCV 92.3 MCHC 33.8 RDW 13.0 MPV 7.8 Neutrophils % 45.0 D Lymphocytes % 44.2 H D Monocytes % 7.2 Eosinophils % 2.6 D Basophils % 1.0 Medical Decision Making <Manuel Cespedes - Last Filed: 06/09/20 06:56> - Medical Decision Making 06/09/20 04:34 65F hx of acid reflux and diverticulitis presenting today with HEART score 3. -cbc, cmp -ekg, trop, cxr -mg -tsh 06/09/20 04:42 EKG shows 73 bpm, NSR, no axis deviation, no ST elevation/depression, QTc 427, KS 128. Prior EKG reviewed. 06/09/20 06:41 Labs reviewed. Laboratory Last Values WBC 3.4 K/mm3 (4.0-10.0) L 06/09/20 05:00 RBC 4.44 M/mm3 (3.60-5.2) 06/09/20 05:00 Hgb 13.8 GM/dL (10.7-15.3) 06/09/20 05:00 Hct 41.0 % (32.4-45.2) 06/09/20 05:00 MCV 92.3 fl (80-96) 06/09/20 05:00 MCH 31.2 pg (25.7-33.7) 06/09/20 05:00 MCHC 33.8 g/dl (32.0-36.0) 06/09/20 05:00 RDW 13.0 % (11.6-15.6) 06/09/20 05:00 Plt Count 253 K/MM3 (134-434) 06/09/20 05:00 MPV 7.8 fl (7.5-11.1) 06/09/20 05:00 Absolute Neuts (auto) 1.5 K/mm3 (1.5-8.0) 06/09/20 05:00 Neutrophils % 45.0 % (42.8-82.8) D 06/09/20 05:00 Lymphocytes % 44.2 % (8-40) H D 06/09/20 05:00 Monocytes % 7.2 % (3.8-10.2) 06/09/20 05:00 Eosinophils % 2.6 % (0-4.5) D 06/09/20 05:00 Basophils % 1.0 % (0-2.0) 06/09/20 05:00 Nucleated RBC % 0 % (0-0) 06/09/20 05:00 Sodium 138 mmol/L (136-145) 06/09/20 05:00 Potassium 4.5 mmol/L (3.5-5.1) 06/09/20 05:00 Chloride 101 mmol/L (98-107) 06/09/20 05:00 Carbon Dioxide 30 mmol/L (21-32) 06/09/20 05:00 Anion Gap 7 MMOL/L (8-16) L 06/09/20 05:00 BUN 12.0 mg/dL (7-18) 06/09/20 05:00 Creatinine 0.9 mg/dL (0.55-1.3) 06/09/20 05:00 Est GFR (CKD-EPI)AfAm 76.68 06/09/20 05:00 Est GFR (CKD-EPI)NonAf 66.16 06/09/20 05:00 Random Glucose 113 mg/dL (74-106) H 06/09/20 05:00 Calcium 10.0 mg/dL (8.5-10.1) 06/09/20 05:00 Magnesium 1.8 mg/dL (1.8-2.4) 06/09/20 05:00 Total Bilirubin 0.4 mg/dL (0.2-1) 06/09/20 05:00 AST 18 U/L (15-37) 06/09/20 05:00 ALT 38 U/L (13-61) 06/09/20 05:00 Alkaline Phosphatase 108 U/L (45-117) 06/09/20 05:00 Creatine Kinase 98 U/L (26-192) 06/09/20 05:00 Creatine Kinase Cancelled 06/09/20 05:00 Troponin I < 0.02 ng/ml (0.00-0.05) 06/09/20 05:00 Troponin I Cancelled 06/09/20 05:00 Total Protein 8.3 g/dl (6.4-8.2) H 06/09/20 05:00 Albumin 4.2 g/dl (3.4-5.0) 06/09/20 05:00 TSH 3.14 uIU/ml (0.358-3.74) 06/09/20 05:00 06/09/20 06:42 CXR negative for acute intrathoracic pathology. 06/09/20 06:56 Pt reassessed. Reports continued chest pressure and tightness. Will give chewable aspirin and tele obs. (Manuel Cespedes) Discharge - Discharge Information Problems reviewed: Yes <Manuel Cespedes - Last Filed: 06/09/20 06:56> - Discharge Information Problems reviewed: Yes - Admission Yes <Alonso Shepard - Last Filed: 06/09/20 07:37> - Discharge Information Clinical Impression/Diagnosis: Palpitation Chest pain Qualifiers: Chest pain type: unspecified Qualified Code(s): R07.9 - Chest pain, unspecified Hypertension Qualifiers: Hypertension type: unspecified Qualified Code(s): I10 - Essential (primary) hypertension Condition: Fair - Follow up/Referral Referrals: Fermin Szymanski II, DO [Primary Care Provider] - - Patient Discharge Instructions - Post Discharge Activity
--- NOTE | 2020-06-09 04:35 | PDOC ---
Attending Attestation - Resident Resident Name: Manuel Cespedes - ED Attending Attestation I have performed the following: I have examined & evaluated the patient, The case was reviewed & discussed with the resident, I agree w/resident's findings & plan - HPI HPI: 06/09/20 04:33 see resident hpi - Physicial Exam PE: 06/09/20 04:34 seen resident exam - Medical Decision Making 06/09/20 04:34 65-year-old female with palpitations chest pressure and elevated blood pressure on home machine EKG shows a normal sinus rhythm at 73 bpm with no acute ST elevations Due to patient's age and recent symptomatology will plan for troponins and observation Discharge - Discharge Information Problems reviewed: Yes Clinical Impression/Diagnosis: Chest pain, Hypertension - Follow up/Referral Referrals: Fermin Szymanski II, DO [Primary Care Provider] - - Patient Discharge Instructions - Post Discharge Activity
[2020-06-09 05:56] LABS: ALBUMIN 4.2 g/dl (3.4-5.0); ALK PHOS 108 U/L (45-117); ANION GAP 7 MMOL/L (8-16); BILIRUBIN,TOTAL 0.4 mg/dL (0.2-1); CHLORIDE 101 mmol/L (98-107); CO2 30 mmol/L (21-32); CREATININE 0.9 mg/dL (0.55-1.3); GLUCOSE,RANDOM 113 mg/dL (74-106); MAGNESIUM 1.8 mg/dL (1.8-2.4); POTASSIUM 4.5 mmol/L (3.5-5.1); SGOT/AST 18 U/L (15-37); SGPT/ALT 38 U/L (13-61); SODIUM 138 mmol/L (136-145); TOT PROT 8.3 g/dl (6.4-8.2)
[2020-06-09 06:24] LABS: HEMOGLOBIN 13.8 GM/dL (10.7-15.3); RBC 4.44 M/mm3 (3.60-5.2); WHITE BLOOD COUNT 3.4 K/mm3 (4.0-10.0)
[2020-06-09 06:25] LABS: EOS % 2.6 % (0-4.5); LYMPH % 44.2 % (8-40); MCH 31.2 pg (25.7-33.7); MCHC 33.8 g/dl (32.0-36.0); MEAN CELL VOLUME 92.3 fl (80-96); MEAN PLT VOLUME 7.8 fl (7.5-11.1); MONO % 7.2 % (3.8-10.2); PLATELET COUNT 253 K/MM3 (134-434)
[2020-06-09] MEDS ORDERED: ASPIRIN 81 MG CHEWABLE TABLETS PO ONE (06:54)
[2020-06-09] MEDS ORDERED: FAMOTIDINE 20 MG TABLET PO ONE (06:55)
[2020-06-09] MEDS ORDERED: LISINOPRIL 20 MG TABLET PO ONE (07:20)
[2020-06-09] MEDS ORDERED: HYDROCHLOROTHIAZIDE 25 MG TABLET (FP) PO ONE (07:22)
[2020-06-09] MEDS ORDERED: HYDROCHLOROTHIAZIDE 25 MG TABLET (FP) ONE (07:33)
[2020-06-09] MEDS ORDERED: ASPIRIN 81 MG CHEWABLE TABLETS ONE (07:33)
[2020-06-09] MEDS ORDERED: NITROGLYCERIN 2% OINTMENT - 1GM PACKET TD ONE ×2 (07:33→07:45)
[2020-06-09] MEDS ORDERED: FAMOTIDINE 20 MG TABLET ONE (07:33)
[2020-06-09] MEDS ORDERED: LISINOPRIL 20 MG TABLET ONE (07:34)
--- OUTSIDE RECORDS SUMMARY | 2020-06-09 07:52 | XMS ---
:1955 Author Organization [facility] Care Team Providers Name Role Phone MAYNOR, [...] is protected by Article 27-F of the [facility] Public Health law. If you continue you may haveaccess to information: Regarding HIV / AIDS; Provided by facilities licensed or operated by the [facility] Office of Mental Health; or Provided by the [facility] Office for People With Developmental Disabilities. If such information is present, then the following [facility] mandated warning applies: This information has [...] law may result in a fine or halfway sentence or both. A general authorization for the release of medical or other information is NOT sufficient authorization for further disclosure. Allergies and Adverse Reactions Type Description Substance Reaction Status Data Source(s ) D No Known No Known [facility] n - Medication Medication [facility] r No Known No Known No Known eCW3 ([facility] Allergies [facility]) No Known No Known No Known eCW3 ([facility] Allergies Allergies [facility]) No Known No Known No Known eCW3 ([facility] Allergies Allergies [facility]) No Information No Information No Information eC W2 ([facility]) Encounters Encounter Providers Location Date Indications Data Source(s ) Attender: ALEXX 05/03/2020 [facility] ([facility] 12:00:00 AM ED Medical, ) Office Attender: ALEXX OWEN 05/03/2020 12:00:00 AM EDT MEDGEN ([facility] [place], [place], ) Office Attender: Christopher 04/14/2020 12:00:00 AM ED T MEDGEN ([facility], ) Office Attender: Christopher 03/31/2020 12:00:00 AM ED T MEDGEN ([facility], ) Office V Attender: Samantha CS XR-AMS 06/23/2019 11:34:10 [facility] [place] [facility]A Danny ter PAISAttender: SAMANTHA PAISAttender: SAMANTHA PAISAttender: SAMANTHA PAISReferrer: SAMANTHA MAYNOR EUS P Attender: Samantha CS XR-AMS 06/19/2019 01:27:12 [facility] [place] [facility] SAMANTHA [facility] SAM[facility]THA Danny ter PAISAttender: SAMANTHA PAISAttender: SAMANTHA PAISAttender: SAMANTHA PAISReferrer: SAMANTHA MAYNOR EUS P Attender: SAMANTHA CS XR-AMS 06/19/2019 12:08:56 [facility] [place] [facility]: SAMANTHA [facility] Samantha Danny ter PaisAttender: SAMANTHA PAISAttender: SAMANTHA PAISAttender: SAMANTHA PAISReferrer: SAMANTHA MAYNOR EUS P Attender: SAMANTHA CS XR-AMS 06/19/2019 10:44:41 [facility] [place] [facility]: SAMANTHA [facility] Danny ter PAISAttender: SAMANTHA PAISAttender: Samantha PaisAttender: SAMANTHA PAISReferrer: SAMANTHA MAYNOR EUS P Attender: Samantha CS XR-AMS 05/21/2019 10:12:07 [facility] [place] [facility] SAMANTHA [facility]A Danny ter PAISAttender: SAMANTHA PAISAttender: SAMANTHA PAISAttender: SAMANTHA PAISReferrer: SAMANTHA MAYNOR EUS P Attender: SAMANTHA CS XR-AMS 05/21/2019 09:05:38 [facility] [place] [facility]: SAMANTHA AM EDT [facility] PAISAttender: SAMANTHA Danny ter PAISAttender: Samantha PaisAttender: SAMANTHA PAISAttender: SAMANTHA PAISReferrer: SAMANTHA MAYNOR EUS [facility] 04/10/2019 eCW3 ([facility] A28 12:00:00 AM EDT - [facility]) 04/10/2019 12:00:00 AM EDT P Attender: SAMANTHA HENSLEY XR-GI MOB 04/09/2019 [facility] [place] [facility]ISAttender: 01:20:17 PM EDT [facility] PAISAttender: SAMANTHA PAISAttender: Samantha PaisAttender: SAMANTHA PAISAttender: SAMANTHA PAISReferrer: Shereen Laurent EUS [facility] 04/02/2019 eCW3 ([facility] A28 12:00:00 AM EDT - He alth Care) 04/02/2019 12:00:00 AM EDT P Attender: CS XR-AMS 03/14/2019 [place] [place] [facility] 08:47:42 AM EDT [place] [facility]ad GUERREROttender: Hospital Ce nter Samantha PaisAttender: SAMANTHA PAISAttender: SAMANTHA PAISAttender: SAMANTHA PAISAttender: SAMANTHA PAIeferrer: SAMANTHA MAYNOR EUS [facility] 01/01/2019 12:00:00 eCW3 ([facility] A28 AM EDT - 01/01/2019 [facility] 12:00:00 AM EDT Care) [facility] Jenna Linares 09/12/2018 12:00: 00 eCW2 ([facility] AM EST [facility]) [facility] Jenna Linares 07/03/2018 12:00: 00 eCW2 ([facility] AM EDT [facility]) [facility] Bharti Linares 04/18/2018 12:00: 00 eCW2 ([facility] AM EDT [facility]) [facility] Jenna Caseger 04/04/2018 12:00: 00 eCW2 ([facility] AM EDT [facility] Jenna Roisabela 01/10/2018 12:0 0:00 eCW2 ([facility] AM EDT [facility]) Isa Lucianovy Castroana rosaisabela 10/24/2017 12:00: 00 eCW2 ([facility] AM EST [facility]) Sav[place] Isabella Lucianovy Linares 08/08/2017 12:00: 00 eCW2 ([facility] AM EST [facility]) Isa Lucianovy Linares 04/19/2017 12:00: 00 eCW2 ([facility] AM EDT [facility]) Isa Murillocomfort Linares 03/14/2017 12:00: 00 eCW2 ([facility] AM EDT [facility]) [place] Isabella Murillocomfort Linares 02/14/2017 12:00: 00 eCW2 ([facility] AM EDT [facility]) [place] Isabella Murillocomfort Linares 02/14/2017 12:00: 00 eCW2 ([facility] AM EDT [facility]) [place] Isabella Lucianovy Linares 02/08/2017 12:00: 00 eCW2 ([facility] AM EDT [facility]) [place] Isabella Murillocomfort Linares 02/08/2017 12:00: 00 eCW2 ([facility] AM EDT [facility]) [place] Isabella Murillocomfort Linares 11/06/2016 12:00: 00 eCW2 ([facility] AM EST [facility]) [place] Isabella Murillocomfort Castroabaisabela 09/28/2016 12:00: 00 eCW2 ([facility] AM EST [facility]) [place] Isabella Murillocomfort Linares 08/23/2016 12:00: 00 eCW2 ([facility] AM EST [facility]) Isa Murillocomfort Linares 07/27/2016 12:00: 00 eCW2 ([facility] AM EDT [facility]) Isa Murillocomfort Linares 06/14/2016 12:00: 00 eCW2 ([facility] AM EDT [facility]) Isa Murillocomfort Linares 12/23/2015 12:00: 00 eCW2 ([facility] AM EDT [facility]) [place] Isabella Murillocomfort Linares 11/03/2015 12:00: 00 eCW2 ([facility] AM EST [facility]) Sav[place] Isabella Murillocomfort Linares 08/25/2015 12:00: 00 eCW2 ([facility] AM EST [facility]) [place] Isabella Murillocomfort Linares 08/02/2015 12:00: 00 eCW2 ([facility] AM EST [facility]) [place] Isabella Murillocomfort Linares 08/01/2015 12:00: 00 eCW2 ([facility] AM EST [facility]) [place] Is[place] Hay Jenna Linares 07/29/2015 12:00: 00 eCW2 ([facility] AM EST [facility]) [place] Isabella Murillocomfort Linares 07/28/2015 12:00: 00 eCW2 ([facility] AM EST [facility]) [place] Isabella Hay Jenna Linares 07/22/2015 12:00: 00 eCW2 ([facility] AM EDT [facility]) [place] Is[facility] Almaraznkers Jenna Linares 07/18/2015 12:00: 00 eCW2 ([facility] AM EDT [facility]) [place] [facility] Almaraznkers Jenna Linares 07/15/2015 12:00: 00 eCW2 ([facility] AM EDT [facility]) [place] Is[facility] Almaraznkers Jenna Linares 07/14/2015 12:00: 00 eCW2 ([facility] AM EDT [facility]) Sav[place] Isabella Lucianovy Linares 06/30/2015 12:00: 00 eCW2 ([facility] AM EDT [facility]) Isa Lucianovy Linares 06/23/2015 12:00: 00 eCW2 ([facility] AM EDT [facility]) Savannah Isabella Lucianovy Linares 05/12/2015 12:00: 00 eCW2 ([facility] AM EDT [facility]) Savannah Isabella Lucianovy Linares 03/11/2015 12:00: 00 eCW2 ([facility] AM EDT [facility]) Savannah Isabella Murillocomfort Linares 01/20/2015 12:00: 00 eCW2 ([facility] AM EDT [facility]) Sav[place] Isabella Murillocomfort Linares 10/01/2014 12:00: 00 eCW2 ([facility] AM EST [facility]) Savannah Isabella Murillocomfort Linares 08/12/2014 12:00: 00 eCW2 ([facility] AM EST [facility]) Savannah Isabella Murillocomfort Linares 07/22/2014 12:00: 00 eCW2 ([facility] AM EDT [facility]) Savannah Isabella Murillocomfort Linares 07/21/2014 12:00: 00 eCW2 ([facility] AM EDT [facility]) Savannah Isabella Murillocomfort Linares 07/21/2014 12:00: 00 eCW2 ([facility] AM EDT [facility]) [facility] Jenna Linares 07/09/2014 12:00:00 eCW2 ([facility] AM EDT [facility]) [facility] Jenna Linares 06/04/2014 12:00: 00 eCW2 ([facility] AM EDT [facility]) Isa Lucianovy Castroana rosaisabela 06/03/2014 12:00: 00 eCW2 ([facility] AM EDT [facility]) Isa Lucianovy Castroana rosaisabela 04/08/2014 12:00: 00 eCW2 ([facility] AM EDT [facility]) Isa Murillocomfort Linares 04/02/2014 12:00: 00 eCW2 ([facility] AM EDT [facility]) Isa Murillocomfort Linares 03/20/2014 12:00: 00 eCW2 ([facility] AM EDT [facility]) Isa Lucianovy Linares 01/08/2014 12:00: 00 eCW2 ([facility] AM EDT [facility]) Isa Murillocomfort Linares 12/03/2013 12:00: 00 eCW2 ([facility] AM EDT [facility]) Savannah Isabella Murillocomfort Castroana rosaisabela 10/15/2013 12:00: 00 eCW2 ([facility] AM EST [facility]) Savannah Isabella Murillocomfort Linares 10/08/2013 12:00: 00 eCW2 ([facility] AM EST [facility]) Savannah Isabella Murillocomfort Linares 07/16/2013 12:00: 00 eCW2 ([facility] AM EDT [facility]) Isa Murillocomfort Linares 06/16/2013 12:00: 00 eCW2 ([facility] AM EDT [facility]) Isa Murillocomfort Linares 06/12/2013 12:00: 00 eCW2 ([facility] AM EDT [facility]) Isa Murillocomfort Castroabaisabela 03/13/2013 12:00: 00 eCW2 ([facility] AM EDT [facility]) [place] Isabella Hay Jenna Linares 03/08/2013 12:00: 00 eCW2 ([facility] AM EDT [facility]) Isa Lucianovy Castroana rosaisabela 02/26/2013 12:00: 00 eCW2 ([facility] AM EDT [facility]) Isa Lucianovy Castroana rosaisabela 01/23/2013 12:00: 00 eCW2 ([facility] AM EDT [facility]) Isa Murillocomfort Linares 01/01/2013 12:00: 00 eCW2 ([facility] AM EDT [facility]) Isa Murillocomfort Linares 12/27/2012 12:00: 00 eCW2 ([facility] AM EDT [facility]) Isa Murillocomfort Linares 12/25/2012 12:00: 00 eCW2 ([facility] AM EDT [facility]) Savannah Isabella Murillocomfort Linares 11/21/2012 12:00: 00 eCW2 ([facility] AM EST [facility]) Savannah Isabella Lucianovy Castroana rosaisabela 11/13/2012 12:00: 00 eCW2 ([facility] AM EST [facility]) Isa Lucianovy Linares 10/03/2011 12:00: 00 eCW2 ([facility] AM EST [facility]) Savannah Isabella Murillocomfort Linares 06/21/2011 12:00: 00 eCW2 ([facility] AM EDT [facility]) Isa Murillocomfort Castroabaisabela 06/16/2011 12:00: 00 eCW2 ([facility] AM EDT [facility]) Savannah Isabella Murillocomfort Castroabaisabela 06/14/2011 12:00: 00 eCW2 ([facility] AM EDT [facility]) Savannah Isabella Murillocomfort Castroabaisabela 06/12/2011 12:00: 00 eCW2 ([facility] AM EDT [facility]) Isa Lucianovy Linares 06/07/2011 12:00: 00 eCW2 ([facility] AM EDT [facility]) Isa Lucianovy Linares 06/06/2011 12:00: 00 eCW2 ([facility] AM EDT [facility]) Isa Murillocomfort Linares 05/19/2011 12:00: 00 eCW2 ([facility] AM EDT [facility]) Isa Lucianovy Linares 05/18/2011 12:00: 00 eCW2 ([facility] AM EDT [facility]) Isa Lucianovy Linares 04/24/2011 12:00: 00 eCW2 ([facility] AM EDT [facility]) Savannah Isabella Murillocomfort Linares 04/24/2011 12:00: 00 eCW2 ([facility] AM EDT [facility]) Savannah Isabella Murillocomfort Linares 03/21/2011 12:00: 00 eCW2 ([facility] AM EDT [facility]) Savannah Isabella Murillocomfort Linares 03/20/2011 12:00: 00 eCW2 ([facility] AM EDT [facility]) Savannah Isabella Murillocomfort Linares 03/16/2011 12:00: 00 eCW2 ([facility] AM EDT [facility]) Savannah Isabella Murillocomfort Linares 01/07/2011 12:00: 00 eCW2 ([facility] AM EDT [facility]) [place] Isabella Hay Jenna Linares 10/24/2010 12:00: 00 eCW2 ([facility] AM EST [facility]) [place] Isabella Hay Jenna Castroabaisabela 10/13/2010 12:00: 00 eCW2 ([facility] AM EST [facility]) [place] Isabella Hay Jenna Linares 10/11/2010 12:00: 00 eCW2 ([facility] AM EST [facility]) Isa Murillocomfort Linares 10/04/2010 12:00: 00 eCW2 ([facility] AM EST [facility]) Isa Murillocomfort Linares 10/03/2010 12:00: 00 eCW2 ([facility] AM EST [facility]) Isa Murillocomfort Linares 09/20/2010 12:00: 00 eCW2 ([facility] AM EST [facility]) Savannah Isabella Murillocomfort Linares 07/08/2010 12:00: 00 eCW2 ([facility] AM EDT [facility]) Savannah Isabella Murillocomfort Linares 06/28/2010 12:00: 00 eCW2 ([facility] AM EDT [facility]) [place] Isabella Hay Jenna Linares 05/25/2010 12:00: 00 eCW2 ([facility] AM EDT [facility]) Savannah Isabella Murillocomfort Linares 05/12/2010 12:00: 00 eCW2 ([facility] AM EDT [facility]) Savannah Isabella Murillocomfort Linares 05/12/2010 12:00: 00 eCW2 ([facility] AM EDT [facility]) [place] Isabella Hay Jenna Linares 05/12/2010 12:00: 00 eCW2 ([facility] AM EDT [facility]) Savannah Isabella Murillocomfort Linares 04/21/2010 12:00: 00 eCW2 ([facility] AM EDT [facility]) [place] Is[place] Hay Jenna Linares 04/19/2010 12:00: 00 eCW2 ([facility] AM EDT [facility]) [place] Is[facility] Almaraznkers Jenna Linares 01/27/2010 12:00: 00 eCW2 ([facility] AM EDT [facility]) Sav[facility] Isabella Almarazdonna Linares 01/03/2010 12:00: 00 eCW2 ([facility] AM EDT [facility]) [place] Isabella Linares 12/10/2009 12:00: 00 eCW2 ([facility] AM EDT [facility]) Sav[facility] Isabella Linares 10/08/2009 12:00: 00 eCW2 ([facility] AM EST [facility]) Savannah Isabella Rorajsonia 10/05/2009 12:00: 00 eCW2 ([facility] EST [facility]) [facility] Bharti Linares 09/07/2009 12:00: 00 eCW2 ([facility] AM EST [facility]) [facility] Bharti Linares 09/07/2009 12:00: 00 eCW2 ([facility] EST [facility]) [facility] Bharti Rorajsonia 09/07/2009 12:00: 00 eCW2 ([facility] EST [facility]) [facility] Bharti Linares 09/06/2009 12:00: 00 eCW2 ([facility] EST [facility]) [facility] Bharti Linares 08/30/2009 12:00: 00 eCW2 ([facility] EST [facility]) Immunizations Vaccine Date Status Description Data Source(s) No Known Immunizations completed eCW2 ([facility]) Medications Medication Brand Start Product Dose Route Administrative Pharmacy [facility] Indications Reaction Description Data Name Date Form Instructions Instructions Source(s) Famotidine FAMOTI 04/29/ TABLET 60 complet FAMOT IDINE MEDGEN (St 40 MG Oral DINE:2 2019 ed [facility] Tablet 81661 12:00: Medical, FAMOTIDINE: 00 AM PC) [id number] EDT Metronidazo METRON 03/31/ TABLET 30 complet METR ONIDAZOL MED[facility] (St le 500 MG IDAZOL 2020 ed E [facility] Oral Tablet E:3116 12:00: Medi deondre, METRONIDAZO 81 00 AM PC) [id number] EDT Metronidazo METRON 03/31/ TABLET 30 complet METR ONIDAZOL MED[facility] (St le 500 MG IDAZOL 2019 ed E [facility] Oral Tablet E:3115 12:00: [facility] deondre, METRONIDAZO 81 00 AM PC) LE:[id number] EDT Metronidazo METRON // TABLET 30 complet METR ONIDAZOL MED[facility] (St le 500 MG IDAZOL 2019 ed E [facility] Oral Tablet E:3115 12:00: [facility] deondre, METRONIDAZO 81 00 AM PC) LE:[id number] EDT Sulfamethox SULFAM 03/29/ TABLET 20 complet [...] Tablet [id number] SULFAMETHOX AZOLE-TRIME THOPRIM:198 335 Amoxicillin 1.0 active Augment in eCW3 500 MG / tin 2019 {tabl 500-125 MG (Hud son Clavulanate 500-12 12:00: et} Rive r 125 MG Oral 5 MG 00 AM Health Tablet EDT Care) [Augmentin] Augmentin 500-125 MG Amoxicillin 1.0 active Augment in eCW3 500 MG / tin 2019 {tabl 500-125 MG (Hud son Clavulanate 500-12 [...] Oral Tablet 00 AM PC) MECLIZINE:9 EST 81097 Bisacodyl 5 DULCOL 09/10/ DELAYED 6 complet DUL COLAX MEDGEN (St MG Delayed AX 2019 RELEASE ed LAXATIVE [facility] Release LAXATI 12:00: TABLET Medica l, Oral Tablet VE:209 00 AM PC) [Dulcolax] 613 EST DULCOLAX LAXATIVE:20 9613 Zolpidem AMBIEN 09/10/ TABLET 30 complet AMBIEN MEDGEN (St tartrate 10 :81364 2018 ed [facility] MG Oral 5 12:00: Medical, Tablet 00 AM PC) [Ambien] EST AMBIEN:8548 75 Zolpidem AMBIEN 18/ TABLET 30 complet AMBIEN MEDGEN (St tartrate 10 :28462 2018 ed [facility] MG Oral 5 12:00: [...] FAMOT IDINE MED[facility] (St 40 MG Oral DINE:2018 ed [facility] Tablet 56636 12:00: Medical, FAMOTIDINE: 00 AM PC) 375133 EST POLYETHYLEN GOLYTE 09/10/ POWDER 30 complet [...] MG RAZOLE 2019 RELEASE ed [facility] Delayed :48437 12:00: CAPSULE Medic al, Release 7 00 AM PC) Oral EST Capsule LANSOPRAZOL E:[id number] Famotidine FAMOTI 12/18/ TABLET 30 complet FAMOT IDINE MED[facility] (St 40 MG Oral DINE:2018 ed [facility] Tablet 77340 12:00: Medical, FAMOTIDINE: 00 AM PC) [id number] EST Meclizine MECLIZ 12/18/ TABLET 30 complet MECLIZ INE MEDGEN (St Hydrochlori INE:99 2018 ed [facility] de 25 MG 5666 12:00: Medical, Oral Tablet 00 AM PC) MECLIZINE:9 EST 30472 lansoprazol LANSOP 12/18/ DELAYED 30 complet ENZO SOPRAZOLE MED[facility] (St e 30 MG RAZOLE 2019 RELEASE ed [facility] Delayed :70572 12:00: CAPSULE Medic al, Release 7 00 AM PC) Oral EST Capsule LANSOPRAZOL E:788210 POLYETHYLEN GOLYTE 12/18/ POWDER 30 complet GOLY [...] Oral Tablet 00 AM PC) MECLIZINE:9 EST 57263 Bisacodyl 5 DULCOL 1218/ DELAYED 6 complet DUL COLAX MEDGEN (St MG Delayed AX 2019 RELEASE ed LAXATIVE [facility] Release LAXATI 12:00: TABLET Medica l, Oral Tablet VE:209 00 AM PC) [Dulcolax] 613 EST DULCOLAX LAXATIVE:20 9613 Famotidine FAMOTI 12/18/ TABLET 30 complet FAMOT IDINE MED[facility] (St 40 MG Oral DINE:2 2018 ed [facility] Tablet 46558 12:00: Medical, FAMOTIDINE: 00 AM PC) 211914 EST POLYETHYLEN GOLYTE 12/18/ POWDER 30 complet GOLY TELY MED[facility] (St E GLYCOL LY:966 2019 FOR arcadio Pritchett 3350 60 916 12:00: RECONSTI Medica l, MG/ML / 00 AM TUTION PC) Potassium EST Chloride 0.01 MEQ/ML / Sodium Bicarbonate 0.02 MEQ/ML / Sodium Chloride 0.025 MEQ/ML / sodium sulfate 0.04 MEQ/ML Oral Solution [Golytely] GOLYTELY:96 6916 lansoprazol LANSOP 09/10/ DELAYED 30 complet ENZO SOPRAZOLE MED[facility] (St e 30 MG RAZOLE 2019 RELEASE ed Shreyas Delayed :87760 12:00: CAPSULE Medic al, Release 7 00 AM PC) Oral EST Capsule LANSOPRAZOL E:[id number] Zolpidem AMBIEN 09/10/ TABLET 30 complet AMBIEN MEDGEN (St tartrate 10 :67249 2019 ed Shreyas MG Oral 5 12:00: [...] 40 MG 12:00: et_[facility] Care) Diclofenac Diclof 04/10/ active Diclofen ac eCW3 Sodium 0.01 2018 Sodium 1 % (H udson MG/MG Sodium 12:00: [facility] Topical Gel 1 % 00 AM [facility] Diclofenac EDT Care) Sodium 1 % Diclofenac Diclof 04/10/ active Diclofen ac eCW3 Sodium 0.01 2018 Sodium 1 % (H udson MG/MG Sodium 12:00: [facility] Topical Gel 1 % 00 AM [facility] Diclofenac EDT Care) Sodium 1 % Diclofenac Diclof 04/10/ active Diclofen ac eCW3 Sodium 0.01 2018 Sodium 1 % (H udson MG/MG Sodium 12:00: [facility] Topical Gel 1 % 00 AM [facility] Diclofenac EDT Care) Sodium 1 % lansoprazol Prevac 1.0 active Prevaci d 30 eCW3 e 30 [...] 20 mg oral tablet EST [facility] tablet [facility] [place] Zolpidem zolpid .0 Oral [place] tartrate 10 em 10 2018 mg Presbyt bernie MG Oral mg 12:25: an - Tablet oral 34 PM [facility] zolpidem 10 tablet EST [facility] mg oral [facility] tablet [place] Meclizine mecliz 10/04/ Tablet 25.0 Oral [place] Hydrochlori ine 25 2018 mg Presby marylu de 25 MG mg 12:25: an - Oral Tablet oral 15 PM [facility] meclizine tablet EST [facility] 25 mg oral Hospital tablet [facility] .0 active Singula ir 10 eCW3 10 MG Oral air 2016 {tabl MG (Hudso n Tablet MG 12:00: et_in [facility] [Singulair] 00 AM _the_ Health Singulair EDT eveni Care) 10 MG ng} [facility] .0 active Singula ir 10 eCW3 10 MG Oral air 2016 {tabl MG (Hudso n Tablet MG 12:00: et_in [facility] [Singulair] 00 AM _the_ Health Singulair EDT eveni Care) 10 MG ng} [facility] .0 active Singula ir 10 eCW3 [...] Amitriptyli ne HCl 10 mg Amitriptyli Amitri 1.0 active Amitrip tylin eCW3 ne ptylin 2013 {tabl e HCl 10 mg ([facility]uds on Hydrochlori e HCl 12:00: et_at Rive r de 10 MG 10 mg 00 AM _bedt Health Oral Tablet EDT daisha} Care) Amitriptyli ne HCl 10 mg Amitriptyli Amitri 1.0 active Amitrip tylin eCW3 ne ptylin 2014 [...] name Policy type Policy ID Covered Covered democrat's Policy P enzo / Coverage democrat ID relationship to [place] Inf ormation type orozco MEDICAID [id number] TYSHAWN [id number] MEDICARE ADV PLAN MEDICAID OF [id number] [facility] [id number] [facility] MEDICARE [id number] SP [id number] MEDICAID [id number] SP [id number] TYSHAWN [id number] MEDICARE ADV PLAN [id number] [id number] TYSHAWN/[facility] [id number] HEALTH PLAN TYSHAWN/[facility] [id number] ER HEALTH PLAN TYSHAWN/MELISSA [facility] [id number] ER HEALTH PLAN TYSHAWN/MELISSA MONK [id number] ER HEALTH PLAN Problems, Conditions, and Diagnoses Code Display Name Description Problem Effective Data Type Dates Source(s) S86.01 Strain of unspecified STRAIN OF UNSPECIFIED Problem 06/2020 MED[facility] ([address] 9A Achilles tendon, ACHILLES TENDON, 12:00:00 AM Syed echavarria's initial encounter INITIAL ENCOUNTER EDT Medical, ) M79.67 Pain in right foot PAIN IN RIGHT FOOT Problem 0 MED[facility] ([address] 1 12:00:00 AM [facility] Medical, ) G47.33 SHAI (obstructive sleep SHAI (obstructive sleep Problem 0 09/25/2019 eCW3 ([facility] apnea) apnea) 12:00:00 AM Counts include 234 beds at the [facility]) 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 Problem 09/10/2019 [place] DGEN (St 12:00:00 AM [facility], ) K76.0 Fatty (change of) FATTY (CHANGE OF) Problem 09/10/2019 MED[facility] (St liver, not elsewhere LIVER, NOT ELSEWHERE 12:00 :00 AM Andreys classified CLASSIFIED [facility], ) K57.32 Diverticulitis of DIVERTICULITIS OF Problem 09/10/2019 MEDGEN (St large intestine LARGE INTESTINE 12:00:00 AM Alfredo n's without perforation or WITHOUT PERFORATION OR E [facility] [facility], ) abscess without ABSCESS WITHOUT bleeding BLEEDING K21.9 Gastro-esophageal GASTRO-ESOPHAGEAL Problem 09/10/2019 MEDGEN (St reflux disease without REFLUX DISEASE WITHOUT 1 2:00:00 AM Shreyas esophagitis ESOPHAGITIS [facility], ) 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 Problem 09/10/2019 ME DGEN (St [facility] K76.0 Fatty (change of) FATTY (CHANGE OF) Problem 09/10/2019 MEDGEN (St liver, not elsewhere LIVER, NOT ELSEWHERE 12:00 :00 AM Dash's classified CLASSIFIED [facility], ) K57.32 Diverticulitis of DIVERTICULITIS OF Problem 09/10/2019 MEDGEN (St large intestine LARGE INTESTINE 12:00:00 AM Alfredo n's without perforation or WITHOUT PERFORATION OR E [facility], ) abscess without ABSCESS WITHOUT bleeding BLEEDING K21.9 Gastro-esophageal GASTRO-ESOPHAGEAL Problem 09/10/2019 MEDGEN (St reflux disease without REFLUX DISEASE WITHOUT 1 2:00:00 AM Dash[facility] esophagitis ESOPHAGITIS [facility], ) 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 Problem 09/10/2019 ME DGEN (St 12:00:00 AM Dash's [facility] Medical, ) K76.0 Fatty (change of) FATTY (CHANGE OF) Problem 09/10/2019 MEDGEN (St liver, not elsewhere LIVER, NOT ELSEWHERE 12:00 :00 AM [facility] classified CLASSIFIED [facility], ) K57.32 Diverticulitis of DIVERTICULITIS OF Problem 09/10/2019 MEDGEN (St large intestine LARGE INTESTINE 12:00:00 AM Alfredo n's without perforation or WITHOUT PERFORATION OR E Medical, ) abscess without ABSCESS WITHOUT bleeding BLEEDING K21.9 Gastro-esophageal GASTRO-ESOPHAGEAL Problem 09/10/2019 MEDGEN (St reflux disease without REFLUX DISEASE WITHOUT 1 2:00:00 AM Dash's esophagitis ESOPHAGITIS [facility], ) K21.0 GERD with esophagitis GERD with esophagitis Problem eCW3 ([facility] 12:00:00 AM [facility] EST Care) K57.92 Diverticulitis Diverticulitis Problem 04/10/2019 eCW3 ( [place] 12:00:00 AM [facility] EDT Care) K57.92 Diverticulitis Diverticulitis Problem 04/10/2019 eCW3 ( [facility] 12:00:00 AM [facility] EDT Care) G43.00 Migraine without aura Migraine without aura Problem 06/2019 eCW3 ([facility] 9 and without status and without status 12:00:00 AM [facility] migrainosus, not migrainosus, not EDT Ca re) intractable intractable J30.9 Allergic rhinitis, Allergic rhinitis, Problem 9 eCW3 ([facility] unspecified unspecified 12:00:00 AM [facility]) unspecified trigger unspecified trigger G89.29 Other chronic pain Other chronic pain Problem 9 eCW3 ([facility] 12:00:00 AM [facility] EDT Care) G43.00 Migraine without aura Migraine [...] 9 asthmaticus uncomplicated 12:00:00 AM [facility] EDT Care) I83.81 Pain co-occurrent and Varicose [...] ([facility] 9 asthmaticus uncomplicated 12:00:00 AM [facility] EDT Care) I83.81 Pain co-occurrent and Varicose veins of Problem 017 eCW2 ([facility] 3 due to varicose veins bilateral lower 12:00:00 AM [facility] of bilateral legs extremities with pain EDT Care) Z87.19 H/O diverticulitis of H/O diverticulitis of Problem eCW2 ([facility] colon colon 12:00:00 AM [facility] EDT Care) J45.90 Asthma without status Unspecified asthma, Problem 02/08 eCW2 ([facility] 9 asthmaticus uncomplicated 12:00:00 AM [facility] EDT Care) R73.09 Pre-diabetes Pre-diabetes Problem 12/23/2015 eCW3 ([place] 12:[place]:[facility] AM [facility] EDT Care) R73.09 Pre-diabetes Pre-diabetes Problem 12/23/2015 eCW3 ([place] 12:00:00 AM [facility] EDT Care) R73.09 Pre-diabetes Pre-diabetes Problem 12/23/2015 eCW2 ([place] 12:00:00 AM [facility] EDT Care) D72.81 Leukopenia Leukopenia Problem 07/15/2015 eCW3 ([facility] 9 12:00:00 AM [facility] EDT Care) D72.81 Leukopenia Leukopenia Problem 07/15/2015 eCW2 ([facility] 9 12:00:00 AM [facility] EDT Care) G47.00 Insomnia Insomnia Problem 07/14/2015 eCW3 ([facility] 12:00:00 AM [facility] EDT Care) G47.00 Insomnia Insomnia Problem 07/14/2015 eCW2 ([facility] 12:00:00 AM [facility] EDT Care) E78.1 Hypertriglyceridemia Hypertriglyceridemia Problem 06/30 eCW3 ([facility] 12:00:00 AM [facility] EDT Care) I10 Hypertension Hypertension Problem 06/30/2015 eCW3 ([place] 12:00:00 AM [facility] EDT Care) M54.9 Back pain Back pain Problem 06/30/2015 eCW3 ([facility] 12:00:00 AM [facility] EDT Care) R73.09 Prediabetes Prediabetes Problem 06/30/2015 eCW3 ([place] 12:00:00 AM [facility] Care) E78.1 Hypertriglyceridemia Hypertriglyceridemia Problem 06/30 eCW3 ([place] 12:00:00 AM [facility] Care) R73.09 Prediabetes Prediabetes Problem 06/30/2015 eCW2 ([place] 12:00:00 AM [facility] Care) M54.9 Back pain Back pain Problem 06/30/2015 eCW2 ([place] 12:00:00 AM [facility]) E78.1 Hypertriglyceridemia Hypertriglyceridemia Problem 06/30 eCW2 ([place] 12:00:00 AM [facility] Care) I10 Hypertension Hypertension Problem 06/30/2015 eCW2 ([place] 12:00:00 AM [facility]) 530.11 Gastroesophageal GERD Problem eCW2 ( dson reflux disease [facility]) 477.8 Allergic rhinitis ALLERGIC RHINITIS NEC Problem eCW2 ([facility]) 288.50 Leukopenia Leukopenia, not Problem eCW2 ([facility] son otherwise specified [facility]) 493.90 Asthma without status Asthma Intermittent Problem eCW2 ([place] asthmaticus [facility]) K86.2 Cyst of pancreas Cyst of pancreas Diagnosis 06/23/2019 [place] 11:34:10 [facility] Surgeries/Procedures Procedure Description Date Indications Data Source(s) [...] Known procedures No Known procedures e 2 ([facility]) Results ID Date Data Source [id number] 04/28/2020 12:00:00 AM EDT MEDGEN ([facility] Name Value Range Interpretation Code Description Data La rce(s) Supporting Document(s ) C-Reactive 3 mg/L Normal (applies to MEDGEN (St Protein, non-numeric Dash[facility] Quant results) Medical, ) ID Date Data Source [id number] 04/28/2020 12:00:00 AM EDT MEDGEN ([facility] [...] for unspecified duration ID Date Data Source [id number] 04/28/2020 12:00:00 AM EDT MEDGEN ([facility] [...] to non-numeric [facility]'s results) Medical, ) Platelets 239 Normal (applies MEDGEN (St [#/area] in x10E3/uL to non-numeric [facility]'s Blood by results) [facility], ) Microscopy high power field Neutrophils [#] 34 % Normal (applies MEDGEN ( St in Body fluid by to non-numeric Dash's Manual count results) [facility], ) Lymphs 56 % Normal (applies MEDGEN (St to non-numeric Dash's results) [facility], ) Eos 2 % Normal (applies MEDGEN (St to non-numeric Dash's results) [facility], ) Monocytes 7 % Normal (applies MEDGEN (St [#/volume] in to non-numeric Dash's Cord blood results) [facility], ) Neutrophils 0.8 Normal (applies MEDGEN (St (Absolute) x10E3/uL to non-numeric Dash's results) [facility], ) Basos 1 % Normal (applies MEDGEN (St to non-numeric Dash's results) [facility], ) Lymphs 1.4 Normal (applies MEDGEN (St (Absolute) x10E3/uL to non-numeric Dash's results) [facility], ) Monocytes(Absolu 0.2 Normal (applies MEDGEN (St te) x10E3/uL to non-numeric Dash's results) [facility], ) Baso (Absolute) 0.0 Normal (applies MEDGEN ( St x10E3/uL to non-numeric Dash's results) [facility], ) Eos (Absolute) 0.1 Normal (applies MEDGEN (S t x10E3/uL to non-numeric Dash's results) [facility], ) Immature 0 % Normal (applies MEDGEN (St Granulocytes to non-numeric Dash's results) [facility], ) Immature Grans 0.0 Normal (applies MEDGEN (S t (Abs) x10E3/uL to non-numeric Dash's results) [facility], ) Hematology Note: Normal (applies MEDGEN (St Comments: to non-numeric Dash's results) [facility], ) ID Date Data Source [id number] 04/14/2020 12:00:00 AM EDT MEDGEN ([facility], ) Name Value Range Interpretation Code Description Data La rce(s) Supporting Document(s ) C-Reactive 3 mg/L Normal (applies to MEDGEN (St Protein, non-numeric Dash's Quant results) [facility], ) ID Date Data Source [id number] 04/14/2020 12:00:00 AM EDT MEDGEN ([facility] [...] for unspecified duration ID Date Data Source [id number] 04/14/2020 12:00:00 AM EDT MEDGEN ([facility], ) Name Value Range Interpretation Description Data Sup porting Code Source(s) Document(s ) Leukocytes 4.0 Normal (applies MEDGEN (St [#/volume] in x10E3/uL to non-numeric [facility] Blood by results) [facility], ) Automated count Erythrocytes 4.09 Normal (applies MEDGEN (St [#/volume] in x10E6/uL to non-numeric [facility]'s Blood by results) [facility], ) Automated count Hemoglobin 12.8 Normal (applies MEDGEN (St [Mass/volume] in g/dL to non-numeric [facility]'s Blood results) [facility], ) Hematocrit 38.0 % Normal (applies MEDGEN (St [Volume to non-numeric Dash's Fraction] of results) [facility], ) Blood by Automated count MCV 93 fL Normal (applies MEDGEN (St to non-numeric Dash's results) [facility], ) MCHC 33.7 Normal (applies MEDGEN (St g/dL to non-numeric Dash's results) [facility], ) MCH 31.3 pg Normal (applies MEDGEN (St to non-numeric Dash's results) [facility], ) Platelets 226 Normal (applies MEDGEN (St [#/area] in x10E3/uL to non-numeric [facility]'s Blood by results) [facility], ) Microscopy high power field RDW 12.8 % Normal (applies MEDGEN (St to non-numeric Dash's results) [facility], ) Lymphs 31 % Normal (applies MEDGEN (St to non-numeric Dash's results) [facility], ) Neutrophils [#] 62 % Normal (applies MEDGEN ( St in Body fluid by to non-numeric Dash's Manual count results) [facility], ) Eos 1 % Normal (applies MEDGEN (St to non-numeric Dash's results) [facility], ) Monocytes 6 % Normal (applies MEDGEN (St [#/volume] in to non-numeric Dash's Cord blood results) [facility], ) Basos 0 % Normal (applies MEDGEN (St to non-numeric Dash's results) [facility], ) Neutrophils 2.4 Normal (applies MEDGEN (St (Absolute) x10E3/uL to non-numeric Dash's results) [facility], ) Lymphs 1.3 Normal (applies MEDGEN (St (Absolute) x10E3/uL to non-numeric Dash's results) [facility], ) Eos (Absolute) 0.1 Normal (applies MEDGEN (S t x10E3/uL to non-numeric Dash's results) [facility], ) Monocytes(Absolu 0.3 Normal (applies [...] results) Medical, ) ID Date Data Source [id number] 03/31/2020 12:00:00 AM EDT MEDGEN ([facility], ) Name Value Range Interpretation Code Description Data La rce(s) Supporting Document(s ) C-Reactive 113 mg/L Above high normal MEDGEN (St Protein, Dash's Quant [facility], ) ID Date Data Source [id number] 03/31/2020 12:00:00 AM EDT MEDGEN ([facility], ) Name Value Range Interpretation [...] low normal MEDGEN ( St Ratio Dash's [facility], ) Sodium 139 Normal (applies MEDGEN (St [Moles/volume] mmol/L to non-numeric Dash's in Serum or results) Medical, ) Plasma Potassium 4.4 Normal (applies MEDGEN (St [Mass/volume] mmol/L to non-numeric Dash's in Blood results) [facility], ) Carbon dioxide, 20 mmol/L Normal (applies [...] for unspecified duration ID Date Data Source [id number] 03/31/2020 12:00:00 AM EDT MEDGEN ([facility] [...] by to non-numeric [facility] Manual count results) Medical, ) Monocytes 6 % Normal (applies MEDGEN (St [#/volume] in to non-numeric [facility] Cord blood results) [facility], ) Eos 2 % Normal (applies MEDGEN (St to non-numeric Dash's results) [facility], ) Neutrophils 1.8 Normal (applies MEDGEN (St (Absolute) x10E3/uL to non-numeric Dash's results) [facility], ) Basos 0 % Normal (applies MEDGEN (St to non-numeric Dash's results) [facility], ) Lymphs 1.2 Normal (applies MEDGEN (St (Absolute) x10E3/uL to non-numeric Dash's results) Medical, ) Monocytes(Absolu 0.2 Normal (applies MEDGEN (St te) x10E3/uL to non-numeric Dash's results) [facility], ) Eos (Absolute) 0.1 Normal (applies MEDGEN (S t x10E3/uL to non-numeric Dash's results) [facility], ) Baso (Absolute) 0.0 Normal (applies MEDGEN ( St x10E3/uL to non-numeric Dash's results) [facility], ) Immature 0 % Normal (applies MEDGEN (St Granulocytes to non-numeric Dash's results) [facility], ) Immature Grans 0.0 Normal (applies MEDGEN (S t (Abs) x10E3/uL to non-numeric Dash's results) [facility], ) ID Date Data Source [id number] 03/31/2020 12:00:00 AM EDT MEDGEN ([facility], ) Name Value Range Interpretation Code Description Data La rce(s) Supporting Document(s ) C-Reactive 113 mg/L Above high normal MEDGEN (St Protein, Dash's Quant [facility], ) ID Date Data Source [id number] 03/31/2020 12:00:00 AM EDT MEDGEN ([facility], ) Name Value Range Interpretation Description Data Sup porting Code Source(s) Document(s ) Glucose 137 mg/dL Above high normal MEDGEN (St [Mass/volume] Dash's in Urine [facility], ) collected for unspecified duration eGFR If 60 Normal (applies MEDGEN (St NonAfricn Am mL/min/1. to non-numeric Dash's 73 results) [facility], ) Urea nitrogen 9 mg/dL [...] St total to non-numeric Dash's [Moles/volume] results) [facility], ) in Serum or Plasma ID Date Data Source [id number] 03/31/2020 12:00:00 AM EDT MEDGEN ([facility], ) Name Value Range Interpretation [...] [Volume to non-numeric Dash's Fraction] of results) [facility], ) Blood by Automated count MCH 31.9 pg Normal (applies MEDGEN (St to non-numeric Dash's results) [facility], ) MCHC 34.5 Normal (applies MEDGEN (St g/dL to non-numeric Dash's results) [facility], ) RDW 12.1 % Normal (applies MEDGEN (St to non-numeric Dash's results) [facility], ) Platelets 235 Normal (applies MEDGEN (St [#/area] in x10E3/uL to non-numeric Dash's Blood by results) [facility], ) Microscopy high power field Neutrophils [#] 55 % Normal (applies MEDGEN ( St in Body fluid by to non-numeric Dash's Manual count results) [facility], ) Lymphs 37 % Normal (applies MEDGEN (St to non-numeric Dash's results) [facility], ) Monocytes 6 % Normal (applies MEDGEN (St [#/volume] in to non-numeric Dash's Cord blood results) [facility], ) Basos 0 % Normal (applies MEDGEN (St to non-numeric Dash's results) [facility], ) Eos 2 % Normal (applies MEDGEN (St to non-numeric Dash's results) [facility], ) Neutrophils 1.8 Normal (applies MEDGEN (St (Absolute) x10E3/uL to non-numeric Dash's results) [facility], ) Lymphs 1.2 Normal (applies MEDGEN (St (Absolute) x10E3/uL to non-numeric Dash's results) [facility], ) Baso (Absolute) 0.0 Normal (applies MEDGEN ( St x10E3/uL to non-numeric Dash's results) [facility], ) Eos (Absolute) 0.1 Normal (applies MEDGEN (S t x10E3/uL to non-numeric Dash's results) [facility], ) Monocytes(Absolu 0.2 Normal (applies MEDGEN (St te) x10E3/uL to non-numeric Dash's results) [facility], ) Immature 0 % Normal (applies MEDGEN (St Granulocytes to non-numeric Dash's results) [facility], ) Immature Grans 0.0 Normal (applies MEDGEN (S t (Abs) x10E3/uL to non-numeric Dash's results) [facility], ) ID Date Data Source [id number] 03/10/2020 12:00:00 AM EDT [place] Name Value Range Interpretation Code Description Data La rce(s) Supporting Document(s ) 2019-nCoV [facility] RNA XXX SAMANTHA+probe- Imp This lab was ordered by [facility] and reported by [employer] Procedure Social History Code Duration Value Status Description Data Source(s ) Smoking 05/03/2020 Born in [facility] completed Born in [facility] MEDGEN (St 12:00:00 AM EDT 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) Smoking Unknown if ever completed Unknown if ever eCW2 ([facility]) Vital Signs ID Date Data Source UNK Name Value Range Interpretation Code Description Data Source(s) Heart rate 79 /min 79 /min MEDGEN ([facility]) Inhaled oxygen 97 % 97 % MEDGEN ([facility]) Body mass index 31.2 kg/m2 31.2 kg/m2 MEDGEN (S t (BMI) [Ratio] [facility]) Diastolic blood 92 mm[Hg] 92 mm[Hg] MEDGEN (S [facility]) Systolic blood 148 mm[Hg] 148 mm[Hg] MEDGEN ([facility]) Body weight 169 lb 169 lb MEDGEN ([facility]) Body height 61.75 in 61.75 in MEDGEN ([facility]) Heart rate 79 /min 79 /min MEDGEN ([facility]) Inhaled oxygen 97 % 97 % MEDGEN ([facility]) Body mass index 31.2 kg/m2 31.2 kg/m2 MEDGEN (S t (BMI) [Ratio] [facility]) Diastolic blood 92 mm[Hg] 92 mm[Hg] MEDGEN (S [facility]) Systolic blood 148 mm[Hg] 148 mm[Hg] MEDGEN ([facility]) Body weight 169 lb 169 lb MEDGEN ([facility]) Body height 61.75 in 61.75 in MEDGEN ([facility]) Heart rate 101 /min 101 /min MEDGEN ([facility]) Inhaled oxygen 99 % 99 % MEDGEN ([facility]) Body mass index 31 kg/m2 31 kg/m2 MEDGEN (S t (BMI) [Ratio] [facility]) Diastolic blood 74 mm[Hg] 74 mm[Hg] MEDGEN (S [facility]) Systolic blood 124 mm[Hg] 124 mm[Hg] MEDGEN ([facility]) Body weight 168 lb 168 lb MEDGEN ([facility]) Body height 61.75 in 61.75 in MEDGEN ([facility]) Heart rate 101 /min 101 /min MEDGEN ([facility]) Inhaled oxygen 99 % 99 % MEDGEN ([facility], ) Body mass index 31 kg/m2 31 kg/m2 MEDGEN (S t (BMI) [Ratio] [facility], ) Diastolic blood 74 mm[Hg] 74 mm[Hg] MEDGEN (S t pressure [facility]) Systolic blood 124 mm[Hg] 124 mm[Hg] MEDGEN ([facility]) Body weight 168 lb 168 lb MEDGEN ([facility]) Body height 61.75 in 61.75 in MEDGEN ([facility]) Heart rate 101 /min 101 /min MEDGEN ([facility]) Inhaled oxygen 99 % 99 % MEDGEN ([facility], ) Body mass index 31 kg/m2 31 kg/m2 MEDGEN (S t (BMI) [Ratio] [facility], ) Diastolic blood 74 mm[Hg] 74 mm[Hg] MEDGEN (S [facility]) Systolic blood 124 mm[Hg] 124 mm[Hg] MEDGEN ([facility]) Body weight 168 lb 168 lb MEDGEN ([facility]) Body height 61.75 in 61.75 in MEDGEN ([facility]) Diastolic blood 84 mm[Hg] 84 mm[Hg] MEDGEN (S [facility]) Systolic blood 136 mm[Hg] 136 mm[Hg] MEDGEN ([facility]) Body weight 167 lb 167 lb MEDGEN ([facility]) Body height 61.75 in 61.75 in MEDGEN ([facility]) Heart rate 66 /min 66 /min MEDGEN ([facility]) Inhaled oxygen 97 % 97 % MEDGEN ([facility], ) Body mass index 30.8 kg/m2 30.8 kg/m2 MEDGEN (S t (BMI) [Ratio] [facility]) Diastolic blood 84 mm[Hg] 84 mm[Hg] MEDGEN (S t [facility]) Systolic blood 136 mm[Hg] 136 mm[Hg] MEDGEN ([facility]) Body weight 167 lb 167 lb MEDGEN ([facility] [place] [place] , ) Body height 61.75 in 61.75 in MEDGEN ([facility]) Heart rate 66 /min 66 /min MEDGEN ([facility]) Inhaled oxygen 97 % 97 % MEDGEN ([facility]) Body mass index 30.8 kg/m2 30.8 kg/m2 MEDGEN (S t (BMI) [Ratio] [facility], ) Diastolic blood 84 mm[Hg] 84 mm[Hg] MEDGEN (S t [facility]) Systolic blood 136 mm[Hg] 136 mm[Hg] MEDGEN ([facility]) Body weight 167 lb 167 lb MEDGEN ([facility]) Body height 61.75 in 61.75 in MEDGEN ([facility]) Heart rate 66 /min 66 /min MEDGEN ([facility] [place] [place] , ) Inhaled oxygen 97 % 97 % MEDGEN ([facility], ) Body mass index 30.8 kg/m2 30.8 kg/m2 MEDGEN (S t (BMI) [Ratio] [facility], ) Diastolic blood 79 mm[Hg] 79 mm[Hg] eCW3 ([facility]) Systolic blood 135 mm[Hg] 135 mm[Hg] eCW3 ([facility]) Body temperature 98.0 [degF] 98.0 [degF] eCW3 ( [facility]) Heart rate 18 /min 18 /min eCW3 ([facility]) Body mass index 30.91 kg/m2 30.91 kg/m2 eCW3 ([facility] (BMI) [Ratio] [facility]) Body weight 169 [lb_av] 169 [lb_av] eCW3 ([facility]) Body height 62 [in_i] 62 [in_i] eCW3 ([facility]) Diastolic blood 61 mm[Hg] 61 mm[Hg] eCW3 ([facility]) Systolic blood 99 mm[Hg] 99 mm[Hg] eCW3 ([facility]) Body temperature 97.5 [degF] 97.5 [degF] eCW3 ( [facility]) Heart rate 20 /min 20 /min eCW3 ([facility]) Body mass index 30.91 kg/m2 30.91 kg/m2 eCW3 ([place] [facility] (BMI) [Ratio] [facility]) Body weight 169 [lb_av] 169 [lb_av] eCW3 ([facility]) Body height 62 [in_i] 62 [in_i] eCW3 ([facility]) Diastolic blood 56 mm[Hg] 56 mm[Hg] eCW3 ([facility]) Systolic blood 94 mm[Hg] 94 mm[Hg] eCW3 ([facility] pressure [facility]) Body temperature 98.6 [degF] 98.6 [degF] eCW3 ( [facility]) Heart rate 18 /min 18 /min eCW3 ([facility]) Body mass index 30.54 kg/m2 30.54 kg/m2 eCW3 ([facility] (BMI) [Ratio] [facility]) Body weight 167.0 167.0 [lb_av] eCW3 ([facility] on [lb_av] [facility]) Body height 62 [in_i] 62 [in_i] eCW3 ([facility]) Patient Treatment Plan of Care Planned Activity Planned Date Details Description Data Source (s) Amoxicillin 500 MG / 02/19/2020 eCW3 ([facility] Clavulanate 125 MG Oral 12:00:00 AM EDT [facility]) Tablet [Augmentin] Amoxicillin 500 MG / 02/19/2020 eCW3 ([facility] Clavulanate 125 MG Oral 12:00:00 AM EDT [facility]) Tablet [Augmentin] Diclofenac Sodium 0.01 MG/MG 04/10/2019 eCW3 ([facility] Topical Gel 12:00:00 AM [facility]) Hydrochlorothiazide 25 MG 10/04/2017 [facility] - Oral Tablet 12:26:24 PM EST [facility] Lisinopril 20 MG Oral Tablet 10/04/2017 [facility] - 12:25:59 PM EST [facility] Zolpidem tartrate 10 MG Oral 10/04/2017 [place] [facility] - Tablet 12:25:34 PM EST [facility] Meclizine Hydrochloride 25 10/04/2017 [place] [facility] - MG Oral Tablet 12:25:15 PM EST [facility] Zolpidem tartrate 10 MG Oral eCW3 ([facility] Tablet [[facility]) Zolpidem tartrate 10 MG Oral eCW3 ([facility] Tablet [[facility]) Zolpidem tartrate 10 MG Oral eCW3 ([facility] Tablet [[facility])
--- NOTE | 2020-06-09 08:37 | HP ---
CHIEF COMPLAINT: chest pressure/palpitations PCP: Del HISTORY OF PRESENT ILLNESS: Pt is a 65 y/o female with HTN, GERD, mild intermittent asthma, vertigo, and diverticulitis who presents with gradual onset chest pressure and palpitations. She reports a squeezing substernal sensation that is intermittent and not radiating. She also is experiencing brief periods of palpitations, only a few beats at a time. Neither is associated with activity. She has not felt this before. She reports feeling bad last night and took her blood pressure around 11pm, then midnight and 1am. Systolic was up to 170. She is compliant with her medications. She reports headache the last couple days with no dizziness. She denies diaphoresis, shortness of breath, abdominal pain, nausea, vomiting, fever, or chills. Upon further questioning, she reports dyspnea on exertion. She also notes 2 weeks of malodorous urine for which she was just diagnosed with UTI and given abx (unsure of name) by her PCP. She is having associated frequency and suprapubic pain. She denies dysuria or hematuria. Family hx significant for mother having HTN and open-heart surgery. ER course was notable for: (1) ASA, nitro paste, pepcid (2) trop negative x1 (3) EKG - HR 73, NSR, normal axis, normal intervals, no ST changes, QTc 427, no significant change from 08/12 PAST MEDICAL HISTORY: HTN GERD mild intermittent asthma vertigo diverticulitis PAST SURGICAL HISTORY: x2 Social History: Smoking: denies Alcohol: denies Drugs: denies Allergies No Known Allergies Allergy (Verified 03/29/20 11:39) HOME MEDICATIONS: Home Medications Medication Instructions Recorded Cyclosporine [Restasis] 1 applic ASDIR 07/29/19 Lisinopril/Hydrochlorothiazide 1 each PO DAILY 07/29/19 [Lisinopril-Hctz 20-25 mg Tab] Montelukast Na [Singulair -] 10 mg PO HS 07/29/19 Zolpidem Tartrate [Ambien] 1 tab PO HS PRN 07/29/19 Lansoprazole [Prevacid -] 30 mg PO DAILY 10/15/19 Meclizine HCl 25 mg PO DAILY 10/15/19 Sulfamethoxazole/Trimethoprim 1 tab PO BID #20 tablet 03/29/20 [Bactrim Ds -] metroNIDAZOLE [Flagyl -] 500 mg PO TID #30 tablet 03/29/20 REVIEW OF SYSTEMS see HPI PHYSICAL EXAMINATION Vital Signs - 24 hr 06/09/20 04:12 Temperature 97.9 F Pulse Rate 90 Respiratory 17 Rate Blood Pressure 180/88 H O2 Sat by Pulse 98 Oximetry (%) GENERAL: A&Ox3, in no acute distress. HEAD: Normal with no signs of trauma. EYES: PERRL, EOMI. EARS, NOSE, THROAT: Ears normal, moist mucous membranes. NECK: Normal range of motion. LUNGS: CTAB, no wheezes or crackles. Chest wall non-tender to palpation. HEART: RRR, no murmur. ABDOMEN: Soft, not distended, normoactive bowel sounds, mild suprapubic tenderness to palpation. MUSCULOSKELETAL: Normal range of motion at all joints. No bony deformities or tenderness. No CVA tenderness. UPPER EXTREMITIES: Warm, well-perfused. No peripheral edema. LOWER EXTREMITIES: Warm, well-perfused. No peripheral edema. NEUROLOGICAL: Cranial nerves II-XII intact. Normal speech. PSYCHIATRIC: Cooperative. Good eye contact. Appropriate mood and affect. SKIN: Warm, dry, normal turgor. Laboratory Results - last 24 hr 06/09/20 06/09/20 06/09/20 05:00 05:00 05:00 WBC 3.4 L RBC 4.44 Hgb 13.8 Hct 41.0 MCV 92.3 MCH 31.2 MCHC 33.8 RDW 13.0 Plt Count 253 MPV 7.8 Absolute Neuts (auto) 1.5 Neutrophils % 45.0 D Lymphocytes % 44.2 H D Monocytes % 7.2 Eosinophils % 2.6 D Basophils % 1.0 Nucleated RBC % 0 Sodium 138 Potassium 4.5 Chloride 101 Carbon Dioxide 30 Anion Gap 7 L BUN 12.0 Creatinine 0.9 Est GFR (CKD-EPI)AfAm 76.68 Est GFR (CKD-EPI)NonAf 66.16 Random Glucose 113 H Calcium 10.0 Magnesium 1.8 Total Bilirubin 0.4 AST 18 ALT 38 Alkaline Phosphatase 108 Creatine Kinase 98 Cancelled Troponin I < 0.02 Cancelled Total Protein 8.3 H Albumin 4.2 TSH 3.14 ASSESSMENT/PLAN: Pt is a 65 y/o female with HTN, GERD, mild intermittent asthma, vertigo, and diverticulitis who presents with gradual onset chest pressure and palpitations. She was also recently diagnosed with UTI. She is admitted for observation to r/o ACS. #atypical chest pain -r/o ACS vs GERD -HEART score 3, will observe -no EKG changes x2, troponin negative x2 -echo r/o pulmonary HTN -TSH normal -ASCVD 16%- will start atorvastatin 20mg -observe for improvement with nitro -monitor BP, improved to 145 systolic without meds -add carvedilol for HTN and angina -discuss with pt ASA 81mg for primary prevention of CAD #HLD -LDL 133 -start atorvastatin 20mg #GERD -given famotidine #acute cystitis -UA positive for leuk esterase, bacteria, and WBCs -continue home Keflex BID DVT Ppx TEDs, low risk FEN sodium-controlled diet monitor troponins dispo tele obs d/c tomorrow with outpt follow up if no events on tele FULL CODE Family Medical History Family History: As Documented Visit type - Medication Review Med list reviewed for High Risk Meds patients 65 and older: Yes - Emergency Visit Emergency Visit: Yes ED Registration Date: 06/09/20 Care time: The patient presented to the Emergency Department on the above date and was hospitalized for further evaluation of their emergent condition. - New Patient This patient is new to me today: Yes Date on this admission: 06/09/20 - Critical Care Critical Care patient: No ATTENDING PHYSICIAN STATEMENT I saw and evaluated the patient. I reviewed the resident's note and discussed the case with the resident. I agree with the resident's findings and plan as documented. SUBJECTIVE: OBJECTIVE: ASSESSMENT AND PLAN:
--- NOTE | 2020-06-09 09:00 | EKG ---
Test Reason : Blood Pressure : / mmHG Vent. Rate : 073 BPM Atrial Rate : 073 BPM P-R Int : 128 ms QRS Dur : 082 ms QT Int : 388 ms P-R-T Axes : 041 068 068 degrees QTc Int : 427 ms NORMAL SINUS RHYTHM NORMAL ECG WHEN COMPARED WITH ECG OF 27-JUL-2019 11:08, NO SIGNIFICANT CHANGE WAS FOUND Confirmed by MD HARVINDER, VELIA ([id number]) on 06/09/2020 9:00:37 AM Referred By: Confirmed By:VELIA BLANTON MD
[2020-06-09] MEDS ORDERED: CEFTRIAXONE 1 GM in DEXTROSE 5%-WATER - 50 ML IVPB SCH (12:15)
[2020-06-09 12:55] LABS: CHOLESTEROL 229 mg/dL (50-200); HDL CHOLESTEROL 73 mg/dL (40-60); LDL CHOLESTEROL (ONLY SJRH) 144 mg/dL (5-100); TRIGLYCERIDES 115 mg/dL (0-150)
[2020-06-09] MEDS: CARVEDILOL 3.125 MG TABLET (FP) PO SCH ×2 (14:17→22:10)
--- NOTE | 2020-06-09 14:43 | EKG ---
Test Reason : Blood Pressure : / mmHG Vent. Rate : 071 BPM Atrial Rate : 071 BPM P-R Int : 154 ms QRS Dur : 076 ms QT Int : 392 ms P-R-T Axes : 019 043 046 degrees QTc Int : 425 ms POOR DATA QUALITY, INTERPRETATION MAY BE ADVERSELY AFFECTED NORMAL SINUS RHYTHM NORMAL ECG WHEN COMPARED WITH ECG OF 09-JUN-2020 04:20, NO SIGNIFICANT CHANGE WAS FOUND Confirmed by MD HARVINDER, VELIA ([id number]) on 06/09/2020 2:43:05 PM Referred By: Confirmed By:VELIA BLATNON MD
[2020-06-09] MEDS ORDERED: ZOLPIDEM TARTRATE PO PRN (15:16)
[2020-06-09] MEDS: CEPHALEXIN MONOHYDRATE 500 MG CAPSULE (UD) PO SCH ×2 (15:40→22:37)
--- NOTE | 2020-06-09 15:47 | ECHO ---
Version: 1 Name: DARELL LOZA Exam: Adult Echocardiogram Study Date: 06/09/2020, 12:18 PM Age: 65 Years MMode/2D Measurements & Calculations IVSd: 0.80 cm LVIDs: 1.58 cm LVIDd: 2.6 cm LVPWd: 0.78 cm ACS: 1.36 cm Ao root diam: 2.6 cm LVOT diam: 1.98 cm LA dimension: 2.11 cm Doppler Measurements & Calculations MV E max bradley: 52.8 cm/sec Med E/e': 10.1 MV A max bradley: 86.4 cm/sec Med Peak E' Bradley: 5.2 cm/sec MV E/A: 0.61 Lat E/e': 4.6 Lat Peak E' Bradley: 11.6 cm/sec Ao max P.8 mmHg MARY(I,D): 3.4 cm Ao mean P.06 mmHg LV V1 mean: 58.6 cm/sec Ao V2 max: 97.7 cm/sec LV V1 mean P.51 mmHg PI end-d bradley: 92.3 cm/sec TR max bradley: 210.4 cm/sec TR max P.7 mmHg Procedure A two-dimensional transthoracic echocardiogram with color flow and Doppler was performed. The patien t was in normal sinus rhythm during the exam. Left Ventricle The left ventricle is normal in size. Left ventricular systolic function is normal. Ejection Fractio n = 65- 70%. E/A reversal consistent with but not diagnostic of poor LV compliance. Right Ventricle The right ventricle is normal size. The right ventricular systolic function is normal. Atria Normal left and right atrial size and function. Mitral Valve The mitral valve leaflets appear normal. There is no evidence of stenosis, fluttering, or prolapse. There is mild mitral annular calcification. There is mild mitral regurgitation. Tricuspid Valve The tricuspid valve is normal. There is trace tricuspid regurgitation. There was insufficient TR det ected to calculate RV systolic pressure. Aortic Valve The aortic valve is normal in structure and function. No aortic regurgitation is present. Pulmonic Valve The pulmonic valve is not well visualized. The pulmonic valve is not well seen, but is grossly heather l. Trace pulmonic valvular regurgitation. Great Vessels The aortic root is normal size. Pericardium/Pleura There is no pericardial effusion. Tech Comments Suboptimal PLAX/SAX views due to orientation of patient's heart. Summary Statements Left ventricular systolic function is normal. E/A reversal consistent with but not diagnostic of poor LV compliance The right ventricular systolic function is normal. There is mild mitral annular calcification. There is mild mitral regurgitation. There is trace tricuspid regurgitation. There was insufficient TR detected to calculate RV systolic pressure. Trace pulmonic valvular regurgitation. There is no pericardial effusion. MD Sunil Alston 06/09/2020, 3:46 PM Ordering Physician: Eveline Maradiaga Referring Physician: EVELINE MARADIAGA Performed By: Karo Donahue
[2020-06-09 16:41] VITALS: BMI 29.2
[2020-06-09 16:54] LABS: EPI CELLS 20 /uL (0-25.1); HYALINE CASTS 5 /uL (0-3.1); PH,URINE 5.5 (5.0-8.0); URINE APPEARANCE CLEAR; URINE BACTERIA 26 /uL (0-1359); URINE BILIRUBIN NEGATIVE (NEGATIVE); URINE COLOR YELLOW; URINE GLUCOSE (UA) NEGATIVE (NEGATIVE); URINE KETONE NEGATIVE (NEGATIVE); URINE LEUK ESTERASE 1+ (NEGATIVE); URINE NITRITE NEGATIVE (NEGATIVE); URINE PROTEIN NEGATIVE (NEGATIVE); URINE RBC 8 /uL (0-23.9); URINE UROBILINOGEN 0.2 mg/dL (0.2-1.0); URINE WBC 44 /uL (0-25.8)
--- NOTE | 2020-06-09 20:48 | PN ---
Teaching Attending Note Name of Resident: Eveline Maradiaga ATTENDING PHYSICIAN STATEMENT I saw and evaluated the patient. I reviewed the resident's note and discussed the case with the resident. I agree with the resident's findings and plan as documented. SUBJECTIVE: Patient seen and examined at bedside, endorses squeezing sensation in chest and SOB this morning, currently denies CP, found to be hypertensive on admission. Low suspicion for ACS. VSS. OBJECTIVE: GA tired appearing, AAox3 HEENT Nc/AT, no JVD, neck supple, dry MM Chest CTAb, no crackles CVS s1, S2+, RRR Abd obese, Soft, NT, BS+ Ext no LE edema, no calf tenderness Vital Signs - 24 hr 06/09/20 06/09/20 06/09/20 04:12 07:35 13:14 Temperature 97.9 F 98.3 F Pulse Rate 90 90 Pulse Rate [ 108 H Radial] Respiratory 17 13 18 Rate Blood Pressure 180/88 H 124/77 Blood Pressure 105/73 [Right Arm] O2 Sat by Pulse 98 99 99 Oximetry (%) 06/09/20 06/09/20 06/09/20 15:10 16:50 19:00 Temperature Pulse Rate 63 Pulse Rate [ 104 H Radial] Respiratory 18 18 15 Rate Blood Pressure 105/63 Blood Pressure 136/75 [Right Arm] O2 Sat by Pulse 98 98 100 Oximetry (%) 06/09/20 19:44 Temperature Pulse Rate 70 Pulse Rate [ Radial] Respiratory 18 Rate Blood Pressure 105/63 Blood Pressure [Right Arm] O2 Sat by Pulse 100 Oximetry (%) Laboratory Results - last 24 hr 06/09/20 06/09/20 06/09/20 05:00 05:00 05:00 WBC 3.4 L RBC 4.44 Hgb 13.8 Hct 41.0 MCV 92.3 MCH 31.2 MCHC 33.8 RDW 13.0 Plt Count 253 MPV 7.8 Absolute Neuts (auto) 1.5 Neutrophils % 45.0 D Lymphocytes % 44.2 H D Monocytes % 7.2 Eosinophils % 2.6 D Basophils % 1.0 Nucleated RBC % 0 Sodium 138 Potassium 4.5 Chloride 101 Carbon Dioxide 30 Anion Gap 7 L BUN 12.0 Creatinine 0.9 Est GFR (CKD-EPI)AfAm 76.68 Est GFR (CKD-EPI)NonAf 66.16 Random Glucose 113 H Hemoglobin A1c % Calcium 10.0 Magnesium 1.8 Total Bilirubin 0.4 AST 18 ALT 38 Alkaline Phosphatase 108 Creatine Kinase 98 Cancelled Troponin I < 0.02 Cancelled Total Protein 8.3 H Albumin 4.2 Triglycerides 115 Cholesterol 229 H Total LDL Cholesterol 144 H HDL Cholesterol 73 H TSH 3.14 Urine Color Urine Appearance Urine pH Ur Specific [place] Urine Protein Urine Glucose (UA) Urine Ketones Urine Blood Urine Nitrite Urine Bilirubin Urine Urobilinogen Ur Leukocyte Esterase Urine WBC (Auto) Urine RBC (Auto) Urine Casts (Auto) U Pathogenic Cast Auto U Epithel Cells (Auto) Urine Bacteria (Auto) 06/09/20 06/09/20 06/09/20 10:23 11:11 16:15 WBC RBC Hgb Hct MCV MCH MCHC RDW Plt Count MPV Absolute Neuts (auto) Neutrophils % Lymphocytes % Monocytes % Eosinophils % Basophils % Nucleated RBC % Sodium Potassium Chloride Carbon Dioxide Anion Gap BUN Creatinine Est GFR (CKD-EPI)AfAm Est GFR (CKD-EPI)NonAf Random Glucose Hemoglobin A1c % 5.7 Calcium Magnesium Total Bilirubin AST ALT Alkaline Phosphatase Creatine Kinase Troponin I < 0.02 Total Protein Albumin Triglycerides Cholesterol Total LDL Cholesterol HDL Cholesterol TSH Urine Color Yellow Urine Appearance Clear Urine pH 5.5 Ur Specific [place] 1.013 Urine Protein Negative Urine Glucose (UA) Negative Urine Ketones Negative Urine Blood Negative Urine Nitrite Negative Urine Bilirubin Negative Urine Urobilinogen 0.2 Ur Leukocyte Esterase 1+ H Urine WBC (Auto) 44 Urine RBC (Auto) 8 Urine Casts (Auto) 5 U Pathogenic Cast Auto None seen U Epithel Cells (Auto) 20 Urine Bacteria (Auto) 26 Home Medications Medication Instructions Recorded Lisinopril/Hydrochlorothiazide 1 each PO DAILY 07/29/19 [Lisinopril-Hctz 20-25 mg Tab] Zolpidem Tartrate [Ambien] 1 tab PO HS PRN 07/29/19 Meclizine HCl 25 mg PO DAILY 10/15/19 Cephalexin [Keflex] 500 mg PO Q12H 06/09/20 Current Medications Generic Name Dose Route Start Last Admin Trade Name Freq PRN Reason Stop Dose Admin Atorvastatin Calcium 20 mg 06/09/20 22:00 Lipitor - PO HS [facility] Carvedilol 6.25 mg 06/09/20 11:30 06/09/20 14:17 Coreg - PO Not Given BID JUAN Cephalexin HCl 500 mg 06/09/20 15:16 06/09/20 15:40 Keflex - PO 500 mg BID JUAN Administration Zolpidem Tartrate 5 mg 06/09/20 16:01 Ambien - PO HS PRN INSOMNIA ASSESSMENT AND PLAN: 65 F R/O ACS HTN HLD OBESITY Insomnia Plan: Trend trops, start BB, add statin in view of high ASCVD risk Control BP w/ SUNITA/BB, add Norvasc if needed Obtain Echo to assess for RWA Overnight telemetry to r/o arrythmias DVT ppx: Lovenox SC
[2020-06-09] MEDS: ZOLPIDEM TARTRATE 5 MG TABLET PO PRN (22:10)
[2020-06-09] MEDS: ATORVASTATIN CA 20 MG TABLET (FP) PO SCH (22:10)
[2020-06-10] MEDS: CARVEDILOL 3.125 MG TABLET (FP) PO SCH (09:00)
[2020-06-10] MEDS: CEPHALEXIN MONOHYDRATE 500 MG CAPSULE (UD) PO SCH ×2 (09:01→21:48)
--- NOTE | 2020-06-10 09:47 | PN ---
Physical Exam: SUBJECTIVE: Patient seen and examined at bedside in ICU. Pt denies further chest pain, palpitations, blurry vision, c/o a "slight" headache. OBJECTIVE: Pt is a 65 y/o female with HTN, GERD, mild intermittent asthma, vertigo, and diverticulitis who presents with gradual onset chest pressure and palpitations. She reported a squeezing substernal sensation that was intermittent and not radiating. She was experiencing brief periods of palpitations, only a few beats at a time. Neither was associated with activity. She has not felt this before. Patient report systolic BP 170 at home. She is compliant with her medications and states was just started on BP medications 2 weeks prior. She also noted 2 weeks of malodorous urine for which she was just diagnosed with UTI and given abx by her PCP. UA showed positive leukocytes on admission. Vital Signs Period Temp Pulse Resp BP Sys/Shane Pulse Ox Last 24 Hr 98.3 F-98.6 F 57-108 13-18 81-136/54-75 95-100 GENERAL: The patient is awake, alert, and fully oriented, in no acute distress. HEAD: Normal with no signs of trauma. EYES: PERRL, extraocular movements intact, sclera anicteric, conjunctiva clear. No ptosis. ENT: Ears normal, nares patent, oropharynx clear without exudates, moist mucous membranes. NECK: Trachea midline, full range of motion, supple. LUNGS: Breath sounds equal, clear to auscultation bilaterally, no wheezes, no crackles, no accessory muscle use. HEART: Bradycardic, regular rhythm, S1, S2 without murmur, rub or gallop. ABDOMEN: Soft, nontender, nondistended, normoactive bowel sounds, no guarding, no rebound, no hepatosplenomegaly, no masses. EXTREMITIES: 2+ pulses, warm, well-perfused, no edema. NEUROLOGICAL: Normal speech, gait not observed. PSYCH: Normal mood, normal affect. SKIN: Warm, dry, normal turgor, no rashes or lesions noted Laboratory Results - last 24 hr 06/09/20 06/09/20 06/09/20 05:00 10:23 11:11 Sodium 138 Potassium 4.5 Chloride 101 Carbon Dioxide 30 Anion Gap 7 L BUN 12.0 Creatinine 0.9 Est GFR (CKD-EPI)AfAm 76.68 Est GFR (CKD-EPI)NonAf 66.16 Random Glucose 113 H Hemoglobin A1c % 5.7 Calcium 10.0 Magnesium 1.8 Total Bilirubin 0.4 AST 18 ALT 38 Alkaline Phosphatase 108 Creatine Kinase 98 Troponin I < 0.02 < 0.02 Total Protein 8.3 H Albumin 4.2 Triglycerides 115 Cholesterol 229 H Total LDL Cholesterol 144 H HDL Cholesterol 73 H TSH 3.14 Urine Color Urine Appearance Urine pH Ur Specific [place] Urine Protein Urine Glucose (UA) Urine Ketones Urine Blood Urine Nitrite Urine Bilirubin Urine Urobilinogen Ur Leukocyte Esterase Urine WBC (Auto) Urine RBC (Auto) Urine Casts (Auto) U Pathogenic Cast Auto U Epithel Cells (Auto) Urine Bacteria (Auto) 06/09/20 06/10/20 16:15 06:18 Sodium Potassium Chloride Carbon Dioxide Anion Gap BUN Creatinine Est GFR (CKD-EPI)AfAm Est GFR (CKD-EPI)NonAf Random Glucose Hemoglobin A1c % Calcium Magnesium 2.0 Total Bilirubin AST ALT Alkaline Phosphatase Creatine Kinase Troponin I Total Protein Albumin Triglycerides Cholesterol Total LDL Cholesterol HDL Cholesterol TSH Urine Color Yellow Urine Appearance Clear Urine pH 5.5 Ur Specific [place] 1.013 Urine Protein Negative Urine Glucose (UA) Negative Urine Ketones Negative Urine Blood Negative Urine Nitrite Negative Urine Bilirubin Negative Urine Urobilinogen 0.2 Ur Leukocyte Esterase 1+ H Urine WBC (Auto) 44 Urine RBC (Auto) 8 Urine Casts (Auto) 5 U Pathogenic Cast Auto None seen U Epithel Cells (Auto) 20 Urine Bacteria (Auto) 26 Active Medications Generic Name Dose Route Start Last Admin Trade Name Freq PRN Reason Stop Dose Admin Atorvastatin Calcium 20 mg 06/09/20 22:00 06/09/20 22:10 Lipitor - PO 20 mg HS JUAN Administration Carvedilol 3.125 mg 06/10/20 10:00 Coreg - PO BID JUAN Cephalexin HCl 500 mg 06/09/20 15:16 06/10/20 09:01 Keflex - PO 500 mg BID JUAN Administration Zolpidem Tartrate 5 mg 06/09/20 16:01 06/09/20 22:10 Ambien - PO 5 mg HS PRN Administration INSOMNIA ASSESSMENT/PLAN: see problem list Covid Status = pending Problem List - Problems (1) Hypertension Assessment/Plan: pt was started on carvedilol 6.25mg PO BID pt now having bradycardia (HR 57bpm) and hypotension will lower carvedilol to 3.125mg BID with parameters Code(s): I10 - ESSENTIAL (PRIMARY) HYPERTENSION Qualifiers: Hypertension type: unspecified Qualified Code(s): I10 - Essential (primary) hypertension (2) Chest pain Assessment/Plan: now resolved troponins negative x2 EKG (x2) - normal sinus rhythm ECHO done on 06/09/20 - normal Code(s): R07.9 - CHEST PAIN, UNSPECIFIED Qualifiers: Chest pain type: unspecified Qualified Code(s): R07.9 - Chest pain, unspecified (3) Hyperlipemia Assessment/Plan: continue Lipitor 20mg PO HS Code(s): E78.5 - HYPERLIPIDEMIA, UNSPECIFIED (4) Vertigo Assessment/Plan: on meclizine at home Code(s): R42 - DIZZINESS AND GIDDINESS (5) Palpitation Code(s): R00.2 - PALPITATIONS (6) Headache Assessment/Plan: give tylenol 650mg PO q6h PRN Code(s): R51 - HEADACHE Qualifiers: Headache type: tension-type Headache chronicity pattern: acute headache Intractability: intractable Qualified Code(s): G44.201 - Tension-type headache, unspecified, intractable (7) UTI (urinary tract infection) Assessment/Plan: continue keflex 500mg PO BID for total of 5 days Code(s): N39.0 - URINARY TRACT INFECTION, SITE NOT SPECIFIED (8) GERD (gastroesophageal reflux disease) Code(s): K21.9 - GASTRO-ESOPHAGEAL REFLUX DISEASE WITHOUT ESOPHAGITIS (9) Asthma Code(s): J45.909 - UNSPECIFIED ASTHMA, UNCOMPLICATED (10) DVT prophylaxis Assessment/Plan: encourage ambulation FEN sodium controlled diet Dispo: Possible DC today with cardiology follow-up, pt has BP monitor at home Code(s): Z29.9 - ENCOUNTER FOR PROPHYLACTIC MEASURES, UNSPECIFIED Visit type - Emergency Visit Emergency Visit: Yes ED Registration Date: 06/09/20 Care time: The patient presented to the Emergency Department on the above date and was hospitalized for further evaluation of their emergent condition. - New Patient This patient is new to me today: Yes Date on this admission: 06/10/20 - Critical Care Critical Care patient: No - Discharge Referral Referred to [facility] No - Medication Review Med list reviewed for High Risk Meds patients 65 and older: Yes
[2020-06-10] MEDS ORDERED: CARVEDILOL 3.125 MG TABLET (FP) PO SCH ×2 (10:00→13:00)
--- NOTE | 2020-06-10 13:42 | DS ---
Physical Exam: SUBJECTIVE: Patient seen and examined at bedside in tele ICU. Pt denies further chest pain, palpitations, blurry vision or headaches. OBJECTIVE: Pt is a 65 y/o female with HTN, GERD, mild intermittent asthma, vertigo, and diverticulitis who presents with gradual onset chest pressure and palpitations. She reported a squeezing substernal sensation that was intermittent and not radiating. She was experiencing brief periods of palpitations, only a few beats at a time. Neither was associated with activity. She has not felt this before. Patient report systolic BP 170 at home. She is compliant with her medications and states was just started on BP medications 2 weeks prior. She also noted 2 weeks of malodorous urine for which she was just diagnosed with UTI and given abx by her PCP. UA showed positive leukocytes on admission. Vital Signs Period Temp Pulse Resp BP Sys/Shane Pulse Ox Last 24 Hr 98.3 F-98.6 F 57-104 13-18 81-136/54-85 95-100 PHYSICAL EXAM GENERAL: The patient is awake, alert, and fully oriented, in no acute distress. HEAD: Normal with no signs of trauma. EYES: PERRL, extraocular movements intact, sclera anicteric, conjunctiva clear. No ptosis. ENT: Ears normal, nares patent, oropharynx clear without exudates, moist mucous membranes. NECK: Trachea midline, full range of motion, supple. LUNGS: Breath sounds equal, clear to auscultation bilaterally, no wheezes, no crackles, no accessory muscle use. HEART: Bradycardic, regular rhythm, S1, S2 without murmur, rub or gallop. ABDOMEN: Soft, nontender, nondistended, normoactive bowel sounds, no guarding, no rebound, no hepatosplenomegaly, no masses. EXTREMITIES: 2+ pulses, warm, well-perfused, no edema. NEUROLOGICAL: Normal speech, gait not observed. PSYCH: Normal mood, normal affect. SKIN: Warm, dry, normal turgor, no rashes or lesions noted LABS Laboratory Results - last 24 hr 06/09/20 06/09/20 06/10/20 11:11 16:15 06:18 Hemoglobin A1c % 5.7 Magnesium 2.0 Urine Color Yellow Urine Appearance Clear Urine pH 5.5 Ur Specific [place] 1.013 Urine Protein Negative Urine Glucose (UA) Negative Urine Ketones Negative Urine Blood Negative Urine Nitrite Negative Urine Bilirubin Negative Urine Urobilinogen 0.2 Ur Leukocyte Esterase 1+ H Urine WBC (Auto) 44 Urine RBC (Auto) 8 Urine Casts (Auto) 5 U Pathogenic Cast Auto None seen U Epithel Cells (Auto) 20 Urine Bacteria (Auto) 26 HOSPITAL COURSE: Date of Admission:06/09/20 This is a 65 yr old female with a hx of HTN, Gerd, Asthma, Vertigo, and divertic ulitis who came to the ED on 06/09/20 c/o chest pressure and palpitations. Pt was admitted for observation with cardiac monitoring. Troponins were drawn and were negative x2, EKG was done 2x which showed normal sinus rhythm. Patient also had an echo which was normal and no events were noted on telemonitor. Patient was started on carvedilol 6.25mg PO bid and was changed to toprol XL 12.5mg PO daily d/t bradycardia and hypotension. Patient was also found to have hyperlipidemia and was started on lipitor. Hypertension has now improved and patient is cleared for DC with a cardiology referral. Date of Discharge: 06/10/20 Minutes to complete discharge: 45 Discharge Summary Problems reviewed: Yes Reason For Visit: PALPITATIONS,CHEST PAIN,HYPERTENSION Current Active Problems Asthma (Acute) Chest pain (Acute) DVT prophylaxis (Acute) GERD (gastroesophageal reflux disease) (Acute) Hyperlipemia (Acute) Hypertension (Acute) Palpitation (Acute) Vertigo (Acute) Condition: Improved - Instructions Diet, Activity, Other Instructions: Ms. Davison, You came to the emergency room because you were experiencing chest pressure and palpitations. You were found to have high blood pressure and high cholesterol and was started on blood pressure medicine and medication for your high cholesterol. Your EKG and echocardiogram were normal and your cardiac enzymes were normal. Your chest pain and palpitations have now resolved and we are sending you home. It is important to follow up with a turn down attendant so your blood pressure can be better managed, we have made a referral for you (please call for an appointment) and also see your primary care doctor in 1 week. We have made the following changed to your medications: STOP taking lisinopril-hydrochlorothiazide 20-25 START taking Toprol XL 12.5 mg by mouth once daily START Lipitor 20mg PO HS Please check your blood pressure and heart rate before taking your blood pressure medicine. Do not take toprol XL if your systolic blood pressure (the top number) is less than 100 or if your diastolic blood pressure (the bottom number is less than 60) or if your heart rate is less than 60. Please return to the ER is you experience: chest pain, palpitations, dizziness, shortness of breath, difficulty breathing, fever, or any other concerning symptoms. Thank you for letting us participate in your care. Referrals: Farhat Gentile MD [Staff Physician] - 1 Week Fermin Szymanski II, DO [Primary Care Provider] - 1 Week Disposition: HOME - Home Medications Comprehensive Discharge Medication List: Ambulatory Orders Lisinopril/Hydrochlorothiazide [Lisinopril-Hctz 20-25 mg Tab] 1 each PO DAILY 07/29/19 Zolpidem Tartrate [Ambien] 1 tab PO HS PRN 07/29/19 Meclizine HCl 25 mg PO DAILY 10/15/19 Cephalexin [Keflex] 500 mg PO Q12H 06/09/20 Problem List - Problems (1) Hypertension Code(s): I10 - ESSENTIAL (PRIMARY) HYPERTENSION Qualifiers: Hypertension type: unspecified Qualified Code(s): I10 - Essential (primary) hypertension (2) Chest pain Code(s): R07.9 - CHEST PAIN, UNSPECIFIED Qualifiers: Chest pain type: unspecified Qualified Code(s): R07.9 - Chest pain, unspecified (3) Hyperlipemia Code(s): E78.5 - HYPERLIPIDEMIA, UNSPECIFIED (4) Vertigo Code(s): R42 - DIZZINESS AND GIDDINESS (5) Palpitation Code(s): R00.2 - PALPITATIONS (6) Headache Code(s): R51 - HEADACHE Qualifiers: Headache type: tension-type Headache chronicity pattern: acute headache Intractability: intractable Qualified Code(s): G44.201 - Tension-type headache, unspecified, intractable (7) UTI (urinary tract infection) Code(s): N39.0 - URINARY TRACT INFECTION, SITE NOT SPECIFIED (8) GERD (gastroesophageal reflux disease) Code(s): K21.9 - GASTRO-ESOPHAGEAL REFLUX DISEASE WITHOUT ESOPHAGITIS (9) Asthma Code(s): J45.909 - UNSPECIFIED ASTHMA, UNCOMPLICATED (10) DVT prophylaxis Code(s): Z29.9 - ENCOUNTER FOR PROPHYLACTIC MEASURES, UNSPECIFIED This patient is new to me today: No Emergency Visit: Yes ED Registration Date: 06/09/20 Care time: The patient presented to the Emergency Department on the above date and was hospitalized for further evaluation of their emergent condition. Critical Care patient: No - Discharge Referral Referred to [facility] No
[2020-06-10] MEDS: ACETAMINOPHEN 325 MG TABLET (FP) PO PRN ×2 (18:03→23:19)
[2020-06-10 20:41] VITALS: TEMP 98.1
[2020-06-10] MEDS ORDERED: PT OWN MED DRAWER 7, Y5N ONE (21:35)
[2020-06-10] MEDS: ATORVASTATIN CA 20 MG TABLET (FP) PO SCH (21:48)
[2020-06-10] MEDS: ZOLPIDEM TARTRATE 5 MG TABLET PO PRN (23:18)
[2020-06-11 07:38] LABS: BASO % 0.7 % (0-2.0); EOS % 1.8 % (0-4.5); HEMOGLOBIN 14.1 GM/dL (10.7-15.3); LYMPH % 56.7 % (8-40); MCHC 33.6 g/dl (32.0-36.0); MEAN CELL VOLUME 92.4 fl (80-96); MEAN PLT VOLUME 7.6 fl (7.5-11.1); MONO % 7.2 % (3.8-10.2); NEUT % 33.6 % (42.8-82.8); PLATELET COUNT 245 K/MM3 (134-434); RBC 4.55 M/mm3 (3.60-5.2); RDW 12.7 % (11.6-15.6); WHITE BLOOD COUNT 3.9 K/mm3 (4.0-10.0)
[2020-06-11 08:12] LABS: POTASSIUM 4.9 mmol/L (3.5-5.1)
[2020-06-11 08:38] LABS: BILIRUBIN,TOTAL 0.8 mg/dL (0.2-1); BLOOD UREA NITROGEN 21.8 mg/dL (7-18); CALCIUM 9.9 mg/dL (8.5-10.1); CREATININE 0.9 mg/dL (0.55-1.3); MAGNESIUM 2.3 mg/dL (1.8-2.4); TOT PROT 7.8 g/dl (6.4-8.2)
[2020-06-11] MEDS ORDERED: PT OWN MED DRAWER 7, Y5N ONE (09:19)
[2020-06-11] MEDS: CEPHALEXIN MONOHYDRATE 500 MG CAPSULE (UD) PO SCH (09:22)
[2020-06-11] MEDS ORDERED: metoPROLOL SUCCINATE 25 MG TAB.SR.24H (FP) PO SCH (10:00)
[2020-06-11 11:42] VITALS: BP 119/77; PULSE 78
== END 2020-06-11 12:09 | disposition home or self-care (01) ==
LOC: JER 03:50 → JERBED 07:35 → JICU 15:58
PROVIDERS: ATTEND Nurse Practitioner Family
DX: R07.9 Chest pain, unspecified (principal); I10 Essential (primary) hypertension; R00.2 Palpitations; N39.0 Urinary tract infection, site not specified; K21.9 Gastro-esophageal reflux disease without esophagitis; J45.20 Mild intermittent asthma, uncomplicated; K57.92 Diverticulitis of intestine, part unspecified, without perforation or abscess without bleeding; K76.9 Liver disease, unspecified; G44.201 Tension-type headache, unspecified, intractable; E78.5 Hyperlipidemia, unspecified; R42 Dizziness and giddiness; Z29.9 Encounter for prophylactic measures, unspecified
CPT/HCPCS: 36415; 71045-TC-FY; 80053; 80061; 81003; 82550; 83036; 83721; 83735; 84443; 84484; 85025; 93005; 93010; 93306-TC; 99285-25; G0378; U0003

== ENCOUNTER 2020-12-17 10:59 | Emergency (ER) | payer MEDICARE, OTHER ==
[2020-12-17 11:04] VITALS: TEMP 98.2; BMI 29.2
[2020-12-17] MEDS ORDERED: LACTATED RINGERS SOLUTION 1000 ML INFUS.BAG IV ONE (11:49)
[2020-12-17] MEDS ORDERED: ONDANSETRON 4 MG/2 ML VIAL IVPUSH ONE (11:49)
[2020-12-17] MEDS ORDERED: ACETAMINOPHEN 1000 MG/100 ML VIAL (NON FORMULARY) IVPB ONE (11:49)
[2020-12-17] MEDS ORDERED: ONDANSETRON 4 MG/2 ML VIAL ONE (12:12)
[2020-12-17] MEDS ORDERED: ACETAMINOPHEN INJECTION 100 ML IVPB ONE (12:12)
[2020-12-17 13:06] LABS: BASO % 0.5 % (0-2.0); EOS % 1.1 % (0-4.5); HEMATOCRIT 39.1 % (32.4-45.2); HEMOGLOBIN 13.2 GM/dL (10.7-15.3); LYMPH % 18.2 % (8-40); MCH 31.8 pg (25.7-33.7); MCHC 33.7 g/dl (32.0-36.0); MEAN CELL VOLUME 94.6 fl (80-96); MEAN PLT VOLUME 7.9 fl (7.5-11.1); MONO % 8.4 % (3.8-10.2); NEUT % 71.8 % (42.8-82.8); PLATELET COUNT 199 K/MM3 (134-434); RBC 4.13 M/mm3 (3.60-5.2); WHITE BLOOD COUNT 3.8 K/mm3 (4.0-10.0)
[2020-12-17 13:23] LABS: POTASSIUM 4.5 mmol/L (3.5-5.1)
[2020-12-17 13:29] LABS: CREATININE 0.8 mg/dL (0.55-1.3)
[2020-12-17 13:30] LABS: BILIRUBIN,TOTAL 0.8 mg/dL (0.2-1)
[2020-12-17 13:31] LABS: TOT PROT 7.8 g/dl (6.4-8.2)
[2020-12-17 13:36] LABS: URINE APPEARANCE Clear; URINE BILIRUBIN Negative (NEGATIVE); URINE COLOR Yellow; URINE GLUCOSE (UA) Negative (NEGATIVE); URINE KETONE Negative (NEGATIVE); URINE LEUK ESTERASE 1+ (NEGATIVE); URINE NITRITE Negative (NEGATIVE); URINE PROTEIN Negative (NEGATIVE); URINE UROBILINOGEN 0.2 mg/dL (0.2-1.0)
[2020-12-17 17:15] VITALS: BP 120/59; PULSE 97
== END 2020-12-17 17:00 | disposition home or self-care (01) ==
LOC: JER 10:59
PROC: 3E0333Z Introduction of Anti-inflammatory into Peripheral Vein, Percutaneous Approach (ICD-10-PCS; principal; 2020-12-17)
PROC: 3E033GC Introduction of Other Therapeutic Substance into Peripheral Vein, Percutaneous Approach (ICD-10-PCS; 2020-12-17)
DX: R10.32 Left lower quadrant pain (principal)
CPT/HCPCS: 36415; 74177-TC; 80053; 81003; 83605; 85025; 87086; 93005; 93010; 96374; 96375; 99285-25; J0131; Q9967

== ENCOUNTER 2021-04-15 04:40 | Day surgery (SDC) | payer MEDICARE, OTHER ==
[2021-04-14 15:46] VITALS: BMI 29.6
[2021-04-15] MEDS ORDERED: BUPIVACAINE HCL/PF 0.75% 10 ML VIAL ONE (07:25)
[2021-04-15] MEDS ORDERED: LIDOCAINE HCL/PF 1% SDV 5ML VIAL ONE (07:25)
[2021-04-15 14:40] VITALS: BP 132/60; PULSE 68; TEMP 97
== END 2021-04-15 12:20 | disposition home or self-care (01) ==
LOC: JASU-SURG 04:40
PROVIDERS: ATTEND Pain Medicine Pain Medicine
PROC: BR16YZZ Fluoroscopy of Lumbar Facet Joint(s) using Other Contrast (ICD-10-PCS; 2021-04-15)
PROC: 3E0T3BZ Introduction of Anesthetic Agent into Peripheral Nerves and Plexi, Percutaneous Approach (ICD-10-PCS; principal; 2021-04-15 11:45)
DX: M47.816 Spondylosis without myelopathy or radiculopathy, lumbar region (principal)
CPT/HCPCS: 76000-TC-FY

== ENCOUNTER 2022-01-21 18:51 | Observation (INO) | payer MEDICARE, OTHER ==
[2022-01-21] MEDS ORDERED: IBUPROFEN 400 MG TABLET (FP) PO ONE ×2 (19:44→19:57)
[2022-01-21 21:57] LABS: BASO % 0.8 % (0-2.0); EOS % 2.9 % (0-4.5); HEMATOCRIT 38.9 % (32.4-45.2); HEMOGLOBIN 12.9 GM/dL (10.7-15.3); MCHC 33.1 g/dl (32.0-36.0); MEAN CELL VOLUME 93.7 fl (80-96); MONO % 5.9 % (3.8-10.2); NEUT % 45.4 % (42.8-82.8); PLATELET COUNT 242 10^3/uL (134-434); RBC 4.15 M/mm3 (3.60-5.2); RDW 12.7 % (11.6-15.6); WHITE BLOOD COUNT 5.3 K/mm3 (4.0-10.0)
[2022-01-21 22:18] LABS: CALCIUM 9.9 mg/dL (8.5-10.1)
[2022-01-21 22:19] LABS: ALBUMIN 4.2 g/dl (3.4-5.0); BLOOD UREA NITROGEN 18.2 mg/dL (7-18)
[2022-01-21 22:22] LABS: CREATININE 0.9 mg/dL (0.55-1.3)
[2022-01-21 22:24] LABS: BILIRUBIN,TOTAL 0.3 mg/dL (0.2-1); TOT PROT 7.5 g/dl (6.4-8.2)
[2022-01-21] MEDS ORDERED: ASPIRIN 81 MG CHEWABLE TABLETS PO ONE (22:50)
[2022-01-21] MEDS ORDERED: ASPIRIN 81 MG CHEWABLE TABLETS ONE (23:27)
[2022-01-22] MEDS ORDERED: SODIUM CHLORIDE 1,000 ML IV SCH (00:30)
[2022-01-22] MEDS ORDERED: ZOLPIDEM TARTRATE 5 MG TABLET PO PRN (00:36)
[2022-01-22 02:15] VITALS: BMI 30.3
[2022-01-22 06:46] LABS: EPI CELLS 3 /uL (0-25.1); HYALINE CASTS 0 /uL (0-3.1); PH,URINE 7.5 (5.0-8.0); URINE APPEARANCE CLEAR; URINE BACTERIA 2 /uL (0-1359); URINE BILIRUBIN NEGATIVE (NEGATIVE); URINE COLOR YELLOW; URINE GLUCOSE (UA) NEGATIVE (NEGATIVE); URINE KETONE NEGATIVE (NEGATIVE); URINE LEUK ESTERASE TRACE (NEGATIVE); URINE NITRITE NEGATIVE (NEGATIVE); URINE PROTEIN NEGATIVE (NEGATIVE); URINE RBC 2 /uL (0-23.9); URINE UROBILINOGEN 0.2 mg/dL (0.2-1.0); URINE WBC 13 /uL (0-25.8)
[2022-01-22 07:00] LABS: BASO % 0.8 % (0-2.0); EOS % 2.4 % (0-4.5); HEMATOCRIT 34.5 % (32.4-45.2); HEMOGLOBIN 11.8 GM/dL (10.7-15.3); LYMPH % 48.3 % (8-40); MCH 31.8 pg (25.7-33.7); MCHC 34.3 g/dl (32.0-36.0); MEAN CELL VOLUME 92.9 fl (80-96); MEAN PLT VOLUME 7.7 fl (7.5-11.1); MONO % 7.8 % (3.8-10.2); NEUT % 40.7 % (42.8-82.8); PLATELET COUNT 210 10^3/uL (134-434); RBC 3.71 M/mm3 (3.60-5.2); RDW 12.8 % (11.6-15.6); WHITE BLOOD COUNT 3.6 K/mm3 (4.0-10.0)
[2022-01-22 07:24] LABS: ALBUMIN 3.5 g/dl (3.4-5.0); BLOOD UREA NITROGEN 17.4 mg/dL (7-18); CALCIUM 9.2 mg/dL (8.5-10.1); MAGNESIUM 1.9 mg/dL (1.8-2.4)
[2022-01-22 07:27] LABS: CREATININE 0.8 mg/dL (0.55-1.3); PHOSPHOROUS 3.4 mg/dL (2.5-4.9)
[2022-01-22 07:29] LABS: BILIRUBIN,TOTAL 0.4 mg/dL (0.2-1); TOT PROT 6.6 g/dl (6.4-8.2)
[2022-01-22] MEDS ORDERED: METHYL SALICYLATE/MENTHOL OINT 30 GM TUBE TP SCH (10:00)
[2022-01-22] MEDS ORDERED: CYCLOBENZAPRINE HCL 5 MG TABLET PO SCH (10:00)
[2022-01-22] MEDS ORDERED: LISINOPRIL 20 MG TABLET PO SCH (10:00)
[2022-01-22] MEDS ORDERED: ENOXAPARIN NA (PORCINE) 40 MG/0.4 ML DISP.SYRIN SQ SCH (10:00)
[2022-01-22] MEDS ORDERED: PATIENT'S OWN MEDICATION (NON-FORMULARY) (Lisinopril/Hydrochlorothiazide [Lisinopril-Hctz PO SCH (10:00)
[2022-01-22] MEDS ORDERED: HYDROCHLOROTHIAZIDE 25 MG TABLET (FP) PO SCH (10:00)
[2022-01-22 14:58] VITALS: BP 108/65; PULSE 91; TEMP 98.7
== END 2022-01-22 17:51 | disposition home or self-care (01) ==
LOC: JER 18:51 → JERBED 23:06 → J4W 01-22 01:57
PROVIDERS: ADMIT Hospitalist; ATTEND Internal Medicine
PROC: 3E023GC Introduction of Other Therapeutic Substance into Muscle, Percutaneous Approach (ICD-10-PCS; principal; 2022-01-21)
PROC: 3E0337Z Introduction of Electrolytic and Water Balance Substance into Peripheral Vein, Percutaneous Approach (ICD-10-PCS; 2022-01-21)
DX: I10 Essential (primary) hypertension (principal); K75.81 Nonalcoholic steatohepatitis (NASH); R42 Dizziness and giddiness; J45.998 Other asthma; K57.90 Diverticulosis of intestine, part unspecified, without perforation or abscess without bleeding; E66.9 Obesity, unspecified; Z68.30 Body mass index [BMI] 30.0-30.9, adult; I49.8 Other specified cardiac arrhythmias; Z29.8 Encounter for other specified prophylactic measures; K21.9 Gastro-esophageal reflux disease without esophagitis
CPT/HCPCS: 36415; 71046-TC-FY; 73030-TC-LT-FY; 76705-TC; 80053; 81003; 82550; 83735; 84100; 84439; 84443; 84481; 84484; 85025; 87086; 93005; 93010; 93971; 96360; 96372; 99285-25; C9803-CS; G0378; U0003; U0005

== ENCOUNTER 2022-07-10 04:13 | Day surgery (SDC) | payer MEDICARE, OTHER ==
[2022-07-06 10:14] VITALS: BMI 30.2
[2022-07-10 11:41] VITALS: RESP 18
[2022-07-10] MEDS ORDERED: MIDAZOLAM HCL 2 MG/2 ML SINGLE DOSE VIAL ONE (14:16)
[2022-07-10] MEDS ORDERED: PROPOFOL 20 ML ONE (14:19)
[2022-07-10 15:25] VITALS: BP 100/60; PULSE 87; TEMP 98.1
== END 2022-07-10 15:30 | disposition home or self-care (01) ==
LOC: JASU-SURG 04:13
PROVIDERS: ATTEND Urology
PROC: 0TF4XZZ Fragmentation in Left Kidney Pelvis, External Approach (ICD-10-PCS; principal; 2022-07-10 12:30)
DX: N20.0 Calculus of kidney (principal)

== ENCOUNTER 2022-08-15 10:59 | Emergency (ER) | payer MEDICARE, OTHER ==
[2022-08-15 11:05] VITALS: TEMP 98; BMI 30.2
[2022-08-15] MEDS ORDERED: ACETAMINOPHEN 1000 MG/100 ML BAG IVPB ONE (11:51)
[2022-08-15] MEDS ORDERED: SODIUM CHLORIDE 1,000 ML IV STA (11:51)
[2022-08-15 12:45] LABS: BASO % 0.5 % (0-2.0); EOS % 1.1 % (0-4.5); HEMATOCRIT 40.3 % (32.4-45.2); HEMOGLOBIN 13.5 GM/dL (10.7-15.3); LYMPH % 23.2 % (8-40); MCH 31.5 pg (25.7-33.7); MCHC 33.5 g/dl (32.0-36.0); MEAN CELL VOLUME 93.9 fl (80-96); MEAN PLT VOLUME 7.7 fl (7.5-11.1); MONO % 7.7 % (3.8-10.2); NEUT % 67.5 % (42.8-82.8); PLATELET COUNT 266 10^3/uL (134-434); RBC 4.29 M/mm3 (3.60-5.2); RDW 12.6 % (11.6-15.6); WHITE BLOOD COUNT 5.8 K/mm3 (4.0-10.0)
[2022-08-15 12:48] LABS: EPI CELLS >36 /uL (0-25.1); HYALINE CASTS 0 /uL (0-3.1); PH,URINE 5.5 (5.0-8.0); URINE APPEARANCE CLEAR; URINE BACTERIA 110 /uL (0-1359); URINE BILIRUBIN NEGATIVE (NEGATIVE); URINE COLOR YELLOW; URINE GLUCOSE (UA) NEGATIVE (NEGATIVE); URINE KETONE NEGATIVE (NEGATIVE); URINE LEUK ESTERASE 1+ (NEGATIVE); URINE NITRITE NEGATIVE (NEGATIVE); URINE PROTEIN NEGATIVE (NEGATIVE); URINE RBC 6 /uL (0-23.9); URINE UROBILINOGEN 0.2 mg/dL (0.2-1.0); URINE WBC 45 /uL (0-25.8)
[2022-08-15] MEDS ORDERED: CEFTRIAXONE 1,000 MG in DEXTROSE 5%-WATER - 50 ML IVPB ONE (13:12)
[2022-08-15 13:25] LABS: CREATININE 0.9 mg/dL (0.55-1.3); TOT PROT 7.8 g/dl (6.4-8.2)
[2022-08-15 13:26] LABS: BILIRUBIN,TOTAL 0.6 mg/dL (0.2-1)
[2022-08-15] MEDS ORDERED: CEFTRIAXONE 1 GM/50 ML BAG ONE (14:05)
[2022-08-15] MEDS ORDERED: metroNIDAZOLE 500 MG TABLET PO ONE (17:04)
[2022-08-15] MEDS ORDERED: ACETAMINOPHEN INJECTION 100 ML IVPB ONE (17:21)
[2022-08-15] MEDS ORDERED: metroNIDAZOLE 250 MG TABLET ONE (17:23)
[2022-08-15 18:46] VITALS: BP 110/77; PULSE 78; RESP 19
== END 2022-08-15 18:46 | disposition home or self-care (01) ==
LOC: JER 10:59
PROC: 3E0333Z Introduction of Anti-inflammatory into Peripheral Vein, Percutaneous Approach (ICD-10-PCS; principal; 2022-08-15)
PROC: 3E03329 Introduction of Other Anti-infective into Peripheral Vein, Percutaneous Approach (ICD-10-PCS; 2022-08-15)
PROC: 3E0337Z Introduction of Electrolytic and Water Balance Substance into Peripheral Vein, Percutaneous Approach (ICD-10-PCS; 2022-08-15)
DX: K52.9 Noninfective gastroenteritis and colitis, unspecified (principal); N39.0 Urinary tract infection, site not specified
CPT/HCPCS: 36415; 74177-TC; 80053; 81003; 83605; 83690; 85025; 87086; 96361; 96374; 96375; 99285-25; Q9967

== ENCOUNTER 2022-08-18 09:37 | Inpatient (IN) | payer MEDICARE, OTHER ==
[2022-08-18 09:53] VITALS: BMI 31.8
[2022-08-18] MEDS ORDERED: ONDANSETRON 4 MG/2 ML VIAL IVPUSH ONE (10:48)
[2022-08-18] MEDS ORDERED: SODIUM CHLORIDE 1,000 ML IV STA (10:48)
[2022-08-18] MEDS ORDERED: PIPERACILLIN/TAZOB 3.375 GM 3.375 GM in DEXTROSE 5%-WATER - 50 ML IVPB ONE (10:50)
[2022-08-18] MEDS ORDERED: ONDANSETRON 4 MG/2 ML VIAL ONE (11:12)
[2022-08-18] MEDS ORDERED: PIPERACILLIN/TAZOB 3.375 GM 3.375 GM/50 ML BAG IVPB ONE (11:13)
[2022-08-18 12:25] LABS: CALCIUM 9.8 mg/dL (8.5-10.1)
[2022-08-18 12:26] LABS: ALBUMIN 3.5 g/dl (3.4-5.0); BLOOD UREA NITROGEN 10.1 mg/dL (7-18)
[2022-08-18 12:29] LABS: CREATININE 0.8 mg/dL (0.55-1.3)
[2022-08-18 12:30] LABS: TOT PROT 7.2 g/dl (6.4-8.2)
[2022-08-18 12:31] LABS: BILIRUBIN,TOTAL 0.4 mg/dL (0.2-1)
[2022-08-18 12:37] LABS: BASO % 0.7 % (0-2.0); EOS % 4.3 % (0-4.5); HEMATOCRIT 38.3 % (32.4-45.2); HEMOGLOBIN 12.5 GM/dL (10.7-15.3); LYMPH % 36.4 % (8-40); MCH 30.9 pg (25.7-33.7); MCHC 32.8 g/dl (32.0-36.0); MEAN CELL VOLUME 94.3 fl (80-96); MONO % 7.5 % (3.8-10.2); NEUT % 51.1 % (42.8-82.8); PLATELET COUNT 259 10^3/uL (134-434); RBC 4.05 M/mm3 (3.60-5.2); RDW 12.6 % (11.6-15.6); WHITE BLOOD COUNT 3.5 K/mm3 (4.0-10.0)
[2022-08-18] MEDS ORDERED: ONDANSETRON 4 MG/2 ML VIAL IVPUSH PRN (15:26)
[2022-08-18] MEDS: SODIUM CHLORIDE 1,000 ML IV SCH (19:04)
[2022-08-18] MEDS ORDERED: PIPERACILLIN/TAZOB 2.25 GM 2.25 GM/50 ML BAG IVPB ONE (20:06)
[2022-08-18] MEDS: PIPERACILLIN/TAZOB 2.25 GM 2.25 GM in DEXTROSE 5%-WATER - 50 ML IVPB SCH (20:07)
[2022-08-18] MEDS: FAMOTIDINE 20 MG/50 ML IVPB 20 MG/50 ML MG IVPB SCH (23:04)
[2022-08-19] MEDS: ACETAMINOPHEN 1000 MG/100 ML BAG IVPB PRN (01:39)
[2022-08-19] MEDS ORDERED: PIPERACILLIN/TAZOB 2.25 GM 2.25 GM in DEXTROSE 5%-WATER - 50 ML IVPB SCH (02:00)
[2022-08-19] MEDS: PIPERACILLIN/TAZOB 2.25 GM 2.25 GM in DEXTROSE 5%-WATER - 50 ML IVPB SCH (03:04)
[2022-08-19] MEDS: FAMOTIDINE 20 MG/50 ML IVPB 20 MG/50 ML MG IVPB SCH ×2 (09:38→21:23)
[2022-08-19 09:45] LABS: BASO % 0.9 % (0-2.0); EOS % 4.1 % (0-4.5); HEMATOCRIT 35.6 % (32.4-45.2); LYMPH % 40.2 % (8-40); MCH 31.3 pg (25.7-33.7); MCHC 33.6 g/dl (32.0-36.0); MEAN CELL VOLUME 93.3 fl (80-96); MEAN PLT VOLUME 7.8 fl (7.5-11.1); MONO % 7.2 % (3.8-10.2); NEUT % 47.6 % (42.8-82.8); PLATELET COUNT 263 10^3/uL (134-434); RBC 3.81 M/mm3 (3.60-5.2); RDW 12.5 % (11.6-15.6); WHITE BLOOD COUNT 3.1 K/mm3 (4.0-10.0)
[2022-08-19 09:57] LABS: CALCIUM 9.5 mg/dL (8.5-10.1)
[2022-08-19 09:58] LABS: ALBUMIN 3.2 g/dl (3.4-5.0)
[2022-08-19 10:01] LABS: CREATININE 0.9 mg/dL (0.55-1.3); PHOSPHOROUS 3.7 mg/dL (2.5-4.9)
[2022-08-19 10:02] LABS: TOT PROT 6.5 g/dl (6.4-8.2)
[2022-08-19 10:03] LABS: BILIRUBIN,TOTAL 0.5 mg/dL (0.2-1)
[2022-08-19] MEDS: PIPERACILLIN/TAZOB 3.375 GM 3.375 GM in DEXTROSE 5%-WATER - 50 ML IVPB SCH ×2 (11:29→17:15)
[2022-08-19] MEDS: SODIUM CHLORIDE 1,000 ML IV SCH ×2 (11:56→17:15)
[2022-08-19] MEDS ORDERED: MECLIZINE HCL 25 MG TABLET (FP) PO PRN (15:45)
[2022-08-19 16:20] LABS: URINE APPEARANCE CLEAR; URINE BILIRUBIN NEGATIVE (NEGATIVE); URINE COLOR YELLOW; URINE GLUCOSE (UA) NEGATIVE (NEGATIVE); URINE KETONE NEGATIVE (NEGATIVE); URINE LEUK ESTERASE NEGATIVE (NEGATIVE); URINE NITRITE NEGATIVE (NEGATIVE); URINE PROTEIN NEGATIVE (NEGATIVE); URINE UROBILINOGEN 0.2 mg/dL (0.2-1.0)
[2022-08-19] MEDS ORDERED: PATIENT'S OWN MEDICATION (NON-FORMULARY) (Zolpidem Tartrate [Ambien] 10 MG Tablet) PO SCH (22:00)
[2022-08-20] MEDS: PIPERACILLIN/TAZOB 3.375 GM 3.375 GM in DEXTROSE 5%-WATER - 50 ML IVPB SCH ×3 (02:17→17:05)
[2022-08-20] MEDS: AMITRIPTYLINE HCL 10 MG TABLET PO SCH (09:11)
[2022-08-20] MEDS: ENOXAPARIN NA (PORCINE) 40 MG/0.4 ML DISP.SYRIN SQ SCH (09:11)
[2022-08-20] MEDS: FAMOTIDINE 20 MG/50 ML IVPB 20 MG/50 ML MG IVPB SCH ×2 (09:12→23:10)
[2022-08-20] MEDS: SOLIFENACIN SUCCINATE 5 MG TAB PO SCH (09:15)
[2022-08-20] MEDS: FAMOTIDINE 40 MG TABLET PO SCH (09:15)
[2022-08-20] MEDS: ACETAMINOPHEN 1000 MG/100 ML BAG IVPB PRN ×2 (09:19→22:07)
[2022-08-20] MEDS ORDERED: PATIENT'S OWN MEDICATION (NON-FORMULARY) (Oxybutynin Chloride [Ditropan Xl] 10 MG Tab.Er.2 PO SCH (10:00)
[2022-08-20] MEDS ORDERED: LISINOPRIL 20 MG TABLET PO SCH (10:00)
[2022-08-20] MEDS ORDERED: PATIENT'S OWN MEDICATION (NON-FORMULARY) (Famotidine 40 MG Tablet) PO SCH (10:00)
[2022-08-20] MEDS ORDERED: PATIENT'S OWN MEDICATION (NON-FORMULARY) (Lisinopril/Hydrochlorothiazide [Lisinopril-Hctz PO SCH (10:00)
[2022-08-20] MEDS ORDERED: HYDROCHLOROTHIAZIDE 25 MG TABLET (FP) PO SCH (10:00)
[2022-08-20] MEDS: SODIUM CHLORIDE 1,000 ML IV SCH (17:06)
[2022-08-20] MEDS ORDERED: LISINOPRIL 10 MG TABLET PO SCH (19:35)
[2022-08-20 21:46] LABS: CALCIUM 9.1 mg/dL (8.5-10.1)
[2022-08-20 21:47] LABS: BLOOD UREA NITROGEN 12.9 mg/dL (7-18)
[2022-08-20 21:50] LABS: CREATININE 1.1 mg/dL (0.55-1.3)
[2022-08-20] MEDS: ZOLPIDEM TARTRATE 5 MG TABLET PO PRN (23:15)
[2022-08-21] MEDS ORDERED: BACITRACIN 15 GM TUBE TOPICAL OINTMENT TP ONE (01:16)
[2022-08-21] MEDS: PIPERACILLIN/TAZOB 3.375 GM 3.375 GM in DEXTROSE 5%-WATER - 50 ML IVPB SCH ×3 (01:39→18:50)
[2022-08-21] MEDS ORDERED: ALBUTEROL SO4 HFA INHALER IH PRN (08:15)
[2022-08-21] MEDS ORDERED: LORATADINE 10 MG TABLET PO ONE (08:16)
[2022-08-21] MEDS ORDERED: LACTOBACILLUS ACIDOPHILUS 1 TABLET PO ONE (10:56)
[2022-08-21] MEDS: AMITRIPTYLINE HCL 10 MG TABLET PO SCH (11:05)
[2022-08-21] MEDS: ENOXAPARIN NA (PORCINE) 40 MG/0.4 ML DISP.SYRIN SQ SCH (11:05)
[2022-08-21] MEDS: SOLIFENACIN SUCCINATE 5 MG TAB PO SCH (11:06)
[2022-08-21] MEDS: FAMOTIDINE 40 MG TABLET PO SCH (11:06)
[2022-08-21] MEDS: FAMOTIDINE 20 MG/50 ML IVPB 20 MG/50 ML MG IVPB SCH (11:07)
[2022-08-21] MEDS ORDERED: INSULIN (NOVOLOG) ASPART 100 UNITS/ML 10ML VIAL ONE (11:43)
[2022-08-21 11:56] LABS: BASO % 0.9 % (0-2.0); EOS % 4.2 % (0-4.5); HEMATOCRIT 37.6 % (32.4-45.2); HEMOGLOBIN 12.4 GM/dL (10.7-15.3); LYMPH % 44.8 % (8-40); MCH 30.9 pg (25.7-33.7); MCHC 32.9 g/dl (32.0-36.0); MEAN CELL VOLUME 93.8 fl (80-96); MEAN PLT VOLUME 7.8 fl (7.5-11.1); MONO % 6.8 % (3.8-10.2); NEUT % 43.3 % (42.8-82.8); PLATELET COUNT 270 10^3/uL (134-434); RDW 12.4 % (11.6-15.6); WHITE BLOOD COUNT 2.6 K/mm3 (4.0-10.0)
[2022-08-21 12:43] LABS: CALCIUM 9.4 mg/dL (8.5-10.1)
[2022-08-21 12:44] LABS: ALBUMIN 3.4 g/dl (3.4-5.0)
[2022-08-21 12:45] LABS: BLOOD UREA NITROGEN 9.2 mg/dL (7-18)
[2022-08-21 12:47] LABS: CREATININE 0.8 mg/dL (0.55-1.3)
[2022-08-21 12:49] LABS: BILIRUBIN,TOTAL 0.3 mg/dL (0.2-1); TOT PROT 6.9 g/dl (6.4-8.2)
[2022-08-21] MEDS: SODIUM CHLORIDE 1,000 ML IV SCH (18:53)
[2022-08-21] MEDS: ZOLPIDEM TARTRATE 5 MG TABLET PO PRN (22:33)
[2022-08-21] MEDS: LACTOBACILLUS ACIDOPHILUS 1 TABLET PO SCH (22:33)
[2022-08-22] MEDS: PIPERACILLIN/TAZOB 3.375 GM 3.375 GM in DEXTROSE 5%-WATER - 50 ML IVPB SCH ×3 (02:21→18:25)
[2022-08-22] MEDS: SODIUM CHLORIDE 1,000 ML IV SCH ×2 (09:47→16:47)
[2022-08-22 10:02] LABS: BASO % 0.8 % (0-2.0); EOS % 2.9 % (0-4.5); HEMATOCRIT 30.4 % (32.4-45.2); HEMOGLOBIN 10.3 GM/dL (10.7-15.3); LYMPH % 34.2 % (8-40); MCH 31.5 pg (25.7-33.7); MCHC 33.8 g/dl (32.0-36.0); MEAN CELL VOLUME 93.2 fl (80-96); MEAN PLT VOLUME 7.7 fl (7.5-11.1); MONO % 8.3 % (3.8-10.2); NEUT % 53.8 % (42.8-82.8); PLATELET COUNT 205 10^3/uL (134-434); RBC 3.26 M/mm3 (3.60-5.2); RDW 12.3 % (11.6-15.6); WHITE BLOOD COUNT 3.6 K/mm3 (4.0-10.0)
[2022-08-22 10:29] LABS: ALBUMIN 2.8 g/dl (3.4-5.0); BLOOD UREA NITROGEN 6.1 mg/dL (7-18); CALCIUM 8.5 mg/dL (8.5-10.1); MAGNESIUM 1.8 mg/dL (1.8-2.4)
[2022-08-22 10:32] LABS: CREATININE 0.7 mg/dL (0.55-1.3); PHOSPHOROUS 2.8 mg/dL (2.5-4.9)
[2022-08-22 10:34] LABS: BILIRUBIN,TOTAL 0.4 mg/dL (0.2-1); TOT PROT 5.7 g/dl (6.4-8.2)
[2022-08-22] MEDS: ENOXAPARIN NA (PORCINE) 40 MG/0.4 ML DISP.SYRIN SQ SCH (11:17)
[2022-08-22] MEDS: LISINOPRIL 20 MG TABLET PO SCH (11:21)
[2022-08-22] MEDS: SOLIFENACIN SUCCINATE 5 MG TAB PO SCH (11:21)
[2022-08-22] MEDS: AMITRIPTYLINE HCL 10 MG TABLET PO SCH (11:23)
[2022-08-22] MEDS: ACETAMINOPHEN 325 MG TABLET (FP) PO PRN (16:43)
[2022-08-22] MEDS: LACTOBACILLUS ACIDOPHILUS 1 TABLET PO SCH (22:03)
[2022-08-22] MEDS: ZOLPIDEM TARTRATE 5 MG TABLET PO PRN (22:09)
[2022-08-23] MEDS: PIPERACILLIN/TAZOB 3.375 GM 3.375 GM in DEXTROSE 5%-WATER - 50 ML IVPB SCH ×3 (02:59→17:16)
[2022-08-23] MEDS: ACETAMINOPHEN 325 MG TABLET (FP) PO PRN (08:12)
[2022-08-23] MEDS: LISINOPRIL 20 MG TABLET PO SCH (09:58)
[2022-08-23] MEDS: SOLIFENACIN SUCCINATE 5 MG TAB PO SCH (09:58)
[2022-08-23] MEDS: AMITRIPTYLINE HCL 10 MG TABLET PO SCH (09:58)
[2022-08-23] MEDS: ENOXAPARIN NA (PORCINE) 40 MG/0.4 ML DISP.SYRIN SQ SCH (09:58)
[2022-08-23 10:25] LABS: BASO % 0.8 % (0-2.0); EOS % 4.2 % (0-4.5); HEMATOCRIT 29.9 % (32.4-45.2); LYMPH % 47.1 % (8-40); MCHC 33.5 g/dl (32.0-36.0); MEAN CELL VOLUME 92.6 fl (80-96); MEAN PLT VOLUME 8.1 fl (7.5-11.1); MONO % 9.1 % (3.8-10.2); NEUT % 38.8 % (42.8-82.8); PLATELET COUNT 201 10^3/uL (134-434); RBC 3.23 M/mm3 (3.60-5.2); RDW 12.3 % (11.6-15.6); WHITE BLOOD COUNT 2.5 K/mm3 (4.0-10.0)
[2022-08-23 10:40] LABS: CALCIUM 8.5 mg/dL (8.5-10.1)
[2022-08-23 10:41] LABS: ALBUMIN 2.6 g/dl (3.4-5.0); BLOOD UREA NITROGEN 6.6 mg/dL (7-18); MAGNESIUM 1.8 mg/dL (1.8-2.4)
[2022-08-23 10:44] LABS: CREATININE 0.7 mg/dL (0.55-1.3); PHOSPHOROUS 2.5 mg/dL (2.5-4.9)
[2022-08-23 10:45] LABS: TOT PROT 5.6 g/dl (6.4-8.2)
[2022-08-23 10:46] LABS: BILIRUBIN,TOTAL 0.4 mg/dL (0.2-1)
[2022-08-23] MEDS: LACTOBACILLUS ACIDOPHILUS 1 TABLET PO SCH (22:20)
[2022-08-24] MEDS ORDERED: ZOLPIDEM TARTRATE 5 MG TABLET PO PRN (01:08)
[2022-08-24] MEDS: PIPERACILLIN/TAZOB 3.375 GM 3.375 GM in DEXTROSE 5%-WATER - 50 ML IVPB SCH ×2 (02:06→09:45)
[2022-08-24 03:13] VITALS: RESP 20; TEMP 98.2
[2022-08-24] MEDS: SOLIFENACIN SUCCINATE 5 MG TAB PO SCH (09:44)
[2022-08-24] MEDS: AMITRIPTYLINE HCL 10 MG TABLET PO SCH (09:44)
[2022-08-24] MEDS: LISINOPRIL 20 MG TABLET PO SCH (09:44)
[2022-08-24] MEDS: ENOXAPARIN NA (PORCINE) 40 MG/0.4 ML DISP.SYRIN SQ SCH (09:45)
[2022-08-24 10:36] LABS: BASO % 0.5 % (0-2.0); EOS % 2.2 % (0-4.5); HEMOGLOBIN 11.9 GM/dL (10.7-15.3); LYMPH % 26.9 % (8-40); MCH 31.8 pg (25.7-33.7); MEAN CELL VOLUME 93.3 fl (80-96); MEAN PLT VOLUME 7.6 fl (7.5-11.1); MONO % 6.9 % (3.8-10.2); NEUT % 63.5 % (42.8-82.8); PLATELET COUNT 248 10^3/uL (134-434); RBC 3.75 M/mm3 (3.60-5.2); RDW 12.5 % (11.6-15.6); WHITE BLOOD COUNT 4.5 K/mm3 (4.0-10.0)
[2022-08-24 10:59] LABS: CALCIUM 9.5 mg/dL (8.5-10.1)
[2022-08-24 11:00] LABS: MAGNESIUM 1.9 mg/dL (1.8-2.4)
[2022-08-24 11:02] LABS: BLOOD UREA NITROGEN 8.4 mg/dL (7-18)
[2022-08-24 11:03] LABS: CREATININE 0.9 mg/dL (0.55-1.3); PHOSPHOROUS 2.2 mg/dL (2.5-4.9)
[2022-08-24 11:04] LABS: BILIRUBIN,TOTAL 0.4 mg/dL (0.2-1)
[2022-08-24 11:08] LABS: ALBUMIN 3.2 g/dl (3.4-5.0)
[2022-08-24 15:19] VITALS: BP 136/75; PULSE 81
[2022-08-24 16:23] LABS: BLOOD UREA NITROGEN 11.3 mg/dL (7-18)
[2022-08-24 16:26] LABS: CREATININE 1.1 mg/dL (0.55-1.3)
[2022-08-24 16:27] LABS: BILIRUBIN,TOTAL 0.2 mg/dL (0.2-1); TOT PROT 6.4 g/dl (6.4-8.2)
[2022-08-24] MEDS ORDERED: POTASSIUM CHLORIDE TABS 20 MEQ TABLET.ER (FP) PO ONE (16:50)
== END 2022-08-24 17:51 | disposition home or self-care (01) | DRG 392 ==
LOC: JER 09:37 → JERBED 13:06 → UNDOADMOB 13:06 → INTOOBSV 13:06 → JERBED 15:10 → UNDOADMOB 15:10 → J8W 20:57 → JERBED 20:57 → OBSVTOIN 08-20 11:09 → JERBED 08-20 11:09 → J8W 08-20 11:09 → INTOOBSV 08-20 11:09
PROVIDERS: ADMIT Internal Medicine; ATTEND Internal Medicine
DX: K57.32 Diverticulitis of large intestine without perforation or abscess without bleeding (principal); K86.2 Cyst of pancreas; I10 Essential (primary) hypertension; K21.9 Gastro-esophageal reflux disease without esophagitis; N20.0 Calculus of kidney; K76.0 Fatty (change of) liver, not elsewhere classified; E78.5 Hyperlipidemia, unspecified; G43.909 Migraine, unspecified, not intractable, without status migrainosus; G47.00 Insomnia, unspecified; E87.5 Hyperkalemia; M54.9 Dorsalgia, unspecified
CPT/HCPCS: 36415; 71045-TC-FY; 74176-TC; 76700-TC; 80048; 80053; 81003; 82550; 82977; 83735; 84100; 85025; 86140; 86704; 86803; 87086; 87340; 87517; 93005; 93010; 99285-25; C9803-CS; U0003; U0005

== ENCOUNTER 2022-10-13 12:13 | Emergency (ER) | payer MEDICARE, OTHER ==
[2022-10-13 12:18] VITALS: BP 105/69; PULSE 91; RESP 18; TEMP 97.2; BMI 29.8
[2022-10-13] MEDS ORDERED: ACETAMINOPHEN 500 MG TABLET (FP) PO ONE (13:06)
[2022-10-13] MEDS ORDERED: ACETAMINOPHEN 500 MG TABLET (FP) ONE (13:10)
== END 2022-10-13 14:10 | disposition home or self-care (01) ==
LOC: JERFT 12:13
DX: M25.562 Pain in left knee (principal)
CPT/HCPCS: 73564-TC-LT-FY; 99283-25

== ENCOUNTER 2023-02-10 11:29 | Emergency (ER) | payer MEDICARE, OTHER ==
[2023-02-10 11:32] VITALS: BP 117/81; PULSE 68; RESP 18; TEMP 97; BMI 28.9
[2023-02-10] MEDS ORDERED: FLUORESCEIN NA 1 EA STRIP OD ONE (13:09)
[2023-02-10] MEDS ORDERED: TETRACAINE 0.5% HCL 0.6ML DROPPER.BOTTLE OD ONE (13:11)
[2023-02-10] MEDS ORDERED: TETRACAINE 0.5% OPHTH SOLN 2 ML BOTTLE ONE (13:22)
[2023-02-10] MEDS ORDERED: FLUORESCEIN NA 1 EA STRIP ONE (13:22)
== END 2023-02-10 14:06 | disposition home or self-care (01) ==
LOC: JER 11:29
DX: H57.89 Other specified disorders of eye and adnexa (principal); H11.32 Conjunctival hemorrhage, left eye
CPT/HCPCS: 99283-25

== ENCOUNTER 2023-03-19 11:12 | Emergency (ER) | payer MEDICARE, OTHER ==
[2023-03-19 11:22] VITALS: BP 143/70; PULSE 84; RESP 18; TEMP 97.5; BMI 28.9
[2023-03-19] MEDS ORDERED: predniSONE 20 MG TABLET (UD) PO ONE (11:44)
[2023-03-19] MEDS ORDERED: ACETAMINOPHEN 500 MG TABLET (FP) PO ONE (11:44)
[2023-03-19] MEDS ORDERED: ACETAMINOPHEN 500 MG TABLET (FP) ONE (12:15)
[2023-03-19] MEDS ORDERED: predniSONE 20 MG TABLET (UD) ONE (12:15)
== END 2023-03-19 12:55 | disposition home or self-care (01) ==
LOC: JERFT 11:12
DX: M25.551 Pain in right hip (principal); M79.604 Pain in right leg; M54.31 Sciatica, right side
CPT/HCPCS: 99283-25

== ENCOUNTER 2023-03-28 10:46 | Emergency (ER) | payer MEDICARE, OTHER ==
[2023-03-28 10:54] VITALS: RESP 20; BMI 28.9
[2023-03-28] MEDS ORDERED: LIDOCAINE 5% TOPICAL PATCH TP ONE (11:50)
[2023-03-28] MEDS ORDERED: KETOROLAC TROMETHAMINE 15 MG/ML VIAL IM ONE (11:50)
[2023-03-28] MEDS ORDERED: LIDOCAINE 5% TOPICAL PATCH ONE (11:55)
[2023-03-28] MEDS ORDERED: KETOROLAC TROMETHAMINE 15 MG/ML VIAL ONE (11:55)
[2023-03-28 12:10] LABS: BASO % 0.7 % (0-2.0); EOS % 6.1 % (0-4.5); HEMATOCRIT 39.1 % (32.4-45.2); LYMPH % 42.8 % (8-40); MCH 30.9 pg (25.7-33.7); MCHC 33.3 g/dl (32.0-36.0); MEAN CELL VOLUME 92.6 fl (80-96); MEAN PLT VOLUME 7.2 fl (7.5-11.1); MONO % 7.5 % (3.8-10.2); NEUT % 42.9 % (42.8-82.8); PLATELET COUNT 221 10^3/uL (134-434); RBC 4.22 M/mm3 (3.60-5.2); RDW 13.5 % (11.6-15.6); WHITE BLOOD COUNT 3.4 K/mm3 (4.0-10.0)
[2023-03-28 12:51] LABS: POTASSIUM 4.4 mmol/L (3.5-5.1)
[2023-03-28 12:53] LABS: BLOOD UREA NITROGEN 17.6 mg/dL (7-18); CALCIUM 9.8 mg/dL (8.5-10.1)
[2023-03-28 12:54] LABS: ALBUMIN 3.8 g/dl (3.4-5.0)
[2023-03-28 12:57] LABS: CREATININE 0.9 mg/dL (0.55-1.3)
[2023-03-28 12:58] LABS: BILIRUBIN,TOTAL 0.5 mg/dL (0.2-1)
[2023-03-28 13:07] LABS: ERYTHROCYTE SEDIMENTATION RATE 4 mm/hr (0-30)
[2023-03-28 13:21] LABS: URINE APPEARANCE CLEAR; URINE BILIRUBIN NEGATIVE (NEGATIVE); URINE COLOR YELLOW; URINE GLUCOSE (UA) NEGATIVE (NEGATIVE); URINE KETONE NEGATIVE (NEGATIVE); URINE LEUK ESTERASE NEGATIVE (NEGATIVE); URINE NITRITE NEGATIVE (NEGATIVE); URINE PROTEIN NEGATIVE (NEGATIVE); URINE UROBILINOGEN 0.2 mg/dL (0.2-1.0)
[2023-03-28 16:23] VITALS: BP 169/76; PULSE 86; TEMP 98.2
[2023-03-28] MEDS ORDERED: LIDOCAINE PATCH REMOVAL MC ONE (22:00)
== END 2023-03-28 17:21 | disposition home or self-care (01) ==
LOC: JER 10:46 → JERFT 10:46
PROC: 3E0233Z Introduction of Anti-inflammatory into Muscle, Percutaneous Approach (ICD-10-PCS; principal; 2023-03-28)
DX: M54.9 Dorsalgia, unspecified (principal); M79.604 Pain in right leg; M47.816 Spondylosis without myelopathy or radiculopathy, lumbar region
CPT/HCPCS: 36415; 72131-TC; 80053; 81003; 85025; 85651; 93970-TC; 99285-25

== ENCOUNTER 2024-05-16 09:02 | Emergency (ER) | payer OTHER ==
[2024-05-16 09:09] VITALS: BMI 29.8
[2024-05-16] MEDS ORDERED: ACETAMINOPHEN INJECTION 100 ML ONE (10:19)
[2024-05-16] MEDS: ACETAMINOPHEN 1000 MG/100 ML BAG IVPB ONE (10:39)
[2024-05-16] MEDS: SODIUM CHLORIDE 500 ML IV STA (10:39)
[2024-05-16 10:41] VITALS: TEMP 99.7
[2024-05-16 10:48] LABS: BASO % 0.5 % (0-2.0); EOS % 0.7 % (0-4.5); HEMATOCRIT 38.5 % (32.4-45.2); MCH 31.5 pg (25.7-33.7); MCHC 33.7 g/dl (32.0-36.0); MEAN CELL VOLUME 93.4 fl (80-96); MEAN PLT VOLUME 7.4 fl (7.5-11.1); MONO % 7.4 % (3.8-10.2); NEUT % 71.4 % (42.8-82.8); PLATELET COUNT 217 10^3/uL (134-434); RBC 4.12 M/mm3 (3.60-5.2); WHITE BLOOD COUNT 7.7 K/mm3 (4.0-10.0)
[2024-05-16 10:54] LABS: INR 0.98 (0.83-1.09); PROTHROMBIN TIME (PATIENT) 11.3 SEC (9.7-13.0)
[2024-05-16 10:56] LABS: ACTIVATED PTT 32.8 SECONDS (25.2-36.5)
[2024-05-16 11:15] LABS: POTASSIUM 4.2 mmol/L (3.5-5.1)
[2024-05-16 11:18] LABS: ALBUMIN 3.7 g/dl (3.4-5.0); BLOOD UREA NITROGEN 11.4 mg/dL (7-18); CALCIUM 9.7 mg/dL (8.5-10.1)
[2024-05-16 11:21] LABS: CREATININE 0.8 mg/dL (0.55-1.3)
[2024-05-16 11:22] LABS: BILIRUBIN,TOTAL 0.9 mg/dL (0.2-1)
[2024-05-16 11:23] LABS: TOT PROT 7.3 g/dl (6.4-8.2)
[2024-05-16 12:01] LABS: PH,URINE 7.5 (5.0-8.0); URINE APPEARANCE CLEAR; URINE BILIRUBIN NEGATIVE (NEGATIVE); URINE COLOR YELLOW; URINE GLUCOSE (UA) NEGATIVE (NEGATIVE); URINE KETONE NEGATIVE (NEGATIVE); URINE LEUK ESTERASE NEGATIVE (NEGATIVE); URINE NITRITE NEGATIVE (NEGATIVE); URINE PROTEIN NEGATIVE (NEGATIVE); URINE UROBILINOGEN 0.2 mg/dL (0.2-1.0)
[2024-05-16] MEDS ORDERED: AMPICILLIN NA/SULBACTAM NA 1.5 GM VIAL ONE (13:28)
[2024-05-16 13:35] VITALS: BP 106/60; PULSE 73; RESP 15
[2024-05-16] MEDS: AMPICILLIN NA/SULBACTAM NA 1.5 GM in SODIUM CHLORIDE 100 ML IVPB ONE (13:35)
== END 2024-05-16 14:08 | disposition home or self-care (01) ==
LOC: JER 09:02
PROC: 3E03329 Introduction of Other Anti-infective into Peripheral Vein, Percutaneous Approach (ICD-10-PCS; principal; 2024-05-16)
PROC: 3E033NZ Introduction of Analgesics, Hypnotics, Sedatives into Peripheral Vein, Percutaneous Approach (ICD-10-PCS; 2024-05-16)
PROC: 3E0337Z Introduction of Electrolytic and Water Balance Substance into Peripheral Vein, Percutaneous Approach (ICD-10-PCS; 2024-05-16)
DX: R10.32 Left lower quadrant pain (principal); K57.92 Diverticulitis of intestine, part unspecified, without perforation or abscess without bleeding
CPT/HCPCS: 36415; 74177-TC; 80053; 81003; 83690; 85025; 85610; 85730; 87086; 96361; 96365; 96375; 99285-25; J0131; Q9967

== ENCOUNTER 2025-05-04 10:45 | Emergency (ER) | payer OTHER ==
[2025-05-04 11:02] VITALS: BMI 29.6
[2025-05-04] MEDS ORDERED: ONDANSETRON 4 MG/2 ML VIAL ONE (12:06)
[2025-05-04] MEDS ORDERED: ACETAMINOPHEN INJECTION 100 ML ONE (12:06)
[2025-05-04] MEDS: ONDANSETRON 4 MG/2 ML VIAL IVPUSH ONE (12:10)
[2025-05-04] MEDS: ACETAMINOPHEN 1000 MG/100 ML BAG IVPB ONE (12:10)
[2025-05-04] MEDS: ONDANSETRON 4 MG/2 ML VIAL IVPB ONE (12:10)
[2025-05-04 12:42] LABS: EPI CELLS 1 /uL (0-25.1); HYALINE CASTS 1 /uL (0-3.1); URINE APPEARANCE CLEAR; URINE BACTERIA 7807 /uL (0-1359); URINE BILIRUBIN NEGATIVE (NEGATIVE); URINE COLOR YELLOW; URINE GLUCOSE (UA) NEGATIVE (NEGATIVE); URINE KETONE NEGATIVE (NEGATIVE); URINE LEUK ESTERASE 3+ (NEGATIVE); URINE NITRITE NEGATIVE (NEGATIVE); URINE PROTEIN NEGATIVE (NEGATIVE); URINE RBC 18 /uL (0-23.9); URINE UROBILINOGEN 0.2 mg/dL (0.2-1.0); URINE WBC 762 /uL (0-25.8)
[2025-05-04 12:42] LABS: ABSOLUTE IMMATURE GRANULOCYTES 0.01 x10^3/uL (0.0-0.031); BASOPHILS # 0.01 x10^3/uL (0.01-0.08); EOSINOPHIL % 1.0 % (0.7-5.8); EOSINOPHILS # 0.04 x10^3/uL (0.04-0.36); MCHC 32.3 g/dl (32.2-35.5); MEAN CELL VOLUME 94.0 fl (79.4-94.8); MEAN PLT VOLUME 9.7 fl (9.4-12.3); MONOCYTE # 0.31 x10^3/uL (0.24-0.86); MONOCYTE % 7.9 % (4.7-12.5); RDW 12.1 % (12.4-16.6)
[2025-05-04 13:09] LABS: CO2 28.0 mmol/L (21-32); GLUCOSE,RANDOM 90.0 mg/dL (74-106)
[2025-05-04 13:11] LABS: SGOT/AST 27.0 U/L (15-37); SGPT/ALT 55.0 U/L (13-61)
[2025-05-04 13:13] LABS: CREATININE 0.78 mg/dL (0.55-1.3); TOT PROT 7.0 g/dl (6.4-8.2)
[2025-05-04 13:15] LABS: ALK PHOS 127.0 U/L (45-117)
[2025-05-04 14:12] VITALS: TEMP 97.9
[2025-05-04] MEDS ORDERED: CEFTRIAXONE 1 GM/50 ML BAG ONE (14:12)
[2025-05-04 14:59] VITALS: BP 115/54; PULSE 60; RESP 17
[2025-05-04] MEDS ORDERED: AMOX TR/POT CLAV 875MG/125MG TABLETS (FP) ONE (15:00)
[2025-05-04] MEDS: AMOX TR/POT CLAV 875MG/125MG TABLETS (FP) PO ONE (15:00)
[2025-05-04 17:04] LABS: HIV INTERPRETATION NEGATIVE (NEGATIVE)
[2025-05-04 17:06] LABS: HCV DIAGNOSTIC IN-HOUSE W/RFLX NON-REACTIVE (NONREACTIVE)
== END 2025-05-04 15:14 | disposition home or self-care (01) ==
LOC: JER 10:45
PROC: 3E033NZ Introduction of Analgesics, Hypnotics, Sedatives into Peripheral Vein, Percutaneous Approach (ICD-10-PCS; principal; 2025-05-04)
PROC: 3E03329 Introduction of Other Anti-infective into Peripheral Vein, Percutaneous Approach (ICD-10-PCS; 2025-05-04)
PROC: 3E033GC Introduction of Other Therapeutic Substance into Peripheral Vein, Percutaneous Approach (ICD-10-PCS; 2025-05-04)
DX: R10.32 Left lower quadrant pain (principal)
CPT/HCPCS: 36415; 74177-TC; 80053; 81003; 83690; 85025; 86803; 87086; 87389; 93005; 93010; 96374; 96375; 99285-25; Q9967

== ENCOUNTER 2025-05-06 17:43 | Inpatient (IN) | payer OTHER ==
[2025-05-06 18:32] VITALS: BMI 29.8
[2025-05-06] MEDS ORDERED: MEROPENEM 1 GM VIAL (RESTRICTED TO ID) IVPB ONE (20:12)
[2025-05-06] MEDS: ONDANSETRON 4 MG/2 ML VIAL IVPUSH ONE (20:35)
[2025-05-06] MEDS: MEROPENEM 1 GM in DEXTROSE 5%-WATER 100 ML IVPB ONE (20:35)
[2025-05-06] MEDS ORDERED: ONDANSETRON 4 MG/2 ML VIAL ONE (20:38)
[2025-05-06 20:53] LABS: ABSOLUTE IMMATURE GRANULOCYTES 0.01 x10^3/uL (0.0-0.031); BASOPHILS # 0.02 x10^3/uL (0.01-0.08); EOSINOPHIL % 0.8 % (0.7-5.8); EOSINOPHILS # 0.04 x10^3/uL (0.04-0.36); MCHC 32.2 g/dl (32.2-35.5); MEAN CELL VOLUME 94.6 fl (79.4-94.8); MEAN PLT VOLUME 9.3 fl (9.4-12.3); MONOCYTE # 0.27 x10^3/uL (0.24-0.86); MONOCYTE % 5.7 % (4.7-12.5); RDW 12.1 % (12.4-16.6)
[2025-05-06 21:12] LABS: GLUCOSE,RANDOM 105.0 mg/dL (74-106)
[2025-05-06 21:13] LABS: TOT PROT 7.4 g/dl (6.4-8.2)
[2025-05-06 21:14] LABS: CO2 24.0 mmol/L (21-32)
[2025-05-06 21:15] LABS: ALK PHOS 137.0 U/L (40-150)
[2025-05-06 21:18] LABS: CREATININE 0.97 mg/dL (0.55-1.3); SGOT/AST 33.0 U/L (5-34); SGPT/ALT 54.0 U/L (0-55)
[2025-05-06 21:59] LABS: URINE APPEARANCE CLEAR; URINE BILIRUBIN NEGATIVE (NEGATIVE); URINE COLOR YELLOW; URINE GLUCOSE (UA) NEGATIVE (NEGATIVE); URINE KETONE NEGATIVE (NEGATIVE); URINE LEUK ESTERASE NEGATIVE (NEGATIVE); URINE NITRITE NEGATIVE (NEGATIVE); URINE PROTEIN NEGATIVE (NEGATIVE); URINE UROBILINOGEN 0.2 mg/dL (0.2-1.0)
[2025-05-07] MEDS: ACETAMINOPHEN 325 MG TABLET (FP) PO ONE ×2 (05:06→22:16)
[2025-05-07 07:08] LABS: ABSOLUTE IMMATURE GRANULOCYTES 0.01 x10^3/uL (0.0-0.031); BASOPHILS # 0.01 x10^3/uL (0.01-0.08); EOSINOPHIL % 0.9 % (0.7-5.8); EOSINOPHILS # 0.04 x10^3/uL (0.04-0.36); MCHC 32.4 g/dl (32.2-35.5); MEAN CELL VOLUME 92.8 fl (79.4-94.8); MEAN PLT VOLUME 9.2 fl (9.4-12.3); MONOCYTE # 0.34 x10^3/uL (0.24-0.86); MONOCYTE % 7.7 % (4.7-12.5); RDW 12.1 % (12.4-16.6)
[2025-05-07 07:32] LABS: GLUCOSE,RANDOM 93.0 mg/dL (74-106)
[2025-05-07 07:33] LABS: CO2 25.0 mmol/L (21-32)
[2025-05-07 07:38] LABS: CREATININE 0.99 mg/dL (0.55-1.3)
[2025-05-07] MEDS: AMITRIPTYLINE HCL 10 MG TABLET PO SCH (10:07)
[2025-05-07] MEDS: ERTAPENEM SODIUM 1 GM in SODIUM CHLORIDE 50 ML IVPB SCH (11:18)
[2025-05-07 15:39] VITALS: RESP 18
[2025-05-07] MEDS: ATORVASTATIN CA 10 MG TABLET (FP) PO SCH (21:05)
[2025-05-07] MEDS: diphenhydrAMINE HCL 25 MG CAPSULE (FP) PO ONE (22:16)
[2025-05-08 08:04] LABS: ABSOLUTE IMMATURE GRANULOCYTES 0.02 x10^3/uL (0.0-0.031); BASOPHILS # 0.01 x10^3/uL (0.01-0.08); EOSINOPHIL % 1.3 % (0.7-5.8); EOSINOPHILS # 0.06 x10^3/uL (0.04-0.36); MCHC 32.6 g/dl (32.2-35.5); MEAN CELL VOLUME 94.6 fl (79.4-94.8); MEAN PLT VOLUME 9.5 fl (9.4-12.3); MONOCYTE # 0.37 x10^3/uL (0.24-0.86); MONOCYTE % 7.9 % (4.7-12.5); RDW 11.9 % (12.4-16.6)
[2025-05-08 08:21] LABS: GLUCOSE,RANDOM 97.0 mg/dL (74-106); TOT PROT 6.7 g/dl (6.4-8.2)
[2025-05-08 08:23] LABS: CO2 29.0 mmol/L (21-32)
[2025-05-08 08:27] LABS: CREATININE 0.82 mg/dL (0.55-1.3); SGOT/AST 21.0 U/L (5-34); SGPT/ALT 39.0 U/L (0-55)
[2025-05-08 08:29] LABS: ALK PHOS 123.0 U/L (40-150)
[2025-05-08] MEDS: AMOX TR/POT CLAV 875MG/125MG TABLETS (FP) PO SCH (09:52)
[2025-05-08] MEDS: FAMOTIDINE 40 MG TABLET PO SCH (13:26)
[2025-05-08] MEDS ORDERED: ACETAMINOPHEN 1000 MG/100 ML BAG IVPB PRN (17:19)
[2025-05-08] MEDS: LACTOBACILLUS ACIDOPHILUS 1 TABLET PO SCH (21:48)
[2025-05-08] MEDS: ZOLPIDEM TARTRATE 5 MG TABLET PO PRN (23:16)
[2025-05-08] MEDS: ACETAMINOPHEN 500 MG TABLET (FP) PO PRN (23:20)
[2025-05-09 06:37] VITALS: TEMP 97.5
[2025-05-09 14:42] VITALS: BP 118/71; PULSE 95
== END 2025-05-09 15:46 | disposition home or self-care (01) | DRG 690 ==
LOC: JER 17:43 → JERBED 22:50 → J8W 05-07 03:53
PROVIDERS: ADMIT Internal Medicine; ATTEND Internal Medicine
DX: N39.0 Urinary tract infection, site not specified (principal); K57.92 Diverticulitis of intestine, part unspecified, without perforation or abscess without bleeding; E78.5 Hyperlipidemia, unspecified; I10 Essential (primary) hypertension; R11.0 Nausea; K21.9 Gastro-esophageal reflux disease without esophagitis; B96.20 Unspecified Escherichia coli [E. coli] as the cause of diseases classified elsewhere; B96.1 Klebsiella pneumoniae [K. pneumoniae] as the cause of diseases classified elsewhere; R10.32 Left lower quadrant pain
CPT/HCPCS: 36415; 80048; 80053; 81003; 83605; 83735; 85025; 87040; 87086; 87324; 87449; 93005; 93010; 99285-25